=== PATIENT | male | born 1940 | race African-American/Black ===

== ENCOUNTER 2016-04-24 17:01 | Inpatient (IN) | payer MEDICARE ==
[2016-04-24] MEDS ORDERED: IPRATROPIUM/ALBUTEROL 0.5-2.5 MG/3 ML AMPUL NEB ONE ×2 (17:06→17:16)
--- NOTE | 2016-04-24 17:08 | ER Document Report ---
ED Medical Screen (RME) - General Stated Complaint: DIFFICULTY BREATHING Time seen by provider: 17:06 Mode of Arrival: Wheelchair Information source: Patient Notes: 75-year-old male history of COPD in obvious severe respiratory distress with tachypnea, wheezing bilaterally, pulse ox is 87%. He was taken immediately to room 10 and placed on oxygen at 2 Lpm, and DuoNeb started. TRAVEL OUTSIDE OF THE [place] IN LAST 30 DAYS: No - Related Data Allergies/Adverse Reactions: No Known Allergies Allergy (Verified 12/08/15 05:29) Past Medical History Pulmonary Medical History: Reports: Hx Asthma, Hx COPD Past Surgical History: Reports: Hx Orthopedic Surgery - back/rupture disc
[2016-04-24] MEDS ORDERED: ALBUTEROL SULFATE 0.083% NEB 2.5 MG/3 ML AMPUL NEB ONE (17:16)
[2016-04-24] MEDS ORDERED: METHYLPREDNISOLONE INJ 125 MG/2 ML SDV IV ONE (17:16)
[2016-04-24 17:49] LABS: PROTHROMBIN TIME 13.5 SEC (11.4-15.4)
[2016-04-24 17:52] LABS: VENOUS BLOOD BASE EXCESS -2.4 mmol/L; VENOUS BLOOD PCO2 46.9 mmHg (35-63); VENOUS BLOOD PH 7.33 (7.30-7.42)
[2016-04-24 18:03] LABS: ALANINE AMINOTRANSFERASE 30 U/L (21-72); ALBUMIN 4.4 g/dL (3.5-5.0); ALKALINE PHOSPHATASE 104 U/L (38-126); ANION GAP 17 (5-19); ASPARTATE AMINO TRANSFERASE 46 U/L (17-59); BILIRUBIN,TOTAL 1.1 mg/dL (0.2-1.3); BLOOD UREA NITROGEN 17 mg/dL (7-20); CALCIUM 9.9 mg/dL (8.4-10.2); CARBON DIOXIDE 24 mmol/L (22-30); CHLORIDE 100 mmol/L (98-107); CREATINE KINASE 311 U/L (55-170); CREATININE RESULT 0.89 mg/dL (0.52-1.25); GLUCOSE 128 mg/dL (75-110); MAGNESIUM 1.9 mg/dL (1.6-2.3); POTASSIUM 4.3 mmol/L (3.6-5.0); SODIUM 140.9 mmol/L (137-145); TOTAL PROTEIN 8.2 g/dL (6.3-8.2)
[2016-04-24 18:12] LABS: HEMATOCRIT 44.6 % (37.9-51.0); HEMOGLOBIN 14.5 g/dL (13.5-17.0); HGB HCT DIFFERENCE -1.1; MEAN CORPUSCULAR HEMOGLOBIN 30.2 pg (27.0-33.4); MEAN CORPUSCULAR HGB CONC 32.4 g/dL (32.0-36.0); MEAN CORPUSCULAR VOLUME 93 fl (80-97); WHITE BLOOD COUNT 15.3 10^3/uL (4.0-10.5)
[2016-04-24 18:15] LABS: BASOPHILS % (MANUAL) 0 % (0-2); EOSINOPHILS % (MANUAL) 13 % (0-6); LYMPHOCYTES % (MANUAL) 61 % (13-45); TOTAL CELLS COUNTED 100
[2016-04-24 18:16] LABS: RBC MORPHOLOGY COMMENT NORMO-CYTIC/CHROMIC
[2016-04-24 18:27] LABS: CREATINE KINASE MB 2.78 ng/mL (<4.55)
[2016-04-24 18:31] LABS: TROPONIN I < 0.012 ng/mL
[2016-04-24] MEDS ORDERED: NORMAL SALINE 1000 ML 500 ML IV ONE (18:42)
[2016-04-24] MEDS ORDERED: NORMAL SALINE 1000 ML 1,000 ML IV ONE (18:42)
[2016-04-24] MEDS ORDERED: DOXYCYCLINE HYCLATE INJ 100 MG VIAL IV ONE (20:27)
--- NOTE | 2016-04-24 21:02 | ER Document Report ---
ED General - General Chief Complaint: Respiratory Distress Stated Complaint: DIFFICULTY BREATHING Mode of Arrival: Wheelchair TRAVEL OUTSIDE OF THE [place] IN LAST 30 DAYS: No - HPI Patient complains to provider of: respiratory distress difficulty breathing Notes: Patient presents the EMS for respiratory distress difficulty breathing. Upon arrival patient has retractions and accessory muscle use tachypnea tachycardia is able to take his head denying any pain patient has a proximally 2 word dyspnea therefore history of present illness is difficult to obtain this time why can gather patient's short of breath ongoing for last 4-5 days productive cough worse acutely prior to arrival does have history COPD no travel no recent antibiotics no fevers - Related Data Allergies/Adverse Reactions: No Known Allergies Allergy (Verified 04/24/16 17:41) Past Medical History - General Information source: Patient - Social History Smoking Status: Unknown if Ever Smoked Chew tobacco use (# tins/day): No Frequency of alcohol use: None Drug Abuse: None Family History: Reviewed & Not Pertinent Patient has suicidal ideation: No Patient has homicidal ideation: No Pulmonary Medical History: Reports: Hx Asthma, Hx COPD Renal/ Medical History: Denies: Hx Peritoneal Dialysis Past Surgical History: Reports: Hx Orthopedic Surgery - back/rupture disc Review of Systems - Review of Systems -: Yes ROS unobtainable due to patient's medical condition - Patient with respiratory distress Physical Exam - Vital signs Vitals: Pulse Pulse Ox 126 H 92 04/24/16 17:05 04/24/16 17:05 Interpretation: Tachycardic, Tachypneic - General General appearance: Other - Respiratory distress looks uncomfortable In distress: Moderate - HEENT Head: Normocephalic, Atraumatic Eyes: Normal Pupils: PERRL - Respiratory Respiratory status: Respiratory distress - Moderate, Retractions, Tachypnea Chest status: Nontender Breath sounds: Decreased air movement, Wheezing Chest palpation: Normal - Cardiovascular Rhythm: Tachycardia Heart sounds: Normal auscultation Murmur: No - Abdominal Inspection: Normal Distension: No distension Bowel sounds: Normal Tenderness: Nontender Organomegaly: No organomegaly - Back Back: Normal, Nontender - Extremities General upper extremity: Normal inspection, Nontender, Normal color, Normal ROM , Normal temperature General lower extremity: Normal inspection, Nontender, Normal color, Normal ROM , Normal temperature, Normal weight bearing. No: Dalton's sign - Neurological Neuro grossly intact: Yes Cognition: Normal Orientation: AAOx4 [place] Coma Scale Eye Opening: Spontaneous [place] Coma Scale Verbal: Oriented [place] Coma Scale Motor: Obeys Commands [place] Coma Scale Total: 15 Speech: Normal Motor strength normal: LUE, RUE, LLE, RLE Sensory: Normal - Psychological Associated symptoms: Normal affect, Normal mood - Skin Skin Temperature: Warm Skin Moisture: Dry Skin Color: Normal Course - Re-evaluation Re-evalutation: 04/24/16 23:07 Patient is post on BiPAP given nebulizer treatment steroids. Chest x-ray shows has COPD due to the leukocytosis and productive cough will start the patient doxycycline. Patient feeling much better upon reevaluation. No signs of hypercapnia. Patient's case was discussed with covering PCP Dr. Jeffery will admit for further evaluation. - Vital Signs Vital signs: Temp Pulse Resp BP Pulse Ox 98.8 F 118 H 15 130/75 H 100 04/24/16 22:33 04/24/16 17:20 04/24/16 22:33 04/24/16 22:33 04/24/16 22:33 - Laboratory Result Diagrams: 04/24/16 17:10 04/24/16 17:10 Laboratory results interpreted by me: 04/24/16 04/24/16 17:10 17:10 WBC 15.3 H Seg Neuts % (Manual) 22 L Lymphocytes % (Manual) 61 H Eosinophils % (Manual) 13 H Abs Lymphs (Manual) 9.5 H Absolute Eos (Manual) 2.0 H Glucose 128 H Creatine Kinase 311 H Critical Care Note - Critical Care Note Total time excluding time spent on procedures (mins): 40 Comments: Multiple reevaluation patient on BiPAP and respiratory distress Discharge - Discharge Clinical Impression: COPD with acute exacerbation, Respiratory distress, Tachycardia Disposition: ADMITTED INPATIENT Admitting Provider: Lizeth Jeffery Unit Admitted: [facility]
--- NOTE | 2016-04-24 21:48 | EKG REPORT ---
SEVERITY:- ABNORMAL ECG - SINUS TACHYCARDIA PROBABLE LEFT ATRIAL ABNORMALITY LEFT VENTRICULAR HYPERTROPHY ANTERIOR ST ELEVATION, PROBABLY DUE TO LVH : Confirmed by: Krishna Martines MD 24-Apr-2016 21:48:00
[2016-04-24] MEDS ORDERED: BENZONATATE 100 MG CAPSULE PO PRN (22:26)
[2016-04-24] MEDS ORDERED: IPRATROPIUM/ALBUTEROL 120 PUFF/4 GM MDI IH PRN (22:26)
[2016-04-24 22:45] LABS: LIPASE 177.6 U/L (23-300)
[2016-04-24] MEDS ORDERED: BUDESONIDE/FORMOTEROL 160-4.5 MCG 60 PUFF/6 GM MDI IH ONE (23:00)
[2016-04-24] MEDS ORDERED: LEVOFLOXACIN 750 MG/D5W RTU 750 MG/150 ML RTUPB IV ONE (23:00)
[2016-04-24 23:16] LABS: THYROID STIMULATING HORMONE 2.08 uIU/mL (0.47-4.68)
[2016-04-25] MEDS ORDERED: BUDESONIDE/FORMOTEROL 160-4.5 MCG 60 PUFF/6 GM MDI IH ONE ×2 (02:03→17:45)
[2016-04-25] MEDS: METHYLPREDNISOLONE INJ 125 MG/2 ML SDV IV SCH ×3 (02:23→17:16)
[2016-04-25 04:36] LABS: APPEARANCE,URINE CLEAR; BILIRUBIN,URINE NEGATIVE (NEGATIVE); GLUCOSE, URINE NEGATIVE (NEGATIVE); KETONES,URINE 20 mg/dL (NEGATIVE); LEUKOCYTE ESTERASE,URINE NEGATIVE (NEGATIVE); NITRITE,URINE NEGATIVE (NEGATIVE); PROTEIN,URINE NEGATIVE (NEGATIVE); UROBILINOGEN,URINE NEGATIVE mg/dL (<2.0)
[2016-04-25 04:54] LABS: URINE BARBITURATES SCREEN NEGATIVE; URINE METHADONE SCREEN NEGATIVE; URINE PHENCYCLIDINE SCREEN NEGATIVE
[2016-04-25 06:02] LABS: ABSOLUTE LYMPHOCYTES (AUTO) 0.9 10^3/uL (0.5-4.7); ABSOLUTE MONOCYTES (AUTO) 0.1 10^3/uL (0.1-1.4); ABSOLUTE NEUT (AUTO) 4.1 10^3/uL (1.7-8.2); BASOPHILS % (AUTO) 0.4 % (0-2); EOSINOPHILS % (AUTO) 0.1 % (0-6); HEMATOCRIT 38.5 % (37.9-51.0); HGB HCT DIFFERENCE 0.5; LYMPHOCYTES % (AUTO) 16.8 % (13-45); MEAN CORPUSCULAR HGB CONC 33.7 g/dL (32.0-36.0); MEAN CORPUSCULAR VOLUME 92 fl (80-97); MONOCYTES % (AUTO) 1.6 % (3-13); RED CELL DISTRIBUTION WIDTH 13.8 % (11.5-14.0); SEGMENTED NEUTROPHILS % (AUTO) 81.1 % (42-78); WHITE BLOOD COUNT 5.1 10^3/uL (4.0-10.5)
[2016-04-25 06:31] LABS: ALANINE AMINOTRANSFERASE 33 U/L (21-72); ALBUMIN 3.8 g/dL (3.5-5.0); ALKALINE PHOSPHATASE 84 U/L (38-126); ANION GAP 14 (5-19); ASPARTATE AMINO TRANSFERASE 39 U/L (17-59); BILIRUBIN,TOTAL 0.8 mg/dL (0.2-1.3); BLOOD UREA NITROGEN 17 mg/dL (7-20); CALCIUM 9.4 mg/dL (8.4-10.2); CARBON DIOXIDE 22 mmol/L (22-30); CHLORIDE 105 mmol/L (98-107); CREATININE RESULT 0.74 mg/dL (0.52-1.25); Direct HDL 40 mg/dL (>40); GLUCOSE 179 mg/dL (75-110); POTASSIUM 4.6 mmol/L (3.6-5.0); SODIUM 141.1 mmol/L (137-145); TOTAL PROTEIN 6.7 g/dL (6.3-8.2); TRIGLYCERIDES 39 mg/dL (<150)
[2016-04-25 06:43] LABS: DIRECT LDL 115 mg/dL (<100)
[2016-04-25] MEDS: ENOXAPARIN SODIUM INJ 40 MG/0.4 ML DISP.SYRIN SUBCUT SCH (07:56)
[2016-04-25] MEDS: BUDESONIDE/FORMOTEROL 160-4.5 MCG 60 PUFF/6 GM MDI IH SCH ×2 (09:24→22:27)
[2016-04-25] MEDS: DILTIAZEM HCL 180 MG CAPSULE.CR PO SCH (09:24)
[2016-04-25] MEDS: IPRATROPIUM/ALBUTEROL 0.5-2.5 MG/3 ML AMPUL NEB PRN (10:54)
[2016-04-25] MEDS ORDERED: BENZONATATE 100 MG CAPSULE PO PRN (17:02)
[2016-04-25] MEDS ORDERED: (PENDING PHARMACY ID) (Albuterol Sulfate [Proair Respiclick] 2 PUFF) IH PRN (17:02)
[2016-04-25] MEDS ORDERED: (PENDING PHARMACY ID) (Mometasone Furoate [Nasonex] 2 SPRAYS) NS PRN (17:02)
--- NOTE | 2016-04-25 17:29 | PDOC H&P ---
History of Present Illness Admission Date/PCP: 04/24/16 22:29 SOTO LUJAN History of Present Illness: CRISTOBAL BLACK is a 75 year old male, patient of Dr. Lujan, he came to the emergency room because of respiratory distress, shortness of breath, in the emergency room he was evaluated he was found to be using accessory muscles of respiration to breathe. He was treated with noninvasive positive pressure ventilation, BiPAP machine. When I saw patient was a short of breath, CTA chest was done without contrast. This showed a clear left lung. There was mild scarring in the right middle lobe which is much improved from there is minimal patchy nodular area has a persistent infiltrate in the right upper lobe and the right lower lobe Past Medical History Pulmonary Medical History: Reports: Asthma, Chronic Obstructive Pulmonary Disease (COPD) Psychiatric Medical History: Reports: Depression Past Surgical History Past Surgical History: Reports: Orthopedic Surgery - back/rupture disc Social History Information Source: Patient Smoking Status: Former Smoker Last Time Smoked: 04-04-1966 Frequency of Alcohol Use: None Hx Recreational Drug Use: No Hx Prescription Drug Abuse: No - Advance Directive Resuscitation Status: Full Code Family History Family History: Reviewed & Not Pertinent Parental Family History Reviewed: Yes Children Family History Reviewed: Yes Sibling(s) Family History Reviewed.: Yes Medication/Allergy Home Medications: Albuterol Sulfate [Proair Respiclick] 2 puff IH Q4HP PRN 04/25/16 Benzonatate [Tessalon Perles 100 mg Capsule] 100 mg PO Q8HP PRN 04/25/16 Budesonide/Formoterol Fumarate [Symbicort Hfa 160-4.5 Mcg Inhaler 6 gm] 2 puff IH Q12 04/25/16 Megestrol Acetate [Megace] 400 mg PO BID 04/25/16 Mometasone Furoate [Nasonex] 2 sprays NS DAILYP PRN 04/25/16 Allergies/Adverse Reactions: No Known Allergies Allergy (Verified 04/24/16 17:41) Review of Systems Constitutional: PRESENT: chills Eyes: ABSENT: visual disturbances Ears: ABSENT: hearing changes Cardiovascular: ABSENT: chest pain, dyspnea on exertion, edema, orthropnea, palpitations Respiratory: PRESENT: cough Gastrointestinal: ABSENT: abdominal pain, constipation, diarrhea, hematemesis, hematochezia, nausea, vomiting Genitourinary: ABSENT: dysuria, hematuria Musculoskeletal: ABSENT: joint swelling Integumentary: ABSENT: rash, wounds Neurological: ABSENT: abnormal gait, abnormal speech, confusion, dizziness, focal weakness, syncope Psychiatric: ABSENT: anxiety, depression, homidical ideation, suicidal ideation Endocrine: ABSENT: cold intolerance, heat intolerance, menstrual abnormalities, polydipsia, polyuria Hematologic/Lymphatic: ABSENT: easy bleeding, easy bruising, lymphadenopathy Physical Exam Vital Signs: Temp Pulse Resp BP Pulse Ox 98.1 F 102 H 19 112/64 100 04/25/16 15:53 04/25/16 15:53 04/25/16 15:53 04/25/16 15:53 04/25/16 15:53 Intake & Output 04/24/16 04/25/16 04/26/16 06:59 06:59 06:59 Intake Total 300 418 Output Total 375 425 Balance -75 -7 Weight 64.4 kg General appearance: PRESENT: severe distress Head exam: PRESENT: atraumatic, normocephalic Ear exam: PRESENT: normal external ear exam Mouth exam: PRESENT: moist, tongue midline Neck exam: PRESENT: full ROM Respiratory exam: PRESENT: wheezes Cardiovascular exam: PRESENT: RRR, +S1, +S2 Vascular exam: PRESENT: normal capillary refill GI/Abdominal exam: PRESENT: normal bowel sounds, soft Rectal exam: PRESENT: deferred Neurological exam: PRESENT: alert, awake, oriented to person, oriented to place , oriented to time, oriented to situation, CN II-XII grossly intact Psychiatric exam: PRESENT: appropriate affect, normal mood Skin exam: PRESENT: dry, intact, warm Results Laboratory Results: 04/25/16 05:47 04/25/16 05:47 04/24/16 04/25/16 04/25/16 22:32 01:00 05:47 WBC 5.1 RBC 4.20 L Hgb 13.0 L Hct 38.5 MCV 92 MCH 31.0 MCHC 33.7 RDW 13.8 Plt Count 181 Seg Neutrophils % 81.1 H Lymphocytes % 16.8 Monocytes % 1.6 L Eosinophils % 0.1 Basophils % 0.4 Absolute Neutrophils 4.1 Absolute Lymphocytes 0.9 Absolute Monocytes 0.1 Absolute Eosinophils 0.0 Absolute Basophils 0.0 Sodium Potassium Chloride Carbon Dioxide Anion Gap BUN Creatinine Est GFR ( Amer) Est GFR (Non-Af Amer) Glucose Lactic Acid 0.8 Calcium Total Bilirubin AST ALT Alkaline Phosphatase Total Protein Albumin Triglycerides Cholesterol LDL Cholesterol Direct VLDL Cholesterol HDL Cholesterol Urine Color YELLOW Urine Appearance CLEAR Urine pH 5.0 Ur Specific Watkins 1.010 Urine Protein NEGATIVE Urine Glucose (UA) NEGATIVE Urine Ketones 20 H Urine Blood NEGATIVE Urine Nitrite NEGATIVE Ur Leukocyte Esterase NEGATIVE Urine WBC (Auto) 1 04/25/16 05:47 WBC RBC Hgb Hct MCV MCH MCHC RDW Plt Count Seg Neutrophils % Lymphocytes % Monocytes % Eosinophils % Basophils % Absolute Neutrophils Absolute Lymphocytes Absolute Monocytes Absolute Eosinophils Absolute Basophils Sodium 141.1 Potassium 4.6 Chloride 105 Carbon Dioxide 22 Anion Gap 14 BUN 17 Creatinine 0.74 Est GFR ( Amer) > 60 Est GFR (Non-Af Amer) > 60 Glucose 179 H Lactic Acid Calcium 9.4 Total Bilirubin 0.8 AST 39 ALT 33 Alkaline Phosphatase 84 Total Protein 6.7 Albumin 3.8 Triglycerides 39 Cholesterol 166.60 LDL Cholesterol Direct 115 H VLDL Cholesterol 8.0 L HDL Cholesterol 40 Urine Color Urine Appearance Urine pH Ur Specific Watkins Urine Protein Urine Glucose (UA) Urine Ketones Urine Blood Urine Nitrite Ur Leukocyte Esterase Urine WBC (Auto) 04/24/16 22:32 Troponin I 0.175 Impressions: Chest X-Ray 04/24/16 17:16 IMPRESSION: Findings suggestive obstructive airway disease. Chronic mild parenchymal changes noted in both lung bases. No focal opacities. Chest CT 04/25/16 00:00 IMPRESSION: Much improved, as above. Right middle lobe cyst no longer identified. Areas of nodular infiltrate are much improved. Assessment & Plan - Diagnosis (1) Chronic obstructive pulmonary disease with (acute) exacerbation Is this a current diagnosis for this admission?: YesPlan: Patient is admitted for management of acute COPD exacerbation
[2016-04-25] MEDS: MEGESTROL ACETATE SUSP 400 MG/10 ML UDCUP PO SCH (17:41)
[2016-04-25] MEDS ORDERED: FLUTICASONE NASAL SPRAY 50 MCG/SPRY 120 SPRAY/16 GM NASL PRN ×2 (21:56→22:00)
[2016-04-25] MEDS: LEVOFLOXACIN 750 MG/D5W RTU 750 MG/150 ML RTUPB IV SCH (22:27)
[2016-04-26] MEDS: METHYLPREDNISOLONE INJ 125 MG/2 ML SDV IV SCH ×2 (02:54→10:02)
[2016-04-26 05:55] LABS: ABSOLUTE MONOCYTES (AUTO) 0.3 10^3/uL (0.1-1.4); ABSOLUTE NEUT (AUTO) 12.1 10^3/uL (1.7-8.2); BASOPHILS % (AUTO) 0.2 % (0-2); EOSINOPHILS % (AUTO) 0.1 % (0-6); HEMATOCRIT 39.7 % (37.9-51.0); HEMOGLOBIN 12.7 g/dL (13.5-17.0); HGB HCT DIFFERENCE -1.6; LYMPHOCYTES % (AUTO) 7.2 % (13-45); MEAN CORPUSCULAR HEMOGLOBIN 29.8 pg (27.0-33.4); MEAN CORPUSCULAR HGB CONC 31.9 g/dL (32.0-36.0); MEAN CORPUSCULAR VOLUME 94 fl (80-97); MONOCYTES % (AUTO) 2.3 % (3-13); RED BLOOD COUNT 4.24 10^6/uL (4.35-5.55); RED CELL DISTRIBUTION WIDTH 14.1 % (11.5-14.0); SEGMENTED NEUTROPHILS % (AUTO) 90.2 % (42-78)
[2016-04-26 06:13] LABS: WHITE BLOOD COUNT 13.4 10^3/uL (4.0-10.5)
[2016-04-26 07:41] LABS: ALBUMIN 3.3 g/dL (3.5-5.0); ALKALINE PHOSPHATASE 74 U/L (38-126); ANION GAP 9 (5-19); ASPARTATE AMINO TRANSFERASE 45 U/L (17-59); BILIRUBIN,TOTAL 0.6 mg/dL (0.2-1.3); BLOOD UREA NITROGEN 23 mg/dL (7-20); CALCIUM 9.3 mg/dL (8.4-10.2); CARBON DIOXIDE 27 mmol/L (22-30); CHLORIDE 105 mmol/L (98-107); CREATININE RESULT 0.84 mg/dL (0.52-1.25); GLUCOSE 168 mg/dL (75-110); POTASSIUM 4.1 mmol/L (3.6-5.0); SODIUM 140.9 mmol/L (137-145); TOTAL PROTEIN 6.5 g/dL (6.3-8.2)
[2016-04-26 08:27] LABS: ALANINE AMINOTRANSFERASE 30 U/L (21-72)
[2016-04-26] MEDS ORDERED: ALBUTEROL SULFATE HFA (90 MCG/PUFF) 200 PUFF/8.5 GM MDI IH PRN (09:04)
[2016-04-26] MEDS ORDERED: BUDESONIDE/FORMOTEROL 160-4.5 MCG 60 PUFF/6 GM MDI IH SCH (10:00)
[2016-04-26] MEDS: DILTIAZEM HCL 180 MG CAPSULE.CR PO SCH (10:02)
[2016-04-26] MEDS: MEGESTROL ACETATE SUSP 400 MG/10 ML UDCUP PO SCH ×2 (10:03→18:38)
[2016-04-26] MEDS: BUDESONIDE/FORMOTEROL 160-4.5 MCG 60 PUFF/6 GM MDI IH SCH ×2 (10:03→23:11)
[2016-04-26] MEDS: ENOXAPARIN SODIUM INJ 40 MG/0.4 ML DISP.SYRIN SUBCUT SCH (10:11)
[2016-04-26] MEDS: IPRATROPIUM/ALBUTEROL 0.5-2.5 MG/3 ML AMPUL NEB PRN (16:15)
--- NOTE | 2016-04-26 18:05 | PDOC PROGRESS REPORT ---
Subjective Progress Note for:: 04/26/16 Subjective:: Patient reported comparative improvement in his breathing since admission. Denied chest pain. No nausea or vomiting. Tolerating oral feeding. Patient reported poor appetite and po intake prior to admission and inability to procure prescribed megace due to insurance coverage denial. He remain on IV Levofloxacin and Solu Medrol therapy along with bronchodilator therapy. Physical Exam Vital Signs: Temp Pulse Resp BP Pulse Ox 98.6 F 100 18 147/68 H 99 04/26/16 15:53 04/26/16 16:15 04/26/16 16:15 04/26/16 15:53 04/26/16 16:15 Intake & Output 04/25/16 04/26/16 04/27/16 06:59 06:59 06:59 Intake Total 300 1871 480 Output Total 375 1725 650 Balance -75 146 -170 Weight 64.4 kg 64 kg General appearance: PRESENT: no acute distress, cooperative Head exam: PRESENT: atraumatic, normocephalic Eye exam: PRESENT: conjunctiva pink, EOMI, other - right eye corneal opacification. Mouth exam: PRESENT: moist Respiratory exam: PRESENT: crackles - scattered, decreased breath sounds - at lung bases, rhonchi - expiratory phase Cardiovascular exam: PRESENT: RRR. ABSENT: diastolic murmur, rubs, systolic murmur GI/Abdominal exam: PRESENT: normal bowel sounds, soft. ABSENT: distended, guarding, mass, organolmegaly, rebound, tenderness Extremities exam: PRESENT: full ROM Musculoskeletal exam: PRESENT: deformity - due to arthritis changes, full ROM Neurological exam: PRESENT: alert, oriented to person, oriented to place, oriented to time, motor sensory deficit Psychiatric exam: PRESENT: appropriate affect, normal mood. ABSENT: homicidal ideation, suicidal ideation Skin exam: PRESENT: dry, warm. ABSENT: abrasion, cyanosis, erythema, intact, jaundice, mottled, normal color, pallor, petechiae, rash, skin tears, urticaria , vesicles, other Results Laboratory Results: 04/26/16 05:24 04/26/16 06:59 04/26/16 04/26/16 04/26/16 05:24 05:29 06:59 WBC 13.4 H D RBC 4.24 L Hgb 12.7 L Hct 39.7 MCV 94 MCH 29.8 MCHC 31.9 L RDW 14.1 H Plt Count 155 Seg Neutrophils % 90.2 H Lymphocytes % 7.2 L Monocytes % 2.3 L Eosinophils % 0.1 Basophils % 0.2 Absolute Neutrophils 12.1 H Absolute Lymphocytes 1.0 Absolute Monocytes 0.3 Absolute Eosinophils 0.0 Absolute Basophils 0.0 Sodium Cancelled 140.9 Potassium Cancelled 4.1 Chloride Cancelled 105 Carbon Dioxide Cancelled 27 Anion Gap Cancelled 9 BUN Cancelled 23 H Creatinine Cancelled 0.84 Est GFR ( Amer) Cancelled > 60 Est GFR (Non-Af Amer) Cancelled > 60 Glucose Cancelled 168 H Calcium Cancelled 9.3 Total Bilirubin Cancelled 0.6 AST Cancelled 45 ALT Cancelled 30 Alkaline Phosphatase Cancelled 74 Total Protein Cancelled 6.5 Albumin Cancelled 3.3 L 04/25/16 10:10 Sputum Gram Stain - Final 04/25/16 10:10 Sputum Sputum Culture - Final 04/24/16 22:32 Troponin I 0.175 Impressions: Chest X-Ray 04/24/16 17:16 IMPRESSION: Findings suggestive obstructive airway disease. Chronic mild parenchymal changes noted in both lung bases. No focal opacities. Chest CT 04/25/16 00:00 IMPRESSION: Much improved, as above. Right middle lobe cyst no longer identified. Areas of nodular infiltrate are much improved. Assessment & Plan - Diagnosis (1) COPD with acute exacerbation Is this a current diagnosis for this admission?: Yes (2) Generalized osteoarthrosis, involving multiple sites Is this a current diagnosis for this admission?: Yes (3) Protein-calorie malnutrition, mild Is this a current diagnosis for this admission?: YesPlan: I will decrease IV solu medrol due to associated worsening leukocytosis, probably due to steroid usage. Continue on all other current medication management. - Time Time Spent with patient: 25-34 minutes Medications reviewed and adjusted accordingly: Yes Anticipated discharge: Home with Homehealth Within: Other - Inpatient Certification Based on my medical assessment, after consideration of the patient's comorbidities, presenting symptoms, or acuity I expect that the services needed warrant INPATIENT care.: Yes I certify that my determination is in accordance with my understanding of Medicare's requirements for reasonable and necessary INPATIENT services [42 CFR 412.3e].: Yes Medical Necessity: Need For IV Fluids, Need For Continuous Telemetry Monitoring , Need for Nebulizer Therapy and Monitoring of Response, Need for IV Antibiotics , Risk of Complication if Not Cared For in Hospital Post Hospital Care: D/C Knockout Man Documentation - Plan Summary Plan Summary: See attending orders.
[2016-04-26] MEDS ORDERED: METHYLPREDNISOLONE INJ 125 MG/2 ML SDV IV ONE (18:30)
[2016-04-26] MEDS: LEVOFLOXACIN 750 MG/D5W RTU 750 MG/150 ML RTUPB IV SCH (23:10)
[2016-04-27] MEDS: IPRATROPIUM/ALBUTEROL 0.5-2.5 MG/3 ML AMPUL NEB PRN ×2 (00:52→11:15)
[2016-04-27] MEDS: METHYLPREDNISOLONE INJ 125 MG/2 ML SDV IV SCH ×3 (01:19→18:27)
[2016-04-27 06:39] LABS: HEMATOCRIT 38.8 % (37.9-51.0); HGB HCT DIFFERENCE 0.2; MEAN CORPUSCULAR HEMOGLOBIN 30.6 pg (27.0-33.4); MEAN CORPUSCULAR HGB CONC 33.6 g/dL (32.0-36.0); MEAN CORPUSCULAR VOLUME 91 fl (80-97); RED BLOOD COUNT 4.25 10^6/uL (4.35-5.55); RED CELL DISTRIBUTION WIDTH 13.7 % (11.5-14.0); WHITE BLOOD COUNT 12.3 10^3/uL (4.0-10.5)
[2016-04-27 06:43] LABS: ALANINE AMINOTRANSFERASE 42 U/L (21-72); ALBUMIN 3.3 g/dL (3.5-5.0); ALKALINE PHOSPHATASE 81 U/L (38-126); ANION GAP 9 (5-19); ASPARTATE AMINO TRANSFERASE 34 U/L (17-59); BILIRUBIN,TOTAL 0.5 mg/dL (0.2-1.3); BLOOD UREA NITROGEN 20 mg/dL (7-20); CARBON DIOXIDE 31 mmol/L (22-30); CHLORIDE 103 mmol/L (98-107); CREATININE RESULT 0.75 mg/dL (0.52-1.25); GLUCOSE 167 mg/dL (75-110); POTASSIUM 3.7 mmol/L (3.6-5.0); SODIUM 142.5 mmol/L (137-145)
[2016-04-27 07:32] LABS: BASOPHILS % (MANUAL) 0 % (0-2); EOSINOPHILS % (MANUAL) 0 % (0-6); HYPOCHROMASIA SLIGHT; LYMPHOCYTES % (MANUAL) 8 % (13-45); POLYCHROMASIA SLIGHT; TOTAL CELLS COUNTED 100
[2016-04-27] MEDS ORDERED: LEVOFLOXACIN 750 MG TABLET PO SCH (10:00)
--- NOTE | 2016-04-27 12:17 | PDOC PROGRESS REPORT ---
Subjective Progress Note for:: 04/27/16 Subjective:: Patient reported minimal wheezing so far today. Denied chest pain. No nausea or vomiting. Tolerating oral feeding. He remain on IV Levofloxacin, IV Solu Medrol and bronchodilator therapy. Physical Exam Vital Signs: Temp Pulse Resp BP Pulse Ox 98.3 F 110 H 16 135/74 H 95 04/27/16 07:42 04/27/16 11:15 04/27/16 11:15 04/27/16 07:42 04/27/16 11:15 Intake & Output 04/26/16 04/27/16 04/28/16 06:59 06:59 06:59 Intake Total 1871 1972 Output Total 1725 2425 Balance 146 -453 Weight 64 kg 64.2 kg General appearance: PRESENT: no acute distress Head exam: PRESENT: atraumatic, normocephalic Eye exam: PRESENT: conjunctiva pink, EOMI, other - right corneal opacification Mouth exam: PRESENT: moist Respiratory exam: PRESENT: decreased breath sounds - at lung bases, rhonchi - with end expiratory phase bilaterally. ABSENT: accessory muscle use, chest wall tenderness, clear to auscultation silvina, crackles, prolonged expiratory phas , rales, retraction, stridor, symmetrical, tachypnea, unlabored, wheezes, other Cardiovascular exam: PRESENT: tachycardia. ABSENT: bradycardia, clicks, diastolic murmur, gallop, irregular rhythm, RRR, rubs, +S1, +S2, systolic murmur , other GI/Abdominal exam: PRESENT: normal bowel sounds, soft. ABSENT: distended, guarding, mass, organolmegaly, rebound, tenderness Extremities exam: PRESENT: full ROM Musculoskeletal exam: PRESENT: deformity - due to multiple joints involvement with arthritis Neurological exam: PRESENT: alert, awake, oriented to person, oriented to place , oriented to time, oriented to situation, CN II-XII grossly intact. ABSENT: motor sensory deficit Psychiatric exam: PRESENT: appropriate affect, normal mood. ABSENT: homicidal ideation, suicidal ideation Skin exam: PRESENT: dry, warm. ABSENT: abrasion, cyanosis, erythema, intact, jaundice, mottled, normal color, pallor, petechiae, rash, skin tears, urticaria , vesicles, other Results Laboratory Results: 04/27/16 05:30 04/27/16 05:30 04/27/16 04/27/16 05:30 05:30 WBC 12.3 H RBC 4.25 L Hgb 13.0 L Hct 38.8 MCV 91 MCH 30.6 MCHC 33.6 RDW 13.7 Plt Count 156 Seg Neutrophils % Not Reportable Lymphocytes % Not Reportable Monocytes % Not Reportable Eosinophils % Not Reportable Basophils % Not Reportable Absolute Neutrophils Not Reportable Absolute Lymphocytes Not Reportable Absolute Monocytes Not Reportable Absolute Eosinophils Not Reportable Absolute Basophils Not Reportable Sodium 142.5 Potassium 3.7 Chloride 103 Carbon Dioxide 31 H Anion Gap 9 BUN 20 Creatinine 0.75 Est GFR ( Amer) > 60 Est GFR (Non-Af Amer) > 60 Glucose 167 H Calcium 9.0 Total Bilirubin 0.5 AST 34 ALT 42 Alkaline Phosphatase 81 Total Protein 6.0 L Albumin 3.3 L 04/25/16 01:00 Clean Catch Midstream Urine Culture - Final NO GROWTH 2 DAYS 04/25/16 10:10 Sputum Gram Stain - Final 04/25/16 10:10 Sputum Sputum Culture - Final 04/24/16 22:32 Troponin I 0.175 Impressions: Chest X-Ray 04/24/16 17:16 IMPRESSION: Findings suggestive obstructive airway disease. Chronic mild parenchymal changes noted in both lung bases. No focal opacities. Chest CT 04/25/16 00:00 IMPRESSION: Much improved, as above. Right middle lobe cyst no longer identified. Areas of nodular infiltrate are much improved. Assessment & Plan - Diagnosis (1) COPD with acute exacerbation Is this a current diagnosis for this admission?: YesPlan: Decrease IV Solu Medrol to 80 mg [id number]. Maintain on all other current medication management. (2) Generalized osteoarthrosis, involving multiple sites Is this a current diagnosis for this admission?: Yes (3) Protein-calorie malnutrition, mild Is this a current diagnosis for this admission?: YesPlan: Decrease dose to 400 mg p.o daily. (4) Tachycardia Is this a current diagnosis for this admission?: YesPlan: Probably related to patient's hypoxemia but not adequately controlled on current dose of Cardizem. I will increase dosage to 120 mg p.o q12 hours. - Time Time Spent with patient: 25-34 minutes Medications reviewed and adjusted accordingly: Yes Anticipated discharge: SNF - for short term rehabilitation Within: Other - Inpatient Certification Based on my medical assessment, after consideration of the patient's comorbidities, presenting symptoms, or acuity I expect that the services needed warrant INPATIENT care.: Yes I certify that my determination is in accordance with my understanding of Medicare's requirements for reasonable and necessary INPATIENT services [42 CFR 412.3e].: Yes Medical Necessity: Need Close Monitoring Due to Risk of Patient Decompensation, Need For IV Fluids, Need For Continuous Telemetry Monitoring, Need for Nebulizer Therapy and Monitoring of Response, Need for IV Antibiotics, Risk of Complication if Not Cared For in Hospital Post Hospital Care: D/C or Transfer Summary - Plan Summary Plan Summary: see attending physician orders.
[2016-04-27] MEDS: BUDESONIDE/FORMOTEROL 160-4.5 MCG 60 PUFF/6 GM MDI IH SCH ×2 (12:55→22:17)
[2016-04-27] MEDS: ENOXAPARIN SODIUM INJ 40 MG/0.4 ML DISP.SYRIN SUBCUT SCH (13:09)
[2016-04-27] MEDS: DILTIAZEM HCL 120 MG CAP.SR.24H PO SCH (22:17)
[2016-04-27] MEDS: LEVOFLOXACIN 750 MG TABLET PO SCH (22:17)
[2016-04-28] MEDS: METHYLPREDNISOLONE INJ 125 MG/2 ML SDV IV SCH ×3 (01:54→21:32)
[2016-04-28] MEDS: MEGESTROL ACETATE SUSP 400 MG/10 ML UDCUP PO SCH (10:45)
[2016-04-28] MEDS: DILTIAZEM HCL 120 MG CAP.SR.24H PO SCH (10:45)
[2016-04-28] MEDS: ENOXAPARIN SODIUM INJ 40 MG/0.4 ML DISP.SYRIN SUBCUT SCH (10:46)
[2016-04-28] MEDS: BUDESONIDE/FORMOTEROL 160-4.5 MCG 60 PUFF/6 GM MDI IH SCH ×2 (10:46→21:31)
--- NOTE | 2016-04-28 13:39 | PDOC PROGRESS REPORT ---
Subjective Progress Note for:: 04/28/16 Subjective:: No chest pain. Breathing is getting better comparatively. No nausea or vomiting. Patient reported occasional epigastric region discomfort and reflux. Tolerating oral feeding. He remain on Levofloxacin, IV Solu Medrol and bronchodilators therapy. Physical Exam Vital Signs: Temp Pulse Resp BP Pulse Ox 98.4 F 103 H 18 136/75 H 100 04/28/16 08:18 04/28/16 08:18 04/28/16 08:18 04/28/16 08:18 04/28/16 08:18 Intake & Output 04/27/16 04/28/16 04/29/16 06:59 06:59 06:59 Intake Total 1971 2059 Output Total 2424 2024 Balance -453 35 Weight 64.2 kg 63.8 kg General appearance: PRESENT: no acute distress Head exam: PRESENT: atraumatic, normocephalic Eye exam: PRESENT: conjunctiva pink, other - right corneal opacification Mouth exam: PRESENT: moist Respiratory exam: PRESENT: rhonchi - end expiratory phase, wheezes - end expiratory phase Cardiovascular exam: PRESENT: tachycardia. ABSENT: bradycardia, clicks, diastolic murmur, gallop, irregular rhythm, RRR, rubs, +S1, +S2, systolic murmur , other GI/Abdominal exam: PRESENT: normal bowel sounds, soft. ABSENT: distended, guarding, mass, organolmegaly, rebound, tenderness Extremities exam: PRESENT: full ROM Musculoskeletal exam: PRESENT: deformity - due to multiple joints arthritis involvement Neurological exam: PRESENT: alert, awake, oriented to person, oriented to place , oriented to time, oriented to situation, CN II-XII grossly intact. ABSENT: motor sensory deficit Psychiatric exam: PRESENT: appropriate affect, normal mood. ABSENT: homicidal ideation, suicidal ideation Skin exam: PRESENT: dry, intact, warm. ABSENT: cyanosis, rash Results Laboratory Results: 04/27/16 05:30 04/27/16 05:30 04/25/16 01:00 Clean Catch Midstream Urine Culture - Final NO GROWTH 2 DAYS 04/24/16 22:32 Troponin I 0.175 Impressions: Chest X-Ray 04/24/16 17:16 IMPRESSION: Findings suggestive obstructive airway disease. Chronic mild parenchymal changes noted in both lung bases. No focal opacities. Chest CT 04/25/16 00:00 IMPRESSION: Much improved, as above. Right middle lobe cyst no longer identified. Areas of nodular infiltrate are much improved. Assessment & Plan - Diagnosis (1) COPD with acute exacerbation Is this a current diagnosis for this admission?: YesPlan: Decrease IV Solu Medrol to 40 mg [id number]. Maintain on all other current medication management. (2) Generalized osteoarthrosis, involving multiple sites Is this a current diagnosis for this admission?: Yes (3) Protein-calorie malnutrition, mild Is this a current diagnosis for this admission?: Yes (4) Tachycardia Is this a current diagnosis for this admission?: YesPlan: I will increase Cardizem CD dosage to 180 mg p.o q12 hours. - Time Time Spent with patient: 25-34 minutes Medications reviewed and adjusted accordingly: Yes Anticipated discharge: Home with Homehealth - Patient insist on going home to his nephew upon discharge. 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
[2016-04-28] MEDS ORDERED: METHYLPREDNISOLONE INJ 125 MG/2 ML SDV IV ONE (15:00)
[2016-04-28] MEDS: DILTIAZEM HCL 180 MG CAPSULE.CR PO SCH (21:32)
[2016-04-28] MEDS: LEVOFLOXACIN 750 MG TABLET PO SCH (21:32)
[2016-04-29 05:57] LABS: ABSOLUTE LYMPHOCYTES (AUTO) 0.6 10^3/uL (0.5-4.7); ABSOLUTE MONOCYTES (AUTO) 0.2 10^3/uL (0.1-1.4); ABSOLUTE NEUT (AUTO) 8.1 10^3/uL (1.7-8.2); BASOPHILS % (AUTO) 0.1 % (0-2); HEMATOCRIT 42.1 % (37.9-51.0); HEMOGLOBIN 13.9 g/dL (13.5-17.0); HGB HCT DIFFERENCE -0.4; LYMPHOCYTES % (AUTO) 7.1 % (13-45); MEAN CORPUSCULAR HEMOGLOBIN 30.4 pg (27.0-33.4); MEAN CORPUSCULAR VOLUME 92 fl (80-97); MONOCYTES % (AUTO) 2.5 % (3-13); RED BLOOD COUNT 4.58 10^6/uL (4.35-5.55); RED CELL DISTRIBUTION WIDTH 13.7 % (11.5-14.0); SEGMENTED NEUTROPHILS % (AUTO) 90.3 % (42-78)
[2016-04-29] MEDS: METHYLPREDNISOLONE INJ 125 MG/2 ML SDV IV SCH ×3 (06:12→22:59)
[2016-04-29 06:21] LABS: ALANINE AMINOTRANSFERASE 38 U/L (21-72); ALKALINE PHOSPHATASE 74 U/L (38-126); ANION GAP 12 (5-19); ASPARTATE AMINO TRANSFERASE 30 U/L (17-59); BILIRUBIN,TOTAL 0.8 mg/dL (0.2-1.3); BLOOD UREA NITROGEN 31 mg/dL (7-20); CALCIUM 9.1 mg/dL (8.4-10.2); CARBON DIOXIDE 30 mmol/L (22-30); CHLORIDE 97 mmol/L (98-107); CREATININE RESULT 0.87 mg/dL (0.52-1.25); GLUCOSE 178 mg/dL (75-110); POTASSIUM 3.8 mmol/L (3.6-5.0); SODIUM 138.8 mmol/L (137-145)
[2016-04-29] MEDS: ENOXAPARIN SODIUM INJ 40 MG/0.4 ML DISP.SYRIN SUBCUT SCH (07:58)
[2016-04-29] MEDS: MEGESTROL ACETATE SUSP 400 MG/10 ML UDCUP PO SCH (09:45)
[2016-04-29] MEDS: BUDESONIDE/FORMOTEROL 160-4.5 MCG 60 PUFF/6 GM MDI IH SCH ×2 (09:45→22:59)
[2016-04-29] MEDS: DILTIAZEM HCL 180 MG CAPSULE.CR PO SCH ×2 (09:46→22:59)
--- NOTE | 2016-04-29 19:00 | PDOC PROGRESS REPORT ---
Subjective Progress Note for:: 04/29/16 Subjective:: No chest pain. Patient reported improvement in his breathing. No nausea, vomiting, or abdominal pain. Tolerating oral feeding. He remain on oral Levofloxacin, IV Solu Medrol and bronchodilators therapy. Physical Exam Vital Signs: Temp Pulse Resp BP Pulse Ox 98.0 F 92 18 133/76 H 95 04/29/16 15:28 04/29/16 15:28 04/29/16 15:28 04/29/16 15:28 04/29/16 15:28 Intake & Output 04/28/16 04/29/16 04/30/16 06:59 06:59 06:59 Intake Total 2059 176 770 Output Total 2024 2825 575 Balance 35 -1065 195 Weight 63.8 kg 64.7 kg General appearance: PRESENT: no acute distress Head exam: PRESENT: atraumatic, normocephalic Eye exam: PRESENT: conjunctiva pink, EOMI Mouth exam: PRESENT: moist Respiratory exam: ABSENT: accessory muscle use, chest wall tenderness, clear to auscultation silvina, crackles, decreased breath sounds, prolonged expiratory phas, rales, retraction, rhonchi, stridor, symmetrical, tachypnea, unlabored, wheezes , other Cardiovascular exam: PRESENT: RRR. ABSENT: diastolic murmur, rubs, systolic murmur GI/Abdominal exam: PRESENT: normal bowel sounds, soft. ABSENT: distended, guarding, mass, organolmegaly, rebound, tenderness Extremities exam: PRESENT: full ROM Musculoskeletal exam: PRESENT: deformity - related to arthritis joint involvement, full ROM Neurological exam: PRESENT: alert, awake, oriented to person, oriented to place , oriented to time, oriented to situation, CN II-XII grossly intact. ABSENT: motor sensory deficit Psychiatric exam: PRESENT: appropriate affect, normal mood. ABSENT: homicidal ideation, suicidal ideation Skin exam: PRESENT: dry, intact, warm. ABSENT: cyanosis, rash Results Laboratory Results: 04/29/16 04:46 04/29/16 04:46 04/29/16 04/29/16 04:46 04:46 WBC 9.0 RBC 4.58 Hgb 13.9 Hct 42.1 MCV 92 MCH 30.4 MCHC 33.0 RDW 13.7 Plt Count 174 Seg Neutrophils % 90.3 H Lymphocytes % 7.1 L Monocytes % 2.5 L Eosinophils % 0.0 Basophils % 0.1 Absolute Neutrophils 8.1 Absolute Lymphocytes 0.6 Absolute Monocytes 0.2 Absolute Eosinophils 0.0 Absolute Basophils 0.0 Sodium 138.8 Potassium 3.8 Chloride 97 L Carbon Dioxide 30 Anion Gap 12 BUN 31 H Creatinine 0.87 Est GFR ( Amer) > 60 Est GFR (Non-Af Amer) > 60 Glucose 178 H Calcium 9.1 Total Bilirubin 0.8 AST 30 ALT 38 Alkaline Phosphatase 74 Total Protein 6.0 L Albumin 3.0 L 04/24/16 22:32 Troponin I 0.175 Impressions: Chest X-Ray 04/24/16 17:16 IMPRESSION: Findings suggestive obstructive airway disease. Chronic mild parenchymal changes noted in both lung bases. No focal opacities. Chest CT 04/25/16 00:00 IMPRESSION: Much improved, as above. Right middle lobe cyst no longer identified. Areas of nodular infiltrate are much improved. Assessment & Plan - Diagnosis (1) COPD with acute exacerbation Is this a current diagnosis for this admission?: YesPlan: D/C IV Solu Medrol. Start on Prednisone 10mg p.o daily. Maintain on all other current medication management. (2) Generalized osteoarthrosis, involving multiple sites Is this a current diagnosis for this admission?: Yes (3) Protein-calorie malnutrition, mild Is this a current diagnosis for this admission?: Yes (4) Tachycardia Is this a current diagnosis for this admission?: YesPlan: Single episode of non-sustained ventricular tachycardia on diagnostic cardiac sonographer earlier this morning. Maintain on Cardizem CD 180 mg p.o q12 hours. - Time Time Spent with patient: 25-34 minutes Medications reviewed and adjusted accordingly: Yes Anticipated discharge: Home Within: within 24 hours - Inpatient Certification Based on my medical assessment, after consideration of the patient's comorbidities, presenting symptoms, or acuity I expect that the services needed warrant INPATIENT care.: Yes I certify that my determination is in accordance with my understanding of Medicare's requirements for reasonable and necessary INPATIENT services [42 CFR 412.3e].: Yes Medical Necessity: Need Close Monitoring Due to Risk of Patient Decompensation, Need For Continuous Telemetry Monitoring, Need for Nebulizer Therapy and Monitoring of Response 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
[2016-04-29] MEDS: LEVOFLOXACIN 750 MG TABLET PO SCH (23:01)
[2016-04-30] MEDS: METHYLPREDNISOLONE INJ 125 MG/2 ML SDV IV SCH ×2 (06:08→14:45)
[2016-04-30] MEDS: MEGESTROL ACETATE SUSP 400 MG/10 ML UDCUP PO SCH (09:24)
[2016-04-30] MEDS: BUDESONIDE/FORMOTEROL 160-4.5 MCG 60 PUFF/6 GM MDI IH SCH (09:24)
[2016-04-30] MEDS: ENOXAPARIN SODIUM INJ 40 MG/0.4 ML DISP.SYRIN SUBCUT SCH (09:24)
[2016-04-30] MEDS: DILTIAZEM HCL 180 MG CAPSULE.CR PO SCH (09:24)
--- NOTE | 2016-04-30 16:44 | PDOC DISCHARGE SUMMARY ---
General - Admit/Disc Date/PCP Admission Date/Primary Care Provider: 04/24/16 22:29 SOTO LUJAN Discharge Date: 04/30/16 - Discharge Diagnosis (1) COPD with acute exacerbation Is this a current diagnosis for this admission?: Yes (2) Generalized osteoarthrosis, involving multiple sites Is this a current diagnosis for this admission?: Yes (3) Protein-calorie malnutrition, mild Is this a current diagnosis for this admission?: Yes (4) Tachycardia Is this a current diagnosis for this admission?: Yes - Additional Information Resuscitation Status: Full Code Discharge Diet: Regular Discharge Activity: Activity As Tolerated Home Medications: Budesonide/Formoterol Fumarate [Symbicort HFA 160-4.5 mcg Inhaler 6 gm] 2 puff IH Q12 04/25/16 Megestrol Acetate [Megace] 400 mg PO BID 04/25/16 Albuterol Sulfate [Proair Respiclick] 2 puff IH Q4HP PRN #1 aer.pow.[id number] 04/30/16 Benzonatate [Tessalon Perles 100 mg Capsule] 100 mg PO Q8HP PRN #60 capsule Diltiazem HCl [Cardizem Cd 180 mg Capsule] 180 mg PO Q12 #60 capsule.cr Megestrol Acetate [Megace Suzanna 400 mg/10 ml Udcup] 400 mg PO DAILY #0 udc Mometasone Furoate [Nasonex] 2 sprays NS DAILY #1 spray.pump 04/30/16 Prednisone 5 mg PO ASDIR PRN #8 tablet 04/30/16 History of Present Illness History of Present Illness: CRISTOBAL BLACK is a 75 year old male, patient of Dr. Lujan, he came to the emergency room because of respiratory distress, shortness of breath, in the emergency room he was evaluated he was found to be using accessory muscles of respiration to breathe. He was treated with noninvasive positive pressure ventilation, BiPAP machine. When I saw patient was a short of breath, CTA chest was done without contrast. This showed a clear left lung. There was mild scarring in the right middle lobe which is much improved from there is minimal patchy nodular area has a persistent infiltrate in the right upper lobe and the right lower lobe. Hospital Course Hospital Course: Patient's respiratory difficulty did improve with support of BiPAP, IV solu- Medrol and antibiotic coverage. His chest CTA scan was suggestive of possible right upper and lower lobe airspace disease process. His blood culture was no growth x 5 days. Patient remain afebrile. Reported improvement in his breathing. His oral intake did improve. Patient refused recommended short term rehabilitation at SNF or [facility] services. Note was possible bedbug issue during this hospitalization period. He will be discharge home on Levofloxacin 500 mg p.o daily x 7 days. He will follow up in the office as directed upon discharge. Physical Exam Vital Signs: Temp Pulse Resp BP Pulse Ox 98.3 F 102 H 18 128/68 H 95 04/30/16 15:48 04/30/16 15:48 04/30/16 15:48 04/30/16 15:48 04/30/16 15:48 Intake & Output 04/29/16 04/30/16 05/01/16 06:59 06:59 06:59 Intake Total 1760 1314 497 Output Total 2825 1525 200 Balance -1065 -211 297 Weight 64.7 kg 63.7 kg Physical Exam: General appearance: PRESENT: no acute distress Head exam: PRESENT: atraumatic, normocephalic Eye exam: PRESENT: conjunctiva pink, other - right corneal opacification Mouth exam: PRESENT: moist Respiratory exam: PRESENT: rhonchi - end expiratory phase, wheezes - end expiratory phase Cardiovascular exam: PRESENT: tachycardia. ABSENT: bradycardia, clicks, diastolic murmur, gallop, irregular rhythm, RRR, rubs, +S1, +S2, systolic murmur , other GI/Abdominal exam: PRESENT: normal bowel sounds, soft. ABSENT: distended, guarding, mass, organolmegaly, rebound, tenderness Extremities exam: PRESENT: full ROM Musculoskeletal exam: PRESENT: deformity - due to multiple joints arthritis involvement Neurological exam: PRESENT: alert, awake, oriented to person, oriented to place , oriented to time, oriented to situation, CN II-XII grossly intact. ABSENT: motor sensory deficit Psychiatric exam: PRESENT: appropriate affect, normal mood. ABSENT: homicidal ideation, suicidal ideation Skin exam: PRESENT: dry, intact, warm. ABSENT: cyanosis, rash Results Laboratory Results: 04/29/16 04:46 04/29/16 04:46 04/24/16 22:32 Troponin I 0.175 Impressions: Chest X-Ray 04/24/16 17:16 IMPRESSION: Findings suggestive obstructive airway disease. Chronic mild parenchymal changes noted in both lung bases. No focal opacities. Chest CT 04/25/16 00:00 IMPRESSION: Much improved, as above. Right middle lobe cyst no longer identified. Areas of nodular infiltrate are much improved. Qualifiers PATEINT BEING DISCHARGED WITH ANY OF THE FOLLOWING DIAGNOSIS?: No Plan Discharge Plan: D/C home today. Follow up in the office as directed upon discharged. Time Spent: Less than 30 Minutes
[2016-04-30 16:52] VITALS: BP 124/59
== END 2016-04-30 17:50 | disposition home or self-care (01) | DRG 191 ==
LOC: ER 17:01 → EH 21:24 → UNDOADMIN 21:24 → EH 22:29 → 3W 04-25 00:49
PROVIDERS: ADMIT Internal Medicine Geriatric Medicine; ATTEND Internal Medicine Geriatric Medicine
PROC: 5A09457 Assistance with Respiratory Ventilation, 24-96 Consecutive Hours, Continuous Positive Airway Pressure (ICD-10-PCS; principal; 2016-04-24)
DX: J44.1 Chronic obstructive pulmonary disease with (acute) exacerbation (principal); E44.1 Mild protein-calorie malnutrition; M15.9 Polyosteoarthritis, unspecified; R00.0 Tachycardia, unspecified; Z68.22 Body mass index [BMI] 22.0-22.9, adult
CPT/HCPCS: 36415; 71010; 71250; 80048; 80053; 80061; 80076; 80307; 81001; 82550; 82553; 82803; 83036; 83605; 83690; 83735; 84439; 84443; 84484; 85025; 85610; 87040; 87070; 87086; 87205; 93005; 93010; 94640; 94660; 96374; 99291; J1650; J1956; J2930; J3490; J7030; J7620

== ENCOUNTER 2016-05-23 00:07 | Emergency (ER) | payer MEDICARE ==
[2016-05-23] MEDS ORDERED: IPRATROPIUM/ALBUTEROL 0.5-2.5 MG/3 ML AMPUL NEB ONE (00:20)
[2016-05-23] MEDS ORDERED: METHYLPREDNISOLONE INJ 125 MG/2 ML SDV IV ONE (00:20)
[2016-05-23] MEDS ORDERED: ALBUTEROL SULFATE 0.083% NEB 2.5 MG/3 ML AMPUL NEB SCH (00:35)
[2016-05-23] MEDS ORDERED: ALBUTEROL SULFATE 0.083% NEB 2.5 MG/3 ML AMPUL NEB ONE (01:00)
--- NOTE | 2016-05-23 01:04 | ER Document Report ---
ED General - General Chief Complaint: Shortness Of Breath Stated Complaint: DIFFICULTY BREATHING Notes: Patient is a 75-year-old male with a past medical history of COPD without oxygen dependence who presents with 2 days of progressively worsening shortness of breath and cough. States that his been using his albuterol inhaler without any improvement of his symptoms. Exertion worsens his symptoms. He was recently admitted to the hospital for similar presentation but states it does not feel as bad as that time. History is taking is difficult as patient is using only 2-3 words in his sentences before he needs to take a rest to breathe. Denies any fever at home. No chest pain, vomiting or diarrhea. Denies any active tobacco use. TRAVEL OUTSIDE OF THE [place] IN LAST 30 DAYS: No - Related Data Allergies/Adverse Reactions: No Known Allergies Allergy (Verified 04/24/16 17:41) Past Medical History - General Information source: Patient - Social History Smoking Status: Former Smoker Frequency of alcohol use: None Drug Abuse: None Lives with: Spouse/Significant other Family History: Reviewed & Not Pertinent Patient has suicidal ideation: No Patient has homicidal ideation: No Pulmonary Medical History: Reports: Hx Asthma, Hx COPD Renal/ Medical History: Denies: Hx Peritoneal Dialysis Psychiatric Medical History: Reports: Hx Depression Past Surgical History: Reports: Hx Orthopedic Surgery - back/rupture disc Review of Systems - Review of Systems Notes: Constitutional: Negative for fever. HENT: Negative for sore throat. Eyes: Negative for visual changes. Cardiovascular: Negative for chest pain. Respiratory: Positive for shortness of breath. Gastrointestinal: Negative for abdominal pain, vomiting or diarrhea. Genitourinary: Negative for dysuria. Musculoskeletal: Negative for back pain. Skin: Negative for rash. Neurological: Negative for headaches, weakness or numbness. 10 point ROS negative except as marked above and in HPI. Physical Exam - Vital signs Vitals: Pulse Ox 96 05/23/16 01:14 Interpretation: Tachycardic, Tachypneic Notes: PHYSICAL EXAMINATION: GENERAL: Frail, elderly-appearing and in moderate respiratory distress HEAD: Atraumatic, normocephalic. EYES: Pupils equal round and reactive to light, extraocular movements intact, sclera anicteric, conjunctiva are normal. ENT: nares patent, oropharynx clear without exudates. Dry mucous membranes. NECK: Normal range of motion, supple without lymphadenopathy LUNGS: Poor air movement bilaterally. Prominent expiratory wheezing in all lung arcos. Moderate respiratory distress with tachypnea into the upper 20s. HEART: Regular tachycardia without murmurs ABDOMEN: Soft, nontender, normoactive bowel sounds. No guarding, no rebound. No masses appreciated. EXTREMITIES: Normal range of motion, no pitting or edema. No cyanosis. NEUROLOGICAL: No focal neurological deficits. Moves all extremities spontaneously and on command. PSYCH: Normal mood, normal affect. SKIN: Warm, Dry, normal turgor, no rashes or lesions noted. Course - Re-evaluation Re-evalutation: 05/23/16 01:02 Patient presents in respiratory distress, 3 word sentences, obvious discomfort with breathing. Lung exam shows poor movement bilaterally, diffuse expiratory wheezing with prolonged expiratory phase. Immediately upon my assessment of this patient I notified the nurse that this patient was critically ill and does require immediate attention. He will be placed on senior center director, stat portable chest will be obtained. He will be started immediately on continuous nebulizers, IV access will be established and magnesium, Solu-Medrol, and IV fluids will be administered. Given patient's rest or distress and poor air movement, he is at high-risk for decompensation and is currently critically ill. 05/23/16 0200 Patient continues to have mild tachypnea, poor air movement bilaterally although states his breathing feels much improved relative to when he arrived on continuous nebulizers. Will continue to reassess frequently. 0230-patient continues to feel clinical improvement and now has much improved air movement bilaterally. No longer tachypneic. Saturating 96% on a nebulizer using room air 0320-patient has been off nebulizers now for one hour without any ongoing dyspnea. No longer tachypneic or hypoxemic. His laboratories remarkable. He will be sent home at this point on antibiotics, steroids, and recommended for close outpatient follow-up.At this time will discharge with return precautions and follow-up recommendations. Verbal discharge instructions given a the bedside and opportunity for questions given. Medication warnings reviewed. Patient is in agreement with this plan and has verbalized understanding of return precautions and the need for primary care follow-up in the next 24-72 hours. - Vital Signs Vital signs: Temp Pulse Resp BP Pulse Ox 152/81 H 97 05/23/16 02:01 05/23/16 02:43 - Laboratory Result Diagrams: 05/23/16 01:20 05/23/16 01:20 Laboratory results interpreted by me: 05/23/16 05/23/16 05/23/16 01:20 01:20 01:20 RDW 14.3 H Eosinophils % 6.1 H VBG pCO2 33.9 L Glucose 113 H - Diagnostic Test Radiology reviewed: Image reviewed, Reports reviewed Radiology results interpreted by me: 05/23/16 03:21 Chest x-ray: No acute infiltrate - EKG Interpretation by Me Additional EKG results interpreted by me: 05/23/16 03:24 Sinus tachycardia. Rate 104. No ST elevations or depressions. QTC 479. Critical Care Note - Critical Care Note Total time excluding time spent on procedures (mins): 37 Comments: Critical care time spent obtaining history from patient or surrogate, discussions with consultants, development of treatment plan with patient or surrogate, evaluation of patient's response to treatment, examination of patient , ordering and performing treatments and interventions, ordering and review of laboratory studies, re-evaluation of patient's condition, ordering and review of radiographic studies and review of old charts Discharge - Discharge Clinical Impression: Chronic obstructive pulmonary disease with acute exacerbation Condition: Fair Disposition: HOME, SELF-CARE Additional Instructions: You were seen for a COPD exacerbation. Your symptoms improved with treatment here in the emergency department. However, it is very important that you return to the emergency department immediately if you began to have worsening difficulty breathing that does not respond to your normal home nebulizers. You are also being sent home on a five-day course of steroids that you should start taking tomorrow. Please also take the antibiotics as prescribed. Please also follow closely with your primary care physician. You should eturn to emergency department if you develop fever greater than 101, persistent cough, persistent vomiting, pass out, or any other symptoms that are concerning to you. Prescriptions: Doxycycline Hyclate 100 mg PO BID #14 capsule Prednisone [Deltasone 20 mg Tablet] 3 tab PO DAILY 5 Days Referrals: SOTO LUJAN MD [Primary Care Provider] - 05/24/16
[2016-05-23] MEDS: MAGNESIUM SULFATE/D5W 100 ML IV SCH ×2 (01:09→02:04)
[2016-05-23 02:15] LABS: ABSOLUTE BASOPHILS # (AUTO) 0.1 10^3/uL (0.0-0.2); ABSOLUTE EOSINOPHILS # (AUTO) 0.5 10^3/uL (0.0-0.6); ABSOLUTE LYMPHOCYTES (AUTO) 2.7 10^3/uL (0.5-4.7); ABSOLUTE MONOCYTES (AUTO) 0.9 10^3/uL (0.1-1.4); BASOPHILS % (AUTO) 1.5 % (0-2); EOSINOPHILS % (AUTO) 6.1 % (0-6); HEMATOCRIT 41.9 % (37.9-51.0); HEMOGLOBIN 13.8 g/dL (13.5-17.0); HGB HCT DIFFERENCE -0.5; LYMPHOCYTES % (AUTO) 32.9 % (13-45); MEAN CORPUSCULAR HEMOGLOBIN 30.4 pg (27.0-33.4); MEAN CORPUSCULAR HGB CONC 32.9 g/dL (32.0-36.0); MEAN CORPUSCULAR VOLUME 92 fl (80-97); MONOCYTES % (AUTO) 10.8 % (3-13); RED BLOOD COUNT 4.53 10^6/uL (4.35-5.55); RED CELL DISTRIBUTION WIDTH 14.3 % (11.5-14.0); SEGMENTED NEUTROPHILS % (AUTO) 48.7 % (42-78); WHITE BLOOD COUNT 8.3 10^3/uL (4.0-10.5)
[2016-05-23 02:25] LABS: VENOUS BLOOD BASE EXCESS -3.1 mmol/L; VENOUS BLOOD HCO3 20.8 mmol/L (20-32); VENOUS BLOOD PCO2 33.9 mmHg (35-63); VENOUS BLOOD PH 7.41 (7.30-7.42)
[2016-05-23 02:26] LABS: ALANINE AMINOTRANSFERASE 27 U/L (21-72); ALBUMIN 3.9 g/dL (3.5-5.0); ALKALINE PHOSPHATASE 119 U/L (38-126); ANION GAP 10 (5-19); ASPARTATE AMINO TRANSFERASE 51 U/L (17-59); BILIRUBIN,TOTAL 0.9 mg/dL (0.2-1.3); BLOOD UREA NITROGEN 15 mg/dL (7-20); CALCIUM 9.9 mg/dL (8.4-10.2); CARBON DIOXIDE 28 mmol/L (22-30); CHLORIDE 104 mmol/L (98-107); CREATININE RESULT 1.12 mg/dL (0.52-1.25); GLUCOSE 113 mg/dL (75-110); POTASSIUM 4.1 mmol/L (3.6-5.0); SODIUM 141.6 mmol/L (137-145); TOTAL PROTEIN 8.2 g/dL (6.3-8.2)
[2016-05-23] MEDS ORDERED: DOXYCYCLINE HYCLATE 100 MG TABLET PO ONE (03:24)
[2016-05-23 03:54] VITALS: BP 128/72
--- NOTE | 2016-05-23 10:42 | EKG REPORT ---
SEVERITY:- ABNORMAL ECG - SINUS TACHYCARDIA PROBABLE LEFT ATRIAL ABNORMALITY NONSPECIFIC T ABNORMALITIES, DIFFUSE LEADS BORDERLINE PROLONGED QT INTERVAL : Confirmed by: dEith Orourke 23-May-2016 10:41:39
== END 2016-05-23 04:15 | disposition home or self-care (01) ==
LOC: ER 00:07
DX: J44.1 Chronic obstructive pulmonary disease with (acute) exacerbation (principal); R06.02 Shortness of breath; Z87.891 Personal history of nicotine dependence
CPT/HCPCS: 93005; 94640 ×2; 99291; 96374; 36415; 85025; 80053; 82803; 71010; 93010; A9270 ×3; J2930; J3475; J7620

== ENCOUNTER 2016-06-13 22:39 | Inpatient (IN) | payer MEDICARE ==
[2016-06-13] MEDS ORDERED: METHYLPREDNISOLONE INJ 125 MG/2 ML SDV IV ONE (23:01)
[2016-06-13] MEDS ORDERED: IPRATROPIUM/ALBUTEROL 0.5-2.5 MG/3 ML AMPUL NEB ONE (23:01)
[2016-06-13] MEDS: ALBUTEROL SULFATE 0.083% NEB 2.5 MG/3 ML AMPUL NEB SCH (23:17)
[2016-06-13 23:55] LABS: VENOUS BLOOD BASE EXCESS 2.9 mmol/L; VENOUS BLOOD HCO3 27.9 mmol/L (20-32); VENOUS BLOOD PCO2 44.3 mmHg (35-63); VENOUS BLOOD PH 7.42 (7.30-7.42)
[2016-06-14] MEDS: ALBUTEROL SULFATE 0.083% NEB 2.5 MG/3 ML AMPUL NEB SCH (00:26)
[2016-06-14] MEDS ORDERED: IPRATROPIUM/ALBUTEROL 0.5-2.5 MG/3 ML AMPUL NEB ONE (01:30)
--- NOTE | 2016-06-14 01:31 | ER Document Report ---
ED General - General Chief Complaint: Breathing Difficulty Stated Complaint: DIFFICULTY BREATHING Notes: Patient is a 75-year-old male with past medical history of COPD, does not normally require oxygen at home who presents with 2 days of progressively worsening shortness of breath. States after being seen in the emergency department approximately one month ago his symptoms improved after being on steroids and increased dosing of his inhaler. However states over the last 2 days it has gotten progressively worse despite ongoing use of his nebulizers. He has not seen his primary care doctor regarding today's concerns. States any exertion worsens his shortness of breath. Denies any associated chest pain, weakness, vomiting, or fever. States this feels very similar to prior COPD exacerbations that have required admission TRAVEL OUTSIDE OF THE [place] IN LAST 30 DAYS: No - Related Data Allergies/Adverse Reactions: No Known Allergies Allergy (Verified 04/24/16 17:41) Past Medical History - General Information source: Patient - Social History Smoking Status: Former Smoker Chew tobacco use (# tins/day): No Frequency of alcohol use: None Drug Abuse: None Lives with: Spouse/Significant other Family History: Reviewed & Not Pertinent Patient has suicidal ideation: No Patient has homicidal ideation: No Pulmonary Medical History: Reports: Hx Asthma, Hx COPD Renal/ Medical History: Denies: Hx Peritoneal Dialysis Psychiatric Medical History: Reports: Hx Depression Past Surgical History: Reports: Hx Orthopedic Surgery - back/rupture disc Review of Systems - Review of Systems Notes: Constitutional: Negative for fever. HENT: Negative for sore throat. Eyes: Negative for visual changes. Cardiovascular: Negative for chest pain. Respiratory: Positive for shortness of breath. Gastrointestinal: Negative for abdominal pain, vomiting or diarrhea. Genitourinary: Negative for dysuria. Musculoskeletal: Negative for back pain. Skin: Negative for rash. Neurological: Negative for headaches, weakness or numbness. 10 point ROS negative except as marked above and in HPI. Physical Exam - Vital signs Vitals: Temp Pulse Resp BP Pulse Ox 97.6 F 107 H 16 123/84 91 L 06/13/16 22:55 06/13/16 22:55 06/13/16 22:55 06/13/16 22:55 06/13/16 22:55 Interpretation: Tachycardic, Hypoxic Notes: PHYSICAL EXAMINATION: GENERAL: Frail elderly man who appears older than stated age HEAD: Atraumatic, normocephalic. EYES: Pupils equal round and reactive to light, extraocular movements intact, sclera anicteric, conjunctiva are normal. ENT: nares patent, oropharynx clear without exudates. Dry mucous membranes. NECK: Normal range of motion, supple without lymphadenopathy LUNGS: Scattered wheezes in all lung arcos with mildly diminished air movement but no respiratory distress HEART: Regular tachycardia without murmurs ABDOMEN: Soft, nontender, normoactive bowel sounds. No guarding, no rebound. No masses appreciated. EXTREMITIES: Normal range of motion, no pitting or edema. No cyanosis. NEUROLOGICAL: No focal neurological deficits. Moves all extremities spontaneously and on command. PSYCH: Normal mood, normal affect. SKIN: Warm, Dry, normal turgor, no rashes or lesions noted. Course - Re-evaluation Re-evalutation: 06/14/16 01:30 Age and presents with COPD exacerbation, saturating 88% with a good Plath on continuous telemetry despite multiple rounds of nebulizers. He does not normally require oxygen at home and does report worsening dyspnea over the last several days. Chest x-ray is clear without evidence of an acute pneumonia. Venous gas is overall unremarkable without significant CO2 retention. However, given patient's persistent hypoxemia at rest I do not believe he is safe for discharge at this time. He has been given IV Solu-Medrol, ceftriaxone, will be admitted - Vital Signs Vital signs: Temp Pulse Resp BP Pulse Ox 97.5 F 104 H 20 138/72 H 94 06/14/16 01:25 06/14/16 01:25 06/14/16 01:25 06/14/16 01:25 06/14/16 01:25 - Laboratory Result Diagrams: 06/13/16 22:30 Laboratory results interpreted by me: 06/13/16 22:30 RDW 15.0 H Plt Count 109 L Seg Neutrophils % 38.0 L Eosinophils % 15.6 H Absolute Eosinophils 1.4 H - Diagnostic Test Radiology reviewed: Image reviewed, Reports reviewed Radiology results interpreted by me: 06/14/16 03:08 Chest x-ray: No acute infiltrate Discharge - Discharge Clinical Impression: COPD with acute exacerbation Condition: Fair Disposition: ADMITTED OBSERVATION Admitting Provider: [facility] Unit Admitted: Telemetry
[2016-06-14] MEDS ORDERED: CEFTRIAXONE 1 GM/D5W RTU 50 ML IV ONE (02:16)
[2016-06-14] MEDS ORDERED: NORMAL SALINE 1000 ML 1,000 ML IV ONE (02:20)
[2016-06-14 02:32] LABS: ABSOLUTE BASOPHILS # (AUTO) 0.1 10^3/uL (0.0-0.2); ABSOLUTE EOSINOPHILS # (AUTO) 1.4 10^3/uL (0.0-0.6); ABSOLUTE LYMPHOCYTES (AUTO) 3.3 10^3/uL (0.5-4.7); ABSOLUTE MONOCYTES (AUTO) 0.7 10^3/uL (0.1-1.4); ABSOLUTE NEUT (AUTO) 3.4 10^3/uL (1.7-8.2); BASOPHILS % (AUTO) 1.1 % (0-2); EOSINOPHILS % (AUTO) 15.6 % (0-6); HEMATOCRIT 41.7 % (37.9-51.0); HEMOGLOBIN 13.9 g/dL (13.5-17.0); MEAN CORPUSCULAR HEMOGLOBIN 30.7 pg (27.0-33.4); MEAN CORPUSCULAR HGB CONC 33.4 g/dL (32.0-36.0); MEAN CORPUSCULAR VOLUME 92 fl (80-97); MONOCYTES % (AUTO) 8.3 % (3-13); RED BLOOD COUNT 4.54 10^6/uL (4.35-5.55)
[2016-06-14 04:13] LABS: ANION GAP 14 (5-19); BLOOD UREA NITROGEN 10 mg/dL (7-20); CALCIUM 9.5 mg/dL (8.4-10.2); CARBON DIOXIDE 19 mmol/L (22-30); CHLORIDE 108 mmol/L (98-107); CREATININE RESULT 0.82 mg/dL (0.52-1.25); GLUCOSE 220 mg/dL (75-110); SODIUM 141.1 mmol/L (137-145)
[2016-06-14] MEDS ORDERED: ALBUTEROL SULFATE HFA (90 MCG/PUFF) 200 PUFF/8.5 GM MDI IH PRN (08:16)
[2016-06-14] MEDS ORDERED: BENZONATATE 100 MG CAPSULE PO PRN ×2 (08:16→19:03)
[2016-06-14] MEDS ORDERED: NORMAL SALINE 1000 ML 1,000 ML IV PRN (08:21)
[2016-06-14] MEDS: DILTIAZEM HCL 180 MG CAPSULE.CR PO SCH ×2 (08:54→22:02)
[2016-06-14] MEDS: METHYLPREDNISOLONE INJ 125 MG/2 ML SDV IV SCH ×3 (08:56→22:01)
[2016-06-14] MEDS ORDERED: B COMPLEX WITH VITAMIN C PO SCH (10:00)
[2016-06-14] MEDS: LANSOPRAZOLE 30 MG TAB.RAP.DR PO SCH (10:07)
[2016-06-14] MEDS: ENOXAPARIN SODIUM INJ 40 MG/0.4 ML DISP.SYRIN SUBCUT SCH (10:18)
--- NOTE | 2016-06-14 12:48 | Physician Advisory Note ---
Physician Advisor ProgressNote .: [facility] I have reviewed the medical record for this patient. Physician Advisor Statement: Possible documentation opportunities if attending agrees: 1. "Medical Necessity "- may be appropriate to change to Inpt on 06/14 depending on attending impression/documentation today of reasons he is not safe to go home today. See below. 2. "suspect acute bronchitis" - or else what is being tx'd with abx? As always, if concerned about any unstable VS or abnormal labs, please comment on them & note what doing about them, & please document each day the potential clinical problems you are concerned could occur if pt not kept in hospital for tx at this time. Discussion: 75yo male w/ chronic co-morbidities including asthma, COPD (no need for O2 at baseline), depression - presented late 3/12 PM to ED w/worsening SOB x 2 days (ED nurse report states 2wks) despite bronchodilator use, sx worsened by exertion. (+) appearing frail- & older than stated age per ED dr, with dry mucosae, wheezs , diminished air movement but no resp distress. Tachycardic at 100s, tachypneic up to 23, sats as low as 88% on RA "despite multiple rounds of nebs" - "persistent hypoxia at rest". WBC 9.0, plts 109, eosinophils high at 15.6, bicarb 19, VBG without significant CO2 retention. CXR clear. - ED dr gave NS 1L, IV Solumedrol & Rocephin, O2. Attending ordered Solumedrol 125mg q6AM, Rocephin IV, NS at 100, Duonebs & albuterol nebs PRN. Status: Elderly pt with COPD, arrived very late PM, with hypoxemia that continued at times despite multiple nebs. Approriately made Outpt Obs to start. Since coming in, he has persistent tachycardia 110s-120s, recurrent tachypnea to 25, despite ongoing . If attending, on review of him today, finds that continued tx & monitoring in inpatient hospital setting medically is reasonable & necessary to protect pt's health, safety, & medical condition, please document concerns/supporting findings & consider change to Inpt status. Thanks for your help with documentation accuracy/specificity improvement! Xiao Petit MD [facility] Physician Advisor, Fellow of Hospital Medicine
[2016-06-14] MEDS: IPRATROPIUM/ALBUTEROL 0.5-2.5 MG/3 ML AMPUL NEB PRN ×2 (13:19→18:24)
--- NOTE | 2016-06-14 14:41 | PDOC H&P ---
History of Present Illness Admission Date/PCP: 06/14/16 07:55 SOTO LUJAN Patient complains of: Worsening shortness of breath History of Present Illness: CRISTOBAL BLACK is a 75 year old male patient with history of COPD who presented to ED with cc worsening SOB. Patient reported worsening symptoms over last 2 days preceding his presentation. There is minimal relief with several treatment at home with bronchodilator via nebulizer treatment. Patient reported associated productive cough with yellow to brownish sputum production. There is associated intermittent fever and chills. He denied any associated chest pain but "felt as if his heart is going to jump out of his chest". Patient reported compliance with his medications. He admitted to nausea but no vomiting, bowel movement fair with episodes of constipation interspace with diarrhea. His initial evaluation in the ED was significant for for respiratory distress and associated tachycardia and hypoxemia. Despite intervention with bronchodilator therapy there was no significant improvement necessitating advise for admission. Past Medical History Pulmonary Medical History: Reports: Asthma, Chronic Obstructive Pulmonary Disease (COPD) Psychiatric Medical History: Reports: Depression Past Surgical History Past Surgical History: Reports: Orthopedic Surgery - back/rupture disc Social History Lives with: Spouse/Significant other Smoking Status: Former Smoker Frequency of Alcohol Use: None Hx Recreational Drug Use: No Hx Prescription Drug Abuse: No - Advance Directive Resuscitation Status: Full Code Family History Family History: Reviewed & Not Pertinent Parental Family History Reviewed: Yes Children Family History Reviewed: Yes Sibling(s) Family History Reviewed.: Yes Medication/Allergy Home Medications: Acetaminophen [Acetaminophen Extra Strength] 500 mg PO DAILYP PRN 06/14/16 Albuterol Sulfate [Ventolin HFA MDI 18 GM] 2 puff IH Q6HP PRN 06/14/16 Benzonatate [Tessalon Perle 100 mg Capsule] 100 mg PO Q8HP PRN 06/14/16 Diltiazem HCl [Diltiazem 24Hr ER] 180 mg PO Q12 06/14/16 Multivit-Stress Formula/Zinc [Zbec Tablet] 1 tab PO DAILY 06/14/16 Ranitidine HCl [Acid Retail Link Analyst] 150 mg PO DAILYP PRN 06/14/16 Allergies/Adverse Reactions: No Known Allergies Allergy (Verified 04/24/16 17:41) Review of Systems Constitutional: PRESENT: chills, fever(s), weakness. ABSENT: as per HPI, anorexia, fatigue, headache(s), night sweats, weight gain, weight loss, other Eyes: PRESENT: visual disturbances Nose, Mouth, and Throat: ABSENT: as per HPI, headache(s), mouth pain, sore throat, vertigo, other Cardiovascular: PRESENT: dyspnea on exertion, palpitations. ABSENT: as per HPI , chest pain, edema, orthropnea, other Respiratory: PRESENT: cough, dyspnea, sputum. ABSENT: as per HPI, hemoptysis, other Gastrointestinal: PRESENT: constipation, diarrhea, nausea. ABSENT: as per HPI, abdominal pain, bloating, coffee ground emesis, dysphagia, heartburn, hematemesis, hematochezia, melena, vomiting, other Genitourinary: ABSENT: as per HPI, difficulty urinating, dysuria, hematuria, nocturia, other Musculoskeletal: ABSENT: as per HPI, back pain, deformity, joint swelling, muscle weakness, other Integumentary: ABSENT: as per HPI, diaphoresis, erythema, lesions, pruritus, rash, wounds, other Neurological: ABSENT: abnormal gait, abnormal speech, confusion, dizziness, focal weakness, syncope Psychiatric: ABSENT: anxiety, depression, homidical ideation, suicidal ideation Hematologic/Lymphatic: ABSENT: easy bleeding, easy bruising, lymphadenopathy Allergic/Immunologic: ABSENT: as per HPI, seasonal rhinorrhea, other Physical Exam Vital Signs: Temp Pulse Resp BP Pulse Ox 97.8 F 103 H 22 H 142/69 H 96 06/14/16 13:41 06/14/16 13:41 06/14/16 13:41 06/14/16 13:41 06/14/16 13:41 Intake & Output 06/13/16 06/14/16 06/15/16 06:59 06:59 06:59 Weight 63 kg General appearance: PRESENT: disheveled, mild distress - remain on supplemental oxygen via nasal canula at 2L/min Head exam: PRESENT: atraumatic, normocephalic Eye exam: PRESENT: conjunctiva pink, EOMI, PERRLA - mainly left eye, there is right corneal opacification. ABSENT: scleral icterus Ear exam: PRESENT: normal external ear exam Mouth exam: PRESENT: moist, tongue midline Throat exam: ABSENT: post pharyngeal erythema, tonsillar erythema, tonsillar exudate, tonsillogmegaly, other Neck exam: PRESENT: full ROM. ABSENT: carotid bruit, JVD, lymphadenopathy, thyromegaly Respiratory exam: PRESENT: crackles, decreased breath sounds, rhonchi, wheezes. ABSENT: accessory muscle use, chest wall tenderness, clear to auscultation silvina , prolonged expiratory phas, rales, retraction, stridor, symmetrical, tachypnea , unlabored, other Cardiovascular exam: PRESENT: tachycardia. ABSENT: bradycardia, clicks, diastolic murmur, gallop, irregular rhythm, RRR, rubs, +S1, +S2, systolic murmur , other Vascular exam: PRESENT: normal capillary refill GI/Abdominal exam: PRESENT: normal bowel sounds, soft. ABSENT: distended, guarding, mass, organolmegaly, rebound, tenderness Rectal exam: PRESENT: deferred Extremities exam: PRESENT: full ROM, pedal edema - to knee level bilaterally Musculoskeletal exam: PRESENT: deformity - related to arthritis joint involvement Neurological exam: PRESENT: alert, awake, oriented to person, oriented to place , oriented to time, oriented to situation, CN II-XII grossly intact. ABSENT: motor sensory deficit Psychiatric exam: PRESENT: appropriate affect, normal mood. ABSENT: homicidal ideation, suicidal ideation Skin exam: PRESENT: dry, warm Results Laboratory Results: See Conversation Media for details. These were reviewed and form part of my medical decision making. Impressions: Chest X-Ray 06/13/16 23:01 IMPRESSION: No acute radiographic finding in the chest. Assessment & Plan - Diagnosis (1) COPD with acute exacerbation Is this a current diagnosis for this admission?: YesPlan: See admitting physician orders. (2) Bronchitis, acute Qualifiers: Bronchitis organism: unspecified organism Qualified Code(s): J20.9 - Acute bronchitis, unspecified Is this a current diagnosis for this admission?: YesPlan: See admitting physician orders. (3) Protein-calorie malnutrition, mild Is this a current diagnosis for this admission?: YesPlan: See admitting physician orders. (4) Tachycardia Is this a current diagnosis for this admission?: YesPlan: See admitting physician orders. In view of his associated bilateral leg swelling he will need further cardiac evaluation for possible cor pulmonale status. Other consideration for his leg swelling is his malnutrition state. (5) Generalized osteoarthrosis, involving multiple sites Is this a current diagnosis for this admission?: YesPlan: See admitting physician orders. (6) Hyperglycemia Is this a current diagnosis for this admission?: YesPlan: This is new and further monitoring will be done. See admitting physician orders. - Time Time Spent: 50 to 70 Minutes Medications reviewed and adjusted accordingly: Yes Anticipated discharge: Home with Homehealth Within: Other - Inpatient Certification Medical Necessity: Need Close Monitoring Due to Risk of Patient Decompensation, Need For Continuous Telemetry Monitoring, Need for Nebulizer Therapy and Monitoring of Response, Need for IV Antibiotics, Risk of Diagnosis Which Will Require Inpatient Eval/Care/Monitoring Post Hospital Care: D/C Invertebrate Paleontologist Documentation - Plan Summary Plan Summary: See admitting physician orders.
[2016-06-14] MEDS ORDERED: INFLUENZA ADLT QUAD (36MOS+) 2016-17 VAC 0.5 ML SYR IM PRN (15:12)
[2016-06-14] MEDS ORDERED: ALBUTEROL SULFATE HFA (90 MCG/PUFF) 8 GM MDI (1 MDI/ER DISP) IH PRN (19:01)
[2016-06-14] MEDS ORDERED: (PENDING PHARMACY ID) (Diltiazem Hcl [Diltiazem 24hr Er] 180 MG) PO SCH (22:00)
[2016-06-15] MEDS: METHYLPREDNISOLONE INJ 125 MG/2 ML SDV IV SCH ×4 (02:14→20:57)
[2016-06-15 06:33] LABS: ABSOLUTE LYMPHOCYTES (AUTO) 0.7 10^3/uL (0.5-4.7); ABSOLUTE MONOCYTES (AUTO) 0.2 10^3/uL (0.1-1.4); ABSOLUTE NEUT (AUTO) 10.2 10^3/uL (1.7-8.2); BASOPHILS % (AUTO) 0.1 % (0-2); HEMATOCRIT 33.6 % (37.9-51.0); HGB HCT DIFFERENCE 0.6; LYMPHOCYTES % (AUTO) 6.7 % (13-45); MEAN CORPUSCULAR HEMOGLOBIN 30.6 pg (27.0-33.4); MEAN CORPUSCULAR VOLUME 90 fl (80-97); MONOCYTES % (AUTO) 1.5 % (3-13); RED BLOOD COUNT 3.72 10^6/uL (4.35-5.55); RED CELL DISTRIBUTION WIDTH 14.1 % (11.5-14.0); SEGMENTED NEUTROPHILS % (AUTO) 91.7 % (42-78); WHITE BLOOD COUNT 11.1 10^3/uL (4.0-10.5)
[2016-06-15 06:41] LABS: HEMOGLOBIN 11.4 g/dL (13.5-17.0)
[2016-06-15 06:59] LABS: ALANINE AMINOTRANSFERASE 23 U/L (21-72); ALBUMIN 3.2 g/dL (3.5-5.0); ALKALINE PHOSPHATASE 97 U/L (38-126); ANION GAP 7 (5-19); ASPARTATE AMINO TRANSFERASE 24 U/L (17-59); BILIRUBIN,TOTAL 0.6 mg/dL (0.2-1.3); BLOOD UREA NITROGEN 12 mg/dL (7-20); CALCIUM 9.1 mg/dL (8.4-10.2); CARBON DIOXIDE 27 mmol/L (22-30); CHLORIDE 110 mmol/L (98-107); CREATININE RESULT 0.77 mg/dL (0.52-1.25); GLUCOSE 186 mg/dL (75-110); POTASSIUM 3.8 mmol/L (3.6-5.0); SODIUM 144.2 mmol/L (137-145); TOTAL PROTEIN 5.9 g/dL (6.3-8.2)
[2016-06-15] MEDS: IPRATROPIUM/ALBUTEROL 0.5-2.5 MG/3 ML AMPUL NEB PRN ×2 (08:04→20:38)
--- NOTE | 2016-06-15 08:27 | PDOC PROGRESS REPORT ---
Subjective Progress Note for:: 06/15/16 Subjective:: Intermittent coughing with sputum production and wheezing persist. No chest pain. No reported ever or chills. No nausea or vomiting. Tolerating oral feeding. Elevated NT-Pro BNP and HgbA1c level. Physical Exam Vital Signs: Temp Pulse Resp BP Pulse Ox 98.0 F 88 19 129/60 H 100 06/15/16 03:40 06/15/16 07:00 06/15/16 03:40 06/15/16 03:40 06/15/16 05:00 Intake & Output 06/14/16 06/15/16 06/16/16 06:59 06:59 06:59 Intake Total 2130 Output Total 1350 Balance 780 Weight 60.2 kg General appearance: PRESENT: no acute distress Head exam: PRESENT: atraumatic, normocephalic Eye exam: PRESENT: conjunctiva pink, EOMI, PERRLA. ABSENT: scleral icterus Neck exam: PRESENT: full ROM. ABSENT: carotid bruit, JVD, lymphadenopathy, thyromegaly Respiratory exam: PRESENT: crackles - scattered bilaterally, rhonchi - minimal expiratory phase, wheezes Cardiovascular exam: PRESENT: RRR. ABSENT: diastolic murmur, rubs, systolic murmur GI/Abdominal exam: PRESENT: normal bowel sounds, soft. ABSENT: distended, guarding, mass, organolmegaly, rebound, tenderness Extremities exam: PRESENT: pedal edema - comparatively better Musculoskeletal exam: PRESENT: deformity - related to joint involvement with arthritis Neurological exam: PRESENT: altered, oriented to person, oriented to place, oriented to time, CN II-XII grossly intact, motor sensory deficit Psychiatric exam: PRESENT: appropriate affect, normal mood. ABSENT: homicidal ideation, suicidal ideation Skin exam: PRESENT: dry, warm Results Laboratory Results: 06/15/16 05:31 06/15/16 05:31 06/15/16 06/15/16 05:31 05:31 WBC 11.1 H RBC 3.72 L Hgb 11.4 L D Hct 33.6 L MCV 90 MCH 30.6 MCHC 34.0 RDW 14.1 H Plt Count 151 Seg Neutrophils % 91.7 H Lymphocytes % 6.7 L Monocytes % 1.5 L Eosinophils % 0.0 Basophils % 0.1 Absolute Neutrophils 10.2 H Absolute Lymphocytes 0.7 Absolute Monocytes 0.2 Absolute Eosinophils 0.0 Absolute Basophils 0.0 Sodium 144.2 Potassium 3.8 Chloride 110 H Carbon Dioxide 27 Anion Gap 7 BUN 12 Creatinine 0.77 Est GFR ( Amer) > 60 Est GFR (Non-Af Amer) > 60 Glucose 186 H Calcium 9.1 Total Bilirubin 0.6 AST 24 ALT 23 Alkaline Phosphatase 97 Total Protein 5.9 L Albumin 3.2 L 06/14/16 15:57 NT-Pro-B Natriuret Pep 1130 H Impressions: Chest X-Ray 06/13/16 23:01 IMPRESSION: No acute radiographic finding in the chest. Assessment & Plan - Diagnosis (1) COPD with acute exacerbation Is this a current diagnosis for this admission?: YesPlan: See attending physician orders. (2) Bronchitis, acute Qualifiers: Bronchitis organism: unspecified organism Qualified Code(s): J20.9 - Acute bronchitis, unspecified Is this a current diagnosis for this admission?: YesPlan: See attending physician orders. (3) Protein-calorie malnutrition, mild Is this a current diagnosis for this admission?: YesPlan: See attending physician orders. (4) Tachycardia Is this a current diagnosis for this admission?: YesPlan: Improved. See attending physician orders. (5) Generalized osteoarthrosis, involving multiple sites Is this a current diagnosis for this admission?: YesPlan: See attending physician orders. (6) Hyperglycemia Is this a current diagnosis for this admission?: YesPlan: Elevated HgbA1c level. We will start on accucheck monitoring and treatment as per [facility] protocol in view of his ongoing steroid therapy. - Time Time Spent with patient: 25-34 minutes Medications reviewed and adjusted accordingly: Yes Anticipated discharge: SNF - for short term rehabilitation - Inpatient Certification Based on my medical assessment, after consideration of the patient's comorbidities, presenting symptoms, or acuity I expect that the services needed warrant INPATIENT care.: Yes I certify that my determination is in accordance with my understanding of Medicare's requirements for reasonable and necessary INPATIENT services [42 CFR 412.3e].: Yes Medical Necessity: Need Close Monitoring Due to Risk of Patient Decompensation, Need For Continuous Telemetry Monitoring, Need for Nebulizer Therapy and Monitoring of Response, Need for IV Antibiotics, Risk of Complication if Not Cared For in Hospital Post Hospital Care: D/C or Transfer Summary - Plan Summary Plan Summary: D/C IV fluid infusion. Start on Accuchek monitoring ACHS with Humalog insulin sliding scale coverage. Obtain complete echocardiogram evaluation. PT evaluation for ambulatory safety. D/C mechanical planner to evaluate for short term rehabilitation as SNF. Continue all other current medication management.
[2016-06-15] MEDS: MULTIVIT-STRESS FORMULA/ZINC TABLET PO SCH (09:38)
[2016-06-15] MEDS: LANSOPRAZOLE 30 MG TAB.RAP.DR PO SCH (09:38)
[2016-06-15] MEDS: DILTIAZEM HCL 180 MG CAPSULE.CR PO SCH ×2 (09:39→21:15)
[2016-06-15] MEDS: ENOXAPARIN SODIUM INJ 40 MG/0.4 ML DISP.SYRIN SUBCUT SCH (09:42)
[2016-06-15] MEDS: CEFTRIAXONE 1 GM/D5W RTU 1 GM/50 ML RTUPB IV SCH (09:42)
[2016-06-15] MEDS ORDERED: MULTIVIT-STRESS FORMULA/ZINC TABLET PO SCH (10:00)
[2016-06-16] MEDS: METHYLPREDNISOLONE INJ 125 MG/2 ML SDV IV SCH ×4 (03:33→21:58)
[2016-06-16] MEDS: CEFTRIAXONE 1 GM/D5W RTU 1 GM/50 ML RTUPB IV SCH (07:50)
[2016-06-16] MEDS: IPRATROPIUM/ALBUTEROL 0.5-2.5 MG/3 ML AMPUL NEB PRN ×2 (08:27→16:02)
[2016-06-16] MEDS: LANSOPRAZOLE 30 MG TAB.RAP.DR PO SCH (09:07)
[2016-06-16] MEDS: DILTIAZEM HCL 180 MG CAPSULE.CR PO SCH ×2 (09:07→21:58)
[2016-06-16] MEDS: ENOXAPARIN SODIUM INJ 40 MG/0.4 ML DISP.SYRIN SUBCUT SCH (09:08)
[2016-06-16] MEDS: MULTIVIT-STRESS FORMULA/ZINC TABLET PO SCH (09:08)
[2016-06-16] MEDS ORDERED: GLUCAGON,HUMAN RECOMB 1 MG INJ IM PRN (13:06)
[2016-06-16] MEDS ORDERED: DEXTROSE 40% GEL 15 GM TUBE PO PRN ×2 (13:06)
[2016-06-16] MEDS ORDERED: DEXTROSE 50%-WATER 25 GM/50 ML DISP.SYRIN IV PRN ×2 (13:06)
--- NOTE | 2016-06-16 13:10 | PDOC PROGRESS REPORT ---
Subjective Progress Note for:: 06/16/16 Subjective:: Improving breathing effort. Participated in PT session with satisfactory functional level. No chest pain. No reported ever or chills. No nausea or vomiting. Tolerating oral feeding. Physical Exam Vital Signs: Temp Pulse Resp BP Pulse Ox 97.6 F 79 18 140/62 H 98 06/16/16 07:10 06/16/16 08:27 06/16/16 08:27 06/16/16 07:10 06/16/16 08:27 Intake & Output 06/15/16 06/16/16 06/17/16 06:59 06:59 06:59 Intake Total 2130 1750 Output Total 1350 2200 Balance 780 -450 Weight 60.2 kg Physical Exam: General appearance: PRESENT: no acute distress Head exam: PRESENT: atraumatic, normocephalic Eye exam: PRESENT: conjunctiva pink, EOMI, PERRLA. ABSENT: scleral icterus Neck exam: PRESENT: full ROM. ABSENT: carotid bruit, JVD, lymphadenopathy, thyromegaly Respiratory exam: PRESENT: crackles - scattered bilaterally, rhonchi - minimal expiratory phase Cardiovascular exam: PRESENT: RRR. ABSENT: diastolic murmur, rubs, systolic murmur GI/Abdominal exam: PRESENT: normal bowel sounds, soft. ABSENT: distended, guarding, mass, organomegaly, rebound, tenderness Extremities exam: PRESENT: pedal edema - comparatively better Musculoskeletal exam: PRESENT: deformity - related to joint involvement with arthritis Neurological exam: PRESENT: altered, oriented to person, oriented to place, oriented to time, CN II-XII grossly intact, motor sensory deficit Psychiatric exam: PRESENT: appropriate affect, normal mood. ABSENT: homicidal ideation, suicidal ideation Skin exam: PRESENT: dry, warm Results Laboratory Results: 06/15/16 05:31 06/15/16 05:31 06/14/16 15:57 NT-Pro-B Natriuret Pep 1130 H Impressions: Chest X-Ray 06/13/16 23:01 IMPRESSION: No acute radiographic finding in the chest. Assessment & Plan - Diagnosis (1) COPD with acute exacerbation Is this a current diagnosis for this admission?: YesPlan: See attending physician orders. I will decrease IV Solu-Medrol dosage to 80 mg [id number]. (2) Bronchitis, acute Qualifiers: Bronchitis organism: unspecified organism Qualified Code(s): J20.9 - Acute bronchitis, unspecified Is this a current diagnosis for this admission?: YesPlan: See attending physician orders. (3) Protein-calorie malnutrition, mild Is this a current diagnosis for this admission?: YesPlan: See attending physician orders. (4) Tachycardia Is this a current diagnosis for this admission?: YesPlan: Improved. See attending physician orders. Followup on official echocardiogram report. Discussed findings with Dr Van. (5) Generalized osteoarthrosis, involving multiple sites Is this a current diagnosis for this admission?: YesPlan: See attending physician orders. (6) Hyperglycemia Is this a current diagnosis for this admission?: YesPlan: We will start on accucheck monitoring and treatment as per [facility] protocol in view of his ongoing steroid therapy. - Time Time Spent with patient: 25-34 minutes Medications reviewed and adjusted accordingly: Yes Anticipated discharge: Home with Homehealth Within: Other - Inpatient Certification Based on my medical assessment, after consideration of the patient's comorbidities, presenting symptoms, or acuity I expect that the services needed warrant INPATIENT care.: Yes I certify that my determination is in accordance with my understanding of Medicare's requirements for reasonable and necessary INPATIENT services [42 CFR 412.3e].: Yes Medical Necessity: Need Close Monitoring Due to Risk of Patient Decompensation, Need For Continuous Telemetry Monitoring, Need for Nebulizer Therapy and Monitoring of Response, Need for IV Antibiotics, Risk of Complication if Not Cared For in Hospital - Plan Summary Plan Summary: See attending physician orders.
[2016-06-16] MEDS: INSULIN LISPRO 100 UNIT/ML 3 ML VIAL SUBCUT PRN (16:50)
[2016-06-17] MEDS: METHYLPREDNISOLONE INJ 125 MG/2 ML SDV IV SCH (02:37)
[2016-06-17] MEDS: IPRATROPIUM/ALBUTEROL 0.5-2.5 MG/3 ML AMPUL NEB PRN (02:41)
--- NOTE | 2016-06-17 07:51 | PDOC PROGRESS REPORT ---
Subjective Progress Note for:: 06/17/16 Subjective:: No chest pain or difficulty with breathing. No coughing, fever or chills. No nausea or vomiting. Tolerating oral feeding. Patient reported participation in PT session. There is persistence of hyperglycemia. Physical Exam Vital Signs: Temp Pulse Resp BP Pulse Ox 98.0 F 80 20 126/69 H 100 06/17/16 03:00 06/17/16 07:00 06/17/16 03:00 06/17/16 03:00 06/17/16 03:00 Intake & Output 06/16/16 06/17/16 06/18/16 06:59 06:59 06:59 Intake Total 1750 1906 Output Total 2200 2450 Balance -450 -544 Weight 63.7 kg Physical Exam: General appearance: PRESENT: no acute distress Head exam: PRESENT: atraumatic, normocephalic Eye exam: PRESENT: conjunctiva pink, EOMI, PERRLA. ABSENT: scleral icterus Neck exam: PRESENT: full ROM. ABSENT: carotid bruit, JVD, lymphadenopathy, thyromegaly Respiratory exam: PRESENT: crackles - scattered bilaterally, rhonchi - minimal expiratory phase Cardiovascular exam: PRESENT: RRR. ABSENT: diastolic murmur, rubs, systolic murmur GI/Abdominal exam: PRESENT: normal bowel sounds, soft. ABSENT: distended, guarding, mass, organomegaly, rebound, tenderness Extremities exam: PRESENT: pedal edema - comparatively better Musculoskeletal exam: PRESENT: deformity - related to joint involvement with arthritis Neurological exam: PRESENT: altered, oriented to person, oriented to place, oriented to time, CN II-XII grossly intact, motor sensory deficit Psychiatric exam: PRESENT: appropriate affect, normal mood. ABSENT: homicidal ideation, suicidal ideation Skin exam: PRESENT: dry, warm Results Laboratory Results: 06/15/16 05:31 06/15/16 05:31 06/14/16 15:57 NT-Pro-B Natriuret Pep 1130 H Impressions: Chest X-Ray 06/13/16 23:01 IMPRESSION: No acute radiographic finding in the chest. Assessment & Plan - Diagnosis (1) COPD with acute exacerbation Is this a current diagnosis for this admission?: YesPlan: See attending physician orders. I will decrease IV Solu-Medrol dosage to 40 mg [id number]. (2) Bronchitis, acute Qualifiers: Bronchitis organism: unspecified organism Qualified Code(s): J20.9 - Acute bronchitis, unspecified Is this a current diagnosis for this admission?: YesPlan: See attending physician orders. (3) Protein-calorie malnutrition, mild Is this a current diagnosis for this admission?: YesPlan: See attending physician orders. (4) Tachycardia Is this a current diagnosis for this admission?: YesPlan: See attending physician orders. Followup on official echocardiogram report. (5) Generalized osteoarthrosis, involving multiple sites Is this a current diagnosis for this admission?: YesPlan: See attending physician orders. (6) Hyperglycemia Is this a current diagnosis for this admission?: YesPlan: Probable due to steroid usage but underlying impaired glucose metabolism should be considered in view of his slightly elevated HgbA1c level. - Time Time Spent with patient: 25-34 minutes Medications reviewed and adjusted accordingly: Yes Anticipated discharge: Home with Homehealth - Inpatient Certification Based on my medical assessment, after consideration of the patient's comorbidities, presenting symptoms, or acuity I expect that the services needed warrant INPATIENT care.: Yes I certify that my determination is in accordance with my understanding of Medicare's requirements for reasonable and necessary INPATIENT services [42 CFR 412.3e].: Yes Medical Necessity: Need Close Monitoring Due to Risk of Patient Decompensation, Need for Nebulizer Therapy and Monitoring of Response, Need for IV Antibiotics, Risk of Complication if Not Cared For in Hospital - Plan Summary Plan Summary: See attending physician orders.
[2016-06-17] MEDS: CEFTRIAXONE 1 GM/D5W RTU 1 GM/50 ML RTUPB IV SCH (08:05)
[2016-06-17] MEDS: INSULIN LISPRO 100 UNIT/ML 3 ML VIAL SUBCUT PRN ×3 (09:08→17:03)
[2016-06-17] MEDS: ENOXAPARIN SODIUM INJ 40 MG/0.4 ML DISP.SYRIN SUBCUT SCH (10:15)
[2016-06-17] MEDS: DILTIAZEM HCL 180 MG CAPSULE.CR PO SCH ×2 (10:16→21:41)
[2016-06-17] MEDS: MULTIVIT-STRESS FORMULA/ZINC TABLET PO SCH (10:16)
[2016-06-17] MEDS: LANSOPRAZOLE 30 MG TAB.RAP.DR PO SCH (10:16)
[2016-06-17] MEDS: METHYLPREDNISOLONE INJ 40 MG/1 ML SDV IV SCH ×2 (14:21→21:41)
[2016-06-18] MEDS: METHYLPREDNISOLONE INJ 40 MG/1 ML SDV IV SCH ×3 (05:32→21:28)
[2016-06-18] MEDS: INSULIN LISPRO 100 UNIT/ML 3 ML VIAL SUBCUT PRN ×4 (08:11→22:05)
[2016-06-18] MEDS: CEFTRIAXONE 1 GM/D5W RTU 1 GM/50 ML RTUPB IV SCH (08:11)
[2016-06-18] MEDS: LANSOPRAZOLE 30 MG TAB.RAP.DR PO SCH (09:30)
[2016-06-18] MEDS: DILTIAZEM HCL 180 MG CAPSULE.CR PO SCH ×2 (09:30→21:28)
[2016-06-18] MEDS: ENOXAPARIN SODIUM INJ 40 MG/0.4 ML DISP.SYRIN SUBCUT SCH (09:30)
[2016-06-18] MEDS: MULTIVIT-STRESS FORMULA/ZINC TABLET PO SCH (09:30)
--- NOTE | 2016-06-18 15:46 | PDOC PROGRESS REPORT ---
Subjective Progress Note for:: 06/18/16 Subjective:: Patient participating in walking with walker on the floor. There is worsening cough with sputum production. No chest pain or exertional difficulty with breathing. No fever or chills. No nausea or vomiting. Tolerating oral feeding. There is persistence of hyperglycemia. Physical Exam Vital Signs: Temp Pulse Resp BP Pulse Ox 97.4 F 94 18 148/64 H 96 06/18/16 12:36 06/18/16 12:36 06/18/16 12:36 06/18/16 12:36 06/18/16 12:36 Intake & Output 06/17/16 06/18/16 06/19/16 06:59 06:59 06:59 Intake Total 1906 1233 620 Output Total 2450 930 300 Balance -544 303 320 Weight 63.7 kg 64 kg Physical Exam: General appearance: PRESENT: no acute distress Head exam: PRESENT: atraumatic, normocephalic Eye exam: PRESENT: conjunctiva pink, EOMI, PERRLA. ABSENT: scleral icterus Neck exam: PRESENT: full ROM. ABSENT: carotid bruit, JVD, lymphadenopathy, thyromegaly Respiratory exam: PRESENT: crackles - worsening bilateral scattered, rhonchi - minimal expiratory phase Cardiovascular exam: PRESENT: RRR. ABSENT: diastolic murmur, rubs, systolic murmur GI/Abdominal exam: PRESENT: normal bowel sounds, soft. ABSENT: distended, guarding, mass, organomegaly, rebound, tenderness Extremities exam: PRESENT: pedal edema - comparatively better Musculoskeletal exam: PRESENT: deformity - related to joint involvement with arthritis Neurological exam: PRESENT: altered, oriented to person, oriented to place, oriented to time, CN II-XII grossly intact, motor sensory deficit Psychiatric exam: PRESENT: appropriate affect, normal mood. ABSENT: homicidal ideation, suicidal ideation Results Laboratory Results: 06/15/16 05:31 06/15/16 05:31 06/14/16 15:57 NT-Pro-B Natriuret Pep 1130 H Impressions: Chest X-Ray 06/13/16 23:01 IMPRESSION: No acute radiographic finding in the chest. Assessment & Plan - Diagnosis (1) COPD with acute exacerbation Is this a current diagnosis for this admission?: YesPlan: Decrease IV Solu-Medrol to 40 mg q12. Start on Advair 250/50 mcg 1 puff po [id number]. Obtain chest X ray PA and Lateral views for further evaluation of his worsening cough to r/o pneumonia, (2) Bronchitis, acute Qualifiers: Bronchitis organism: unspecified organism Qualified Code(s): J20.9 - Acute bronchitis, unspecified Is this a current diagnosis for this admission?: YesPlan: See attending physician orders. (3) Protein-calorie malnutrition, mild Is this a current diagnosis for this admission?: YesPlan: See attending physician orders. Improving p.o intake and supplementation usage. (4) Tachycardia Is this a current diagnosis for this admission?: YesPlan: See attending physician orders. Followup on official echocardiogram report. (5) Generalized osteoarthrosis, involving multiple sites Is this a current diagnosis for this admission?: YesPlan: See attending physician orders. (6) Hyperglycemia Is this a current diagnosis for this admission?: YesPlan: Probable due to steroid usage I will decrease Solu Medrol uage and taper off over next 72 hours. (7) HTN (hypertension) Qualifiers: Hypertension type: essential hypertension Qualified Code(s): I10 - Essential (primary) hypertension Is this a current diagnosis for this admission?: YesPlan: Add Ramipril 2.5 mg po blood pressure management. Follow up on official echocardiogram report. (8) Acute respiratory failure with hypoxemia Is this a current diagnosis for this admission?: YesPlan: Improved. See attending physician orders. - Time Time Spent with patient: 25-34 minutes Medications reviewed and adjusted accordingly: Yes Anticipated discharge: Home with Homehealth Within: Other - Inpatient Certification Based on my medical assessment, after consideration of the patient's comorbidities, presenting symptoms, or acuity I expect that the services needed warrant INPATIENT care.: Yes I certify that my determination is in accordance with my understanding of Medicare's requirements for reasonable and necessary INPATIENT services [42 CFR 412.3e].: Yes Medical Necessity: Need For IV Fluids, Need For Continuous Telemetry Monitoring , Need for IV Antibiotics, Risk of Complication if Not Cared For in Hospital Post Hospital Care: D/C Instructional Design Technologist Documentation - Plan Summary Plan Summary: See attending physician orders.
[2016-06-18] MEDS: IPRATROPIUM/ALBUTEROL 0.5-2.5 MG/3 ML AMPUL NEB PRN (16:55)
--- NOTE | 2016-06-18 17:34 | XCELERA REPORT ---
[address] [address] Transthoracic Echocardiogram Report Name: CRISTOBAL BLACK Age: 75 yrs Gender: Male : 1940 Patient Status: Inpatient Patient Location: 4S\S\430\S\A Study Date: 06/15/2016 02:09 PM Height: 72 in Weight: 132 lb BSA: 1.8 m2 Procedure: A complete two-dimensional transthoracic echocardiogram was performed (2D, M-mode, spectral and color flow Doppler). The study was technically adequate with some images being suboptimal in quality. Reason For Study: Dyspnea Ordering Physician: SOTO LUJAN Performed By: Dionisio Turner Interpretation Summary The left ventricular ejection fraction is normal. There is borderline concentric left ventricular hypertrophy. Doppler measurements suggest pseudonormalized left ventricular relaxation, which is associated with grade II/IV or mild to moderate diastolic dysfunction The left ventricle is grossly normal size. Wall motion cannot be accurately commented on, but no definite regional wall motion abnormalities noted. The right ventricular systolic function is normal. The right ventricle is borderline dilated. The left atrial size is normal. The right atrium is normal. There is no mitral valve stenosis. There is a trace to mild amount of mitral regurgitation There is no aortic valve stenosis No aortic regurgitation is present. There is a trace to mild amount of tricuspid regurgitation There is mild to moderate pulmonary hypertension by echo Right ventricular systolic pressure is estimated to be elevated at 30- 40mmHg. The aortic root is not well visualized but is probably normal size. The inferior vena cava appeared normal and decreased > 50% with respiration (RAP 5-10 mmHg) There is no pericardial effusion. MMode/2D Measurements \T\ Calculations RVDd: 2.4 cm LVIDd: 4.3 cm FS: 39.1 % Ao root diam: 3.3 cm IVSd: 0.84 cm LVIDs: 2.6 cm EDV(Teich): 81.9 ml LVPWd: 0.84 cm ESV(Teich): 24.7 ml Ao root area: 8.4 cm2 EF(Teich): 69.9 % LA dimension: 2.3 cm Doppler Measurements \T\ Calculations MV E max anand: MV P1/2t max anand: Ao V2 max: LV V1 max P.7 cm/sec 101.7 cm/sec 144.6 cm/sec 3.9 mmHg MV A max anand: MV P1/2t: 58.3 msec Ao max PG: LV V1 max: 118.0 cm/sec 8.4 mmHg 98.7 cm/sec MV E/A: 0.85 MVA(P1/2t): 3.8 cm2 MV dec slope: 510.7 cm/sec2 PA V2 max: TR max anand: RAP systole: 99.3 cm/sec 267.7 cm/sec 10.0 mmHg PA max P.9 mmHgTR max P.4 mmHg RVSP(TR): 39.4 mmHg Left Ventricle The left ventricle is grossly normal size. There is borderline concentric left ventricular hypertrophy. The left ventricular ejection fraction is normal. Doppler measurements suggest pseudonormalized left ventricular relaxation, which is associated with grade II/IV or mild to moderate diastolic dysfunction. Wall motion cannot be accurately commented on, but no definite regional wall motion abnormalities noted. Right Ventricle The right ventricle is borderline dilated. There is normal right ventricular wall thickness. The right ventricular systolic function is normal. Atria The right atrium is normal. The left atrial size is normal. Interarterial septum not well visualized and not well dopplered. Cannot comment on ASD/PFO presence. Mitral Valve The mitral valve leaflets are sclerotic, but show no functional abnormalities. There is no mitral valve stenosis. There is a trace to mild amount of mitral regurgitation. Aortic Valve The aortic valve is grossly normal. There is no aortic valve stenosis. No aortic regurgitation is present. Tricuspid Valve The tricuspid valve is not well visualized, but is grossly normal. There is a trace to mild amount of tricuspid regurgitation. There is mild to moderate pulmonary hypertension by echo. Right ventricular systolic pressure is estimated to be elevated at 30-40mmHg. Pulmonic Valve The pulmonic valve is not well visualized. Great Vessels The aortic root is not well visualized but is probably normal size. The inferior vena cava appeared normal and decreased > 50% with respiration (RAP 5-10 mmHg). Effusions There is no pericardial effusion. : SOTO LUJAN > Edith Orourke
[2016-06-18] MEDS: FLUTICASONE/SALMETEROL DISKUS 250-50 MCG/DOSE IH SCH (21:28)
[2016-06-19] MEDS: CEFTRIAXONE 1 GM/D5W RTU 1 GM/50 ML RTUPB IV SCH (08:08)
[2016-06-19] MEDS: INSULIN LISPRO 100 UNIT/ML 3 ML VIAL SUBCUT PRN ×4 (08:09→21:30)
[2016-06-19] MEDS: LANSOPRAZOLE 30 MG TAB.RAP.DR PO SCH (10:55)
[2016-06-19] MEDS: MULTIVIT-STRESS FORMULA/ZINC TABLET PO SCH (10:55)
[2016-06-19] MEDS: METHYLPREDNISOLONE INJ 40 MG/1 ML SDV IV SCH ×2 (10:56→21:30)
[2016-06-19] MEDS: DILTIAZEM HCL 180 MG CAPSULE.CR PO SCH ×2 (10:56→21:31)
[2016-06-19] MEDS: ENOXAPARIN SODIUM INJ 40 MG/0.4 ML DISP.SYRIN SUBCUT SCH (10:56)
[2016-06-19] MEDS: RAMIPRIL 2.5 MG CAPSULE PO SCH (10:56)
[2016-06-19] MEDS: FLUTICASONE/SALMETEROL DISKUS 250-50 MCG/DOSE IH SCH ×2 (10:57→21:31)
--- NOTE | 2016-06-19 18:20 | PDOC PROGRESS REPORT ---
Subjective Progress Note for:: 06/19/16 Subjective:: He was seen by the bedside, he has COPD and he was admitted for acute exacerbation of COPD Physical Exam Vital Signs: Temp Pulse Resp BP Pulse Ox 97.5 F 89 18 149/70 H 96 06/19/16 15:01 06/19/16 15:45 06/19/16 15:45 06/19/16 15:01 06/19/16 15:45 Intake & Output 06/18/16 06/19/16 06/20/16 06:59 06:59 06:59 Intake Total 1233 2360 Output Total 930 775 Balance 303 1585 Weight 64 kg 64.7 kg General appearance: PRESENT: no acute distress Head exam: PRESENT: atraumatic, normocephalic Eye exam: PRESENT: conjunctiva pink, EOMI, PERRLA. ABSENT: scleral icterus Ear exam: PRESENT: normal external ear exam Mouth exam: PRESENT: moist, tongue midline Neck exam: PRESENT: full ROM Respiratory exam: PRESENT: wheezes Cardiovascular exam: PRESENT: RRR, +S1, +S2 Vascular exam: PRESENT: normal capillary refill GI/Abdominal exam: PRESENT: normal bowel sounds, soft Rectal exam: PRESENT: deferred Neurological exam: PRESENT: alert Psychiatric exam: PRESENT: appropriate affect, normal mood Skin exam: PRESENT: dry, intact, warm Results Laboratory Results: 06/15/16 05:31 06/15/16 05:31 06/14/16 15:57 NT-Pro-B Natriuret Pep 1130 H Impressions: Chest X-Ray 06/18/16 00:00 IMPRESSION: NO SIGNIFICANT RADIOGRAPHIC FINDING IN THE CHEST. Assessment & Plan - Diagnosis (1) Acute respiratory failure with hypoxemia Is this a current diagnosis for this admission?: YesPlan: Continue IV antibiotic (2) COPD with acute exacerbation Is this a current diagnosis for this admission?: Yes (3) Protein-calorie malnutrition, mild Is this a current diagnosis for this admission?: Yes (4) Respiratory distress Is this a current diagnosis for this admission?: Yes
[2016-06-20] MEDS: CEFTRIAXONE 1 GM/D5W RTU 1 GM/50 ML RTUPB IV SCH (07:42)
[2016-06-20] MEDS: INSULIN LISPRO 100 UNIT/ML 3 ML VIAL SUBCUT PRN ×4 (07:43→21:56)
[2016-06-20] MEDS: IPRATROPIUM/ALBUTEROL 0.5-2.5 MG/3 ML AMPUL NEB PRN (09:00)
[2016-06-20] MEDS: ENOXAPARIN SODIUM INJ 40 MG/0.4 ML DISP.SYRIN SUBCUT SCH (09:29)
[2016-06-20] MEDS: METHYLPREDNISOLONE INJ 40 MG/1 ML SDV IV SCH ×2 (09:30→21:56)
[2016-06-20] MEDS: LANSOPRAZOLE 30 MG TAB.RAP.DR PO SCH (09:30)
[2016-06-20] MEDS: MULTIVIT-STRESS FORMULA/ZINC TABLET PO SCH (09:30)
[2016-06-20] MEDS: RAMIPRIL 2.5 MG CAPSULE PO SCH (09:32)
[2016-06-20] MEDS: FLUTICASONE/SALMETEROL DISKUS 250-50 MCG/DOSE IH SCH ×2 (09:32→21:56)
[2016-06-20] MEDS: DILTIAZEM HCL 180 MG CAPSULE.CR PO SCH ×2 (09:32→21:56)
--- NOTE | 2016-06-20 18:05 | PDOC PROGRESS REPORT ---
Subjective Progress Note for:: 06/20/16 Subjective:: He was seen by the bedside, he has COPD and he was admitted for acute exacerbation of COPD Physical Exam Vital Signs: Temp Pulse Resp BP Pulse Ox 97.4 F 89 18 158/68 H 96 06/20/16 15:03 06/20/16 17:35 06/20/16 17:35 06/20/16 15:03 06/20/16 17:35 Intake & Output 06/19/16 06/20/16 06/21/16 06:59 06:59 06:59 Intake Total 2360 2751 1200 Output Total 775 1175 800 Balance 1585 1576 400 Weight 64.7 kg General appearance: PRESENT: no acute distress Eye exam: PRESENT: PERRLA Respiratory exam: PRESENT: clear to auscultation silvina Cardiovascular exam: PRESENT: +S1, +S2 Neurological exam: PRESENT: alert Results Laboratory Results: 06/15/16 05:31 06/15/16 05:31 06/14/16 15:57 NT-Pro-B Natriuret Pep 1130 H Impressions: Chest X-Ray 06/18/16 00:00 IMPRESSION: NO SIGNIFICANT RADIOGRAPHIC FINDING IN THE CHEST. Assessment & Plan - Diagnosis (1) Acute respiratory failure with hypoxemia Is this a current diagnosis for this admission?: Yes (2) COPD with acute exacerbation Is this a current diagnosis for this admission?: Yes (3) Protein-calorie malnutrition, mild Is this a current diagnosis for this admission?: Yes (4) Respiratory distress Is this a current diagnosis for this admission?: Yes
[2016-06-21] MEDS: INSULIN LISPRO 100 UNIT/ML 3 ML VIAL SUBCUT PRN ×2 (08:29→17:02)
[2016-06-21] MEDS: CEFTRIAXONE 1 GM/D5W RTU 1 GM/50 ML RTUPB IV SCH (08:29)
[2016-06-21] MEDS: IPRATROPIUM/ALBUTEROL 0.5-2.5 MG/3 ML AMPUL NEB PRN (08:59)
[2016-06-21] MEDS ORDERED: METFORMIN HCL 500 MG TABLET PO ONE (09:00)
[2016-06-21] MEDS: ENOXAPARIN SODIUM INJ 40 MG/0.4 ML DISP.SYRIN SUBCUT SCH (09:04)
[2016-06-21] MEDS: RAMIPRIL 2.5 MG CAPSULE PO SCH (09:07)
[2016-06-21] MEDS: MULTIVIT-STRESS FORMULA/ZINC TABLET PO SCH (09:08)
[2016-06-21] MEDS: FLUTICASONE/SALMETEROL DISKUS 250-50 MCG/DOSE IH SCH ×2 (09:08→21:28)
[2016-06-21] MEDS: LANSOPRAZOLE 30 MG TAB.RAP.DR PO SCH (09:08)
[2016-06-21] MEDS: DILTIAZEM HCL 180 MG CAPSULE.CR PO SCH ×2 (09:08→21:28)
[2016-06-21] MEDS: METFORMIN HCL 500 MG TABLET PO SCH (17:02)
--- NOTE | 2016-06-21 19:07 | PDOC PROGRESS REPORT ---
Subjective Progress Note for:: 06/21/16 Subjective:: Patient reported some improvement in his breathing so far today except with exertion. No chest pain. No fever or chills. No nausea or vomiting. Tolerating oral feeding. There is persistence of hyperglycemia. Physical Exam Vital Signs: Temp Pulse Resp BP Pulse Ox 97.9 F 87 18 130/70 H 99 06/21/16 16:19 06/21/16 18:14 06/21/16 18:14 06/21/16 16:19 06/21/16 16:19 Intake & Output 06/20/16 06/21/16 06/22/16 06:59 06:59 06:59 Intake Total 2751 2610 1484 Output Total 1175 1800 600 Balance 1576 810 884 Physical Exam: General appearance: PRESENT: no acute distress Head exam: PRESENT: atraumatic, normocephalic Eye exam: PRESENT: conjunctiva pink, EOMI, PERRLA. ABSENT: scleral icterus Neck exam: PRESENT: full ROM. ABSENT: carotid bruit, JVD, lymphadenopathy, thyromegaly Respiratory exam: PRESENT: crackles - worsening bilateral scattered, rhonchi - minimal expiratory phase Cardiovascular exam: PRESENT: RRR. ABSENT: diastolic murmur, rubs, systolic murmur GI/Abdominal exam: PRESENT: normal bowel sounds, soft. ABSENT: distended, guarding, mass, organomegaly, rebound, tenderness Extremities exam: PRESENT: pedal edema - comparatively better Musculoskeletal exam: PRESENT: deformity - related to joint involvement with arthritis Neurological exam: PRESENT: altered, oriented to person, oriented to place, oriented to time, CN II-XII grossly intact, motor sensory deficit Psychiatric exam: PRESENT: appropriate affect, normal mood. ABSENT: homicidal ideation, suicidal ideation Results Laboratory Results: 06/15/16 05:31 06/15/16 05:31 06/14/16 15:57 NT-Pro-B Natriuret Pep 1130 H Impressions: Chest X-Ray 06/18/16 00:00 IMPRESSION: NO SIGNIFICANT RADIOGRAPHIC FINDING IN THE CHEST. Assessment & Plan - Diagnosis (1) COPD with acute exacerbation Is this a current diagnosis for this admission?: YesPlan: D/C IV Solu-Medrol. Maintain on Advair 250/50 mcg 1 puff po [id number]. (2) Bronchitis, acute Qualifiers: Bronchitis organism: unspecified organism Qualified Code(s): J20.9 - Acute bronchitis, unspecified Is this a current diagnosis for this admission?: YesPlan: See attending physician orders. D/C IV Rocephin after today's dose. (3) Protein-calorie malnutrition, mild Is this a current diagnosis for this admission?: YesPlan: See attending physician orders. Improving p.o intake and supplementation usage. (4) Tachycardia Is this a current diagnosis for this admission?: Yes (5) Generalized osteoarthrosis, involving multiple sites Is this a current diagnosis for this admission?: Yes (6) Hyperglycemia Is this a current diagnosis for this admission?: YesPlan: D/C Solu Medrol. Start on Metformin 500 mg p.o bid acbs (7) HTN (hypertension) Qualifiers: Hypertension type: essential hypertension Qualified Code(s): I10 - Essential (primary) hypertension Is this a current diagnosis for this admission?: YesPlan: See attending physician orders. (8) Acute respiratory failure with hypoxemia Is this a current diagnosis for this admission?: YesPlan: Improved. See attending physician orders. - Time Time Spent with patient: 25-34 minutes Medications reviewed and adjusted accordingly: Yes Anticipated discharge: Home with Homehealth Within: within 24 hours - Inpatient Certification Medical Necessity: Significant Comorbidiites Make Outpatient Treatment Too Risky , Need For IV Fluids, Need For Continuous Telemetry Monitoring, Need for Nebulizer Therapy and Monitoring of Response, Need for IV Antibiotics, Risk of Complication if Not Cared For in Hospital Post Hospital Care: D/C Tug Hand Documentation - Plan Summary Plan Summary: See attending physician orders.
[2016-06-22] MEDS: METFORMIN HCL 500 MG TABLET PO SCH (07:54)
[2016-06-22] MEDS: IPRATROPIUM/ALBUTEROL 0.5-2.5 MG/3 ML AMPUL NEB PRN (08:12)
--- NOTE | 2016-06-22 08:17 | PDOC DISCHARGE SUMMARY ---
General - Admit/Disc Date/PCP Admission Date/Primary Care Provider: 06/14/16 07:55 SOTO LE Discharge Date: 06/22/16 - Discharge Diagnosis (1) COPD with acute exacerbation Is this a current diagnosis for this admission?: Yes (2) Bronchitis, acute Is this a current diagnosis for this admission?: Yes (3) Protein-calorie malnutrition, mild Is this a current diagnosis for this admission?: Yes (4) Tachycardia Is this a current diagnosis for this admission?: Yes (5) Generalized osteoarthrosis, involving multiple sites Is this a current diagnosis for this admission?: Yes (6) Hyperglycemia Is this a current diagnosis for this admission?: Yes (7) HTN (hypertension) Is this a current diagnosis for this admission?: Yes (8) Acute respiratory failure with hypoxemia Is this a current diagnosis for this admission?: Yes - Additional Information Resuscitation Status: Full Code Discharge Diet: Diabetic Discharge Activity: Activity As Tolerated, Energy Conservation, Slowly Increase Activity Home Medications: Acetaminophen [Acetaminophen Extra Strength] 500 mg PO DAILYP PRN 06/14/16 Albuterol Sulfate [Ventolin HFA MDI 18 GM] 2 puff IH Q6HP PRN 06/14/16 Benzonatate [Tessalon Perle 100 mg Capsule] 100 mg PO Q8HP PRN 06/14/16 Diltiazem HCl [Diltiazem 24Hr ER] 180 mg PO Q12 06/14/16 Multivit-Stress Formula/Zinc [Zbec Tablet] 1 tab PO DAILY 06/14/16 Ranitidine HCl [Acid Parquet Floor Layer] 150 mg PO DAILYP PRN 06/14/16 Fluticasone/Salmeterol [Advair 250-50 Diskus 14 Dose/Diskus] 1 inh IH Q12 #1 inhaler 06/22/16 Ipratropium/Albuterol Sulfate [Duoneb 3 ml Ampul] 3 ml NEB RTQ4HP PRN #100 vial.neb 06/22/16 Ramipril [Altace 2.5 mg Capsule] 2.5 mg PO DAILY #30 capsule 06/22/16 History of Present Illness History of Present Illness: CRISTOBAL BLACK is a 75 year old male patient with history of COPD who presented to ED with cc worsening SOB. Patient reported worsening symptoms over last 2 days preceding his presentation. There is minimal relief with several treatment at home with bronchodilator via nebulizer treatment. Patient reported associated productive cough with yellow to brownish sputum production. There is associated intermittent fever and chills. He denied any associated chest pain but "felt as if his heart is going to jump out of his chest". Patient reported compliance with his medications. He admitted to nausea but no vomiting, bowel movement fair with episodes of constipation interspace with diarrhea. His initial evaluation in the ED was significant for for respiratory distress and associated tachycardia and hypoxemia. Despite intervention with bronchodilator therapy there was no significant improvement necessitating advise for admission. Hospital Course Hospital Course: Patient was admitted as case of exacerbated COPD with bronchitis. He did respond to bronchodilator therapy. He will be discharged home with nebulizer machine and accessories. His hospitalization was significant for possible steroid induced hyperglycemia. His Hemoglobin A1c was 6.6% with improvement his his accuchek upon taper off IV steroid usage. His blood culture was no growth after 5 days of incubation. Due to his presenting symptoms and associated leg swelling, he had complete TTE performed during this hospitalization without significant findings. He did demonstrate adult failure to thrive with protein calorie malnutrition which could account for his edema and did resolved before discharge home. We will follow up on further evaluation and management on outpatient basis. He will follow up in the office as instructed upon discharge. Physical Exam Vital Signs: Temp Pulse Resp BP Pulse Ox 98.2 F 102 H 22 H 161/76 H 100 06/22/16 04:00 06/22/16 04:00 06/22/16 04:00 06/22/16 04:00 06/22/16 04:00 Intake & Output 06/21/16 06/22/16 06/23/16 06:59 06:59 06:59 Intake Total 2610 2284 Output Total 1800 950 Balance 810 1334 Weight 65.6 kg Physical Exam: General appearance: PRESENT: no acute distress Head exam: PRESENT: atraumatic, normocephalic Eye exam: PRESENT: conjunctiva pink, EOMI, PERRLA. ABSENT: scleral icterus Neck exam: PRESENT: full ROM. ABSENT: carotid bruit, JVD, lymphadenopathy, thyromegaly Respiratory exam: PRESENT: ABSENT: crackles, rhonchi Cardiovascular exam: PRESENT: RRR. ABSENT: diastolic murmur, rubs, systolic murmur GI/Abdominal exam: PRESENT: normal bowel sounds, soft. ABSENT: distended, guarding, mass, organomegaly, rebound, tenderness Extremities exam: PRESENT: pedal edema - comparatively better Musculoskeletal exam: PRESENT: deformity - related to joint involvement with arthritis Neurological exam: PRESENT: altered, oriented to person, oriented to place, oriented to time, CN II-XII grossly intact, motor sensory deficit Psychiatric exam: PRESENT: appropriate affect, normal mood. ABSENT: homicidal ideation, suicidal ideation Results Laboratory Results: 06/15/16 05:31 06/15/16 05:31 06/14/16 15:57 NT-Pro-B Natriuret Pep 1130 H Impressions: Chest X-Ray 06/18/16 00:00 IMPRESSION: NO SIGNIFICANT RADIOGRAPHIC FINDING IN THE CHEST. Qualifiers PATEINT BEING DISCHARGED WITH ANY OF THE FOLLOWING DIAGNOSIS?: No Plan Discharge Plan: D/C home today with follow up as instructed upon discharge. Time Spent: Less than 30 Minutes
[2016-06-22] MEDS: DILTIAZEM HCL 180 MG CAPSULE.CR PO SCH (09:21)
[2016-06-22] MEDS: MULTIVIT-STRESS FORMULA/ZINC TABLET PO SCH (09:22)
[2016-06-22] MEDS: LANSOPRAZOLE 30 MG TAB.RAP.DR PO SCH (09:22)
[2016-06-22] MEDS: FLUTICASONE/SALMETEROL DISKUS 250-50 MCG/DOSE IH SCH (09:22)
[2016-06-22] MEDS: RAMIPRIL 2.5 MG CAPSULE PO SCH (09:22)
[2016-06-22] MEDS: ENOXAPARIN SODIUM INJ 40 MG/0.4 ML DISP.SYRIN SUBCUT SCH (09:23)
[2016-06-22 13:32] VITALS: BP 161/76
== END 2016-06-22 13:30 | disposition home or self-care (01) | DRG 190 ==
LOC: ER 22:39 → EH 06-14 04:29 → OBSVTOIN 06-14 07:55 → 4S 06-14 12:30
PROVIDERS: ADMIT Internal Medicine Geriatric Medicine; ATTEND Internal Medicine Geriatric Medicine
PROC: 3E0F73Z Introduction of Anti-inflammatory into Respiratory Tract, Via Natural or Artificial Opening (ICD-10-PCS; principal; 2016-06-14)
DX: J44.0 Chronic obstructive pulmonary disease with (acute) lower respiratory infection (principal); J96.01 Acute respiratory failure with hypoxia; E44.1 Mild protein-calorie malnutrition; Z68.1 Body mass index [BMI] 19.9 or less, adult; J20.9 Acute bronchitis, unspecified; J44.1 Chronic obstructive pulmonary disease with (acute) exacerbation; M15.3 Secondary multiple arthritis; I10 Essential (primary) hypertension; R73.9 Hyperglycemia, unspecified; T38.0X5A Adverse effect of glucocorticoids and synthetic analogues, initial encounter; F32.9 Major depressive disorder, single episode, unspecified; J45.909 Unspecified asthma, uncomplicated; Z87.891 Personal history of nicotine dependence; Z79.899 Other long term (current) drug therapy
CPT/HCPCS: 36415; 71010; 71020; 80048; 80053; 82803; 82962; 83036; 83880; 85025; 93306; 94640; 96374; 99285; G8978-GP; G8979-GP; J0696; J1650; J1815; J2920; J2930; J3490; J7030; J7620

== ENCOUNTER 2016-07-29 03:01 | Inpatient (IN) | payer MEDICARE ==
[2016-07-29] MEDS ORDERED: IPRATROPIUM/ALBUTEROL 0.5-2.5 MG/3 ML AMPUL NEB ONE ×4 (03:06→03:21)
[2016-07-29] MEDS ORDERED: METHYLPREDNISOLONE INJ 125 MG/2 ML SDV ONE (03:09)
[2016-07-29] MEDS ORDERED: METHYLPREDNISOLONE INJ 125 MG/2 ML SDV IV ONE (03:09)
[2016-07-29] MEDS ORDERED: MAGNESIUM SULFATE/D5W 100 ML IV SCH (03:09)
[2016-07-29] MEDS ORDERED: MAGNESIUM SULFATE/D5W 2 GM/200 ML RTUPB IV ONE (03:09)
[2016-07-29] MEDS ORDERED: ETOMIDATE INJ/PF 20 MG/10 ML SDV IV ONE ×2 (03:22)
[2016-07-29] MEDS ORDERED: MIDAZOLAM 2 MG/2 ML INJ IV ONE ×2 (03:31→03:44)
[2016-07-29] MEDS ORDERED: MIDAZOLAM 2 MG/2 ML INJ ONE (03:33)
--- NOTE | 2016-07-29 03:33 | ER Document Report ---
ED General - General Chief Complaint: Respiratory Distress Stated Complaint: TROUBLE BREATHING Notes: Patient is a 75-year-old male presents with complaints of difficulty breathing. Patient does move give history himself she's working so hard to breathe that he cannot talk. Patient's nephew brought him in. Patient's nephew says that he got home and the patient was working very hard to breathe and therefore he brought him straight to the ER. Is unsure exactly how long he's had the shortness of breath 4. He does have history of COPD and asthma. He does not think patient's recent fevers or infections. He does not think the patient's previously been intubated. He has been admitted in the past for respiratory distress. TRAVEL OUTSIDE OF THE [place] IN LAST 30 DAYS: No - Related Data Allergies/Adverse Reactions: No Known Allergies Allergy (Verified 04/24/16 17:41) Home Medications: Current Home Medications Nateglinide [Nateglinide] 60 mg PO BID 07/29/16 [History] Past Medical History - Social History Smoking Status: Unknown if Ever Smoked Frequency of alcohol use: None Drug Abuse: None Family History: Reviewed & Not Pertinent Patient has suicidal ideation: No Patient has homicidal ideation: No Pulmonary Medical History: Reports: Hx Asthma, Hx COPD Renal/ Medical History: Denies: Hx Peritoneal Dialysis Psychiatric Medical History: Reports: Hx Depression Past Surgical History: Reports: Hx Orthopedic Surgery - back/rupture disc Review of Systems - Review of Systems -: Yes ROS unobtainable due to patient's medical condition - too sick to communicate Physical Exam - Vital signs Vitals: Resp Pulse Ox 23 H 100 07/29/16 03:20 07/29/16 03:20 - Notes Notes: General Appearance: Well nourished, alert, cooperative, severe acute distress, no obvious discomfort. Vitals: reviewed, See vital signs table. Head: no swelling or tenderness to the head Eyes: PERRL, EOMI, Conjuctiva clear Mouth: No decreasd moisture Throat: No tonsillar inflammation, No airway obstruction, No lymphadenopathy Lungs: Diffuse wheezing. Very poor air exchange. Patient has accessory muscle use with tachypnea and severe respiratory distress. Heart: Tachycardic rate, Regular rythm, No murmur, no rub Abdomen: Normal BS, soft, No rigidity, No abdominal tenderness, No guarding, no rebound, no abdominal masses, no organomegaly Extremities: strength 5/5 in all extremities, good pulses in all extremities, no swelling or tenderness in the extremities, 3+ lower extremity bilateral edema. Skin: warm, dry, appropriate color, no rash Neuro: Patient is awake and alert. He is unable to speak because of his severe respiratory distress. Course - Re-evaluation Re-evalutation: 07/29/16 04:17 Chest x-ray showed that the ET tube needs to be advanced proximal vt for some years. I did advance a 3 cm. I will obtain a portable chest x-ray. ET tube was 22 at the lip. I did advance it to 25 the lip. Patient still has good bilateral breath sounds. - Vital Signs Vital signs: Temp Pulse Resp BP Pulse Ox 97.7 F 28 H 85/63 L 97 07/29/16 05:21 07/29/16 05:21 07/29/16 05:20 07/29/16 05:21 - Laboratory Result Diagrams: 07/29/16 04:10 07/29/16 04:10 Laboratory results interpreted by me: 07/29/16 07/29/16 04:10 04:10 WBC 13.8 H RBC 4.31 L Hgb 12.9 L RDW 15.3 H Eosinophils % 10.9 H Absolute Eosinophils 1.5 H Glucose 199 H Calcium 8.3 L Total Protein 6.1 L - EKG Interpretation by Me Additional EKG results interpreted by me: 07/29/16 03:32 EKG is reviewed and interpreted by me. Initial EKG does show slight ST segment elevation leads V3 and V4. This no reciprocal ST segment depression. I suspect that this is a rate related change. Clinically his symptoms very much respiratory driven. We'll repeat the EKG here shortly to see if there is any further changes. 07/29/16 05:08 EKG #2 is reviewed and interpreted by me. EKG shows sinus tachycardia with rate of [address] segment elevation or depression. No ischemic T wave inversions. He was ST segment elevation late for has resolved now that the patient's heart rate is improved. NJ interval, QRS duration, QTC intervals are within normal range. - Transfer of Care Notes: 07/29/16 05:59 Patient was intubated and his breathing is much improved. He is now more relaxed. His heart rate did improve. Once his heart rate improved I repeat his EKG in the slight concave up ST segment elevation that he initially had resolved. His CK-MB is normal. His troponin is in the indeterminate range. I do not think the initial EKG represent an acute DE. Patient's chest x-ray shows no evidence of pneumonia. Patient briefly became hypotensive when propofol was added. Propofol has been turned down and the patient's mean arterial pressure is now 78. I did speak with Dr. Abebe mendez. I did inform him of the initial EKG [facility] I did inform him of the patient's respiratory failure and intubation. He is agreeable to admit the patient to ICU. Dictation of this chart was performed using voice recognition software; therefore, there may be some unintended grammatical errors. Procedures - Intubation Orotracheal Airway evaluation: Normal anatomy Mallampati Classification: Class 1 Medications: Etomidate, Succinylcholine Intubation method: Orotracheal Blade type: Shaq Blade size: 4 Equipment used: Glidescope ETT size: 7.5 ETT secured at: Lips ETT secured at (cm): 23 Breath Sounds after Intubation: Equal End tidal CO2 confirmed: Yes Ventilator settings: SIMV Post Intubation Xray: Yes Intubation Complications: No complications - Additional Procedures EJ line Notes: 07/29/16 04:09 We needed more peripheral access. I placed an 20-gauge IV in the right external jugular vein. Good dark blood nonpulsatile flash. Blood was able to be drawn off of it and it flushed easily. Critical Care Note - Critical Care Note Total time excluding time spent on procedures (mins): 50 Comments: Critical care time not including time spent on procedures is approximately 50 minutes due to frequent evaluations, adjustment of sedation vacations, discussion with family, and management of his acute respiratory failure. Discharge - Discharge Clinical Impression: COPD with acute exacerbation Respiratory failure Qualifiers: Chronicity: acute Respiratory failure complication: hypoxia Qualified Code(s): J96.01 - Acute respiratory failure with hypoxia Condition: Stable Disposition: ADMITTED INPATIENT Admitting Provider: [facility] Unit Admitted: ICU
[2016-07-29] MEDS ORDERED: PROPOFOL INJ 200 MG/20 ML VIAL IV ONE (03:50)
[2016-07-29] MEDS ORDERED: PROPOFOL 100 ML IV PRN (03:50)
[2016-07-29] MEDS ORDERED: PROPOFOL 100 ML IV ONE (03:53)
[2016-07-29 04:28] LABS: VENOUS BLOOD BASE EXCESS -2.1 mmol/L; VENOUS BLOOD HCO3 25.1 mmol/L (20-32); VENOUS BLOOD PCO2 52.7 mmHg (35-63); VENOUS BLOOD PH 7.3 (7.30-7.42)
[2016-07-29 04:29] LABS: ABSOLUTE BASOPHILS # (AUTO) 0.1 10^3/uL (0.0-0.2); ABSOLUTE EOSINOPHILS # (AUTO) 1.5 10^3/uL (0.0-0.6); ABSOLUTE LYMPHOCYTES (AUTO) 3.9 10^3/uL (0.5-4.7); ABSOLUTE MONOCYTES (AUTO) 0.8 10^3/uL (0.1-1.4); ABSOLUTE NEUT (AUTO) 7.5 10^3/uL (1.7-8.2); BASOPHILS % (AUTO) 0.9 % (0-2); EOSINOPHILS % (AUTO) 10.9 % (0-6); HEMATOCRIT 39.2 % (37.9-51.0); HEMOGLOBIN 12.9 g/dL (13.5-17.0); HGB HCT DIFFERENCE -0.5; LYMPHOCYTES % (AUTO) 28.1 % (13-45); MEAN CORPUSCULAR VOLUME 91 fl (80-97); MONOCYTES % (AUTO) 5.6 % (3-13); RED BLOOD COUNT 4.31 10^6/uL (4.35-5.55); RED CELL DISTRIBUTION WIDTH 15.3 % (11.5-14.0); SEGMENTED NEUTROPHILS % (AUTO) 54.5 % (42-78); WHITE BLOOD COUNT 13.8 10^3/uL (4.0-10.5)
[2016-07-29 04:45] LABS: ALANINE AMINOTRANSFERASE 51 U/L (21-72); ALBUMIN 3.6 g/dL (3.5-5.0); ALKALINE PHOSPHATASE 84 U/L (38-126); ANION GAP 14 (5-19); ASPARTATE AMINO TRANSFERASE 59 U/L (17-59); BILIRUBIN,DIRECT 0.4 mg/dL (0.0-0.4); BILIRUBIN,TOTAL 1.1 mg/dL (0.2-1.3); BLOOD UREA NITROGEN 12 mg/dL (7-20); CALCIUM 8.3 mg/dL (8.4-10.2); CARBON DIOXIDE 22 mmol/L (22-30); CHLORIDE 103 mmol/L (98-107); CREATINE KINASE 145 U/L (55-170); CREATININE RESULT 0.74 mg/dL (0.52-1.25); GLUCOSE 199 mg/dL (75-110); POTASSIUM 4.6 mmol/L (3.6-5.0); SODIUM 138.9 mmol/L (137-145); TOTAL PROTEIN 6.1 g/dL (6.3-8.2)
[2016-07-29 04:57] LABS: CREATINE KINASE MB 1.83 ng/mL (<4.55)
[2016-07-29 04:58] LABS: TROPONIN I 0.083 ng/mL
[2016-07-29] MEDS: MIDAZOLAM HCL 100 ML IV PRN ×4 (05:14→22:02)
--- NOTE | 2016-07-29 08:06 | PDOC H&P ---
History of Present Illness Admission Date/PCP: 07/29/16 06:12 SOTO LE Patient complains of: Difficulty with breathing History of Present Illness: CRISTOBAL BLACK is a 75 year old male is known to my practice but noncompliant with follow up care and need for recurrent admission to this hospital in the last couple of months. He was brought to the ED by nephew who found in severe respiratory distress. His initial care in the ED was unsuccessful with BiPAP support and bronchodilator therapy with eventual need for intubation and ventilatory support. Nephewe was unable to give further details of patient presentation circumstance. No reported fever, chills, vomiting, aspiration or recent travel. No reported chest pain. No reported insight into patient's compliance with his medication since discharged from [facility] following his last hospitalization. At the time of my evaluation he remain sedated, intuibated on ventilator support and unable to contribute to his medical history. Past Medical History Pulmonary Medical History: Reports: Asthma, Chronic Obstructive Pulmonary Disease (COPD) Endocrine Medical History: Reports: Diabetes Mellitus Type 2 Musculoskeltal Medical History: Reports: Arthritis Psychiatric Medical History: Reports: Depression Past Surgical History Past Surgical History: Reports: Orthopedic Surgery - back/rupture disc Social History Smoking Status: Unknown if Ever Smoked Frequency of Alcohol Use: None Hx Recreational Drug Use: No Hx Prescription Drug Abuse: No Family History Family History: Reviewed & Not Pertinent Parental Family History Reviewed: Yes Children Family History Reviewed: Yes Sibling(s) Family History Reviewed.: Yes Medication/Allergy Allergies/Adverse Reactions: No Known Allergies Allergy (Verified 04/24/16 17:41) Review of Systems ROS unobtainable: Due to endotracheal tube Physical Exam Vital Signs: Temp Pulse Resp BP Pulse Ox 95.7 F L 23 H 87/64 L 99 07/29/16 07:01 07/29/16 07:01 07/29/16 07:00 07/29/16 07:01 Physical Exam: Sedated. Intubated on ventilator support Head exam: PRESENT: atraumatic, normocephalic Eye exam: PRESENT: other - Right corneal opacification Mouth exam: PRESENT: other - ET NG tubes are in situ Respiratory exam: PRESENT: crackles, decreased breath sounds - at, rhonchi, wheezes Cardiovascular exam: PRESENT: tachycardia. ABSENT: bradycardia, clicks, diastolic murmur, gallop, irregular rhythm, RRR, rubs, +S1, +S2, systolic murmur , other Vascular exam: PRESENT: pallor GI/Abdominal exam: PRESENT: normal bowel sounds, soft. ABSENT: distended, guarding, mass, organolmegaly, rebound, tenderness Rectal exam: PRESENT: deferred Extremities exam: PRESENT: pedal edema - 2+ bilaterally to thigh level Neurological exam: PRESENT: altered - sedated on Diprivan and midazolam drip Skin exam: PRESENT: dry, intact, warm. ABSENT: cyanosis, rash Additional comments: Warming blanket in use Results Laboratory Results: Reviewed on Getui and form significant part of my clinical decision making. Impressions: Chest X-Ray 07/29/16 03:33 IMPRESSION: No acute cardiopulmonary findings. Lines and tubes. Assessment & Plan - Diagnosis (1) Diabetes mellitus type 2 in nonobese Is this a current diagnosis for this admission?: YesPlan: See admitting physician orders. (2) Acute respiratory failure with hypoxemia Is this a current diagnosis for this admission?: YesPlan: See admitting physician orders. He will be admitted to ICU and treated appropriately. I will request consultation of Dr Ray Chowdhury, guest associate, for input in his management. (3) COPD with acute exacerbation Is this a current diagnosis for this admission?: YesPlan: See admitting physician orders. He will be admitted to ICU and treated appropriately. I will request consultation of Dr Ray Chowdhury, guest associate, for input in his management. (4) HTN (hypertension) Qualifiers: Hypertension type: essential hypertension Qualified Code(s): I10 - Essential (primary) hypertension Is this a current diagnosis for this admission?: YesPlan: See admitting physician orders. (5) Hyperglycemia Is this a current diagnosis for this admission?: YesPlan: See admitting physician orders. (6) Elevated troponin I level Is this a current diagnosis for this admission?: YesPlan: This may be related to demand and supply mismatch in view of his acute illness and associated tachycardia. There is downward trend in quantitative measurement and we will continue to monitor and intervene as needed. - Time Time Spent: 50 to 70 Minutes Critical Time spent with patient: 15-24 minutes Medications reviewed and adjusted accordingly: Yes Anticipated discharge: SNF Within: Other - Inpatient Certification Based on my medical assessment, after consideration of the patient's comorbidities, presenting symptoms, or acuity I expect that the services needed warrant INPATIENT care.: Yes I certify that my determination is in accordance with my understanding of Medicare's requirements for reasonable and necessary INPATIENT services [42 CFR 412.3e].: Yes Medical Necessity: Need Close Monitoring Due to Risk of Patient Decompensation, Need For IV Fluids, Need For Continuous Telemetry Monitoring, Need for Nebulizer Therapy and Monitoring of Response, Risk of Complication if Not Cared For in Hospital Post Hospital Care: D/C or Transfer Summary - Plan Summary Plan Summary: see admitting physician orders.
[2016-07-29] MEDS ORDERED: DEXTROSE 40% GEL 15 GM TUBE PO PRN ×2 (08:08)
[2016-07-29] MEDS ORDERED: DEXTROSE 50%-WATER 25 GM/50 ML DISP.SYRIN IV PRN ×2 (08:08)
[2016-07-29] MEDS ORDERED: GLUCAGON,HUMAN RECOMB 1 MG INJ SUBCUT PRN (08:08)
[2016-07-29] MEDS ORDERED: DEXTROSE 5%-NORMAL SALINE 1,000 ML IV PRN (08:09)
[2016-07-29] MEDS ORDERED: ACETAMINOPHEN 325 MG TABLET GT PRN (08:09)
[2016-07-29] MEDS ORDERED: SUCCINYLCHOLINE CHLORIDE INJ 200 MG/10 ML VIAL ONE (09:16)
[2016-07-29 09:49] LABS: PROTHROMBIN TIME 14.6 SEC (11.4-15.4)
[2016-07-29 09:50] LABS: PARTIAL THROMBOPLASTIN TIME 27.7 SEC (23.5-35.8)
[2016-07-29] MEDS ORDERED: ENOXAPARIN SODIUM INJ 40 MG/0.4 ML DISP.SYRIN SUBCUT ONE (10:00)
[2016-07-29 10:12] LABS: CREATINE KINASE MB 3.39 ng/mL (<4.55)
[2016-07-29 10:30] LABS: TROPONIN I 0.386 ng/mL
[2016-07-29] MEDS: PANTOPRAZOLE SODIUM 40 MG VIAL IV SCH ×2 (11:03→22:27)
[2016-07-29] MEDS: CEFEPIME 1 GM/D5W RTU 50 ML IV SCH ×2 (11:05→22:28)
[2016-07-29] MEDS: LEVOFLOXACIN 500 MG/D5W RTU 100 ML IV SCH (11:05)
[2016-07-29] MEDS: IPRATROPIUM/ALBUTEROL 120 PUFF/4 GM MDI IH SCH ×2 (11:07→17:02)
[2016-07-29] MEDS ORDERED: REGADENOSON INJ 0.4 MG/5 ML DISP.SYRIN IV ONE (11:46)
[2016-07-29] MEDS ORDERED: AMINOPHYLLINE INJ/PF 250 MG/10 ML SDV IV ONE (11:46)
--- NOTE | 2016-07-29 11:47 | PDOC CONSULTATION ---
Consultation Consult Date: 07/29/16 Attending physician:: SOTO LUJAN Consult reason:: Acute on chronic respiratory failure History of Present Illness Admission Date/PCP: 07/29/16 06:12 SOTO LUJAN History of Present Illness: All information obtained from chart as patient is currently intubated and sedated no patient family members at bedside. CRISTOBAL BLACK is a 75 year old male is known to Dr. Soto Lujan practice but noncompliant with follow up care and need for recurrent admission to this hospital in the last couple of months. He was brought to the ED by nephew who found in severe respiratory distress. His initial care in the ED was unsuccessful with BiPAP support and bronchodilator therapy with eventual need for intubation and ventilatory support. Nephew was unable to give further details of patient presentation circumstance. No reported fever, chills, vomiting, aspiration or recent travel. No reported chest pain. No reported insight into patient's compliance with his medication since discharged from [facility] following his last hospitalization. At the time of my evaluation he remain sedated, intuibated on ventilator support and unable to contribute to his medical history. Past Medical History Pulmonary Medical History: Reports: Asthma, Chronic Obstructive Pulmonary Disease (COPD) Endocrine Medical History: Reports: Diabetes Mellitus Type 2 Musculoskeltal Medical History: Reports: Arthritis Psychiatric Medical History: Reports: Depression Past Surgical History Past Surgical History: Reports: Orthopedic Surgery - back/rupture disc Social History Information Source: [facility] Records Smoking Status: Smoker,Current Status Unk Frequency of Alcohol Use: None Hx Recreational Drug Use: No Hx Prescription Drug Abuse: No Family History Family History: Reviewed & Not Pertinent Parental Family History Reviewed: No Children Family History Reviewed: No Sibling(s) Family History Reviewed.: No Medication/Allergy Home Medications: Albuterol Sulfate [Ventolin HFA MDI 18 GM] 2 puff IH Q6HP PRN 07/29/16 Diltiazem HCl [Diltiazem ER] 180 mg PO Q12 07/29/16 Fluticasone Propionate [Flonase Nasal [place] 50 Mcg/[place] 16 gm] 2 spray NASL DAILY 07/29/16 Fluticasone/Salmeterol [Advair 250-50 Diskus 28 dose] 1 inh IH Q12 07/29/16 Ipratropium/Albuterol Sulfate [Duoneb 3 ml Ampul] 3 ml NEB RTQ4HP PRN 07/29/16 Nateglinide [Starlix 60 Mg Tablet] 60 mg PO BIDBS 07/29/16 Ramipril [Altace 2.5 mg Capsule] 1 cap PO DAILY 07/29/16 Allergies/Adverse Reactions: No Known Allergies Allergy (Verified 04/24/16 17:41) Review of Systems ROS unobtainable: Due to endotracheal tube Physical Exam Vital Signs: Temp Pulse Resp BP Pulse Ox 95.7 F L 23 H 87/64 L 99 07/29/16 07:01 07/29/16 07:01 07/29/16 07:00 07/29/16 07:01 General appearance: PRESENT: no acute distress, disheveled, thin, well-developed , well-nourished Head exam: PRESENT: atraumatic, normocephalic Eye exam: PRESENT: conjunctiva pale Mouth exam: PRESENT: dry mucosa, neck supple, other - Endotracheal tube in place Teeth exam: PRESENT: poor dentation Neck exam: ABSENT: carotid bruit, JVD, lymphadenopathy, thyromegaly Respiratory exam: PRESENT: decreased breath sounds, prolonged expiratory phas, rhonchi, symmetrical, unlabored, wheezes Cardiovascular exam: PRESENT: RRR, +S1, +S2 Pulses: PRESENT: normal radial pulses GI/Abdominal exam: PRESENT: normal bowel sounds, soft. ABSENT: distended, guarding, mass, organolmegaly, rebound, tenderness Rectal exam: PRESENT: deferred Gentrourinary exam: PRESENT: indwelling catheter Musculoskeletal exam: PRESENT: normal inspection Skin exam: PRESENT: dry, warm Results Impressions: Chest X-Ray 07/29/16 03:33 IMPRESSION: No acute cardiopulmonary findings. Lines and tubes. Assessment & Plan - Diagnosis (1) Acute respiratory failure with hypoxemia Is this a current diagnosis for this admission?: Yes (2) COPD with acute exacerbation Is this a current diagnosis for this admission?: Yes (3) HTN (hypertension) Qualifiers: Hypertension type: essential hypertension Qualified Code(s): I10 - Essential (primary) hypertension Is this a current diagnosis for this admission?: Yes - Time Critical Time spent with patient: 35 or more minutes
[2016-07-29 12:35] LABS: ARTERIAL BLOOD BASE EXCESS -0.8 mmol/L; ARTERIAL BLOOD O2 SATURATION 75.2 % (94-98)
[2016-07-29] MEDS: NORMAL SALINE 1000 ML 1,000 ML IV PRN ×2 (13:14→22:29)
[2016-07-29] MEDS: METHYLPREDNISOLONE INJ 125 MG/2 ML SDV IV SCH ×2 (13:15→22:27)
[2016-07-29] MEDS ORDERED: NORMAL SALINE 250 ML IV ONE (13:15)
--- NOTE | 2016-07-29 14:25 | EKG REPORT ---
SEVERITY:- ABNORMAL ECG - SINUS TACHYCARDIA NONSPECIFIC T ABNORMALITIES, DIFFUSE LEADS : Confirmed by: Edith Orourke 29-Jul-2016 14:24:07
--- NOTE | 2016-07-29 14:25 | EKG REPORT ---
SEVERITY:- ABNORMAL ECG - SINUS TACHYCARDIA PROBABLE LVH WITH SECONDARY REPOL ABNRM CONSIDER ANTEROSEPTAL INFARCT BORDERLINE ST ELEVATION, INFERIOR LEADS PROLONGED QT INTERVAL : Confirmed by: Eidth Orourke 29-Jul-2016 14:24:28
[2016-07-29 21:28] LABS: CREATINE KINASE MB 4.56 ng/mL (<4.55); TROPONIN I 0.392 ng/mL
[2016-07-30] MEDS: IPRATROPIUM/ALBUTEROL 120 PUFF/4 GM MDI IH SCH ×5 (01:18→21:04)
[2016-07-30] MEDS: MIDAZOLAM HCL 100 ML IV PRN ×2 (02:08→05:30)
[2016-07-30 03:42] LABS: ABSOLUTE LYMPHOCYTES (AUTO) 0.8 10^3/uL (0.5-4.7); ABSOLUTE MONOCYTES (AUTO) 0.2 10^3/uL (0.1-1.4); ABSOLUTE NEUT (AUTO) 4.4 10^3/uL (1.7-8.2); BASOPHILS % (AUTO) 0.1 % (0-2); EOSINOPHILS % (AUTO) 0.2 % (0-6); HEMATOCRIT 36.7 % (37.9-51.0); HEMOGLOBIN 12.1 g/dL (13.5-17.0); HGB HCT DIFFERENCE -0.4; MEAN CORPUSCULAR HEMOGLOBIN 29.7 pg (27.0-33.4); MEAN CORPUSCULAR HGB CONC 32.9 g/dL (32.0-36.0); MEAN CORPUSCULAR VOLUME 90 fl (80-97); MONOCYTES % (AUTO) 4.3 % (3-13); RED BLOOD COUNT 4.08 10^6/uL (4.35-5.55); RED CELL DISTRIBUTION WIDTH 14.9 % (11.5-14.0); SEGMENTED NEUTROPHILS % (AUTO) 80.4 % (42-78); WHITE BLOOD COUNT 5.4 10^3/uL (4.0-10.5)
[2016-07-30 03:58] LABS: ALANINE AMINOTRANSFERASE 61 U/L (21-72); ALBUMIN 2.9 g/dL (3.5-5.0); ALKALINE PHOSPHATASE 82 U/L (38-126); ANION GAP 10 (5-19); ASPARTATE AMINO TRANSFERASE 53 U/L (17-59); BILIRUBIN,DIRECT 0.3 mg/dL (0.0-0.4); BILIRUBIN,TOTAL 0.9 mg/dL (0.2-1.3); BLOOD UREA NITROGEN 18 mg/dL (7-20); CALCIUM 8.7 mg/dL (8.4-10.2); CARBON DIOXIDE 23 mmol/L (22-30); CHLORIDE 110 mmol/L (98-107); CREATININE RESULT 0.98 mg/dL (0.52-1.25); GLUCOSE 147 mg/dL (75-110); MAGNESIUM 2.2 mg/dL (1.6-2.3); POTASSIUM 4.5 mmol/L (3.6-5.0); SODIUM 142.5 mmol/L (137-145); TOTAL PROTEIN 5.7 g/dL (6.3-8.2)
[2016-07-30 05:15] LABS: ARTERIAL BLOOD BASE EXCESS -1.8 mmol/L; ARTERIAL BLOOD O2 SATURATION 95.7 % (94-98)
[2016-07-30] MEDS: METHYLPREDNISOLONE INJ 125 MG/2 ML SDV IV SCH ×3 (05:29→21:58)
--- NOTE | 2016-07-30 07:56 | PDOC PROGRESS REPORT ---
Subjective Progress Note for:: 07/30/16 Subjective:: Remain sedated and vent supported on Versed. There is persistent of elevated Troponin I to diagnostic level and T wave inversion suggestive of NSTEMI this morning. Tachycardia and blood pressure remain satisfactory. No reported fever. Remain on IV Levofloxacin and Cefepime coverage. Medical Billing And Coding Instructor input appreciated. Physical Exam Vital Signs: Temp Pulse Resp BP Pulse Ox 98.2 F 100 18 117/74 100 07/30/16 05:02 07/30/16 02:20 07/30/16 06:46 07/30/16 06:46 07/30/16 06:46 Intake & Output 07/29/16 07/30/16 07/31/16 06:59 06:59 06:59 Intake Total 2431 Output Total 1725 Balance 706 Weight 62.5 kg Physical Exam: ET and NG tubes in situ. Head exam: PRESENT: atraumatic, normocephalic Mouth exam: PRESENT: moist Respiratory exam: PRESENT: clear to auscultation silvina, decreased breath sounds - at lung bases Cardiovascular exam: PRESENT: RRR. ABSENT: diastolic murmur, rubs, systolic murmur GI/Abdominal exam: PRESENT: normal bowel sounds, soft. ABSENT: distended, guarding, mass, organolmegaly, rebound, tenderness Extremities exam: PRESENT: pedal edema - comparatively better with JOAQUIN hose in use Neurological exam: PRESENT: altered - sedated with Midazolam infusion Skin exam: PRESENT: dry, intact, warm. ABSENT: cyanosis, rash Results Laboratory Results: 07/30/16 03:31 07/30/16 03:31 07/29/16 07/30/16 07/30/16 12:00 03:31 03:31 WBC 5.4 RBC 4.08 L Hgb 12.1 L Hct 36.7 L MCV 90 MCH 29.7 MCHC 32.9 RDW 14.9 H Plt Count 143 L Seg Neutrophils % 80.4 H Lymphocytes % 15.0 Monocytes % 4.3 Eosinophils % 0.2 Basophils % 0.1 Absolute Neutrophils 4.4 Absolute Lymphocytes 0.8 Absolute Monocytes 0.2 Absolute Eosinophils 0.0 Absolute Basophils 0.0 Carbonic Acid 1.41 H HCO3/H2CO3 Ratio 17:1 ABG pH 7.35 ABG pCO2 46.7 H ABG pO2 42.3 L ABG HCO3 25.1 ABG O2 Saturation 75.2 L ABG Base Excess -0.8 FiO2 35% Sodium 142.5 Potassium 4.5 Chloride 110 H Carbon Dioxide 23 Anion Gap 10 BUN 18 Creatinine 0.98 Est GFR ( Amer) > 60 Est GFR (Non-Af Amer) > 60 Glucose 147 H Calcium 8.7 Magnesium 2.2 Total Bilirubin 0.9 AST 53 ALT 61 Alkaline Phosphatase 82 Total Protein 5.7 L Albumin 2.9 L 07/30/16 04:54 WBC RBC Hgb Hct MCV MCH MCHC RDW Plt Count Seg Neutrophils % Lymphocytes % Monocytes % Eosinophils % Basophils % Absolute Neutrophils Absolute Lymphocytes Absolute Monocytes Absolute Eosinophils Absolute Basophils Carbonic Acid 1.16 HCO3/H2CO3 Ratio 19:1 ABG pH 7.39 ABG pCO2 38.4 ABG pO2 79.5 L ABG HCO3 22.8 ABG O2 Saturation 95.7 ABG Base Excess -1.8 FiO2 35% Sodium Potassium Chloride Carbon Dioxide Anion Gap BUN Creatinine Est GFR ( Amer) Est GFR (Non-Af Amer) Glucose Calcium Magnesium Total Bilirubin AST ALT Alkaline Phosphatase Total Protein Albumin 07/29/16 07/29/16 07/29/16 09:29 09:29 20:10 Creatine Kinase 180 H 186 H CK-MB (CK-2) 3.39 Troponin I 0.386 NT-Pro-B Natriuret Pep 07/29/16 07/30/16 20:10 03:31 Creatine Kinase CK-MB (CK-2) 4.56 H Troponin I 0.392 NT-Pro-B Natriuret Pep 6580 H Assessment & Plan - Diagnosis (1) Diabetes mellitus type 2 in nonobese Is this a current diagnosis for this admission?: YesPlan: See attending physician orders. Start on enteral tube feeding as per furniture decals inspector recommendation. Continue accucheck as per order with humulog insulin sliding scale coverage. (2) Acute respiratory failure with hypoxemia Is this a current diagnosis for this admission?: YesPlan: See attending physician orders. Ventilator management as per Dr Ray Chowdhury, hand bindery assembly worker, management input. (3) COPD with acute exacerbation Is this a current diagnosis for this admission?: YesPlan: See attending physician orders. Increase Combivent Respimat to 2 puffs via ET tube q6 hours for bronchodilatory management. (4) HTN (hypertension) Qualifiers: Hypertension type: essential hypertension Qualified Code(s): I10 - Essential (primary) hypertension Is this a current diagnosis for this admission?: YesPlan: See attending physician orders. There is improvement in his vitals and we will change sedation management to Propofol and discontinue Midazolam usage. (5) Hyperglycemia Is this a current diagnosis for this admission?: YesPlan: See attending physician orders. (6) Elevated troponin I level Is this a current diagnosis for this admission?: YesPlan: I will request for cardiology evaluation with regard to elevated Troponin I and EKG changes for further management of possible NSTEMI. - Time Time Spent with patient: 35 or more minutes Critical Time spent with patient: Less than 15 minutes Medications reviewed and adjusted accordingly: Yes Anticipated discharge: SNF Within: Other - Inpatient Certification Based on my medical assessment, after consideration of the patient's comorbidities, presenting symptoms, or acuity I expect that the services needed warrant INPATIENT care.: Yes I certify that my determination is in accordance with my understanding of Medicare's requirements for reasonable and necessary INPATIENT services [42 CFR 412.3e].: Yes Medical Necessity: Need Close Monitoring Due to Risk of Patient Decompensation, Need For IV Fluids, Need For Continuous Telemetry Monitoring, Need for Nebulizer Therapy and Monitoring of Response, Need for IV Antibiotics, Risk of Complication if Not Cared For in Hospital Post Hospital Care: D/C or Transfer Summary - Plan Summary Plan Summary: See attending physician orders.
[2016-07-30] MEDS ORDERED: PROPOFOL 100 ML IV ONE (08:15)
[2016-07-30] MEDS: ENOXAPARIN SODIUM INJ 40 MG/0.4 ML DISP.SYRIN SUBCUT SCH (08:17)
[2016-07-30] MEDS: NORMAL SALINE 1000 ML 1,000 ML IV PRN ×3 (09:13→21:59)
[2016-07-30] MEDS: CEFEPIME 1 GM/D5W RTU 50 ML IV SCH ×2 (09:31→21:57)
[2016-07-30] MEDS: LEVOFLOXACIN 500 MG/D5W RTU 100 ML IV SCH (09:31)
[2016-07-30] MEDS: PANTOPRAZOLE SODIUM 40 MG VIAL IV SCH ×2 (09:32→21:57)
--- NOTE | 2016-07-30 09:40 | EKG REPORT ---
SEVERITY:- ABNORMAL ECG - SINUS RHYTHM FIRST DEGREE AV BLOCK TAMMY, CONSIDER BIATRIAL ABNORMALITIES BORDERLINE R WAVE PROGRESSION, ANTERIOR LEADS ABNORMAL T, CONSIDER ISCHEMIA, DIFFUSE LEADS PROLONGED QT INTERVAL : Confirmed by: Edith Orourke 30-Jul-2016 09:39:48
[2016-07-30] MEDS ORDERED: DILTIAZEM HCL/D5W 125 MG/125 ML RTUINJ IV ONE (12:30)
[2016-07-30] MEDS: DILTIAZEM HCL/D5W 125 ML IV PRN (13:36)
--- NOTE | 2016-07-30 14:02 | PDOC PROGRESS REPORT ---
Subjective Progress Note for:: 07/30/16 Subjective:: Intubated and sedated Physical Exam Vital Signs: Temp Pulse Resp BP Pulse Ox 98.2 F 100 18 117/74 100 07/30/16 05:02 07/30/16 02:20 07/30/16 06:46 07/30/16 06:46 07/30/16 06:46 Intake & Output 07/29/16 07/30/16 07/31/16 06:59 06:59 06:59 Intake Total 2431 Output Total 1725 Balance 706 Weight 62.5 kg General appearance: PRESENT: no acute distress, disheveled, thin, well-developed Head exam: PRESENT: atraumatic, normocephalic Eye exam: PRESENT: conjunctiva pale Mouth exam: PRESENT: dry mucosa, neck supple, other - ET tube in place Teeth exam: PRESENT: edentulous Neck exam: ABSENT: carotid bruit, JVD, lymphadenopathy, thyromegaly Respiratory exam: PRESENT: decreased breath sounds, prolonged expiratory phas, rhonchi, symmetrical, unlabored, wheezes Cardiovascular exam: PRESENT: RRR, +S1, +S2 Pulses: PRESENT: normal radial pulses GI/Abdominal exam: PRESENT: normal bowel sounds, soft. ABSENT: distended, guarding, mass, organolmegaly, rebound, tenderness Rectal exam: PRESENT: deferred Gentrourinary exam: PRESENT: indwelling catheter Musculoskeletal exam: PRESENT: tenderness Skin exam: PRESENT: dry, warm Results Laboratory Results: 07/30/16 03:31 07/30/16 03:31 07/29/16 07/30/16 07/30/16 12:00 03:31 03:31 WBC 5.4 RBC 4.08 L Hgb 12.1 L Hct 36.7 L MCV 90 MCH 29.7 MCHC 32.9 RDW 14.9 H Plt Count 143 L Seg Neutrophils % 80.4 H Lymphocytes % 15.0 Monocytes % 4.3 Eosinophils % 0.2 Basophils % 0.1 Absolute Neutrophils 4.4 Absolute Lymphocytes 0.8 Absolute Monocytes 0.2 Absolute Eosinophils 0.0 Absolute Basophils 0.0 Carbonic Acid 1.41 H HCO3/H2CO3 Ratio 17:1 ABG pH 7.35 ABG pCO2 46.7 H ABG pO2 42.3 L ABG HCO3 25.1 ABG O2 Saturation 75.2 L ABG Base Excess -0.8 FiO2 35% Sodium 142.5 Potassium 4.5 Chloride 110 H Carbon Dioxide 23 Anion Gap 10 BUN 18 Creatinine 0.98 Est GFR ( Amer) > 60 Est GFR (Non-Af Amer) > 60 Glucose 147 H Calcium 8.7 Magnesium 2.2 Total Bilirubin 0.9 AST 53 ALT 61 Alkaline Phosphatase 82 Total Protein 5.7 L Albumin 2.9 L 07/30/16 04:54 WBC RBC Hgb Hct MCV MCH MCHC RDW Plt Count Seg Neutrophils % Lymphocytes % Monocytes % Eosinophils % Basophils % Absolute Neutrophils Absolute Lymphocytes Absolute Monocytes Absolute Eosinophils Absolute Basophils Carbonic Acid 1.16 HCO3/H2CO3 Ratio 19:1 ABG pH 7.39 ABG pCO2 38.4 ABG pO2 79.5 L ABG HCO3 22.8 ABG O2 Saturation 95.7 ABG Base Excess -1.8 FiO2 35% Sodium Potassium Chloride Carbon Dioxide Anion Gap BUN Creatinine Est GFR ( Amer) Est GFR (Non-Af Amer) Glucose Calcium Magnesium Total Bilirubin AST ALT Alkaline Phosphatase Total Protein Albumin 07/29/16 07/29/16 07/29/16 09:29 09:29 20:10 Creatine Kinase 180 H 186 H CK-MB (CK-2) 3.39 Troponin I 0.386 NT-Pro-B Natriuret Pep 07/29/16 07/30/16 20:10 03:31 Creatine Kinase CK-MB (CK-2) 4.56 H Troponin I 0.392 NT-Pro-B Natriuret Pep 6580 H Assessment & Plan - Diagnosis (1) Acute respiratory failure with hypoxemia Is this a current diagnosis for this admission?: YesPlan: WBCs decreased patient stable at this time (2) COPD with acute exacerbation Is this a current diagnosis for this admission?: YesPlan: Oxygenating and ventilating well low FiO2 requirement (3) HTN (hypertension) Qualifiers: Hypertension type: essential hypertension Qualified Code(s): I10 - Essential (primary) hypertension Is this a current diagnosis for this admission?: Yes - Time Critical Time spent with patient: 25-34 minutes
[2016-07-30] MEDS: PROPOFOL 100 ML IV PRN (17:15)
[2016-07-31] MEDS: IPRATROPIUM/ALBUTEROL 120 PUFF/4 GM MDI IH SCH ×4 (01:07→19:24)
[2016-07-31 04:09] LABS: HEMATOCRIT 39.7 % (37.9-51.0); HEMOGLOBIN 13.2 g/dL (13.5-17.0); HGB HCT DIFFERENCE -0.1; MEAN CORPUSCULAR HEMOGLOBIN 29.9 pg (27.0-33.4); MEAN CORPUSCULAR HGB CONC 33.3 g/dL (32.0-36.0); MEAN CORPUSCULAR VOLUME 90 fl (80-97); RED BLOOD COUNT 4.42 10^6/uL (4.35-5.55); RED CELL DISTRIBUTION WIDTH 15.5 % (11.5-14.0); WHITE BLOOD COUNT 7.6 10^3/uL (4.0-10.5)
[2016-07-31 04:20] LABS: ALANINE AMINOTRANSFERASE 51 U/L (21-72); ALBUMIN 3.1 g/dL (3.5-5.0); ALKALINE PHOSPHATASE 89 U/L (38-126); ANION GAP 11 (5-19); ASPARTATE AMINO TRANSFERASE 36 U/L (17-59); BILIRUBIN,DIRECT 0.3 mg/dL (0.0-0.4); BILIRUBIN,TOTAL 0.6 mg/dL (0.2-1.3); BLOOD UREA NITROGEN 25 mg/dL (7-20); CALCIUM 8.8 mg/dL (8.4-10.2); CARBON DIOXIDE 22 mmol/L (22-30); CHLORIDE 111 mmol/L (98-107); CREATININE RESULT 0.92 mg/dL (0.52-1.25); GLUCOSE 174 mg/dL (75-110); SODIUM 144.4 mmol/L (137-145); TRIGLYCERIDES 129 mg/dL (<150)
[2016-07-31 04:21] LABS: POTASSIUM 4.2 mmol/L (3.6-5.0)
[2016-07-31 04:53] LABS: BAND NEUTROPHILS % (MANUAL) 1 % (3-5); BASOPHILS % (MANUAL) 0 % (0-2); EOSINOPHILS % (MANUAL) 0 % (0-6); LYMPHOCYTES % (MANUAL) 4 % (13-45); TOTAL CELLS COUNTED 100
[2016-07-31 04:55] LABS: BURR CELLS 2+; OVALOCYTES SLIGHT; POIKILOCYTOSIS SLIGHT; SCHISTOCYTES SLIGHT; TOXIC GRANULATION SLIGHT
[2016-07-31] MEDS: METHYLPREDNISOLONE INJ 125 MG/2 ML SDV IV SCH ×3 (05:56→22:03)
[2016-07-31 06:18] LABS: ARTERIAL BLOOD BASE EXCESS 1.2 mmol/L; ARTERIAL BLOOD O2 SATURATION 96.6 % (94-98)
[2016-07-31] MEDS: NORMAL SALINE 1000 ML 1,000 ML IV PRN ×2 (08:58→18:53)
[2016-07-31] MEDS: ENOXAPARIN SODIUM INJ 40 MG/0.4 ML DISP.SYRIN SUBCUT SCH (09:24)
--- NOTE | 2016-07-31 09:52 | EKG REPORT ---
SEVERITY:- BORDERLINE ECG - SINUS TACHYCARDIA PROBABLE LEFT ATRIAL ABNORMALITY BORDERLINE R WAVE PROGRESSION, ANTERIOR LEADS CONSIDER OLD ANTERIOR WA NONSPECIFIC ST-T CHANGES- INFERIOR LEADS CONSIDER ISCHEMIA : Confirmed by: Edith Orourke 31-Jul-2016 09:51:50
[2016-07-31] MEDS ORDERED: ASPIRIN 325 MG TABLET GT SCH (10:00)
[2016-07-31] MEDS: PROPOFOL 100 ML IV PRN ×3 (10:06→18:45)
--- NOTE | 2016-07-31 10:42 | PDOC PROGRESS REPORT ---
Subjective Progress Note for:: 07/31/16 Subjective:: Intubated and sedated Physical Exam Vital Signs: Temp Pulse Resp BP Pulse Ox 98.2 F 109 H 17 138/82 H 100 07/31/16 07:23 07/31/16 08:31 07/31/16 08:31 07/31/16 06:33 07/31/16 08:31 Intake & Output 07/30/16 07/31/16 08/01/16 06:59 06:59 06:59 Intake Total 2431 2840 Output Total 1725 2190 900 Balance 706 650 -900 Weight 62.5 kg 63.4 kg General appearance: PRESENT: no acute distress, disheveled, thin, well-developed Head exam: PRESENT: atraumatic, normocephalic Eye exam: PRESENT: conjunctiva pale Mouth exam: PRESENT: dry mucosa, neck supple, other - ET tube Neck exam: PRESENT: carotid bruit Respiratory exam: PRESENT: decreased breath sounds, prolonged expiratory phas, rhonchi, symmetrical, unlabored Cardiovascular exam: PRESENT: RRR, +S1, +S2, other - abn T waves see cardiology note Pulses: PRESENT: normal radial pulses Rectal exam: PRESENT: deferred Gentrourinary exam: PRESENT: indwelling catheter Musculoskeletal exam: PRESENT: normal inspection Skin exam: PRESENT: warm Results Laboratory Results: 07/31/16 03:44 07/31/16 03:44 07/31/16 07/31/16 07/31/16 03:44 03:44 06:00 WBC 7.6 RBC 4.42 Hgb 13.2 L Hct 39.7 MCV 90 MCH 29.9 MCHC 33.3 RDW 15.5 H Plt Count 143 L Seg Neutrophils % Not Reportable Lymphocytes % Not Reportable Monocytes % Not Reportable Eosinophils % Not Reportable Basophils % Not Reportable Absolute Neutrophils Not Reportable Absolute Lymphocytes Not Reportable Absolute Monocytes Not Reportable Absolute Eosinophils Not Reportable Absolute Basophils Not Reportable Carbonic Acid 1.15 HCO3/H2CO3 Ratio 22:1 ABG pH 7.44 ABG pCO2 38.3 ABG pO2 83.7 ABG HCO3 25.3 ABG O2 Saturation 96.6 ABG Base Excess 1.2 FiO2 35% Sodium 144.4 Potassium 4.2 Chloride 111 H Carbon Dioxide 22 Anion Gap 11 BUN 25 H Creatinine 0.92 Est GFR ( Amer) > 60 Est GFR (Non-Af Amer) > 60 Glucose 174 H Calcium 8.8 Total Bilirubin 0.6 AST 36 ALT 51 Alkaline Phosphatase 89 Total Protein 6.0 L Albumin 3.1 L Triglycerides 129 07/29/16 07/29/16 07/29/16 09:29 09:29 20:10 Creatine Kinase 180 H 186 H CK-MB (CK-2) 3.39 Troponin I 0.386 NT-Pro-B Natriuret Pep 07/29/16 07/30/16 07/31/16 20:10 03:31 03:44 Creatine Kinase CK-MB (CK-2) 4.56 H Troponin I 0.392 0.112 NT-Pro-B Natriuret Pep 6580 H Impressions: Chest X-Ray 07/31/16 06:00 IMPRESSION: STABLE APPEARANCE OF THE CHEST. Assessment & Plan - Diagnosis (1) Acute respiratory failure with hypoxemia Is this a current diagnosis for this admission?: YesPlan: improved (2) COPD with acute exacerbation Is this a current diagnosis for this admission?: YesPlan: stable (3) HTN (hypertension) Qualifiers: Hypertension type: essential hypertension Qualified Code(s): I10 - Essential (primary) hypertension Is this a current diagnosis for this admission?: Yes - Time Critical Time spent with patient: 25-34 minutes
--- NOTE | 2016-07-31 11:08 | OPERATIVE REPORT E ---
Operative Report NAME: CRISTOBAL BLACK : 1940 AGE: 75Y DATE OF SURGERY: 07/31/2016 ROOM: 601 PREOPERATIVE DIAGNOSES: 1. Respiratory failure. 2. Poor peripheral veins for IV access. POSTOPERATIVE DIAGNOSES: 1. Respiratory failure. 2. Poor peripheral veins for IV access. PROCEDURE: Placement of triple lumen catheter via the left internal jugular vein with ultrasound guidance. SURGEON: JAVIER WIGGINS M.D. ANESTHESIA: Local. INDICATION: This is a 75-year-old male who was admitted in respiratory distress and needed to be intubated. He needed IV access since he only had one external jugular vein access at this time. DESCRIPTION OF PROCEDURE: Patient is placed in the supine position, slightly Trendelenburg, and the left neck exposed. The left neck was subsequently prepped and draped in the usual sterile fashion. With the use of ultrasound, the left internal jugular vein was then identified. Local anesthesia was infiltrated on the path of the internal jugular vein. Puncture was made into the internal jugular vein and blood easily aspirated. Guidewire was then inserted through the needle that was a superior vena cava. Needle was removed and the guidewire left in place. The puncture site was enlarged with an 11-blade. Dilator placed over the guidewire and dilator placed towards the area of the superior vena cava. The dilator removed and a triple lumen catheter inserted through the guidewire into the superior vena cava. About 17 cm of the catheter was placed through. Next, the catheter was then anchored to the skin with 3-0 Silk. A Biopatch was then placed at the entry site. A sterile dressing was placed over the catheter. The 3 ports aspirated blood easily and irrigated with saline easily. Patient tolerated the procedure well. Chest x-ray will be obtained for placement. DICTATING PHYSICIAN: JAVIER WIGGINS M.D. [id number] PHY#: [id number] ID: [id number] JOB#: [id number] ACCT: [id number] cc:JAVIER WIGGINS M.D. >
[2016-07-31] MEDS: CEFEPIME 1 GM/D5W RTU 50 ML IV SCH ×2 (11:09→22:02)
[2016-07-31] MEDS: LEVOFLOXACIN 500 MG/D5W RTU 100 ML IV SCH (11:15)
[2016-07-31] MEDS: PANTOPRAZOLE SODIUM 40 MG VIAL IV SCH ×2 (11:22→22:03)
[2016-07-31] MEDS: NITROGLYCERIN 2% OINTMENT 1 GM PACKET TP SCH ×2 (11:39→17:05)
[2016-07-31] MEDS ORDERED: ASPIRIN 300 MG SUPP, RECTAL PR ONE (12:00)
--- NOTE | 2016-07-31 15:03 | OPERATIVE REPORT E ---
Operative Report NAME: CRISTOBAL BLACK : 1940 AGE: 75Y DATE OF SURGERY: 07/31/2016 ROOM: 601 PREOPERATIVE DIAGNOSIS: Bleeding around the triple lumen catheter site. POSTOPERATIVE DIAGNOSIS: Bleeding around the triple lumen catheter site, with likely coagulopathy due to Lovenox and rectal aspirin. PROCEDURE DONE: Sutured ligature around the triple lumen catheter insertion site. SURGEON: JAVIER WIGGINS M.D. ANESTHESIA: Propofol sedation. INDICATION: The patient had a triple lumen catheter inserted this morning because of poor vein access. Catheter was inserted and chest x-ray showed it in good position. However, the nurse has just called me several hours later that the patient has continued to leak around the insertion of the catheter site. DESCRIPTION OF PROCEDURE: The dressing was removed and there is some oozing noted around the catheter insertion site on the neck. Two [id number] sutures using 3-0 Silk was used to control the bleeding. It almost completely stopped the oozing. There was just some minimal amount noted after placement of the two [id number] sutures. A sterile pressure dressing was then applied. The patient tolerated the procedure well. DICTATING PHYSICIAN: JAVIER WIGGINS M.D. [id number] PHY#: [id number] ID: [id number] JOB#: [id number] ACCT: [id number] cc:JAVIER WIGGINS M.D. >
--- NOTE | 2016-07-31 17:45 | PDOC PROGRESS REPORT ---
Subjective Progress Note for:: 07/31/16 Subjective:: Patient is intubated and sedated Physical Exam Vital Signs: Temp Pulse Resp BP Pulse Ox 98.8 F 100 12 141/81 H 100 07/31/16 16:00 07/31/16 16:00 07/31/16 16:00 07/31/16 16:00 07/31/16 16:00 Intake & Output 07/30/16 07/31/16 08/01/16 06:59 06:59 06:59 Intake Total 2431 2840 1580 Output Total 1725 2190 1800 Balance 706 650 -220 Weight 62.5 kg 63.4 kg Eye exam: PRESENT: PERRLA Respiratory exam: PRESENT: other - Auscultation, equal air entry on both lung arcos Cardiovascular exam: PRESENT: +S1, +S2 Neurological exam: PRESENT: other - Sedated Results Laboratory Results: 07/31/16 03:44 07/31/16 03:44 07/31/16 07/31/16 07/31/16 03:44 03:44 06:00 WBC 7.6 RBC 4.42 Hgb 13.2 L Hct 39.7 MCV 90 MCH 29.9 MCHC 33.3 RDW 15.5 H Plt Count 143 L Seg Neutrophils % Not Reportable Lymphocytes % Not Reportable Monocytes % Not Reportable Eosinophils % Not Reportable Basophils % Not Reportable Absolute Neutrophils Not Reportable Absolute Lymphocytes Not Reportable Absolute Monocytes Not Reportable Absolute Eosinophils Not Reportable Absolute Basophils Not Reportable Carbonic Acid 1.15 HCO3/H2CO3 Ratio 22:1 ABG pH 7.44 ABG pCO2 38.3 ABG pO2 83.7 ABG HCO3 25.3 ABG O2 Saturation 96.6 ABG Base Excess 1.2 FiO2 35% Sodium 144.4 Potassium 4.2 Chloride 111 H Carbon Dioxide 22 Anion Gap 11 BUN 25 H Creatinine 0.92 Est GFR ( Amer) > 60 Est GFR (Non-Af Amer) > 60 Glucose 174 H Calcium 8.8 Total Bilirubin 0.6 AST 36 ALT 51 Alkaline Phosphatase 89 Total Protein 6.0 L Albumin 3.1 L Triglycerides 129 07/29/16 07/29/16 07/29/16 09:29 09:29 20:10 Creatine Kinase 180 H 186 H CK-MB (CK-2) 3.39 Troponin I 0.386 NT-Pro-B Natriuret Pep 07/29/16 07/30/16 07/31/16 20:10 03:31 03:44 Creatine Kinase CK-MB (CK-2) 4.56 H Troponin I 0.392 0.112 NT-Pro-B Natriuret Pep 6580 H Impressions: Chest X-Ray 07/31/16 06:00 IMPRESSION: STABLE APPEARANCE OF THE CHEST. Assessment & Plan - Diagnosis (1) Acute respiratory failure with hypoxemia Is this a current diagnosis for this admission?: YesPlan: Continue mechanical ventilation (2) COPD with acute exacerbation Is this a current diagnosis for this admission?: YesPlan: Continue present treatment (3) Diabetes mellitus type 2 in nonobese Is this a current diagnosis for this admission?: Yes (4) Elevated troponin I level Is this a current diagnosis for this admission?: Yes (5) HTN (hypertension) Qualifiers: Hypertension type: essential hypertension Qualified Code(s): I10 - Essential (primary) hypertension Is this a current diagnosis for this admission?: Yes (6) Hyperglycemia Is this a current diagnosis for this admission?: Yes (7) Respiratory failure Qualifiers: Chronicity: acute Respiratory failure complication: hypoxia Qualified Code(s): J96.01 - Acute respiratory failure with hypoxia (8) Bilateral pneumonia Qualifiers: Pneumonia type: due to other aerobic Gram-negative bacteria Lung location: lower lobe of lung Qualified Code(s): J15.6 - Pneumonia due to other aerobic Gram-negative bacteria
[2016-07-31] MEDS ORDERED: NORMAL SALINE 250 ML IV ONE (18:00)
--- NOTE | 2016-07-31 21:23 | CONSULTATION REPORT E ---
Consultation Report NAME: CRISTOBAL BLACK : 1940 AGE: 75Y DATE: 07/30/2016 601 A TO: PRIYANK DRUMMOND M.D. FROM: SOTO LUJAN M.D. Requesting Physician NOTE: I was with the patient from 0755 hours to 0835 hours. A total of 40 minutes was spent on this patient. REASON FOR CONSULTATION: Abnormal ischemic EKG changes in a patient who is intubated and with elevated troponin-I. Note, the niece was here. She does not know much history and the patient intubated and hence the history obtained from the chart. HISTORY OF PRESENT ILLNESS: The patient is a 75-year-old male who was admitted on 07/29/2016 with difficulty breathing. The patient was found by his nephew to be in severe respiratory distress. Initial care in the emergency room was unsuccessful with the BiPAP and oxygen and bronchodilator therapy and hence the patient was intubated and sedated. The initial EKG suggests that the patient had junctional tachycardia with ectopic atrial tachycardia. Subsequently, the EKG changed with diffuse T wave inversions suggestive of ischemia with sinus tachycardia and subsequently, sinus rhythm. These EKGs are new. The initial troponin-I which was indeterminate at 0.083 and then subsequently beverley up to 0.386 and subsequently went up to 0.392. As per the chart, there is no history of chest pain. No fever, chills, vomiting, aspiration. PAST MEDICAL HISTORY: 1. Positive for asthma. 2. COPD. 3. History of diabetes mellitus type 2. 4. History of arthritis. 5. History of depression. PAST SURGICAL HISTORY: Orthopedic surgery for back ruptured disk. SOCIAL HISTORY: It is not known whether the patient has smoked or not. FAMILY HISTORY: Not available sponge, since the patient is intubated and sedated. ALLERGIES: The patient has no known allergies. REVIEW OF SYMPTOMS: Unobtainable due to the patient being intubated and sedated and the niece is not very helpful in the history. MEDICATIONS: 1. Acetaminophen 650 mg via G-tube every 4 hours p.r.n. 2. Hypoglycemic precautions 40% glucose gel 15 g and 13 g p.r.n. p.o. hypoglycemia. 3. Dextrose 50%, 12.5 g IV and 25 g IV p.r.n. hypoglycemia. 4. Lovenox 40 mg subcutaneously every morning. 5. Glucagon 1 mg subcutaneously p.r.n. hypoglycemia. 6. Cefepime 1 g IV every 12 hours. 7. Levaquin 500 mg IV piggyback daily. 8. Propofol IV continuous for sedation. 9. Ipratropium albuterol sulfate 2 puffs inhalation via the respiratory rate team every 6 hours. 10. Methylprednisolone 125 mcg IV every 8 hours. 11. Normal saline IV continuous at 100 mL/h. 12. Protonix 40 mg IV every 12 hours. PHYSICAL EXAMINATION: GENERAL: At present, the patient is intubated and sedated. VITAL SIGNS: He is afebrile with temp of 97.7 degrees Fahrenheit, pulse 98 beats per minute, blood pressure 143/91, respirations 26 on the ventilator per minute, he is on mechanical ventilator. His O2 saturation 100% on FIO2 of 35%. HEENT: Head is atraumatic and normocephalic. Eyes; pupils are equal, round, regular, reactive to light and round. Ears; tympanic membranes are negative. There are no lesions of the pinnae. Nose, throat, mouth not examined. SKIN: There is no skin rash, no petechia or ecchymosis. NECK: Supple. There is no JVD. Carotids are equal. There is no bruit. Trachea is central. LUNGS: Diminished air entry, prolonged expiration and diffuse wheezing. There are no rales of CHF. HEART: S1 and S2 are heard. There is no S3 gallop. There is no S4 gallop. There is a systolic murmur at the left sternal border at the apex. There is no rub. ABDOMEN: Soft, nontender. There is no hepatosplenomegaly. EXTREMITIES: Femorals are diminished. There are no femoral bruits. Leg pulses are diminished. There is no pedal edema. There is no DVT or cellulitis. CENTRAL NERVOUS SYSTEM: Not examined. PSYCHIATRIC: Not examined. IMAGING: Initial chest x-ray on 07/29/2016 showed moderate diffuse prominence of the slightly worsened. Heart normal in size. No evidence of congestive heart failure. Subsequent showed lungs and pleura are clear. There is no pneumothorax. There is no evidence of heart failure. ELECTROCARDIOGRAM: The patient's initial EKG on 07/29/2016 showed junctional versus ectopic tachycardia at a rate of 144, probable LVH with repolarization abnormality, poor R wave progression leads V1 to V4 anteroseptal NM. There is baseline artifact. Subsequent EKG on 07/29/2016 showed again junctional versus ectopic tachycardia. Nonspecific T wave abnormalities diffuse leads. His EKG done on 07/30/2016 in the morning shows sinus rhythm, first-degree AV block, left atrial abnormality, biatrial abnormalities, borderline R wave progression V1 to V3 and probably lead placement. There are diffuse T wave inversions which are deep consistent with ischemia post-tachycardia T wave inversion. LABORATORY DATA: Sodium 142.5, potassium 4.5, chloride 110, CO2 of 23, BUN 18, creatinine 0.98, GFR greater than 60, glucose 147, calcium 8.7, magnesium 2.2. Liver function tests are normal. As mentioned earlier, his troponin-I last night was 0.392. His NT-proBNP was 6580. The patient's total protein is 5.7, albumin 2.9. Blood gas yesterday showed pH 7.35, SpO2 low at 46.7, pO2 low at 42.3 and then his O2 sats were on 35%. Today on the ventilator, pH of 7.39, pCO2 of 38.4, pO2 of 79.5, O2 saturation 95% on FIO2 of 35% on the ventilator. White count 5400, hemoglobin 12.1, hematocrit 36.7, platelet count 143,000. His gastric occult blood is positive. IMPRESSION: 1. Diffuse ischemia in the EKG with abnormal troponin-I ? secondary to non-ST segment elevation myocardial infarction versus post-tachycardia T wave inversion with troponin-I being elevated due to the tachycardia. 2. Junctional versus ectopic atrial tachycardia which has resolved. 3. Elevated troponin-I as mentioned earlier, non-ST elevation NM versus secondary to post-tachycardia elevation of troponin-I. 4. Acute respiratory failure with hypoxemia and hypercapnia. 5. Acute exacerbation of COPD. 6. Hypertension. 7. Diabetes mellitus type 2 without any complications, but cannot be sure. 8. Possible bronchitis. RECOMMENDATIONS: 1. We will see how the patient fairs in the next hour and maybe we will start the patient in IV Cardizem to see if a slowing of the rate can be done. In view of the stool being positive, we will not at present use aspirin or full anticoagulation. 2. We will recheck the patient's troponin-I and EKG in the morning. 3. Note, 40 minutes spent on this patient with more than 50% of the time spent on direct patient care and discussions with nurses since I could not get a history and a discussion with the niece which was not helpful and discussion with the attending of patient and review of the patient's records. The patient appears to be a FULL CODE and as per records his nephew is his surrogate healthcare decision maker. Will follow with you. Note, medications were reviewed. We will see how the patient fairs before starting him on IV Cardizem drip. Later, will start the patient on nitroglycerin. DICTATING PHYSICIAN: PRIYANK DRUMMOND M.D. [id number] PHY#: [id number] ID: [id number] JOB#: [id number] ACCT: [id number] cc:PRIYANK DRUMMOND M.D. >
[2016-07-31] MEDS: DILTIAZEM HCL/D5W 125 ML IV PRN (22:54)
[2016-08-01] MEDS: IPRATROPIUM/ALBUTEROL 120 PUFF/4 GM MDI IH SCH ×3 (01:49→14:32)
[2016-08-01] MEDS: NITROGLYCERIN 2% OINTMENT 1 GM PACKET TP SCH ×3 (02:54→17:13)
--- NOTE | 2016-08-01 03:44 | PROGRESS NOTE E ---
Progress Note NAME: CRISTOBAL BLACK : 1940 AGE: 75Y DATE: 07/31/2016 ROOM: 601 SUBJECTIVE: Note that the patient was seen from 11:15 a.m. to 11:50 a.m. *------*. Note that the patient was intubated and sedated. The patient does have sinus tachycardia. There is recurrence of SVT (junctional versus ectopic atrial tachycardia). There is no ventricular arrhythmia seen. The patient however seems to be in sinus tachycardia now. There is still monitor on the EKG T-wave inversion in inferior leads. The T-wave inversion anterior leads is much improved. Last night, the patient was on 10 mg per hour of Cardizem intravenously as an infusion, but the nurse since the blood pressure was 90, stopped the Cardizem drip without letting me know. At present, subsequently his blood pressure did come up. OBJECTIVE: GENERAL: On examination, the patient appears to be ill-nourished and enough frail-built. VITAL SIGNS: His temperature is 99 degrees Fahrenheit. Pulse is 102 beats per minute. Blood pressure is 145/85. Respirations are 13 per minute on the ventilator with O2 saturation of 100% on FiO2 of 35%. HEENT: Head is atraumatic, normocephalic. EYES: Pupils are equal, round, regular, and reactive to light. EARS: Tympanic membranes are intact. External auditory canals are clear. NOSE: Not examined. MOUTH: Not examined. THROAT: Not examined. NECK: Supple. There is no JVD. Carotids are equal. There is no bruit. There is no lymphadenopathy. There is no goiter. Trachea is central. LUNGS: Show diminished air entry, prolonged expiration, but are clear to auscultation and percussion. There is hyperresonance on percussion. HEART: S1 and S2 are heard. There is no S3 gallop. There is no S4 gallop. There is systolic murmur on the left sternal border and the apex. There is no rub. ABDOMEN: Soft without hepatosplenomegaly. Bowel sounds are well heard. EXTREMITIES: Femorals are diminished. There are no femoral bruits. Leg pulses are diminished. There is no DVT or cellulitis. CENTRAL NERVOUS SYSTEM: Not examined. PSYCHIATRIC: Not examined. 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 There are T-wave inversions in the inferior leads consistent with ischemia; that is my interpretation. The patient's chest x-ray is negative for any acute process, except it showed COPD, which is my interpretation. Also, note that the patient is getting a central line by the surgical associates. No rib fractures. The patient's intake is 2840 mL. Output is 2190 mL. LABORATORY DATA: White count is 7600; hemoglobin is 13.2; hematocrit is 39.7; and platelet count is 143,000. The patient's sodium is 144.4, potassium is 4.2, chloride is 111, and CO2 is 22. The patient's BUN is 25, creatinine is 0.92, and GFR is greater than 60. Glucose is 174. Liver function tests are normal. The troponin I has trended down to 0.112. The patient's total protein is 6, albumin is 3.1, and triglycerides are 129. The ABGs show a pH of 7.44, pCO2 is 38.3, pO2 is 83.7, O2 sats are 96.6% with an FiO2 of 35% on the ventilator. ASSESSMENT: 1. TROPONIN I ELEVATION WITH DIFFUSE T-WAVE INVERSIONS ON THE EKG. Initially thought to be secondary to the differential diagnosis being non-ST elevation myocardial infarction secondary to post-tachycardia syndrome due to supraventricular tachycardia, causing also a troponin leak, but now EKG still shows inferior wall T-wave inversions, even when the patient's heart rate is like 102. Hence, we need to assume that this is a non-ST elevation myocardial infarction. 2. MENTIONED EARLIER, NON-ST ELEVATION MYOCARDIAL INFARCTION, MOST LIKELY. 3. SUPRAVENTRICULAR TACHYCARDIA JUNCTIONAL VERSUS ECTOPIC TACHYCARDIA, RESOLVED, AT PRESENT SINUS TACHYCARDIA. 4. ACUTE RESPIRATORY FAILURE WITH HYPOXEMIA AND HYPERCAPNIA, NOW ON THE VENTILATOR, DOING MUCH BETTER. 5. ACUTE EXACERBATION OF CHRONIC OBSTRUCTIVE PULMONARY DISEASE. 6. HYPERTENSION. 7. DIABETES MELLITUS TYPE 2 WITHOUT COMPLICATIONS. 8. POSSIBLE BRONCHITIS. Note review of symptoms, I later met the patient's nephew, who states that the patient has not smoked since he was born, so he stopped smoking a long time ago. He has no history of coronary artery disease or AK. No history of congestive heart failure. No history of fever or chills. There is no history of TIA or CVA. There is no history of chronic kidney disease. There are no recurrent UTIs as per the nephew. RECOMMENDATION: We will restart the patient on IV Cardizem and ask the nurse to let me know if the patient's blood pressure drops. We will see if the patient's heart rate gets down to see whether there will be improvement in the T-wave changes. Continue antibiotics. Continue ventilator support. Continue anti-COPD medications. We will repeat an EKG in the a.m. We will later see if we can increase the patient's Cardizem drip from 2.5 mg per hour to 5 mg per hour or even higher if needed. Also, we will see if the patient's chest x-ray is clear, so he can tolerate *------*. We will have the nurse give me a call later. TIME SPENT: Note, 35 minutes spent on this patient with more than 50% of time spent in direct patient care and also review of the patient's medications, adjusting the patient's medications and also discussions with the patient's nephew and also discussions with other caregiving providers in this case, the attending physician covering, Dr. Stanley. We will follow with you. Thanking you. DICTATING PHYSICIAN: PRIYANK DRUMMOND M.D. [id number] KYLE#: [id number] ID: [id number] JOB#: [id number] ACCT: [id number] cc: >
[2016-08-01] MEDS: PROPOFOL 100 ML IV PRN ×2 (04:24→09:59)
[2016-08-01 06:27] LABS: ARTERIAL BLOOD BASE EXCESS 2.7 mmol/L; ARTERIAL BLOOD O2 SATURATION 96.3 % (94-98)
[2016-08-01 06:29] LABS: ABSOLUTE LYMPHOCYTES (AUTO) 0.5 10^3/uL (0.5-4.7); ABSOLUTE MONOCYTES (AUTO) 0.3 10^3/uL (0.1-1.4); ABSOLUTE NEUT (AUTO) 7.5 10^3/uL (1.7-8.2); BASOPHILS % (AUTO) 0.2 % (0-2); HEMATOCRIT 33.3 % (37.9-51.0); LYMPHOCYTES % (AUTO) 6.3 % (13-45); MEAN CORPUSCULAR HEMOGLOBIN 29.9 pg (27.0-33.4); MEAN CORPUSCULAR HGB CONC 33.4 g/dL (32.0-36.0); MEAN CORPUSCULAR VOLUME 90 fl (80-97); MONOCYTES % (AUTO) 3.7 % (3-13); RED BLOOD COUNT 3.72 10^6/uL (4.35-5.55); RED CELL DISTRIBUTION WIDTH 15.2 % (11.5-14.0); SEGMENTED NEUTROPHILS % (AUTO) 89.8 % (42-78); WHITE BLOOD COUNT 8.3 10^3/uL (4.0-10.5)
[2016-08-01] MEDS: NORMAL SALINE 1000 ML 1,000 ML IV PRN ×2 (06:33→17:46)
[2016-08-01] MEDS: METHYLPREDNISOLONE INJ 125 MG/2 ML SDV IV SCH ×3 (06:33→21:01)
[2016-08-01 06:54] LABS: HEMOGLOBIN 11.1 g/dL (13.5-17.0)
[2016-08-01 06:56] LABS: ALANINE AMINOTRANSFERASE 38 U/L (21-72); ALBUMIN 2.4 g/dL (3.5-5.0); ALKALINE PHOSPHATASE 70 U/L (38-126); ANION GAP 7 (5-19); ASPARTATE AMINO TRANSFERASE 21 U/L (17-59); BILIRUBIN,TOTAL 0.3 mg/dL (0.2-1.3); BLOOD UREA NITROGEN 22 mg/dL (7-20); CALCIUM 8.1 mg/dL (8.4-10.2); CARBON DIOXIDE 29 mmol/L (22-30); CHLORIDE 112 mmol/L (98-107); CREATININE RESULT 0.95 mg/dL (0.52-1.25); GLUCOSE 196 mg/dL (75-110); POTASSIUM 3.7 mmol/L (3.6-5.0); SODIUM 148.2 mmol/L (137-145); TOTAL PROTEIN 4.6 g/dL (6.3-8.2)
[2016-08-01] MEDS: ASPIRIN 300 MG SUPP, RECTAL PR SCH (09:51)
[2016-08-01] MEDS: CEFEPIME 1 GM/D5W RTU 50 ML IV SCH ×2 (09:52→21:01)
[2016-08-01] MEDS: LEVOFLOXACIN 500 MG/D5W RTU 100 ML IV SCH (09:57)
--- NOTE | 2016-08-01 10:19 | EKG REPORT ---
SEVERITY:- ABNORMAL ECG - SINUS RHYTHM ABNORMAL T, CONSIDER ISCHEMIA, DIFFUSE LEADS PROLONGED QT INTERVAL : Confirmed by: Edith Orourke 01-Aug-2016 10:17:54
[2016-08-01] MEDS: ENOXAPARIN SODIUM INJ 40 MG/0.4 ML DISP.SYRIN SUBCUT SCH (10:32)
--- NOTE | 2016-08-01 11:57 | PDOC PROGRESS REPORT ---
Subjective Progress Note for:: 08/01/16 Subjective:: Intubated but responsive Physical Exam Vital Signs: Temp Pulse Resp BP Pulse Ox 100.0 F 81 14 142/77 H 100 08/01/16 01:39 08/01/16 02:00 08/01/16 06:45 08/01/16 06:33 08/01/16 06:45 Intake & Output 07/31/16 08/01/16 08/02/16 06:59 06:59 06:59 Intake Total 2840 3141 Output Total 2190 3205 Balance 650 -64 Weight 63.4 kg 63 kg General appearance: PRESENT: no acute distress, disheveled, thin, well-developed Head exam: PRESENT: atraumatic, normocephalic Eye exam: PRESENT: conjunctiva pale, EOMI Mouth exam: PRESENT: dry mucosa, neck supple, other - ET tube in place Neck exam: ABSENT: carotid bruit, JVD, lymphadenopathy, thyromegaly Respiratory exam: PRESENT: decreased breath sounds, prolonged expiratory phas, rhonchi, symmetrical, unlabored Cardiovascular exam: PRESENT: irregular rhythm Pulses: PRESENT: normal radial pulses GI/Abdominal exam: PRESENT: normal bowel sounds, soft. ABSENT: distended, guarding, mass, organolmegaly, rebound, tenderness Rectal exam: PRESENT: deferred Gentrourinary exam: PRESENT: indwelling catheter Musculoskeletal exam: PRESENT: normal inspection Neurological exam: PRESENT: awake Skin exam: PRESENT: dry, warm Results Laboratory Results: 08/01/16 06:10 08/01/16 06:10 08/01/16 08/01/16 08/01/16 06:10 06:10 06:10 WBC 8.3 RBC 3.72 L Hgb 11.1 L D Hct 33.3 L MCV 90 MCH 29.9 MCHC 33.4 RDW 15.2 H Plt Count 145 L Seg Neutrophils % 89.8 H Lymphocytes % 6.3 L Monocytes % 3.7 Eosinophils % 0.0 Basophils % 0.2 Absolute Neutrophils 7.5 Absolute Lymphocytes 0.5 Absolute Monocytes 0.3 Absolute Eosinophils 0.0 Absolute Basophils 0.0 Carbonic Acid 1.21 HCO3/H2CO3 Ratio 22:1 ABG pH 7.45 ABG pCO2 40.1 ABG pO2 80.6 ABG HCO3 26.9 H ABG O2 Saturation 96.3 ABG Base Excess 2.7 FiO2 35% Sodium 148.2 H Potassium 3.7 Chloride 112 H Carbon Dioxide 29 Anion Gap 7 BUN 22 H Creatinine 0.95 Est GFR ( Amer) > 60 Est GFR (Non-Af Amer) > 60 Glucose 196 H Calcium 8.1 L Total Bilirubin 0.3 AST 21 ALT 38 Alkaline Phosphatase 70 Total Protein 4.6 L Albumin 2.4 L 07/29/16 07/29/16 07/29/16 09:29 09:29 20:10 Creatine Kinase 180 H 186 H CK-MB (CK-2) 3.39 Troponin I 0.386 NT-Pro-B Natriuret Pep 07/29/16 07/30/16 07/31/16 20:10 03:31 03:44 Creatine Kinase CK-MB (CK-2) 4.56 H Troponin I 0.392 0.112 NT-Pro-B Natriuret Pep 6580 H Impressions: Chest X-Ray 08/01/16 06:00 IMPRESSION: STABLE APPEARANCE OF THE CHEST. SUPPORT DEVICES UNCHANGED. Assessment & Plan - Diagnosis (1) Acute respiratory failure with hypoxemia Is this a current diagnosis for this admission?: YesPlan: min vol;rr;FIO2,aairway pressures suggest sucessful extubation extubate (2) COPD with acute exacerbation Is this a current diagnosis for this admission?: YesPlan: stable gnr in sputum neb tobramycin (3) HTN (hypertension) Qualifiers: Hypertension type: essential hypertension Qualified Code(s): I10 - Essential (primary) hypertension Is this a current diagnosis for this admission?: Yes - Time Critical Time spent with patient: 35 or more minutes - 60 min extubate
[2016-08-01] MEDS ORDERED: TOBRAMYCIN SULFATE INJ 80 MG/2 ML VIAL NEB SCH (12:00)
[2016-08-01] MEDS ORDERED: DEXAMETHASONE SOD PHOSPHATE INJ 4 MG/1 ML VIAL IV ONE (12:15)
[2016-08-01] MEDS ORDERED: TOBRAMYCIN SULFATE NEB 40 MG/ML 30 ML NEB ONE (13:00)
[2016-08-01] MEDS: DILTIAZEM HCL/D5W 125 ML IV PRN (15:21)
--- NOTE | 2016-08-01 18:29 | PDOC PROGRESS REPORT ---
Subjective Progress Note for:: 08/01/16 Subjective:: Patient seen by the bedside he was extubated today Physical Exam Vital Signs: Temp Pulse Resp BP Pulse Ox 99.6 F 108 H 21 H 141/92 H 97 08/01/16 08:00 08/01/16 12:26 08/01/16 14:25 08/01/16 14:19 08/01/16 14:25 Intake & Output 07/31/16 08/01/16 08/02/16 06:59 06:59 06:59 Intake Total 2840 3141 2465 Output Total 2190 3205 1600 Balance 650 -64 865 Weight 63.4 kg 63 kg Head exam: PRESENT: atraumatic, normocephalic Eye exam: PRESENT: PERRLA Mouth exam: PRESENT: moist, tongue midline Neck exam: PRESENT: full ROM Respiratory exam: PRESENT: clear to auscultation silvina Cardiovascular exam: PRESENT: RRR, +S1, +S2 Vascular exam: PRESENT: normal capillary refill GI/Abdominal exam: PRESENT: normal bowel sounds, soft Rectal exam: PRESENT: deferred Neurological exam: PRESENT: alert. ABSENT: motor sensory deficit Skin exam: PRESENT: dry, intact, warm Results Laboratory Results: 08/01/16 06:10 08/01/16 06:10 08/01/16 08/01/16 08/01/16 06:10 06:10 06:10 WBC 8.3 RBC 3.72 L Hgb 11.1 L D Hct 33.3 L MCV 90 MCH 29.9 MCHC 33.4 RDW 15.2 H Plt Count 145 L Seg Neutrophils % 89.8 H Lymphocytes % 6.3 L Monocytes % 3.7 Eosinophils % 0.0 Basophils % 0.2 Absolute Neutrophils 7.5 Absolute Lymphocytes 0.5 Absolute Monocytes 0.3 Absolute Eosinophils 0.0 Absolute Basophils 0.0 Carbonic Acid 1.21 HCO3/H2CO3 Ratio 22:1 ABG pH 7.45 ABG pCO2 40.1 ABG pO2 80.6 ABG HCO3 26.9 H ABG O2 Saturation 96.3 ABG Base Excess 2.7 FiO2 35% Sodium 148.2 H Potassium 3.7 Chloride 112 H Carbon Dioxide 29 Anion Gap 7 BUN 22 H Creatinine 0.95 Est GFR ( Amer) > 60 Est GFR (Non-Af Amer) > 60 Glucose 196 H Calcium 8.1 L Total Bilirubin 0.3 AST 21 ALT 38 Alkaline Phosphatase 70 Total Protein 4.6 L Albumin 2.4 L 07/29/16 07/29/16 07/29/16 09:29 09:29 20:10 Creatine Kinase 180 H 186 H CK-MB (CK-2) 3.39 Troponin I 0.386 NT-Pro-B Natriuret Pep 07/29/16 07/30/16 07/31/16 20:10 03:31 03:44 Creatine Kinase CK-MB (CK-2) 4.56 H Troponin I 0.392 0.112 NT-Pro-B Natriuret Pep 6580 H 08/01/16 07:30 Creatine Kinase CK-MB (CK-2) Troponin I 0.052 NT-Pro-B Natriuret Pep Impressions: Chest X-Ray 08/01/16 06:00 IMPRESSION: STABLE APPEARANCE OF THE CHEST. SUPPORT DEVICES UNCHANGED. Assessment & Plan - Diagnosis (1) Acute respiratory failure with hypoxemia Is this a current diagnosis for this admission?: Yes (2) COPD with acute exacerbation Is this a current diagnosis for this admission?: Yes (3) Diabetes mellitus type 2 in nonobese Is this a current diagnosis for this admission?: Yes (4) Elevated troponin I level Is this a current diagnosis for this admission?: Yes (5) HTN (hypertension) Qualifiers: Hypertension type: essential hypertension Qualified Code(s): I10 - Essential (primary) hypertension Is this a current diagnosis for this admission?: Yes (6) Hyperglycemia Is this a current diagnosis for this admission?: Yes (7) Respiratory failure Qualifiers: Chronicity: acute Respiratory failure complication: hypoxia Qualified Code(s): J96.01 - Acute respiratory failure with hypoxia (8) Bilateral pneumonia Qualifiers: Pneumonia type: due to other aerobic Gram-negative bacteria Lung location: lower lobe of lung Qualified Code(s): J15.6 - Pneumonia due to other aerobic Gram-negative bacteria Plan: Continue treatment
[2016-08-01] MEDS: IPRATROPIUM/ALBUTEROL 0.5-2.5 MG/3 ML AMPUL NEB SCH (19:38)
[2016-08-01] MEDS: TOBRAMYCIN SULFATE NEB 40 MG/ML 30 ML NEB SCH (19:39)
[2016-08-01] MEDS ORDERED: DIGOXIN INJ 0.5 MG/2 ML AMPULE IV ONE (20:15)
[2016-08-01] MEDS: NORMAL SALINE 250 ML IV PRN ×2 (20:46→22:10)
[2016-08-01] MEDS: PANTOPRAZOLE SODIUM 40 MG VIAL IV SCH (21:13)
[2016-08-02] MEDS: NORMAL SALINE 1000 ML 1,000 ML IV PRN ×2 (01:28→21:22)
[2016-08-02] MEDS: NITROGLYCERIN 2% OINTMENT 1 GM PACKET TP SCH ×3 (01:32→17:46)
[2016-08-02] MEDS: IPRATROPIUM/ALBUTEROL 0.5-2.5 MG/3 ML AMPUL NEB SCH ×4 (01:44→20:55)
[2016-08-02] MEDS: METHYLPREDNISOLONE INJ 125 MG/2 ML SDV IV SCH ×3 (05:00→21:22)
[2016-08-02 06:11] LABS: ABSOLUTE LYMPHOCYTES (AUTO) 0.5 10^3/uL (0.5-4.7); ABSOLUTE MONOCYTES (AUTO) 0.4 10^3/uL (0.1-1.4); ABSOLUTE NEUT (AUTO) 8.4 10^3/uL (1.7-8.2); BASOPHILS % (AUTO) 0.1 % (0-2); HEMATOCRIT 36.2 % (37.9-51.0); HGB HCT DIFFERENCE -0.2; LYMPHOCYTES % (AUTO) 5.5 % (13-45); MEAN CORPUSCULAR HEMOGLOBIN 29.5 pg (27.0-33.4); MEAN CORPUSCULAR HGB CONC 33.1 g/dL (32.0-36.0); MEAN CORPUSCULAR VOLUME 89 fl (80-97); MONOCYTES % (AUTO) 4.2 % (3-13); RED BLOOD COUNT 4.06 10^6/uL (4.35-5.55); RED CELL DISTRIBUTION WIDTH 15.1 % (11.5-14.0); SEGMENTED NEUTROPHILS % (AUTO) 90.2 % (42-78); WHITE BLOOD COUNT 9.3 10^3/uL (4.0-10.5)
[2016-08-02 06:13] LABS: ARTERIAL BLOOD BASE EXCESS 6.2 mmol/L; ARTERIAL BLOOD O2 SATURATION 89.8 % (94-98)
[2016-08-02 06:37] LABS: ALANINE AMINOTRANSFERASE 38 U/L (21-72); ALBUMIN 2.7 g/dL (3.5-5.0); ALKALINE PHOSPHATASE 83 U/L (38-126); ANION GAP 11 (5-19); ASPARTATE AMINO TRANSFERASE 22 U/L (17-59); BILIRUBIN,DIRECT 0.2 mg/dL (0.0-0.4); BILIRUBIN,TOTAL 0.6 mg/dL (0.2-1.3); BLOOD UREA NITROGEN 24 mg/dL (7-20); CALCIUM 8.5 mg/dL (8.4-10.2); CARBON DIOXIDE 32 mmol/L (22-30); CHLORIDE 106 mmol/L (98-107); CREATININE RESULT 0.81 mg/dL (0.52-1.25); GLUCOSE 223 mg/dL (75-110); SODIUM 148.5 mmol/L (137-145); TOTAL PROTEIN 5.2 g/dL (6.3-8.2)
[2016-08-02] MEDS: TOBRAMYCIN SULFATE NEB 40 MG/ML 30 ML NEB SCH ×2 (08:25→20:55)
--- NOTE | 2016-08-02 08:28 | PDOC PROGRESS REPORT ---
Subjective Progress Note for:: 08/02/16 Subjective:: Patiemnt is extubated since my last clinical evaluation. NG tube with enteral tube feeding on going. Remain on IV Levofloxacin and Cefepime coverage. Remain on IV Solu Medrol therapy. There is persistent Tachycardia and elevated blood pressure. Currently off IV Diltiazem. No reported fever or chills. Tolerating enteral tube feeding. No nausea or vomiting. Physical Exam Vital Signs: Temp Pulse Resp BP Pulse Ox 99.5 F 105 H 19 148/75 H 97 08/02/16 05:55 08/02/16 05:55 08/02/16 06:00 08/02/16 05:55 08/02/16 06:00 Intake & Output 08/01/16 08/02/16 08/03/16 06:59 06:59 06:59 Intake Total 3141 4383 Output Total 3205 3850 Balance -64 533 Weight 63 kg 64.5 kg Physical Exam: NG tube in situ. General appearance: PRESENT: no acute distress, cooperative Head exam: PRESENT: atraumatic, normocephalic Eye exam: PRESENT: conjunctiva pink, EOMI, PERRLA. ABSENT: scleral icterus Ear exam: PRESENT: normal external ear exam Mouth exam: PRESENT: moist, tongue midline Neck exam: PRESENT: full ROM. ABSENT: carotid bruit, JVD, lymphadenopathy, thyromegaly Respiratory exam: PRESENT: clear to auscultation silvina, decreased breath sounds Cardiovascular exam: PRESENT: RRR, tachycardia GI/Abdominal exam: PRESENT: normal bowel sounds, soft. ABSENT: distended, guarding, mass, organolmegaly, rebound, tenderness Extremities exam: PRESENT: full ROM Musculoskeletal exam: PRESENT: deformity Neurological exam: PRESENT: alert, awake, oriented to person, oriented to situation - agreeeable to considering SNF placement Psychiatric exam: PRESENT: appropriate affect, normal mood. ABSENT: homicidal ideation, suicidal ideation Skin exam: PRESENT: dry, intact, warm. ABSENT: cyanosis, rash Results Laboratory Results: 08/02/16 06:00 08/02/16 06:00 08/02/16 08/02/16 08/02/16 06:00 06:00 06:00 WBC 9.3 RBC 4.06 L Hgb 12.0 L Hct 36.2 L MCV 89 MCH 29.5 MCHC 33.1 RDW 15.1 H Plt Count 130 L Seg Neutrophils % 90.2 H Lymphocytes % 5.5 L Monocytes % 4.2 Eosinophils % 0.0 Basophils % 0.1 Absolute Neutrophils 8.4 H Absolute Lymphocytes 0.5 Absolute Monocytes 0.4 Absolute Eosinophils 0.0 Absolute Basophils 0.0 Carbonic Acid 1.09 HCO3/H2CO3 Ratio 26:1 ABG pH 7.52 H ABG pCO2 36.2 ABG pO2 50.9 L ABG HCO3 29.1 H ABG O2 Saturation 89.8 L ABG Base Excess 6.2 FiO2 ROOM AIR Sodium 148.5 H Potassium 3.0 L* Chloride 106 Carbon Dioxide 32 H Anion Gap 11 BUN 24 H Creatinine 0.81 Est GFR ( Amer) > 60 Est GFR (Non-Af Amer) > 60 Glucose 223 H Calcium 8.5 Magnesium 2.0 Total Bilirubin 0.6 AST 22 ALT 38 Alkaline Phosphatase 83 Total Protein 5.2 L Albumin 2.7 L 07/29/16 07/29/16 07/29/16 09:29 09:29 20:10 Creatine Kinase 180 H 186 H CK-MB (CK-2) 3.39 Troponin I 0.386 NT-Pro-B Natriuret Pep 07/29/16 07/30/16 07/31/16 20:10 03:31 03:44 Creatine Kinase CK-MB (CK-2) 4.56 H Troponin I 0.392 0.112 NT-Pro-B Natriuret Pep 6580 H 08/01/16 07:30 Creatine Kinase CK-MB (CK-2) Troponin I 0.052 NT-Pro-B Natriuret Pep Impressions: Chest X-Ray 08/01/16 06:00 IMPRESSION: STABLE APPEARANCE OF THE CHEST. SUPPORT DEVICES UNCHANGED. Assessment & Plan - Diagnosis (1) Diabetes mellitus type 2 in nonobese Is this a current diagnosis for this admission?: YesPlan: See attending physician orders. Continue accucheck as per order with humulog insulin sliding scale coverage. (2) Acute respiratory failure with hypoxemia Is this a current diagnosis for this admission?: YesPlan: See attending physician orders. s/p extubation. (3) COPD with acute exacerbation Is this a current diagnosis for this admission?: YesPlan: eSee attending physician orders. I will decrease IV Solu Medrol to 80 mg IV q8hrs. Continue DuoNeb therapy. (4) HTN (hypertension) Qualifiers: Hypertension type: essential hypertension Qualified Code(s): I10 - Essential (primary) hypertension Is this a current diagnosis for this admission?: YesPlan: See attending physician orders. Restart on Ramipril 5mg po daily. (5) Hyperglycemia Is this a current diagnosis for this admission?: YesPlan: See attending physician orders. (6) Elevated troponin I level Is this a current diagnosis for this admission?: YesPlan: Cardiology input appreciated. I will give Digoxin 0.25 mg IV x 1 dose for rate control. (7) NSTEMI (non-ST elevated myocardial infarction) Is this a current diagnosis for this admission?: YesPlan: I will attempt rate control and blood pressure improvement today. Obtain complete echopcardiogram. Maintain on all other current management as per chief knowledge officer input. - Time Time Spent with patient: 25-34 minutes Medications reviewed and adjusted accordingly: Yes Anticipated discharge: SNF Within: Other - Inpatient Certification Medical Necessity: Need Close Monitoring Due to Risk of Patient Decompensation, Need For IV Fluids, Need For Continuous Telemetry Monitoring, Need for Nebulizer Therapy and Monitoring of Response, Need for IV Antibiotics, Risk of Complication if Not Cared For in Hospital Post Hospital Care: D/C or Transfer Summary - Plan Summary Plan Summary: See attending physician orders.
[2016-08-02] MEDS: ENOXAPARIN SODIUM INJ 40 MG/0.4 ML DISP.SYRIN SUBCUT SCH (08:52)
[2016-08-02] MEDS: POTASSIUM CHLORIDE 20 MEQ/15 ML UDCUP NG SCH ×2 (08:53→13:25)
[2016-08-02] MEDS ORDERED: DIGOXIN INJ 0.5 MG/2 ML AMPULE IV ONE (09:00)
[2016-08-02] MEDS ORDERED: RAMIPRIL 5 MG CAPSULE PO SCH (10:00)
[2016-08-02] MEDS: LEVOFLOXACIN 500 MG/D5W RTU 100 ML IV SCH (10:27)
[2016-08-02] MEDS: CEFEPIME 1 GM/D5W RTU 50 ML IV SCH ×2 (10:28→21:21)
[2016-08-02] MEDS: PANTOPRAZOLE SODIUM 40 MG VIAL IV SCH ×2 (10:28→21:20)
[2016-08-02] MEDS: ASPIRIN 300 MG SUPP, RECTAL PR SCH (10:28)
--- NOTE | 2016-08-02 13:29 | PROGRESS NOTE E ---
Progress Note NAME: CRISTOBAL BLACK : 1940 AGE: 75Y DATE: 08/01/2016 ROOM: 601 SUBJECTIVE: The patient was seen between 9:30 a.m. and 10:00 a.m. The patient seems to be doing much better. The patient is on a weaning trial. His Diprivan is being reduced as the patient is more awake and states he has no chest pain or discomfort or shortness of breath. He appears to be of frail build and appears to be malnourished. OBJECTIVE: VITAL SIGNS: His temperature is 99.5 degrees Fahrenheit. His pulse is 97 beats per minute. Blood pressure 141/75. Respirations are 13 per minute, and his O2 saturations are 100% on the face tent. HEAD: Atraumatic/normocephalic. EYES: Pupils are equal, round, regular, reactive to light and accommodation. Extraocular movements are normal. There is no conjunctival pallor. There is no scleral icterus. EARS: The tympanic membranes are intact. External auditory canals are clear. NOSE: There is no deviated nasal septum. There is no inflammation of the nasal mucous membranes. MOUTH: Mucous membranes of the mouth are moist. Tongue is moist. There are no ulcers. There is no bleeding from the gums. THROAT: Not examined since the patient still has an ET tube and an NG tube. NECK: Supple. There is no JVD. Carotids are equal. There is no bruit. There is no lymphadenopathy. There is no goiter. Trachea is central. LUNGS: Show diminished air entry and prolonged expiration but are clear to auscultation and percussion without any rhonchi, rales, or wheezing. There is hyperresonance on percussion. HEART: S1, S2 is heard. There is no S3 gallop. There is no S4 gallop. There is a systolic murmur, left sternal border and apex. There is no rub. ABDOMEN: Soft, nontender. There is no hepatosplenomegaly. Bowel sounds are well heard. EXTREMITIES: Femorals are diminished. There is no femoral bruit. Leg pulses are diminished. There is no DVT or cellulitis. There is no cyanosis or clubbing. CENTRAL NERVOUS SYSTEM: The patient is more alert now and seems to be able to move all 4 extremities. PSYCHIATRIC: Still on sedation and ventilator, therefore psychiatric exam not done. FLUID BALANCE: The patient's 24-hour intake is 3141 mL, output is 3205 mL. DIAGNOSTIC DATA: The patient's white count is 8,300, hemoglobin is 11.1, hematocrit is 33.3, and the platelet count is 145,000. The patient's sodium is 148.2, potassium is 3.7, chloride is 112, and the patient's CO2 is 29. The patient's BUN is 22, creatinine is 0.95, GFR is greater than 60. The patient's glucose is 196. His calcium is 8.1. The liver function tests are negative. His troponin-I which is now trending down and hence is at 0.052. His total protein is 4.6, albumin is 2.4. His ABG this morning shows a pH of 7.45, pO2 of 80.6, pCO2 is 40.1, O2 saturation is 96.3% on 35% FIO2. The patient's EKG now again shows diffuse T-inversions throughout except in V1 through V2 diagnostic of ischemia. There is prolonged QT interval. The patient's chest x-ray is consistent with COPD without any heart failure or pneumonia or infiltrates. The presence of troponin-I elevation with subsequent persistent T-wave inversion has to be a diagnosis of [id number] AK. IMPRESSION: 1. [id number] AK, ? EXTENT OF CORONARY ARTERY DISEASE. 2. SUPRAVENTRICULAR TACHYCARDIA, JUNCTIONAL VERSUS ECTOPIC TACHYCARDIA, RESOLVED, AT PRESENT IN SINUS RHYTHM. THE SVT HAS RESOLVED. 3. ABNORMAL EKG, ESPECIALLY WITH T-WAVE INVERSION DIFFUSELY EXCEPT IN V1 AND V2. HENCE, DEFINITELY NEEDS FURTHER ASSESSMENT FOR CORONARY ARTERY DISEASE ONCE THE PATIENT IS EXTUBATED. 4. ACUTE RESPIRATORY FAILURE WITH HYPOXEMIA AND HYPERCAPNIA ON ADMISSION, NOW ON THE VENTILATOR AND DOING MUCH BETTER AND IS DOING WELL ON HIS WEANING TRIAL AND MOST LIKELY WILL BE EXTUBATED TODAY. 5. ACUTE EXACERBATION OF COPD. 6. HYPERTENSION, BLOOD PRESSURE STABLE. 7. DIABETES MELLITUS TYPE 2 WITHOUT COMPLICATION. 8. POSSIBLE BRONCHITIS. THE PATIENT IS ON ANTIBIOTICS TO COVER. RECOMMENDATIONS: If the patient remains stable at the point of being extubated, would convert the rectal aspirin to 81 mg enteric-coated chewable aspirin daily. We will change the patient's to Imdur 30 mg p.o. daily. At present, the patient has a Cardizem drip, would recommend changing that to Cardizem q.6 h. while on NG tube and increase as tolerated. Continue anti-COPD medications. Continue antibiotics. My recommendation would be, in view of the patient's elevated troponin-I and the patient's diffuse EKG changes, once stable from a respiratory point of view, would recommend transfer to a tertiary care center for cardiac catheterization. I have discussed this with the patient's nephew, but I am not sure how much he understood. I will talk to Dr. Stanley who is back on tomorrow about this, and he can approach it with the family. My final recommendation would be plan for cardiac catheterization rather than subjecting him to a stress test especially since he has COPD and his liver functions are normal. Discussed with the patient's nephew and the patient, who appears very happy that it appears that he is breathing on his own on the weaning parameter. Dr. Orourke will follow on consultation from tomorrow. I will call Dr. Stanley in the morning and discuss with him. Note 30 minutes spent on this patient with more than 50% of the time spent in direct patient care and also reviewing the patient's medications and adjusting the patient's medications. As mentioned earlier, the patient is a FULL CODE, and his nephew is his surrogate healthcare decision maker. Discussed the patient the plan of care and also with the workday director who is also assisting in the care of the patient. DICTATING PHYSICIAN: PRIYANK DRUMMOND M.D. [id number] Elvia#: [id number] ID: [id number] JOB#: [id number] ACCT: [id number] cc:PRIYANK DRUMMOND M.D. >
[2016-08-02] MEDS ORDERED: ACETAMINOPHEN 325 MG TABLET NG PRN (14:03)
--- NOTE | 2016-08-02 14:11 | PDOC PROGRESS REPORT ---
Subjective Progress Note for:: 08/02/16 Subjective:: 24 hrs s/p extubation stable Physical Exam Vital Signs: Temp Pulse Resp BP Pulse Ox 99.5 F 105 H 19 148/75 H 97 08/02/16 05:55 08/02/16 05:55 08/02/16 06:00 08/02/16 05:55 08/02/16 06:00 Intake & Output 08/01/16 08/02/16 08/03/16 06:59 06:59 06:59 Intake Total 3141 4383 Output Total 3205 3850 Balance -64 533 Weight 63 kg 64.5 kg General appearance: PRESENT: no acute distress, disheveled, thin Head exam: PRESENT: atraumatic, normocephalic Eye exam: PRESENT: conjunctiva pale, EOMI Mouth exam: PRESENT: moist, neck supple Neck exam: PRESENT: carotid bruit Respiratory exam: PRESENT: decreased breath sounds, prolonged expiratory phas, rhonchi, symmetrical, unlabored Cardiovascular exam: PRESENT: RRR, +S1, +S2 Pulses: PRESENT: normal radial pulses GI/Abdominal exam: PRESENT: normal bowel sounds, soft. ABSENT: distended, guarding, mass, organolmegaly, rebound, tenderness Rectal exam: PRESENT: deferred Gentrourinary exam: PRESENT: indwelling catheter Musculoskeletal exam: PRESENT: normal inspection Neurological exam: PRESENT: alert, awake Skin exam: PRESENT: dry, warm Results Laboratory Results: 08/02/16 06:00 08/02/16 06:00 08/02/16 08/02/16 08/02/16 06:00 06:00 06:00 WBC 9.3 RBC 4.06 L Hgb 12.0 L Hct 36.2 L MCV 89 MCH 29.5 MCHC 33.1 RDW 15.1 H Plt Count 130 L Seg Neutrophils % 90.2 H Lymphocytes % 5.5 L Monocytes % 4.2 Eosinophils % 0.0 Basophils % 0.1 Absolute Neutrophils 8.4 H Absolute Lymphocytes 0.5 Absolute Monocytes 0.4 Absolute Eosinophils 0.0 Absolute Basophils 0.0 Carbonic Acid 1.09 HCO3/H2CO3 Ratio 26:1 ABG pH 7.52 H ABG pCO2 36.2 ABG pO2 50.9 L ABG HCO3 29.1 H ABG O2 Saturation 89.8 L ABG Base Excess 6.2 FiO2 ROOM AIR Sodium 148.5 H Potassium 3.0 L* Chloride 106 Carbon Dioxide 32 H Anion Gap 11 BUN 24 H Creatinine 0.81 Est GFR ( Amer) > 60 Est GFR (Non-Af Amer) > 60 Glucose 223 H Calcium 8.5 Magnesium 2.0 Total Bilirubin 0.6 AST 22 ALT 38 Alkaline Phosphatase 83 Total Protein 5.2 L Albumin 2.7 L 07/29/16 07/29/16 07/29/16 09:29 09:29 20:10 Creatine Kinase 180 H 186 H CK-MB (CK-2) 3.39 Troponin I 0.386 NT-Pro-B Natriuret Pep 07/29/16 07/30/16 07/31/16 20:10 03:31 03:44 Creatine Kinase CK-MB (CK-2) 4.56 H Troponin I 0.392 0.112 NT-Pro-B Natriuret Pep 6580 H 08/01/16 07:30 Creatine Kinase CK-MB (CK-2) Troponin I 0.052 NT-Pro-B Natriuret Pep Impressions: Chest X-Ray 08/01/16 06:00 IMPRESSION: STABLE APPEARANCE OF THE CHEST. SUPPORT DEVICES UNCHANGED. Assessment & Plan - Diagnosis (1) Acute respiratory failure with hypoxemia Is this a current diagnosis for this admission?: YesPlan: s/p exubation doing well (2) COPD with acute exacerbation Is this a current diagnosis for this admission?: YesPlan: stable gnr in sputum neb tobramycin (3) HTN (hypertension) Qualifiers: Hypertension type: essential hypertension Qualified Code(s): I10 - Essential (primary) hypertension Is this a current diagnosis for this admission?: Yes - Time Critical Time spent with patient: 25-34 minutes
[2016-08-02] MEDS: INSULIN LISPRO 100 UNIT/ML 3 ML VIAL SUBCUT PRN ×2 (17:45→23:48)
[2016-08-02] MEDS: DILTIAZEM HCL 30 MG TABLET NG SCH (20:21)
[2016-08-02] MEDS: DILTIAZEM HCL/D5W 125 ML IV PRN (21:18)
--- NOTE | 2016-08-02 22:57 | PDOC PROGRESS REPORT ---
Subjective Progress Note for:: 08/02/16 Subjective:: Patient seems to be doing better with gradual improvement. Pt is denying any chest arm or neck discomfort. Patient denying any PND, orthopnea. Patient denied any sustained palpitations, dizziness, syncope, near syncope. Patient denying any fever chills. Patient denying any other significant discomfort. Patient noted to have slightly slurred speech. Patient is maintaining sinus rhythm. Patient noted to have sinus tachycardia. Blood pressure is stable. Review of systems: Rest review of systems negative. Medications: Medications have been reviewed. Physical Exam Vital Signs: Temp Pulse Resp BP Pulse Ox 99.2 F 109 H 20 151/78 H 96 08/02/16 18:00 08/02/16 19:55 08/02/16 19:00 08/02/16 18:19 08/02/16 19:00 Intake & Output 08/01/16 08/02/16 08/03/16 06:59 06:59 06:59 Intake Total 3141 4383 1538 Output Total 3205 3850 3280 Balance -64 533 -1742 Weight 63 kg 64.5 kg General appearance: PRESENT: no acute distress, well-developed, well-nourished Head exam: PRESENT: atraumatic, normocephalic Eye exam: PRESENT: conjunctiva pink, EOMI, PERRLA, other - Patient has right corneal opacity causing significant loss of vision right eye.. Overall vision was not checked.. ABSENT: periorbital swelling, scleral icterus Ear exam: PRESENT: normal external ear exam Mouth exam: PRESENT: moist, tongue midline Neck exam: ABSENT: carotid bruit, JVD, lymphadenopathy, thyromegaly Respiratory exam: PRESENT: crackles, rales - Bibasilar rales and wheezing noted. Also bilateral mild crackles noted, wheezes. ABSENT: rhonchi Cardiovascular exam: PRESENT: RRR, systolic murmur. ABSENT: diastolic murmur, rubs Vascular exam: PRESENT: normal capillary refill GI/Abdominal exam: PRESENT: normal bowel sounds, soft. ABSENT: distended, guarding, mass, organolmegaly, rebound, tenderness Rectal exam: PRESENT: deferred Extremities exam: PRESENT: +1 edema. ABSENT: calf tenderness, clubbing, pedal edema Musculoskeletal exam: PRESENT: deformity, normal inspection. ABSENT: ambulatory , dislocation, full ROM, tenderness, other Neurological exam: PRESENT: alert, awake, oriented to person, oriented to place , oriented to time, CN II-XII grossly intact - Speech is noted to be somewhat low volume and slow., other - Gait not checked. ABSENT: motor sensory deficit Psychiatric exam: PRESENT: appropriate affect, normal mood. ABSENT: homicidal ideation, suicidal ideation Skin exam: PRESENT: dry, intact, warm. ABSENT: cyanosis, rash Results Laboratory Results: 08/02/16 06:00 08/02/16 06:00 08/02/16 08/02/16 08/02/16 06:00 06:00 06:00 WBC 9.3 RBC 4.06 L Hgb 12.0 L Hct 36.2 L MCV 89 MCH 29.5 MCHC 33.1 RDW 15.1 H Plt Count 130 L Seg Neutrophils % 90.2 H Lymphocytes % 5.5 L Monocytes % 4.2 Eosinophils % 0.0 Basophils % 0.1 Absolute Neutrophils 8.4 H Absolute Lymphocytes 0.5 Absolute Monocytes 0.4 Absolute Eosinophils 0.0 Absolute Basophils 0.0 Carbonic Acid 1.09 HCO3/H2CO3 Ratio 26:1 ABG pH 7.52 H ABG pCO2 36.2 ABG pO2 50.9 L ABG HCO3 29.1 H ABG O2 Saturation 89.8 L ABG Base Excess 6.2 FiO2 ROOM AIR Sodium 148.5 H Potassium 3.0 L* Chloride 106 Carbon Dioxide 32 H Anion Gap 11 BUN 24 H Creatinine 0.81 Est GFR ( Amer) > 60 Est GFR (Non-Af Amer) > 60 Glucose 223 H Calcium 8.5 Magnesium 2.0 Total Bilirubin 0.6 AST 22 ALT 38 Alkaline Phosphatase 83 Total Protein 5.2 L Albumin 2.7 L 07/30/16 04:54 Tracheal Aspirate Gram Stain - Final 07/29/16 07/29/16 07/29/16 09:29 09:29 20:10 Creatine Kinase 180 H 186 H CK-MB (CK-2) 3.39 Troponin I 0.386 NT-Pro-B Natriuret Pep 07/29/16 07/30/16 07/31/16 20:10 03:31 03:44 Creatine Kinase CK-MB (CK-2) 4.56 H Troponin I 0.392 0.112 NT-Pro-B Natriuret Pep 6580 H 08/01/16 07:30 Creatine Kinase CK-MB (CK-2) Troponin I 0.052 NT-Pro-B Natriuret Pep Impressions: Chest X-Ray 08/01/16 06:00 IMPRESSION: STABLE APPEARANCE OF THE CHEST. SUPPORT DEVICES UNCHANGED. Assessment & Plan - Diagnosis (1) Elevated troponin I level Is this a current diagnosis for this admission?: Yes (2) NSTEMI (non-ST elevated myocardial infarction) Is this a current diagnosis for this admission?: Yes (3) Acute respiratory failure with hypoxemia Is this a current diagnosis for this admission?: Yes (4) COPD with acute exacerbation Is this a current diagnosis for this admission?: Yes (5) Diabetes mellitus type 2 in nonobese Is this a current diagnosis for this admission?: Yes (6) HTN (hypertension) Qualifiers: Hypertension type: essential hypertension Qualified Code(s): I10 - Essential (primary) hypertension Is this a current diagnosis for this admission?: Yes (7) Tachycardia Is this a current diagnosis for this admission?: Yes - Notes Notes: Elevated troponin I is felt to be most likely related to metabolic reason such as respiratory failure, tachycardia. Patient has severe COPD therefore felt to be not an optimal candidate for any ischemia workup. Non-STEMI: Patient is likely to have underlying CAD. Will try to optimize therapy for it. Acute respiratory failure: Patient is status post extubation. He is getting bronchodilator therapy and other therapy. 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 COPD exacerbation: This is gradually improving. Continue with current therapeutic plans. Diabetes: Recommend good control of blood sugar. However should avoid any hypoglycemia. Patient being expertly managed by primary care Johnathan Hypertension: Some high readings were noted.. Blood pressure goal in this patient is 135/85 or less. This was discussed with the patient. Currently blood pressure under reasonable control. Better medication for this patient are BRENDA inhibitor/ARB/beta khushbu etc. discussed side effects of uncontrolled hypertension and also severe hypotension. Tachycardia: Will recommend selective beta blockers or calcium channel blockers for rate control. Currently stable and improving. - Time Time with patient: Greater than 35 minutes - CODE STATUS was discussed, patient remains full code. Surrogate decision-maker unchanged. Multiple medical problems were addressed.More than 50% of the time spent coordinating care, discussing management plans with involved caregivers. Management plans discussed with involved personnels. Medical decision making was of moderate to high complexity, patient's has multiple severe comorbidities. Medications reviewed and adjusted accordingly: Yes - Start cardiazem drip and po cardiazem
[2016-08-03] MEDS: NITROGLYCERIN 2% OINTMENT 1 GM PACKET TP SCH ×3 (02:38→17:17)
[2016-08-03] MEDS: DILTIAZEM HCL 30 MG TABLET NG SCH (02:38)
[2016-08-03] MEDS: IPRATROPIUM/ALBUTEROL 0.5-2.5 MG/3 ML AMPUL NEB SCH ×4 (02:40→20:57)
[2016-08-03] MEDS: METHYLPREDNISOLONE INJ 125 MG/2 ML SDV IV SCH ×3 (05:12→21:47)
[2016-08-03 05:26] LABS: HEMOGLOBIN 12.3 g/dL (13.5-17.0); HGB HCT DIFFERENCE -0.1; MEAN CORPUSCULAR HEMOGLOBIN 29.5 pg (27.0-33.4); MEAN CORPUSCULAR HGB CONC 33.3 g/dL (32.0-36.0); MEAN CORPUSCULAR VOLUME 89 fl (80-97); RED BLOOD COUNT 4.18 10^6/uL (4.35-5.55); RED CELL DISTRIBUTION WIDTH 14.8 % (11.5-14.0); WHITE BLOOD COUNT 12.9 10^3/uL (4.0-10.5)
[2016-08-03 05:41] LABS: BASOPHILS % (MANUAL) 0 % (0-2); EOSINOPHILS % (MANUAL) 0 % (0-6); LYMPHOCYTES % (MANUAL) 7 % (13-45); TOTAL CELLS COUNTED 100
[2016-08-03 05:45] LABS: ANISOCYTOSIS SLIGHT; POIKILOCYTOSIS SLIGHT; POLYCHROMASIA SLIGHT; TARGET CELLS SLIGHT
[2016-08-03 05:47] LABS: ALANINE AMINOTRANSFERASE 33 U/L (21-72); ALBUMIN 2.8 g/dL (3.5-5.0); ALKALINE PHOSPHATASE 72 U/L (38-126); ANION GAP 9 (5-19); ASPARTATE AMINO TRANSFERASE 21 U/L (17-59); BILIRUBIN,TOTAL 0.6 mg/dL (0.2-1.3); BLOOD UREA NITROGEN 29 mg/dL (7-20); CALCIUM 8.3 mg/dL (8.4-10.2); CARBON DIOXIDE 35 mmol/L (22-30); CHLORIDE 100 mmol/L (98-107); GLUCOSE 188 mg/dL (75-110); POTASSIUM 3.4 mmol/L (3.6-5.0); SODIUM 144.3 mmol/L (137-145); TRIGLYCERIDES 100 mg/dL (<150)
--- NOTE | 2016-08-03 07:59 | PDOC PROGRESS REPORT ---
Subjective Progress Note for:: 08/03/16 Subjective:: Patient self removed NGT since last clinical evaluation. No chest pain or difficulty with breathing. No reported fever or chills. Patient passed swallowing evaluation. No nausea or vomiting. No abdominal pain. 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 Patient did express wish for his sister Fe Kelley to act as his POA on record. Physical Exam Vital Signs: Temp Pulse Resp BP Pulse Ox 99.2 F 102 H 14 127/70 H 97 08/02/16 18:00 08/03/16 02:40 08/03/16 06:00 08/03/16 05:16 08/03/16 06:00 Intake & Output 08/02/16 08/03/16 08/04/16 06:59 06:59 06:59 Intake Total 4383 2974 Output Total 3850 4735 Balance 533 -1761 Weight 64.5 kg 59.4 kg Physical Exam: General appearance: PRESENT: no acute distress, cooperative Head exam: PRESENT: atraumatic, normocephalic Eye exam: PRESENT: conjunctiva pink, EOMI, PERRLA. ABSENT: scleral icterus Ear exam: PRESENT: normal external ear exam Mouth exam: PRESENT: moist, tongue midline Neck exam: PRESENT: full ROM. ABSENT: carotid bruit, JVD, lymphadenopathy, thyromegaly Respiratory exam: PRESENT: clear to auscultation silvina, decreased breath sounds Cardiovascular exam: PRESENT: RRR, tachycardia GI/Abdominal exam: PRESENT: normal bowel sounds, soft. ABSENT: distended, guarding, mass, organolmegaly, rebound, tenderness Extremities exam: PRESENT: full ROM Musculoskeletal exam: PRESENT: deformity Neurological exam: PRESENT: alert, awake, oriented to person, oriented to situation - agreeeable to considering SNF placement Psychiatric exam: PRESENT: appropriate affect, normal mood. ABSENT: homicidal ideation, suicidal ideation Skin exam: PRESENT: dry, intact, warm. ABSENT: cyanosis, rash Results Laboratory Results: 08/03/16 05:17 08/03/16 05:17 08/03/16 08/03/16 05:17 05:17 WBC 12.9 H RBC 4.18 L Hgb 12.3 L Hct 37.0 L MCV 89 MCH 29.5 MCHC 33.3 RDW 14.8 H Plt Count 128 L Seg Neutrophils % Not Reportable Lymphocytes % Not Reportable Monocytes % Not Reportable Eosinophils % Not Reportable Basophils % Not Reportable Absolute Neutrophils Not Reportable Absolute Lymphocytes Not Reportable Absolute Monocytes Not Reportable Absolute Eosinophils Not Reportable Absolute Basophils Not Reportable Sodium 144.3 Potassium 3.4 L Chloride 100 Carbon Dioxide 35 H Anion Gap 9 BUN 29 H Creatinine 0.70 Est GFR ( Amer) > 60 Est GFR (Non-Af Amer) > 60 Glucose 188 H Calcium 8.3 L Total Bilirubin 0.6 AST 21 ALT 33 Alkaline Phosphatase 72 Total Protein 5.0 L Albumin 2.8 L Triglycerides 100 07/30/16 04:54 Tracheal Aspirate Gram Stain - Final 07/29/16 07/29/16 07/29/16 09:29 09:29 20:10 Creatine Kinase 180 H 186 H CK-MB (CK-2) 3.39 Troponin I 0.386 NT-Pro-B Natriuret Pep 07/29/16 07/30/16 07/31/16 20:10 03:31 03:44 Creatine Kinase CK-MB (CK-2) 4.56 H Troponin I 0.392 0.112 NT-Pro-B Natriuret Pep 6580 H 08/01/16 07:30 Creatine Kinase CK-MB (CK-2) Troponin I 0.052 NT-Pro-B Natriuret Pep Impressions: Chest X-Ray 08/01/16 06:00 IMPRESSION: STABLE APPEARANCE OF THE CHEST. SUPPORT DEVICES UNCHANGED. Assessment & Plan - Diagnosis (1) Diabetes mellitus type 2 in nonobese Is this a current diagnosis for this admission?: Yes (2) Acute respiratory failure with hypoxemia Is this a current diagnosis for this admission?: Yes (3) COPD with acute exacerbation Is this a current diagnosis for this admission?: Yes (4) HTN (hypertension) Qualifiers: Hypertension type: essential hypertension Qualified Code(s): I10 - Essential (primary) hypertension Is this a current diagnosis for this admission?: Yes (5) Hyperglycemia Is this a current diagnosis for this admission?: Yes (6) Elevated troponin I level Is this a current diagnosis for this admission?: Yes (7) NSTEMI (non-ST elevated myocardial infarction) Is this a current diagnosis for this admission?: Yes - Time Time Spent with patient: 25-34 minutes Medications reviewed and adjusted accordingly: Yes Anticipated discharge: SNF Within: Other - Inpatient Certification Medical Necessity: Need Close Monitoring Due to Risk of Patient Decompensation, Need For IV Fluids, Need For Continuous Telemetry Monitoring, Need for IV Antibiotics, Risk of Complication if Not Cared For in Hospital Post Hospital Care: D/C or Transfer Summary - Plan Summary Plan Summary: See attending physician orders. I will down grade him to IMCU status. He will start on clear liquid diet and advance as tolerated with cardiac diabetic restrictions. D/C principal planner will start looking into possible SNF placement for rehabilitation and possible [facility] stay in view of his worsening representation and admission too the hospital in the last couple of months. Patient is no longer able to care for self or with meaningful support in the community.
[2016-08-03] MEDS ORDERED: ACETAMINOPHEN 325 MG TABLET PO PRN (08:06)
[2016-08-03] MEDS: DILTIAZEM HCL 30 MG TABLET PO SCH ×3 (08:30→21:45)
[2016-08-03] MEDS: POTASSI CL 20 MEQ/50 ML RIDER 20 MEQ/50 ML RTUPB IV SCH ×3 (08:30→15:09)
[2016-08-03] MEDS: ENOXAPARIN SODIUM INJ 40 MG/0.4 ML DISP.SYRIN SUBCUT SCH (08:30)
[2016-08-03] MEDS: TOBRAMYCIN SULFATE NEB 40 MG/ML 30 ML NEB SCH ×2 (08:36→20:56)
--- NOTE | 2016-08-03 09:11 | PDOC PROGRESS REPORT ---
Subjective Progress Note for:: 08/03/16 Subjective:: Patient doing somewhat better. He denied any chest arm or neck discomfort. Patient is short of breath. He is currently getting bronchodilator therapy. Telemetry strips reviewed showed sinus tachycardia. Physical Exam Vital Signs: Temp Pulse Resp BP Pulse Ox 99.2 F 94 17 127/70 H 100 08/02/16 18:00 08/03/16 08:33 08/03/16 08:33 08/03/16 05:16 08/03/16 08:33 Intake & Output 08/02/16 08/03/16 08/04/16 06:59 06:59 06:59 Intake Total 4383 2974 Output Total 3850 1225 Balance 533 -1761 Weight 64.5 kg 59.4 kg General appearance: PRESENT: mild distress - Mild respiratory distress noted Exam: GENERAL: well-nourished and in no acute distress. Alert and oriented x3 HEAD: Atraumatic, normocephalic. EYES: Pupils equal round and reactive to light, extraocular movements intact, sclera anicteric, conjunctiva are normal. Corneal opacity noted on the right side. ENT: TMs normal, nares patent, oropharynx clear without exudates. Moist mucous membranes. No oral ulcerations or bleeding gums noted NECK: supple without lymphadenopathy. Trachea is central. No cervical or axillary lymphadenopathy noted. Carotids are 2+, JVD WNL LUNGS: Respiration seems nonlabored, no significant accessory muscle action noted. Bilateral coarse crackles at bases, bilateral wheezing noted. No dullness noted. CHEST: Palpation of the chest wall shows no significant chest wall tenderness. No other significant abnormalities noted. 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 ABDOMEN: Soft, no significant tenderness appreciated, normoactive bowel sounds. No guarding, no rebound. No rigidity noted . No masses appreciated. EXTREMITIES: Pedal pulses are 1-2+, no calf tenderness noted. No clubbing or cyanosis.trace to 1+ pedal edema noted NEUROLOGICAL: Focused neurological exam showed no significant neurologic deficit. Normal speech, no focal weakness appreciated. PSYCH: Normal mood, normal affect. Judgment and insight within normal limits. SKIN: No significant ecchymosis, rash, ulcerations or signs of pruritus noted. MUSCULOSKELETAL EXAM: No significant joint swelling noted. Results Laboratory Results: 08/03/16 05:17 08/03/16 05:17 08/03/16 08/03/16 05: 05:17 WBC 12.9 H RBC 4.18 L Hgb 12.3 L Hct 37.0 L MCV 89 MCH 29.5 MCHC 33.3 RDW 14.8 H Plt Count 128 L Seg Neutrophils % Not Reportable Lymphocytes % Not Reportable Monocytes % Not Reportable Eosinophils % Not Reportable Basophils % Not Reportable Absolute Neutrophils Not Reportable Absolute Lymphocytes Not Reportable Absolute Monocytes Not Reportable Absolute Eosinophils Not Reportable Absolute Basophils Not Reportable Sodium 144.3 Potassium 3.4 L Chloride 100 Carbon Dioxide 35 H Anion Gap 9 BUN 29 H Creatinine 0.70 Est GFR ( Amer) > 60 Est GFR (Non-Af Amer) > 60 Glucose 188 H Calcium 8.3 L Total Bilirubin 0.6 AST 21 ALT 33 Alkaline Phosphatase 72 Total Protein 5.0 L Albumin 2.8 L Triglycerides 100 07/30/16 04:54 Tracheal Aspirate Gram Stain - Final 07/29/16 07/29/16 07/29/16 09:29 09:29 20:10 Creatine Kinase 180 H 186 H CK-MB (CK-2) 3.39 Troponin I 0.386 NT-Pro-B Natriuret Pep 07/29/16 07/30/16 07/31/16 20:10 03:31 03:44 Creatine Kinase CK-MB (CK-2) 4.56 H Troponin I 0.392 0.112 NT-Pro-B Natriuret Pep 6580 H 08/01/16 07:30 Creatine Kinase CK-MB (CK-2) Troponin I 0.052 NT-Pro-B Natriuret Pep Impressions: Chest X-Ray 08/01/16 06:00 IMPRESSION: STABLE APPEARANCE OF THE CHEST. SUPPORT DEVICES UNCHANGED. Assessment & Plan - Diagnosis (1) Elevated troponin I level Is this a current diagnosis for this admission?: Yes (2) NSTEMI (non-ST elevated myocardial infarction) Is this a current diagnosis for this admission?: Yes (3) Acute respiratory failure with hypoxemia Is this a current diagnosis for this admission?: Yes (4) COPD with acute exacerbation Is this a current diagnosis for this admission?: Yes (5) Diabetes mellitus type 2 in nonobese Is this a current diagnosis for this admission?: Yes (6) HTN (hypertension) Qualifiers: Hypertension type: essential hypertension Qualified Code(s): I10 - Essential (primary) hypertension Is this a current diagnosis for this admission?: Yes (7) Tachycardia Is this a current diagnosis for this admission?: Yes - Notes Notes: Patient is showing slow improvement. Blood pressure is better controlled. Tachycardia is somewhat improved. Patient still needing supplemental oxygen and aggressive bronchodilator therapy. As regards elevated troponin I, non-STEMI, I feel patient will benefit from a nuclear stress test but right now he has severe COPD therefore will consider nuclear stress test as an outpatient or just prior to discharge once his pulmonary status improves. In the meantime will try to optimize medical therapy for underlying presumed CAD. Since patient had a new non-STEMI, have ordered a 2-D echo. 2-D echo also needed to assess significant respiratory distress patient is in. Will also go ahead and check a BNP level. - Time Time with patient: 15-25 minutes - CODE STATUS was discussed, patient remains full code. Surrogate decision-maker unchanged. Multiple medical problems were addressed.More than 50% of the time spent coordinating care, discussing management plans with involved caregivers. Management plans discussed with involved personnels. Medical decision making was of moderate to high complexity , patient's has multiple severe comorbidities. Medications reviewed and adjusted accordingly: Yes
[2016-08-03] MEDS ORDERED: RAMIPRIL 5 MG CAPSULE NG SCH (10:00)
[2016-08-03] MEDS: CEFEPIME 1 GM/D5W RTU 50 ML IV SCH ×2 (10:52→21:48)
[2016-08-03] MEDS: RAMIPRIL 5 MG CAPSULE PO SCH (10:53)
[2016-08-03] MEDS: LEVOFLOXACIN 500 MG/D5W RTU 100 ML IV SCH (10:53)
[2016-08-03] MEDS: ASPIRIN 81 MG TABLET, ENT COATED PO SCH (10:54)
[2016-08-03] MEDS: INSULIN LISPRO 100 UNIT/ML 3 ML VIAL SUBCUT PRN (18:13)
--- NOTE | 2016-08-03 19:13 | XCELERA REPORT ---
[address] [address] Transthoracic Echocardiogram Report Name: CRISTOBAL BLACK Age: 75 yrs Gender: Male : 1940 Patient Status: Inpatient Patient Location: ICU\S\601\S\[id number] Study Date: 08/03/2016 09:08 AM Height: 69 in Weight: 142 lb BSA: 1.8 m2 Procedure: A complete two-dimensional transthoracic echocardiogram was performed (2D, M-mode, spectral and color flow Doppler). The study was technically difficult with many images being suboptimal in quality. Reason For Study: NSTEMI Ordering Physician: EDITH FRIEND Performed By: Emelyn Preston Interpretation Summary The left ventricular ejection fraction is normal. Doppler measurements suggest pseudonormalized left ventricular relaxation, which is associated with grade II/IV or mild to moderate diastolic dysfunction There is borderline concentric left ventricular hypertrophy. The left ventricle is grossly normal size. Wall motion cannot be accurately commented on, but no definite regional wall motion abnormalities noted. The right ventricular systolic function is normal. The right atrium is normal in size The left atrial size is normal. There is a trace amount of mitral regurgitation There is no mitral valve stenosis. There is a trace amount of aortic regurgitation There is no aortic valve stenosis There is a trace to mild amount of tricuspid regurgitation There is mild pulmonary hypertension by echo Right ventricular systolic pressure is estimated to be elevated at 30- 40mmHg. There is no pericardial effusion. MMode/2D Measurements \T\ Calculations RVDd: 2.4 cm LVIDd: 4.2 cm FS: 39.9 % Ao root diam: 3.2 cm IVSd: 0.97 cm LVIDs: 2.5 cm EDV(Teich): 77.4 ml LVPWd: 0.86 cm ESV(Teich): 22.5 ml Ao root area: 7.9 cm2 EF(Teich): 71.0 % LA dimension: 1.7 cm Doppler Measurements \T\ Calculations MV E max anand: MV P1/2t max anand: Ao V2 max: LV V1 max P.1 cm/sec 72.6 cm/sec 137.8 cm/sec 6.0 mmHg MV A max anand: MV P1/2t: 70.6 msec Ao max PG: LV V1 max: 94.3 cm/sec 7.6 mmHg 122.4 cm/sec MV E/A: 0.76 MVA(P1/2t): 3.1 cm2 MV dec slope: 301.0 cm/sec2 PA V2 max: TR max anand: 112.5 cm/sec 306.8 cm/sec PA max PG: TR max P.6 mmHg 5.1 mmHg Left Ventricle The left ventricle is grossly normal size. There is borderline concentric left ventricular hypertrophy. The left ventricular ejection fraction is normal. Doppler measurements suggest pseudonormalized left ventricular relaxation, which is associated with grade II/IV or mild to moderate diastolic dysfunction. Wall motion cannot be accurately commented on, but no definite regional wall motion abnormalities noted. Right Ventricle The right ventricle is grossly normal size. There is normal right ventricular wall thickness. The right ventricular systolic function is normal. Atria The right atrium is normal in size. The left atrial size is normal. Interarterial septum not well visualized and not well dopplered. Cannot comment on ASD/PFO presence. Mitral Valve The mitral valve leaflets are sclerotic, but show no functional abnormalities. There is no mitral valve stenosis. There is a trace amount of mitral regurgitation. Aortic Valve The aortic valve is grossly normal. There is no aortic valve stenosis. There is a trace amount of aortic regurgitation. Tricuspid Valve The tricuspid valve is not well visualized, but is grossly normal. There is no tricuspid stenosis. There is a trace to mild amount of tricuspid regurgitation. There is mild pulmonary hypertension by echo. Right ventricular systolic pressure is estimated to be elevated at 30-40mmHg. Pulmonic Valve The pulmonic valve is not well visualized. Great Vessels The aortic root is not well visualized. The inferior vena cava appeared normal and decreased > 50% with respiration (RAP 5-10 mmHg). Effusions There is no pericardial effusion. : EDITH FRIEND > Edith Friend
--- NOTE | 2016-08-03 20:36 | PDOC PROGRESS REPORT ---
Subjective Progress Note for:: 08/03/16 Subjective:: 24 hrs s/p extubation stable Physical Exam Vital Signs: Temp Pulse Resp BP Pulse Ox 99.2 F 102 H 14 127/70 H 97 08/02/16 18:00 08/03/16 02:40 08/03/16 06:00 08/03/16 05:16 08/03/16 06:00 Intake & Output 08/02/16 08/03/16 08/04/16 06:59 06:59 06:59 Intake Total 4383 8924 Output Total 3856 5205 Balance 533 -1761 Weight 64.5 kg 59.4 kg General appearance: PRESENT: no acute distress, disheveled, thin Head exam: PRESENT: atraumatic, normocephalic Eye exam: PRESENT: conjunctiva pale, EOMI Mouth exam: PRESENT: moist Teeth exam: PRESENT: poor dentation Neck exam: ABSENT: carotid bruit, JVD, lymphadenopathy, thyromegaly Respiratory exam: PRESENT: decreased breath sounds, prolonged expiratory phas, rhonchi, symmetrical, unlabored Cardiovascular exam: PRESENT: irregular rhythm Pulses: PRESENT: normal radial pulses GI/Abdominal exam: PRESENT: normal bowel sounds, soft. ABSENT: distended, guarding, mass, organolmegaly, rebound, tenderness Rectal exam: PRESENT: deferred Gentrourinary exam: PRESENT: indwelling catheter Musculoskeletal exam: PRESENT: normal inspection Neurological exam: PRESENT: awake Skin exam: PRESENT: dry, warm Results Laboratory Results: 08/03/16 05:17 08/03/16 05:17 08/03/16 08/03/16 05:17 05:17 WBC 12.9 H RBC 4.18 L Hgb 12.3 L Hct 37.0 L MCV 89 MCH 29.5 MCHC 33.3 RDW 14.8 H Plt Count 128 L Seg Neutrophils % Not Reportable Lymphocytes % Not Reportable Monocytes % Not Reportable Eosinophils % Not Reportable Basophils % Not Reportable Absolute Neutrophils Not Reportable Absolute Lymphocytes Not Reportable Absolute Monocytes Not Reportable Absolute Eosinophils Not Reportable Absolute Basophils Not Reportable Sodium 144.3 Potassium 3.4 L Chloride 100 Carbon Dioxide 35 H Anion Gap 9 BUN 29 H Creatinine 0.70 Est GFR ( Amer) > 60 Est GFR (Non-Af Amer) > 60 Glucose 188 H Calcium 8.3 L Total Bilirubin 0.6 AST 21 ALT 33 Alkaline Phosphatase 72 Total Protein 5.0 L Albumin 2.8 L Triglycerides 100 07/30/16 04:54 Tracheal Aspirate Gram Stain - Final 07/29/16 07/29/16 07/29/16 09:29 09:29 20:10 Creatine Kinase 180 H 186 H CK-MB (CK-2) 3.39 Troponin I 0.386 NT-Pro-B Natriuret Pep 07/29/16 07/30/16 07/31/16 20:10 03:31 03:44 Creatine Kinase CK-MB (CK-2) 4.56 H Troponin I 0.392 0.112 NT-Pro-B Natriuret Pep 6580 H 08/01/16 07:30 Creatine Kinase CK-MB (CK-2) Troponin I 0.052 NT-Pro-B Natriuret Pep Impressions: Chest X-Ray 08/01/16 06:00 IMPRESSION: STABLE APPEARANCE OF THE CHEST. SUPPORT DEVICES UNCHANGED. Assessment & Plan - Diagnosis (1) Acute respiratory failure with hypoxemia Is this a current diagnosis for this admission?: No (2) COPD with acute exacerbation Is this a current diagnosis for this admission?: YesPlan: stable (3) HTN (hypertension) Qualifiers: Hypertension type: essential hypertension Qualified Code(s): I10 - Essential (primary) hypertension Is this a current diagnosis for this admission?: Yes - Time Critical Time spent with patient: 25-34 minutes
[2016-08-03] MEDS: ATORVASTATIN CALCIUM 40 MG TABLET PO SCH (21:48)
[2016-08-04] MEDS: NITROGLYCERIN 2% OINTMENT 1 GM PACKET TP SCH ×3 (02:31→17:54)
[2016-08-04] MEDS: DILTIAZEM HCL 30 MG TABLET PO SCH ×2 (02:32→08:20)
[2016-08-04] MEDS: IPRATROPIUM/ALBUTEROL 0.5-2.5 MG/3 ML AMPUL NEB SCH ×4 (02:42→20:10)
[2016-08-04] MEDS: METHYLPREDNISOLONE INJ 125 MG/2 ML SDV IV SCH (05:41)
[2016-08-04] MEDS: LANSOPRAZOLE 30 MG TAB.RAP.DR PO SCH (05:41)
[2016-08-04] MEDS: NORMAL SALINE 1000 ML 1,000 ML IV PRN (05:42)
[2016-08-04] MEDS: INSULIN LISPRO 100 UNIT/ML 3 ML VIAL SUBCUT PRN ×3 (08:20→17:50)
[2016-08-04] MEDS: ENOXAPARIN SODIUM INJ 40 MG/0.4 ML DISP.SYRIN SUBCUT SCH (08:21)
[2016-08-04] MEDS ORDERED: METHYLPREDNISOLONE INJ 125 MG/2 ML SDV IV SCH (08:27)
--- NOTE | 2016-08-04 08:44 | PDOC PROGRESS REPORT ---
Subjective Progress Note for:: 08/04/16 Subjective:: Patient is currently on IMCU floor. Denied any chest pain. Breathing is fair with occasional shortness of breathe that may be related to non usage of supplemental oxygen. Tolerating full liquid diet without any reported aspiration issue. No reported nausea, vomiting or abdominal pain. There is generalized weakness.. Physical Exam Vital Signs: Temp Pulse Resp BP Pulse Ox 98.0 F 98 20 134/64 H 97 08/04/16 07:33 08/04/16 07:33 08/04/16 07:33 08/04/16 07:33 08/04/16 07:33 Intake & Output 08/03/16 08/04/16 08/05/16 06:59 06:59 06:59 Intake Total 2974 2612 Output Total 4735 1550 Balance -1761 1062 Weight 59.4 kg 62.4 kg Physical Exam: General appearance: PRESENT: no acute distress, cooperative Head exam: PRESENT: atraumatic, normocephalic Eye exam: PRESENT: conjunctiva pink, EOMI, PERRLA. ABSENT: scleral icterus Ear exam: PRESENT: normal external ear exam Mouth exam: PRESENT: moist, tongue midline Neck exam: PRESENT: full ROM. ABSENT: carotid bruit, JVD, lymphadenopathy, thyromegaly Respiratory exam: PRESENT: clear to auscultation silvina, decreased breath sounds Cardiovascular exam: PRESENT: RRR, tachycardia GI/Abdominal exam: PRESENT: normal bowel sounds, soft. ABSENT: distended, guarding, mass, organolmegaly, rebound, tenderness Extremities exam: PRESENT: full ROM Musculoskeletal exam: PRESENT: deformity Neurological exam: PRESENT: alert, awake, oriented to person, oriented to situation Psychiatric exam: PRESENT: appropriate affect, normal mood. ABSENT: homicidal ideation, suicidal ideation Skin exam: PRESENT: dry, intact, warm. ABSENT: cyanosis, rash Results Laboratory Results: 08/03/16 05:17 08/03/16 05:08/03/16 05: Magnesium 1.9 07/30/16 04:54 Tracheal Aspirate Gram Stain - Final 07/30/16 04:54 Tracheal Aspirate Sputum Culture - Final Alcaligenes Species Reduced Normal Frieda Sensitivity report revealed Levofloxacin (S), Cefepime (I) Tobramycin (R) 07/29/16 07/29/16 07/29/16 09:29 09:29 20:10 Creatine Kinase 180 H 186 H CK-MB (CK-2) 3.39 Troponin I 0.386 NT-Pro-B Natriuret Pep 07/29/16 07/30/16 07/31/16 20:10 03:31 03:44 Creatine Kinase CK-MB (CK-2) 4.56 H Troponin I 0.392 0.112 NT-Pro-B Natriuret Pep 6580 H 08/01/16 07:30 Creatine Kinase CK-MB (CK-2) Troponin I 0.052 NT-Pro-B Natriuret Pep Impressions: Chest X-Ray 08/01/16 06:00 IMPRESSION: STABLE APPEARANCE OF THE CHEST. SUPPORT DEVICES UNCHANGED. Assessment & Plan - Diagnosis (1) Diabetes mellitus type 2 in nonobese Is this a current diagnosis for this admission?: Yes (2) Acute respiratory failure with hypoxemia Is this a current diagnosis for this admission?: No (3) COPD with acute exacerbation Is this a current diagnosis for this admission?: Yes (4) HTN (hypertension) Qualifiers: Hypertension type: essential hypertension Qualified Code(s): I10 - Essential (primary) hypertension Is this a current diagnosis for this admission?: Yes (5) Hyperglycemia Is this a current diagnosis for this admission?: Yes (6) Elevated troponin I level Is this a current diagnosis for this admission?: Yes (7) NSTEMI (non-ST elevated myocardial infarction) Is this a current diagnosis for this admission?: Yes (8) Bronchitis, acute Qualifiers: Bronchitis organism: unspecified organism Qualified Code(s): J20.9 - Acute bronchitis, unspecified Is this a current diagnosis for this admission?: YesPlan: Discontinue IV Cefepime and Tobramycin neb therapy. Maintain on IV Levofloxacin therapy. - Time Time Spent with patient: 25-34 minutes Medications reviewed and adjusted accordingly: Yes Anticipated discharge: SNF Within: Other - Inpatient Certification Based on my medical assessment, after consideration of the patient's comorbidities, presenting symptoms, or acuity I expect that the services needed warrant INPATIENT care.: Yes I certify that my determination is in accordance with my understanding of Medicare's requirements for reasonable and necessary INPATIENT services [42 CFR 412.3e].: Yes Medical Necessity: Need Close Monitoring Due to Risk of Patient Decompensation, Need For IV Fluids, Need For Continuous Telemetry Monitoring, Need for IV Antibiotics, Risk of Complication if Not Cared For in Hospital 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 Maintain on IV Levofloxacin therapy. Advance diet to mechanical soft with cut meat. Physical therapy evaluation and institute necessary treatment. Encourage usage of low flow supplemental oxygen. I had further discussion with patient regarding SNF placement ad he is agreeable to this plan upon discharge.
[2016-08-04] MEDS: RAMIPRIL 5 MG CAPSULE PO SCH (11:09)
[2016-08-04] MEDS: LEVOFLOXACIN 500 MG/D5W RTU 100 ML IV SCH (11:10)
[2016-08-04] MEDS: ASPIRIN 81 MG TABLET, ENT COATED PO SCH (11:10)
--- NOTE | 2016-08-04 13:02 | PDOC PROGRESS REPORT ---
Subjective Progress Note for:: 08/04/16 Subjective:: Patient doing much better better. He denied any chest arm or neck discomfort. Patient is short of breath. He is currently stable from respiratory status. Cardec status also seems stable. Telemetry strips reviewed showed sinus rhythm with intermittent tachycardia. Physical Exam Vital Signs: Temp Pulse Resp BP Pulse Ox 98.0 F 85 18 134/64 H 96 08/04/16 07:33 08/04/16 08:39 08/04/16 08:39 08/04/16 07:33 08/04/16 08:39 Intake & Output 08/03/16 08/04/16 08/05/16 06:59 06:59 06:59 Intake Total 2974 2612 Output Total 4735 1550 Balance -1761 1062 Weight 59.4 kg 62.4 kg Exam: GENERAL: well-nourished and in no acute distress. Alert and oriented x3 HEAD: Atraumatic, normocephalic. EYES: Pupils equal round and reactive to light, extraocular movements intact, sclera anicteric, conjunctiva are normal. Right corneal opacity noted which is significant. ENT: TMs normal, nares patent, oropharynx clear without exudates. Moist mucous membranes. No oral ulcerations or bleeding gums noted NECK: supple without lymphadenopathy. Trachea is central. No cervical or axillary lymphadenopathy noted. Carotids are 2+, JVD WNL LUNGS: Respiration seems nonlabored, few bibasilar wheezes rales or rhonchi noted. No significant dullness noted on percussion. CHEST: Palpation of the chest wall shows no significant chest wall tenderness. No other significant abnormalities noted. HEART: [employer], No PSH, 1/6 DAVINA aortic area, 1/6 hough systolic murmur mitral area, no rubs, no gallops. ABDOMEN: Soft, no significant tenderness appreciated, normoactive bowel sounds. No guarding, no rebound. No rigidity noted . No masses appreciated. EXTREMITIES: Pedal pulses are 1-2+, no calf tenderness noted. No clubbing or cyanosis.trace to 1+ pedal edema noted NEUROLOGICAL: Focused neurological exam showed no significant neurologic deficit. Normal speech, no focal weakness appreciated. PSYCH: Normal mood, normal affect. Judgment and insight within normal limits. SKIN: No significant ecchymosis, rash, ulcerations or signs of pruritus noted. MUSCULOSKELETAL EXAM: No significant joint swelling noted. Results Laboratory Results: 08/03/16 05:17 08/03/16 05:17 07/30/16 04:54 Tracheal Aspirate Gram Stain - Final 07/30/16 04:54 Tracheal Aspirate Sputum Culture - Final Alcaligenes Species Reduced Normal Frieda 07/29/16 07/29/16 07/29/16 09:29 09:29 20:10 Creatine Kinase 180 H 186 H CK-MB (CK-2) 3.39 Troponin I 0.386 NT-Pro-B Natriuret Pep 07/29/16 07/30/16 07/31/16 20:10 03:31 03:44 Creatine Kinase CK-MB (CK-2) 4.56 H Troponin I 0.392 0.112 NT-Pro-B Natriuret Pep 6580 H 08/01/16 07:30 Creatine Kinase CK-MB (CK-2) Troponin I 0.052 NT-Pro-B Natriuret Pep Impressions: Chest X-Ray 08/01/16 06:00 IMPRESSION: STABLE APPEARANCE OF THE CHEST. SUPPORT DEVICES UNCHANGED. Assessment & Plan - Diagnosis (1) Elevated troponin I level Is this a current diagnosis for this admission?: Yes (2) NSTEMI (non-ST elevated myocardial infarction) Is this a current diagnosis for this admission?: Yes (3) Acute respiratory failure with hypoxemia Is this a current diagnosis for this admission?: No (4) COPD with acute exacerbation Is this a current diagnosis for this admission?: Yes (5) Diabetes mellitus type 2 in nonobese Is this a current diagnosis for this admission?: Yes (6) HTN (hypertension) Qualifiers: Hypertension type: essential hypertension Qualified Code(s): I10 - Essential (primary) hypertension Is this a current diagnosis for this admission?: Yes (7) Tachycardia Is this a current diagnosis for this admission?: Yes - Notes Notes: Elevated Troponin I: To be evaluated further with a nuclear stress test. Most likely was related to metabolic issues but patient likely to have underlying CAD. Non-STEMI: To be evaluated further with a nuclear stress test. Patient seems now stable to pursue this. This was discussed. Acute respiratory failure with hypoxemia: Improved. COPD with exacerbation: Stable continue current therapy. Diabetes: Blood sugar under reasonable control. Hypertension: Blood pressure is stable. Tachycardia: Currently improved. Continue Cardizem therapy. Have increased Cardizem to 60 mg by mouth every 6. Could be switched to longer acting agent at a later date. - Time Time with patient: 15-25 minutes - CODE STATUS was discussed, patient remains full code. Surrogate decision-maker unchanged. Multiple medical problems were addressed.More than 50% of the time spent coordinating care, discussing management plans with involved caregivers. Management plans discussed with involved personnels. Medical decision making was of moderate to high complexity , patient's has multiple severe comorbidities.
[2016-08-04] MEDS: METHYLPREDNISOLONE INJ 40 MG/1 ML SDV IV SCH ×2 (13:21→21:24)
[2016-08-04] MEDS: DILTIAZEM HCL 60 MG TABLET PO SCH ×2 (14:31→21:24)
--- NOTE | 2016-08-04 15:06 | PDOC PROGRESS REPORT ---
Subjective Progress Note for:: 08/04/16 Subjective:: Patient without complaints stable Physical Exam Vital Signs: Temp Pulse Resp BP Pulse Ox 98.5 F 106 H 18 113/67 96 08/04/16 03:34 08/04/16 03:34 08/04/16 03:34 08/04/16 03:34 08/04/16 03:34 Intake & Output 08/03/16 08/04/16 08/05/16 06:59 06:59 06:59 Intake Total 2974 2612 Output Total 4735 1550 Balance -1761 1062 Weight 59.4 kg 62.4 kg General appearance: PRESENT: no acute distress, cooperative, disheveled Head exam: PRESENT: atraumatic, normocephalic Eye exam: PRESENT: conjunctiva pale, EOMI Neck exam: ABSENT: carotid bruit, JVD, lymphadenopathy, thyromegaly Respiratory exam: PRESENT: decreased breath sounds, prolonged expiratory phas, rhonchi, symmetrical, unlabored Cardiovascular exam: PRESENT: RRR, +S1, +S2 Pulses: PRESENT: normal radial pulses GI/Abdominal exam: PRESENT: normal bowel sounds, soft. ABSENT: distended, guarding, mass, organolmegaly, rebound, tenderness Rectal exam: PRESENT: deferred Musculoskeletal exam: PRESENT: normal inspection Neurological exam: PRESENT: alert, awake Psychiatric exam: PRESENT: normal mood Skin exam: PRESENT: dry Results Laboratory Results: 08/03/16 05:17 08/03/16 05:17 08/03/16 05:17 Magnesium 1.9 07/30/16 04:54 Tracheal Aspirate Gram Stain - Final 07/30/16 04:54 Tracheal Aspirate Sputum Culture - Final Alcaligenes Species Reduced Normal Frieda 07/29/16 07/29/16 07/29/16 09:29 09:29 20:10 Creatine Kinase 180 H 186 H CK-MB (CK-2) 3.39 Troponin I 0.386 NT-Pro-B Natriuret Pep 07/29/16 07/30/16 07/31/16 20:10 03:31 03:44 Creatine Kinase CK-MB (CK-2) 4.56 H Troponin I 0.392 0.112 NT-Pro-B Natriuret Pep 6580 H 08/01/16 07:30 Creatine Kinase CK-MB (CK-2) Troponin I 0.052 NT-Pro-B Natriuret Pep Impressions: Chest X-Ray 08/01/16 06:00 IMPRESSION: STABLE APPEARANCE OF THE CHEST. SUPPORT DEVICES UNCHANGED. Assessment & Plan - Diagnosis (1) Acute respiratory failure with hypoxemia Is this a current diagnosis for this admission?: No (2) COPD with acute exacerbation Is this a current diagnosis for this admission?: YesPlan: Improving (3) HTN (hypertension) Qualifiers: Hypertension type: essential hypertension Qualified Code(s): I10 - Essential (primary) hypertension Is this a current diagnosis for this admission?: Yes
[2016-08-04] MEDS: ATORVASTATIN CALCIUM 40 MG TABLET PO SCH (21:24)
[2016-08-05] MEDS: NITROGLYCERIN 2% OINTMENT 1 GM PACKET TP SCH ×3 (02:34→17:44)
[2016-08-05] MEDS: DILTIAZEM HCL 60 MG TABLET PO SCH ×4 (02:34→21:25)
[2016-08-05] MEDS: NORMAL SALINE 1000 ML 1,000 ML IV PRN (02:39)
[2016-08-05] MEDS: IPRATROPIUM/ALBUTEROL 0.5-2.5 MG/3 ML AMPUL NEB SCH ×4 (02:39→20:21)
[2016-08-05] MEDS: METHYLPREDNISOLONE INJ 40 MG/1 ML SDV IV SCH ×3 (05:59→21:26)
[2016-08-05] MEDS: LANSOPRAZOLE 30 MG TAB.RAP.DR PO SCH (06:01)
[2016-08-05] MEDS: INSULIN LISPRO 100 UNIT/ML 3 ML VIAL SUBCUT PRN ×3 (07:56→17:45)
[2016-08-05] MEDS: ENOXAPARIN SODIUM INJ 40 MG/0.4 ML DISP.SYRIN SUBCUT SCH (07:57)
[2016-08-05] MEDS: ASPIRIN 81 MG TABLET, ENT COATED PO SCH (10:10)
[2016-08-05] MEDS: RAMIPRIL 5 MG CAPSULE PO SCH (10:11)
--- NOTE | 2016-08-05 13:43 | DRAGON STRESS TEST REPORT ---
INTRAVENOUS LEXISCAN CARDIOLITE STRESS TEST USING SINGLE PHOTON EMMISION COMPUTERIZED TOMOGRAPHIC. DATE OF PROCEDURE: August 05, 2016 INDICATION : Dyspnea, positive troponin I CARDIAC RISK FACTORS: Diabetes RESTING EKG: Mild sinus tachycardia, LVH with secondary ST-T wave changes. STRESS EKG: No significant changes noted with LexiScan bolus REASON FOR TERMINATION: Protocol. PROCEDURE REPORT: Baseline heart rate 105 beats per minute with blood pressure of 148/56. Patient had no significant complaints. Heart rate at 2 minutes post bolus 116 with a blood pressure of 127/48. 3 minutes post bolus heart rate 111 with blood pressure of 132/49. No significant EKG changes were noted. Patient had no significant complaints during the procedure or postprocedure. Patient injected with Aminophyllin 75 mg at 3 minutes or later after Lexiscan bolus. CONCLUSIONS: Normal EKG and hemodynamic response to IV LexiScan. NUCLEAR DATA: At rest the patient was given 10.94 millicuries of technetium 99 sestamibi injected intravenously. As per protocol rest gated SPECT images were obtained. Subsequently the patient was given intravenous LexiScan at a dose of 0.4 mg in 5 mL intravenously, followed by flush with normal saline. Subsequently the stress dose of 32.3 millicuries of technetium 99 sestamibi was injected intravenously. As per protocol stress gated images were obtained. NUCLEAR INTERPRETATION: Both raw and processed data were used for interpretation. Visual, qualitative, computer-generated quantitative data was used. There was good myocardial uptake of technetium compound. Motion artifact and soft tissue attenuations were noted. Increased visceral uptake was noted. No definitive areas of transient perfusion defect noted. No definitive areas of fixed perfusion defect or scars noted. Mild decreased uptake was noted in the distal inferior wall but is felt to be related to interference from visceral uptake and diaphragmatic attenuation. EKG gated imaging showed LV EF at 60 %, rest and stress gated EF similar visually. T. I D. ratio was 1.21. Lung heart ratio noted to be within normal limits 0.35. No significant extracardiac and abnormal radiotracer activities were noted. RV free wall uptake was noted to be borderline increased. IMPRESSION: Also refer to comments under nuclear interpretation. Also test results needs to be interpreted in the context of pretest probability. 1. There is no definitive scintigraphic evidence of LexiScan induced myocardial ischemia. 2. There is no definitive scintigraphic evidence of myocardial infarction/scar. 3. EKG gated imaging shows left ejection fraction of approximately at 60 %. 4. Clinical correlation requested as occasionally single vessel disease or balanced ischemia could be missed. In approximately 10% of the cases Lexiscan may not cause adequate vasodilatory stress. RECOMMENDATIONS: Aggressive risk factor modification, medical therapy. Clinical correlation with echocardiogram derived ejection fraction. Inability to exercise by itself can lead to increased cardiovascular event risks. Edith Orourke M.D., [facility] Technical Associate blocker automatic, Board certified in cardiovascular diseases, Nuclear cardiology, Echocardiography Cardiac CT and cardiac MRI Ph. [phone] [facility]
[2016-08-05] MEDS: NATEGLINIDE 60 MG TABLET PO SCH (16:15)
--- NOTE | 2016-08-05 18:14 | PDOC PROGRESS REPORT ---
Subjective Progress Note for:: 08/05/16 Subjective:: Patient denied any chest pain. There is some improvement with breathing. Tolerating oral feeding. No reported nausea, vomiting or abdominal pain. There is generalized weakness. No fever or chills. He is schedule for pharmacologic stress test evaluation today. Physical Exam Vital Signs: Temp Pulse Resp BP Pulse Ox 97.8 F 110 H 20 152/72 H 94 08/05/16 11:13 08/05/16 14:14 08/05/16 14:14 08/05/16 11:13 08/05/16 14:14 Intake & Output 08/04/16 08/05/16 08/06/16 06:59 06:59 06:59 Intake Total 2612 2409 586 Output Total 1550 1950 1500 Balance 1062 459 -914 Weight 62.4 kg 65 kg Physical Exam: General appearance: PRESENT: no acute distress, cooperative Head exam: PRESENT: atraumatic, normocephalic Eye exam: PRESENT: conjunctiva pink, EOMI, PERRLA. ABSENT: scleral icterus Ear exam: PRESENT: normal external ear exam Mouth exam: PRESENT: moist, tongue midline Neck exam: PRESENT: full ROM. ABSENT: carotid bruit, JVD, lymphadenopathy, thyromegaly Respiratory exam: PRESENT: clear to auscultation silvina, decreased breath sounds Cardiovascular exam: PRESENT: RRR, tachycardia GI/Abdominal exam: PRESENT: normal bowel sounds, soft. ABSENT: distended, guarding, mass, organomegaly, rebound, tenderness Extremities exam: PRESENT: full ROM Musculoskeletal exam: PRESENT: deformity Neurological exam: PRESENT: alert, awake, oriented to person, oriented to situation Psychiatric exam: PRESENT: appropriate affect, normal mood. ABSENT: homicidal ideation, suicidal ideation Skin exam: PRESENT: dry, intact, warm. ABSENT: cyanosis, rash Results Laboratory Results: 08/03/16 05:17 08/03/16 05:17 07/29/16 07/29/16 07/29/16 09:29 09:29 20:10 Creatine Kinase 180 H 186 H CK-MB (CK-2) 3.39 Troponin I 0.386 NT-Pro-B Natriuret Pep 07/29/16 07/30/16 07/31/16 20:10 03:31 03:44 Creatine Kinase CK-MB (CK-2) 4.56 H Troponin I 0.392 0.112 NT-Pro-B Natriuret Pep 6580 H 08/01/16 07:30 Creatine Kinase CK-MB (CK-2) Troponin I 0.052 NT-Pro-B Natriuret Pep Impressions: Chest X-Ray 08/01/16 06:00 IMPRESSION: STABLE APPEARANCE OF THE CHEST. SUPPORT DEVICES UNCHANGED. Assessment & Plan - Diagnosis (1) Diabetes mellitus type 2 in nonobese Is this a current diagnosis for this admission?: Yes (2) Acute respiratory failure with hypoxemia Is this a current diagnosis for this admission?: No (3) COPD with acute exacerbation Is this a current diagnosis for this admission?: Yes (4) HTN (hypertension) Qualifiers: Hypertension type: essential hypertension Qualified Code(s): I10 - Essential (primary) hypertension Is this a current diagnosis for this admission?: Yes (5) Hyperglycemia Is this a current diagnosis for this admission?: Yes (6) Elevated troponin I level Is this a current diagnosis for this admission?: Yes (7) NSTEMI (non-ST elevated myocardial infarction) Is this a current diagnosis for this admission?: Yes (8) Bronchitis, acute Qualifiers: Bronchitis organism: unspecified organism Qualified Code(s): J20.9 - Acute bronchitis, unspecified Is this a current diagnosis for this admission?: Yes - Time Time Spent with patient: 25-34 minutes Medications reviewed and adjusted accordingly: Yes Anticipated discharge: SNF Within: Other - Inpatient Certification Medical Necessity: Need Close Monitoring Due to Risk of Patient Decompensation, Need For Continuous Telemetry Monitoring, Risk of Complication if Not Cared For in Hospital Post Hospital Care: D/C or Transfer Summary - Plan Summary Plan Summary: Follow up on stress test findings. Advance dietary consistency as tolerated. Maintain on all current medication management.
--- NOTE | 2016-08-05 20:53 | PDOC PROGRESS REPORT ---
Subjective Progress Note for:: 08/05/16 Subjective:: Patient doing much better better. He denied any chest arm or neck discomfort. Patient is short of breath. He is currently stable from respiratory status. Cardec status also seems stable. Nuclear stress test procedure was explained to the patient in detail. Risks benefits were discussed and informed consent was obtained. Alternatives were discussed. Patient informed that based on risk factors, physical exam, lab data findings and symptoms there is at least intermediate probability of underlying CAD. Nuclear stress test procedure was therefore scheduled.. Physical Exam Vital Signs: Temp Pulse Resp BP Pulse Ox 97.8 F 110 H 20 152/72 H 94 08/05/16 11:13 08/05/16 14:14 08/05/16 14:14 08/05/16 11:13 08/05/16 14:14 Intake & Output 08/04/16 08/05/16 08/06/16 06:59 06:59 06:59 Intake Total 2612 2409 1586 Output Total 1550 1950 1500 Balance 1062 459 86 Weight 62.4 kg 65 kg Exam: GENERAL: well-nourished and in no acute distress. Alert and oriented x3 HEAD: Atraumatic, normocephalic. EYES: Pupils equal round and reactive to light, extraocular movements intact, sclera anicteric, conjunctiva are normal. Significant right corneal opacity noted. ENT: TMs normal, nares patent, oropharynx clear without exudates. Moist mucous membranes. No oral ulcerations or bleeding gums noted NECK: supple without lymphadenopathy. Trachea is central. No cervical or axillary lymphadenopathy noted. Carotids are 2+, JVD WNL LUNGS: Respiration seems nonlabored, no significant accessory muscle action noted. Bibasilar fine crackles noted no dullness noted. CHEST: Palpation of the chest wall shows no significant chest wall tenderness. No other significant abnormalities noted. 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 ABDOMEN: Soft, no significant tenderness appreciated, normoactive bowel sounds. No guarding, no rebound. No rigidity noted . No masses appreciated. EXTREMITIES: Pedal pulses are 1-2+, no calf tenderness noted. No clubbing or cyanosis.trace pedal edema noted NEUROLOGICAL: Focused neurological exam showed no significant neurologic deficit. Normal speech, no focal weakness appreciated. PSYCH: Normal mood, normal affect. Judgment and insight within normal limits. SKIN: No significant ecchymosis, rash, ulcerations or signs of pruritus noted. MUSCULOSKELETAL EXAM: No significant joint swelling noted. Results Laboratory Results: 08/03/16 05:17 08/03/16 05:17 07/29/16 07/29/16 07/29/16 09:29 09:29 20:10 Creatine Kinase 180 H 186 H CK-MB (CK-2) 3.39 Troponin I 0.386 NT-Pro-B Natriuret Pep 07/29/16 07/30/16 07/31/16 20:10 03:31 03:44 Creatine Kinase CK-MB (CK-2) 4.56 H Troponin I 0.392 0.112 NT-Pro-B Natriuret Pep 6580 H 08/01/16 07:30 Creatine Kinase CK-MB (CK-2) Troponin I 0.052 NT-Pro-B Natriuret Pep Impressions: Chest X-Ray 08/01/16 06:00 IMPRESSION: STABLE APPEARANCE OF THE CHEST. SUPPORT DEVICES UNCHANGED. Assessment & Plan - Diagnosis (1) Elevated troponin I level Is this a current diagnosis for this admission?: Yes (2) NSTEMI (non-ST elevated myocardial infarction) Is this a current diagnosis for this admission?: Yes (3) Acute respiratory failure with hypoxemia Is this a current diagnosis for this admission?: No (4) COPD with acute exacerbation Is this a current diagnosis for this admission?: Yes (5) Diabetes mellitus type 2 in nonobese Is this a current diagnosis for this admission?: Yes (6) HTN (hypertension) Qualifiers: Hypertension type: essential hypertension Qualified Code(s): I10 - Essential (primary) hypertension Is this a current diagnosis for this admission?: Yes (7) Tachycardia Is this a current diagnosis for this admission?: Yes - Notes Notes: Elevated Troponin I: Was evaluated by nuclear stress test today. No significant areas of ischemia noted. Troponin I elevation probably related to metabolic reasons.. Non-STEMI: Again evaluated by nuclear stress test. No significant ischemia or other high risk features noted. Recommend risk factor modification and medical therapy. Acute respiratory failure with hypoxemia: Improved. COPD with exacerbation: Stable continue current therapy. Diabetes: Blood sugar under reasonable control. Hypertension: Blood pressure is stable. Tachycardia: Currently improved. Continue Cardizem therapy. Have increased Cardizem to 60 mg by mouth every 6. Could be switched to longer acting agent at a later date. Patient cardiac regimen reviewed. He seems to be on a good regimen. - Time Time with patient: Greater than 35 minutes - Patient was seen multiple times. Total time exceeds 40 minutes. In the morning nuclear stress test procedure, risks benefits, alternatives were discussed. Patient seen during the stress test. Patient also seen after stress test when results were discussed with the patient in detail. Patient's questions were answered. Nuclear stress test results were discussed with the patient. Patient was informed that no definitive evidence of pharmacologic stress-induced ischemia noted. No definite fixed defects were noted. Patient informed that occasionally significant single vessel disease or balanced ischemia could be missed. However based on the current study results, would recommend aggressive risk factor modification and medical therapy. It may also be worthwhile to consider evaluation or empiric management of other causes of chest pain. Should no other cause be found and if persistent in having chest pain, then cardiac catheterization should be considered. Right now, recommendations are for aggressive risk factor modification and medical management.CODE STATUS was discussed, patient remains full code. Surrogate decision-maker unchanged. Multiple medical problems were addressed.More than 50% of the time spent coordinating care, discussing management plans with involved caregivers. Management plans discussed with involved personnels. Medical decision making was of moderate to high complexity, patient's has multiple severe comorbidities.
[2016-08-05] MEDS: ATORVASTATIN CALCIUM 40 MG TABLET PO SCH (21:25)
[2016-08-06] MEDS: NITROGLYCERIN 2% OINTMENT 1 GM PACKET TP SCH ×3 (01:40→17:32)
[2016-08-06] MEDS: INSULIN LISPRO 100 UNIT/ML 3 ML VIAL SUBCUT PRN ×5 (01:40→23:38)
[2016-08-06] MEDS: IPRATROPIUM/ALBUTEROL 0.5-2.5 MG/3 ML AMPUL NEB SCH ×4 (02:09→20:47)
[2016-08-06] MEDS: DILTIAZEM HCL 60 MG TABLET PO SCH ×4 (03:34→21:28)
[2016-08-06] MEDS: NORMAL SALINE 1000 ML 1,000 ML IV PRN (04:45)
[2016-08-06] MEDS: LANSOPRAZOLE 30 MG TAB.RAP.DR PO SCH (07:03)
[2016-08-06] MEDS: METHYLPREDNISOLONE INJ 40 MG/1 ML SDV IV SCH ×3 (07:04→21:31)
[2016-08-06] MEDS: RAMIPRIL 5 MG CAPSULE PO SCH (09:32)
[2016-08-06] MEDS: NATEGLINIDE 60 MG TABLET PO SCH ×2 (09:32→18:00)
[2016-08-06] MEDS: ASPIRIN 81 MG TABLET, ENT COATED PO SCH (09:32)
[2016-08-06] MEDS: ENOXAPARIN SODIUM INJ 40 MG/0.4 ML DISP.SYRIN SUBCUT SCH (09:33)
--- NOTE | 2016-08-06 15:06 | PDOC PROGRESS REPORT ---
Subjective Progress Note for:: 08/06/16 Subjective:: Patient without complaints sitting on the side of the bed comfortable Physical Exam Vital Signs: Temp Pulse Resp BP Pulse Ox 98.0 F 100 18 131/69 H 96 08/06/16 11:20 08/06/16 14:00 08/06/16 14:00 08/06/16 11:20 08/06/16 14:00 Intake & Output 08/05/16 08/06/16 08/07/16 06:59 06:59 06:59 Intake Total 2403 3226 237 Output Total 6731 3400 1100 Balance 048 -962 -494 Weight 65 kg 66.8 kg General appearance: PRESENT: no acute distress, cooperative, disheveled, thin, well-developed Head exam: PRESENT: atraumatic, normocephalic Eye exam: PRESENT: conjunctiva pale, EOMI Mouth exam: PRESENT: dry mucosa, neck supple Teeth exam: PRESENT: poor dentation Neck exam: ABSENT: carotid bruit, JVD, lymphadenopathy, thyromegaly Respiratory exam: PRESENT: decreased breath sounds, prolonged expiratory phas, rhonchi, symmetrical, unlabored Cardiovascular exam: PRESENT: RRR, +S1, +S2 Pulses: PRESENT: normal radial pulses GI/Abdominal exam: PRESENT: normal bowel sounds, soft. ABSENT: distended, guarding, mass, organolmegaly, rebound, tenderness Rectal exam: PRESENT: deferred Gentrourinary exam: PRESENT: indwelling catheter Musculoskeletal exam: PRESENT: normal inspection Neurological exam: PRESENT: alert, awake Psychiatric exam: PRESENT: flat affect Skin exam: PRESENT: dry Results Laboratory Results: 08/03/16 05:17 08/03/16 05:17 07/29/16 07/29/16 07/29/16 09:29 09:29 20:10 Creatine Kinase 180 H 186 H CK-MB (CK-2) 3.39 Troponin I 0.386 NT-Pro-B Natriuret Pep 07/29/16 07/30/16 07/31/16 20:10 03:31 03:44 Creatine Kinase CK-MB (CK-2) 4.56 H Troponin I 0.392 0.112 NT-Pro-B Natriuret Pep 6580 H 08/01/16 07:30 Creatine Kinase CK-MB (CK-2) Troponin I 0.052 NT-Pro-B Natriuret Pep Impressions: Chest X-Ray 08/01/16 06:00 IMPRESSION: STABLE APPEARANCE OF THE CHEST. SUPPORT DEVICES UNCHANGED. Assessment & Plan - Diagnosis (1) Acute respiratory failure with hypoxemia Is this a current diagnosis for this admission?: No (2) COPD with acute exacerbation Is this a current diagnosis for this admission?: YesPlan: Continues to improve suspect he is at or near his baseline (3) HTN (hypertension) Qualifiers: Hypertension type: essential hypertension Qualified Code(s): I10 - Essential (primary) hypertension Is this a current diagnosis for this admission?: Yes
--- NOTE | 2016-08-06 17:05 | PDOC PROGRESS REPORT ---
Subjective Progress Note for:: 08/06/16 Subjective:: Patient denied any chest pain. His stress test was unrevealing of any acute pathology. Patient's breathing continue to improve. Remain on IV Solu Medrol with gradual tapering of his dosage. Tolerating advancement in of his diet. No reported nausea, vomiting or abdominal pain. There is generalized weakness did not participate in PT session so far today. No fever or chills. Physical Exam Vital Signs: Temp Pulse Resp BP Pulse Ox 98.2 F 96 16 129/54 H 97 08/06/16 15:09 08/06/16 15:09 08/06/16 15:09 08/06/16 15:09 08/06/16 15:09 Intake & Output 08/05/16 08/06/16 08/07/16 06:59 06:59 06:59 Intake Total 2409 3226 237 Output Total 1950 3400 1100 Balance 540 -611 -552 Weight 65 kg 66.8 kg Physical Exam: General appearance: PRESENT: no acute distress, cooperative Head exam: PRESENT: atraumatic, normocephalic Eye exam: PRESENT: conjunctiva pink, EOMI, PERRLA. ABSENT: scleral icterus Ear exam: PRESENT: normal external ear exam Mouth exam: PRESENT: moist, tongue midline Neck exam: PRESENT: full ROM. ABSENT: carotid bruit, JVD, lymphadenopathy, thyromegaly Respiratory exam: PRESENT: clear to auscultation silvina, decreased breath sounds Cardiovascular exam: PRESENT: RRR, tachycardia GI/Abdominal exam: PRESENT: normal bowel sounds, soft. ABSENT: distended, guarding, mass, organomegaly, rebound, tenderness Extremities exam: PRESENT: full ROM Musculoskeletal exam: PRESENT: deformity Neurological exam: PRESENT: alert, awake, oriented to person, oriented to situation Psychiatric exam: PRESENT: appropriate affect, normal mood. ABSENT: homicidal ideation, suicidal ideation Skin exam: PRESENT: dry, intact, warm. ABSENT: cyanosis, rash Results Laboratory Results: 08/03/16 05:08/03/16 05:07/29/16 07/29/16 07/29/16 09:29 09:29 20:10 Creatine Kinase 180 H 186 H CK-MB (CK-2) 3.39 Troponin I 0.386 NT-Pro-B Natriuret Pep 07/29/16 07/30/16 07/31/16 20:10 03:31 03:44 Creatine Kinase CK-MB (CK-2) 4.56 H Troponin I 0.392 0.112 NT-Pro-B Natriuret Pep 6580 H 08/01/16 07:30 Creatine Kinase CK-MB (CK-2) Troponin I 0.052 NT-Pro-B Natriuret Pep Impressions: Chest X-Ray 08/01/16 06:00 IMPRESSION: STABLE APPEARANCE OF THE CHEST. SUPPORT DEVICES UNCHANGED. Assessment & Plan - Diagnosis (1) Diabetes mellitus type 2 in nonobese Is this a current diagnosis for this admission?: Yes (2) Acute respiratory failure with hypoxemia Is this a current diagnosis for this admission?: No (3) COPD with acute exacerbation Is this a current diagnosis for this admission?: Yes (4) HTN (hypertension) Qualifiers: Hypertension type: essential hypertension Qualified Code(s): I10 - Essential (primary) hypertension Is this a current diagnosis for this admission?: Yes (5) Hyperglycemia Is this a current diagnosis for this admission?: Yes (6) Elevated troponin I level Is this a current diagnosis for this admission?: Yes (7) NSTEMI (non-ST elevated myocardial infarction) Is this a current diagnosis for this admission?: Yes (8) Bronchitis, acute Qualifiers: Bronchitis organism: unspecified organism Qualified Code(s): J20.9 - Acute bronchitis, unspecified Is this a current diagnosis for this admission?: Yes - Time Time Spent with patient: 25-34 minutes Medications reviewed and adjusted accordingly: Yes Anticipated discharge: SNF Within: within 72 hours - Inpatient Certification Medical Necessity: Need Close Monitoring Due to Risk of Patient Decompensation, Need For IV Fluids, Need For Continuous Telemetry Monitoring, Need for Nebulizer Therapy and Monitoring of Response, Risk of Complication if Not Cared For in Hospital Post Hospital Care: D/C or Transfer Summary - Plan Summary Plan Summary: Decrease IV Solu Medrol to 40 mg q12 hours. D/C IV fluid and encourage adequate oral intake. Increase Starlix to 120 mg po tis ac. Restart on Advair 250/50 mcg 1 puff po bid. Maintain on all other current medication management.
--- NOTE | 2016-08-06 20:02 | PDOC PROGRESS REPORT ---
Subjective Progress Note for:: 08/06/16 Subjective:: Patient doing much better better. He denied any chest arm or neck discomfort. Shortness of breath has improved.. He is currently stable from respiratory status. Cardec status also seems stable. Nuclear stress test results were again reviewed with the patient. His questions were answered. Patient's nephew in the room, patient's condition discussed with him. Physical Exam Vital Signs: Temp Pulse Resp BP Pulse Ox 98.2 F 96 16 129/54 H 97 08/06/16 15:09 08/06/16 15:09 08/06/16 15:09 08/06/16 15:09 08/06/16 15:09 Intake & Output 08/05/16 08/06/16 08/07/16 06:59 06:59 06:59 Intake Total 2409 3226 1577 Output Total 1950 3400 1500 Balance 459 -174 77 Weight 65 kg 66.8 kg Exam: GENERAL: well-nourished and in no acute distress. Alert and oriented x3 HEAD: Atraumatic, normocephalic. EYES: Pupils equal round and reactive to light, extraocular movements intact, sclera anicteric, conjunctiva are normal. Dense right corneal opacity noted. ENT: TMs normal, nares patent, oropharynx clear without exudates. Moist mucous membranes. No oral ulcerations or bleeding gums noted NECK: supple without lymphadenopathy. Trachea is central. No cervical or axillary lymphadenopathy noted. Carotids are 2+, JVD WNL LUNGS: Respiration seems nonlabored, no significant accessory muscle action noted. Bibasal a fine crackles and mild wheezing noted. CHEST: Palpation of the chest wall shows no significant chest wall tenderness. No other significant abnormalities noted. 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 ABDOMEN: Soft, no significant tenderness appreciated, normoactive bowel sounds. No guarding, no rebound. No rigidity noted . No masses appreciated. EXTREMITIES: Pedal pulses are 1-2+, no calf tenderness noted. No clubbing or cyanosis.trace to 1+ pedal edema noted NEUROLOGICAL: Focused neurological exam showed no significant neurologic deficit. Normal speech, no focal weakness appreciated. PSYCH: Normal mood, normal affect. Judgment and insight within normal limits. SKIN: No significant ecchymosis, rash, ulcerations or signs of pruritus noted. MUSCULOSKELETAL EXAM: No significant joint swelling noted. Results Laboratory Results: 08/03/16 05:17 08/03/16 05:17 07/29/16 07/29/16 07/29/16 09:29 09:29 20:10 Creatine Kinase 180 H 186 H CK-MB (CK-2) 3.39 Troponin I 0.386 NT-Pro-B Natriuret Pep 07/29/16 07/30/16 07/31/16 20:10 03:31 03:44 Creatine Kinase CK-MB (CK-2) 4.56 H Troponin I 0.392 0.112 NT-Pro-B Natriuret Pep 6580 H 08/01/16 07:30 Creatine Kinase CK-MB (CK-2) Troponin I 0.052 NT-Pro-B Natriuret Pep Impressions: Chest X-Ray 08/01/16 06:00 IMPRESSION: STABLE APPEARANCE OF THE CHEST. SUPPORT DEVICES UNCHANGED. Assessment & Plan - Diagnosis (1) Elevated troponin I level Is this a current diagnosis for this admission?: Yes (2) NSTEMI (non-ST elevated myocardial infarction) Is this a current diagnosis for this admission?: Yes (3) Acute respiratory failure with hypoxemia Is this a current diagnosis for this admission?: No (4) COPD with acute exacerbation Is this a current diagnosis for this admission?: Yes (5) Diabetes mellitus type 2 in nonobese Is this a current diagnosis for this admission?: Yes (6) HTN (hypertension) Qualifiers: Hypertension type: essential hypertension Qualified Code(s): I10 - Essential (primary) hypertension Is this a current diagnosis for this admission?: Yes (7) Tachycardia Is this a current diagnosis for this admission?: Yes - Notes Notes: Elevated Troponin I: Nuclear stress test did not show any significant ischemia. Troponin I elevation probably related to metabolic reasons.. Non-STEMI: Related to metabolic reasons. Recommend risk factor modification and medical therapy. Acute respiratory failure with hypoxemia: Significantly Improved. COPD with exacerbation: Stable continue current therapy. Diabetes: Blood sugar under reasonable control. Hypertension: Blood pressure is stable. Tachycardia: Currently improved. Continue Cardizem therapy. Patient cardiac regimen reviewed. He seems to be on a good regimen. Will sign off. Please reconsult if needed. - Time Time with patient: 15-25 minutes
[2016-08-06] MEDS: ATORVASTATIN CALCIUM 40 MG TABLET PO SCH (21:28)
[2016-08-06] MEDS: FLUTICASONE/SALMETEROL DISKUS 250-50 MCG/DOSE IH SCH (21:38)
[2016-08-07] MEDS: IPRATROPIUM/ALBUTEROL 0.5-2.5 MG/3 ML AMPUL NEB SCH ×4 (02:33→20:11)
[2016-08-07] MEDS: DILTIAZEM HCL 60 MG TABLET PO SCH ×4 (02:43→22:27)
[2016-08-07] MEDS: INSULIN LISPRO 100 UNIT/ML 3 ML VIAL SUBCUT PRN ×3 (06:57→22:27)
[2016-08-07] MEDS: LANSOPRAZOLE 30 MG TAB.RAP.DR PO SCH (06:57)
[2016-08-07] MEDS: METHYLPREDNISOLONE INJ 40 MG/1 ML SDV IV SCH ×2 (09:08→22:27)
[2016-08-07] MEDS: NATEGLINIDE 60 MG TABLET PO SCH ×3 (09:08→16:38)
[2016-08-07] MEDS: ASPIRIN 81 MG TABLET, ENT COATED PO SCH (09:08)
[2016-08-07] MEDS: ENOXAPARIN SODIUM INJ 40 MG/0.4 ML DISP.SYRIN SUBCUT SCH (09:10)
[2016-08-07] MEDS: RAMIPRIL 5 MG CAPSULE PO SCH (09:11)
[2016-08-07] MEDS: FLUTICASONE/SALMETEROL DISKUS 250-50 MCG/DOSE IH SCH ×2 (09:11→22:27)
--- NOTE | 2016-08-07 14:50 | PDOC PROGRESS REPORT ---
Subjective Progress Note for:: 08/07/16 Subjective:: No chest pain. Breathing is improving. No reported nausea, vomiting or abdominal pain. No fever or chills. Physical Exam Vital Signs: Temp Pulse Resp BP Pulse Ox 98.6 F 94 16 119/49 L 97 08/07/16 11:13 08/07/16 14:07 08/07/16 14:07 08/07/16 11:13 08/07/16 11:13 Intake & Output 08/06/16 08/07/16 08/08/16 06:59 06:59 06:59 Intake Total 3226 1652 Output Total 3400 3500 Balance -174 -1848 Weight 66.8 kg 66 kg Physical Exam: General appearance: PRESENT: no acute distress, cooperative Head exam: PRESENT: atraumatic, normocephalic Eye exam: PRESENT: conjunctiva pink, EOMI, PERRLA. ABSENT: scleral icterus Ear exam: PRESENT: normal external ear exam Mouth exam: PRESENT: moist, tongue midline Neck exam: PRESENT: full ROM. ABSENT: carotid bruit, JVD, lymphadenopathy, thyromegaly Respiratory exam: PRESENT: clear to auscultation silvina, decreased breath sounds Cardiovascular exam: PRESENT: RRR, tachycardia GI/Abdominal exam: PRESENT: normal bowel sounds, soft. ABSENT: distended, guarding, mass, organomegaly, rebound, tenderness Extremities exam: PRESENT: full ROM Musculoskeletal exam: PRESENT: deformity Neurological exam: PRESENT: alert, awake, oriented to person, oriented to situation Psychiatric exam: PRESENT: appropriate affect, normal mood. ABSENT: homicidal ideation, suicidal ideation Skin exam: PRESENT: dry, intact, warm. ABSENT: cyanosis, rash Results Laboratory Results: 08/03/16 05:17 08/03/16 05:17 07/29/16 07/29/16 07/29/16 09:29 09:29 20:10 Creatine Kinase 180 H 186 H CK-MB (CK-2) 3.39 Troponin I 0.386 NT-Pro-B Natriuret Pep 07/29/16 07/30/16 07/31/16 20:10 03:31 03:44 Creatine Kinase CK-MB (CK-2) 4.56 H Troponin I 0.392 0.112 NT-Pro-B Natriuret Pep 6580 H 08/01/16 07:30 Creatine Kinase CK-MB (CK-2) Troponin I 0.052 NT-Pro-B Natriuret Pep Impressions: Chest X-Ray 08/01/16 06:00 IMPRESSION: STABLE APPEARANCE OF THE CHEST. SUPPORT DEVICES UNCHANGED. Assessment & Plan - Diagnosis (1) Diabetes mellitus type 2 in nonobese Is this a current diagnosis for this admission?: Yes (2) Acute respiratory failure with hypoxemia Is this a current diagnosis for this admission?: No (3) COPD with acute exacerbation Is this a current diagnosis for this admission?: Yes (4) HTN (hypertension) Qualifiers: Hypertension type: essential hypertension Qualified Code(s): I10 - Essential (primary) hypertension Is this a current diagnosis for this admission?: Yes (5) Hyperglycemia Is this a current diagnosis for this admission?: Yes (6) Elevated troponin I level Is this a current diagnosis for this admission?: Yes (7) NSTEMI (non-ST elevated myocardial infarction) Is this a current diagnosis for this admission?: Yes (8) Bronchitis, acute Qualifiers: Bronchitis organism: unspecified organism Qualified Code(s): J20.9 - Acute bronchitis, unspecified Is this a current diagnosis for this admission?: Yes - Time Time Spent with patient: 25-34 minutes Medications reviewed and adjusted accordingly: Yes Anticipated discharge: SNF Within: Other - Inpatient Certification Medical Necessity: Need Close Monitoring Due to Risk of Patient Decompensation, Need For Continuous Telemetry Monitoring, Risk of Complication if Not Cared For in Hospital Post Hospital Care: D/C or Transfer Summary - Plan Summary Plan Summary: Continue current medication management. Follow up on possible transfer to SNF.
[2016-08-07] MEDS: NORMAL SALINE INJ/PF 0.9% 10 ML SDV IV PRN (16:40)
[2016-08-07] MEDS: ATORVASTATIN CALCIUM 40 MG TABLET PO SCH (22:27)
[2016-08-08] MEDS: IPRATROPIUM/ALBUTEROL 0.5-2.5 MG/3 ML AMPUL NEB SCH ×4 (02:50→20:30)
[2016-08-08] MEDS: DILTIAZEM HCL 60 MG TABLET PO SCH ×4 (03:52→21:59)
[2016-08-08] MEDS: LANSOPRAZOLE 30 MG TAB.RAP.DR PO SCH (06:45)
[2016-08-08] MEDS: METHYLPREDNISOLONE INJ 40 MG/1 ML SDV IV SCH ×2 (09:35→17:39)
[2016-08-08] MEDS: FLUTICASONE/SALMETEROL DISKUS 250-50 MCG/DOSE IH SCH ×2 (09:35→22:01)
[2016-08-08] MEDS: NATEGLINIDE 60 MG TABLET PO SCH ×3 (09:35→17:38)
[2016-08-08] MEDS: ASPIRIN 81 MG TABLET, ENT COATED PO SCH (09:35)
[2016-08-08] MEDS: RAMIPRIL 5 MG CAPSULE PO SCH (09:36)
[2016-08-08] MEDS: ENOXAPARIN SODIUM INJ 40 MG/0.4 ML DISP.SYRIN SUBCUT SCH (09:37)
[2016-08-08] MEDS: INSULIN LISPRO 100 UNIT/ML 3 ML VIAL SUBCUT PRN ×3 (12:30→22:00)
--- NOTE | 2016-08-08 14:40 | PDOC PROGRESS REPORT ---
Subjective Progress Note for:: 08/08/16 Subjective:: No chest pain. Breathing is improving. No reported nausea, vomiting or abdominal pain. No fever or chills. Physical Exam Vital Signs: Temp Pulse Resp BP Pulse Ox 98.4 F 112 H 16 137/67 H 96 08/08/16 12:10 08/08/16 12:10 08/08/16 12:10 08/08/16 12:10 08/08/16 12:10 Intake & Output 08/07/16 08/08/16 08/09/16 06:59 06:59 06:59 Intake Total 1652 1261 Output Total 3500 4100 Balance -7831 -5234 Weight 66 kg 63.5 kg Physical Exam: General appearance: PRESENT: no acute distress, cooperative Head exam: PRESENT: atraumatic, normocephalic Eye exam: PRESENT: conjunctiva pink, EOMI, PERRLA. ABSENT: scleral icterus Respiratory exam: PRESENT: clear to auscultation silvina, decreased breath sounds - reduced at lung bases bilaterally Cardiovascular exam: PRESENT: RRR. ABSENT: diastolic murmur, rubs, systolic murmur GI/Abdominal exam: PRESENT: normal bowel sounds, soft. ABSENT: distended, guarding, mass, organomegaly, rebound, tenderness Extremities exam: ABSENT: pedal edema Neurological exam: PRESENT: alert, awake, oriented to situation, other - legally blind. ABSENT: CN II-XII grossly intact, motor sensory deficit Psychiatric exam: PRESENT: appropriate affect, normal mood. ABSENT: homicidal ideation, suicidal ideation Skin exam: PRESENT: dry, intact, warm. ABSENT: cyanosis, rash Results Laboratory Results: 08/03/16 05:17 08/03/16 05:17 07/29/16 07/29/16 07/29/16 09:29 09:29 20:10 Creatine Kinase 180 H 186 H CK-MB (CK-2) 3.39 Troponin I 0.386 NT-Pro-B Natriuret Pep 07/29/16 07/30/16 07/31/16 20:10 03:31 03:44 Creatine Kinase CK-MB (CK-2) 4.56 H Troponin I 0.392 0.112 NT-Pro-B Natriuret Pep 6580 H 08/01/16 07:30 Creatine Kinase CK-MB (CK-2) Troponin I 0.052 NT-Pro-B Natriuret Pep Impressions: Chest X-Ray 08/01/16 06:00 IMPRESSION: STABLE APPEARANCE OF THE CHEST. SUPPORT DEVICES UNCHANGED. Assessment & Plan - Diagnosis (1) Diabetes mellitus type 2 in nonobese Is this a current diagnosis for this admission?: Yes (2) Acute respiratory failure with hypoxemia Is this a current diagnosis for this admission?: No (3) COPD with acute exacerbation Is this a current diagnosis for this admission?: Yes (4) HTN (hypertension) Qualifiers: Hypertension type: essential hypertension Qualified Code(s): I10 - Essential (primary) hypertension Is this a current diagnosis for this admission?: Yes (5) Hyperglycemia Is this a current diagnosis for this admission?: Yes (6) Elevated troponin I level Is this a current diagnosis for this admission?: Yes (7) NSTEMI (non-ST elevated myocardial infarction) Is this a current diagnosis for this admission?: Yes (8) Bronchitis, acute Qualifiers: Bronchitis organism: unspecified organism Qualified Code(s): J20.9 - Acute bronchitis, unspecified Is this a current diagnosis for this admission?: Yes - Time Time Spent with patient: 25-34 minutes Smoking Cessation Education: 3 to 10 minutes Medications reviewed and adjusted accordingly: Yes Anticipated discharge: SNF Within: Other - Inpatient Certification Medical Necessity: Need For IV Fluids, Need For Continuous Telemetry Monitoring , Need for IV Antibiotics, Risk of Complication if Not Cared For in Hospital - See covering atending physician orders. Post Hospital Care: D/C or Transfer Summary
[2016-08-08] MEDS: NORMAL SALINE INJ/PF 0.9% 10 ML SDV IV PRN (17:39)
[2016-08-08] MEDS: ATORVASTATIN CALCIUM 40 MG TABLET PO SCH (22:00)
[2016-08-09] MEDS: IPRATROPIUM/ALBUTEROL 0.5-2.5 MG/3 ML AMPUL NEB SCH ×3 (01:56→13:37)
[2016-08-09] MEDS: DILTIAZEM HCL 60 MG TABLET PO SCH ×2 (03:59→08:17)
[2016-08-09] MEDS: METHYLPREDNISOLONE INJ 40 MG/1 ML SDV IV SCH (06:15)
[2016-08-09] MEDS: LANSOPRAZOLE 30 MG TAB.RAP.DR PO SCH (06:15)
[2016-08-09] MEDS: NATEGLINIDE 60 MG TABLET PO SCH ×2 (08:17→12:09)
[2016-08-09] MEDS: INSULIN LISPRO 100 UNIT/ML 3 ML VIAL SUBCUT PRN ×2 (08:17→12:08)
[2016-08-09] MEDS: ASPIRIN 81 MG TABLET, ENT COATED PO SCH (09:45)
[2016-08-09] MEDS: FLUTICASONE/SALMETEROL DISKUS 250-50 MCG/DOSE IH SCH (09:45)
[2016-08-09] MEDS: RAMIPRIL 5 MG CAPSULE PO SCH (09:45)
[2016-08-09 10:19] LABS: HEMATOCRIT 33.7 % (37.9-51.0); HEMOGLOBIN 11.3 g/dL (13.5-17.0); HGB HCT DIFFERENCE 0.2; MEAN CORPUSCULAR HEMOGLOBIN 29.8 pg (27.0-33.4); MEAN CORPUSCULAR HGB CONC 33.4 g/dL (32.0-36.0); MEAN CORPUSCULAR VOLUME 89 fl (80-97); RED BLOOD COUNT 3.78 10^6/uL (4.35-5.55); RED CELL DISTRIBUTION WIDTH 15.1 % (11.5-14.0); WHITE BLOOD COUNT 16.7 10^3/uL (4.0-10.5)
[2016-08-09 10:38] LABS: BASOPHILS % (MANUAL) 0 % (0-2); EOSINOPHILS % (MANUAL) 0 % (0-6); LYMPHOCYTES % (MANUAL) 1 % (13-45); TOTAL CELLS COUNTED 100
[2016-08-09 10:39] LABS: ANISOCYTOSIS SLIGHT
[2016-08-09 10:41] LABS: OVALOCYTES SLIGHT; POIKILOCYTOSIS 1+; POLYCHROMASIA SLIGHT; TARGET CELLS SLIGHT
--- NOTE | 2016-08-09 11:50 | PDOC TRANSFER SUMMARY ---
General - Admit/Disc Date/PCP Admission Date/Primary Care Provider: 07/29/16 08:06 SOTO LE Discharge Date: 08/09/16 - Discharge Diagnosis (1) Diabetes mellitus type 2 in nonobese Is this a current diagnosis for this admission?: Yes (2) Acute respiratory failure with hypoxemia Is this a current diagnosis for this admission?: No (3) COPD with acute exacerbation Is this a current diagnosis for this admission?: YesSummary: His elevated leukocytosis is due to demargination from steroid usage. I D/C IV Solu Medrol and start him on Prednisone taper dose over next 5 days. I will recommend repeat CBC in 1-2 weeks. (4) HTN (hypertension) Is this a current diagnosis for this admission?: Yes (5) Hyperglycemia Is this a current diagnosis for this admission?: Yes (6) Elevated troponin I level Is this a current diagnosis for this admission?: Yes (7) NSTEMI (non-ST elevated myocardial infarction) Is this a current diagnosis for this admission?: YesSummary: Less likely a true diagnosis in view of negative cardiac workup. The elevated Troponin I is most likely due to metabolic causes and mismatch of demand and supply. (8) Bronchitis, acute Is this a current diagnosis for this admission?: Yes (9) Senile debility Is this a current diagnosis for this admission?: YesSummary: Patient will be discharged to SNF for short term rehabilitation and possible [employer]ERSON services upon discharge for SNF if necessary. - Additional Information Resuscitation Status: Full Code Discharge Diet: Cardiac, Diabetic Discharge Activity: Activity As Tolerated, Slowly Increase Activity, Supervised Activity Home Medications: Albuterol Sulfate [Ventolin HFA MDI 18 GM] 2 puff IH Q6HP PRN #0 hfa.aer.ad 11/18 Aspirin [Ecotrin 81 mg EC Tablet] 81 mg PO DAILY #30 tabec 08/09/16 Atorvastatin Calcium [Lipitor 40 mg Tablet] 40 mg PO QHS #30 tablet 08/09/16 Diltiazem HCl [Diltiazem 24Hr ER] 180 mg PO Q12 #60 capsule.er 08/09/16 Fluticasone Propionate [Flonase Nasal Patterson 50 Mcg/Patterson 16 gm] 2 spray NASL DAILY #1 spray.pump 08/09/16 Fluticasone/Salmeterol [Advair 250-50 Diskus 28 dose] 1 inh IH Q12 #1 inhaler Ipratropium/Albuterol Sulfate [Duoneb 3 ml Ampul] 3 ml NEB RTQ4HP PRN #120 vial.neb 08/09/16 Nateglinide [Starlix 60 mg Tablet] 120 mg PO AC #90 tablet 08/09/16 Prednisone [Deltasone 5 mg Tablet] 5 mg PO DAILY #5 tablet 08/09/16 Ramipril [Altace 5 mg Capsule] 5 mg PO DAILY #30 capsule 08/09/16 History of Present Illness Admission Date/PCP: 07/29/16 08:06 SOTO OSUNKOYA Physical Exam Vital Signs: Temp Pulse Resp BP Pulse Ox 97.8 F 100 16 139/58 H 95 08/09/16 07:19 08/09/16 08:12 08/09/16 08:12 08/09/16 07:19 08/09/16 08:12 Intake & Output 08/08/16 08/09/16 08/10/16 06:59 06:59 06:59 Intake Total 1261 1341 Output Total 4100 2500 Balance -2839 -1159 Weight 63.5 kg 61.8 kg General appearance: PRESENT: no acute distress, cooperative Exam: General appearance: PRESENT: no acute distress, cooperative Head exam: PRESENT: atraumatic, normocephalic Eye exam: PRESENT: conjunctiva pink, EOMI, PERRLA. ABSENT: scleral icterus Respiratory exam: PRESENT: clear to auscultation silvina, decreased breath sounds - reduced at lung bases bilaterally Cardiovascular exam: PRESENT: RRR. ABSENT: diastolic murmur, rubs, systolic murmur GI/Abdominal exam: PRESENT: normal bowel sounds, soft. ABSENT: distended, guarding, mass, organomegaly, rebound, tenderness Extremities exam: ABSENT: pedal edema Neurological exam: PRESENT: alert, awake, oriented to situation, other - legally blind. ABSENT: CN II-XII grossly intact, motor sensory deficit Psychiatric exam: PRESENT: appropriate affect, normal mood. ABSENT: homicidal ideation, suicidal ideation Skin exam: PRESENT: dry, intact, warm. ABSENT: cyanosis, rash Results Laboratory Results: 08/09/16 09:40 08/03/16 05:08/09/16 09:40 WBC 16.7 H RBC 3.78 L Hgb 11.3 L Hct 33.7 L MCV 89 MCH 29.8 MCHC 33.4 RDW 15.1 H Plt Count 165 Seg Neutrophils % Not Reportable Lymphocytes % Not Reportable Monocytes % Not Reportable Eosinophils % Not Reportable Basophils % Not Reportable Absolute Neutrophils Not Reportable Absolute Lymphocytes Not Reportable Absolute Monocytes Not Reportable Absolute Eosinophils Not Reportable Absolute Basophils Not Reportable 07/29/16 07/29/16 07/29/16 09:29 09:29 20:10 Creatine Kinase 180 H 186 H CK-MB (CK-2) 3.39 Troponin I 0.386 NT-Pro-B Natriuret Pep 07/29/16 07/30/16 07/31/16 20:10 03:31 03:44 Creatine Kinase CK-MB (CK-2) 4.56 H Troponin I 0.392 0.112 NT-Pro-B Natriuret Pep 6580 H 08/01/16 07:30 Creatine Kinase CK-MB (CK-2) Troponin I 0.052 NT-Pro-B Natriuret Pep Impressions: Chest X-Ray 08/01/16 06:00 IMPRESSION: STABLE APPEARANCE OF THE CHEST. SUPPORT DEVICES UNCHANGED. Transfer Plan - Disposition Transfer Plan: Transfer to [facility] for short term rehabilitation - Time Spent with Patient Time spent with patient: Greater than 30 Minutes Qualifiers PATEINT BEING DISCHARGED WITH ANY OF THE FOLLOWING DIAGNOSIS?: No Plan Discharge Plan: Transfer to [facility] for short term rehabilitation. Time Spent: Greater than 30 Minutes
[2016-08-09] MEDS: ENOXAPARIN SODIUM INJ 40 MG/0.4 ML DISP.SYRIN SUBCUT SCH (12:10)
[2016-08-09 12:49] VITALS: BP 126/41
--- NOTE | 2016-08-09 14:21 | PDOC PROGRESS REPORT ---
Subjective Progress Note for:: 08/09/16 Subjective:: no cough,no dyspnea they do not let me move around too much as they say I am weak Physical Exam Vital Signs: Temp Pulse Resp BP Pulse Ox 97.5 F 96 14 126/41 H 96 08/09/16 11:19 08/09/16 13:37 08/09/16 13:37 08/09/16 11:19 08/09/16 13:37 Intake & Output 08/08/16 08/09/16 08/10/16 06:59 06:59 06:59 Intake Total 1261 1341 240 Output Total 4100 2500 900 Balance -2839 -1159 -660 Weight 63.5 kg 61.8 kg General appearance: PRESENT: no acute distress, cooperative, disheveled, thin, well-developed, well-nourished Head exam: PRESENT: atraumatic, normocephalic Eye exam: PRESENT: conjunctiva pale, EOMI Mouth exam: PRESENT: dry mucosa, neck supple Teeth exam: PRESENT: poor dentation Neck exam: ABSENT: carotid bruit, JVD, lymphadenopathy, thyromegaly Respiratory exam: PRESENT: decreased breath sounds, prolonged expiratory phas, rhonchi, symmetrical, unlabored Cardiovascular exam: PRESENT: RRR, +S1, +S2 Pulses: PRESENT: normal radial pulses GI/Abdominal exam: PRESENT: normal bowel sounds, soft. ABSENT: distended, guarding, mass, organolmegaly, rebound, tenderness Rectal exam: PRESENT: deferred Musculoskeletal exam: PRESENT: normal inspection Neurological exam: PRESENT: alert, awake Skin exam: PRESENT: dry, warm Results Laboratory Results: 08/09/16 09:40 08/03/16 05:17 08/09/16 09:40 WBC 16.7 H RBC 3.78 L Hgb 11.3 L Hct 33.7 L MCV 89 MCH 29.8 MCHC 33.4 RDW 15.1 H Plt Count 165 Seg Neutrophils % Not Reportable Lymphocytes % Not Reportable Monocytes % Not Reportable Eosinophils % Not Reportable Basophils % Not Reportable Absolute Neutrophils Not Reportable Absolute Lymphocytes Not Reportable Absolute Monocytes Not Reportable Absolute Eosinophils Not Reportable Absolute Basophils Not Reportable 07/29/16 07/29/16 07/29/16 09:29 09:29 20:10 Creatine Kinase 180 H 186 H CK-MB (CK-2) 3.39 Troponin I 0.386 NT-Pro-B Natriuret Pep 07/29/16 07/30/16 07/31/16 20:10 03:31 03:44 Creatine Kinase CK-MB (CK-2) 4.56 H Troponin I 0.392 0.112 NT-Pro-B Natriuret Pep 6580 H 08/01/16 07:30 Creatine Kinase CK-MB (CK-2) Troponin I 0.052 NT-Pro-B Natriuret Pep Impressions: Chest X-Ray 08/01/16 06:00 IMPRESSION: STABLE APPEARANCE OF THE CHEST. SUPPORT DEVICES UNCHANGED. Assessment & Plan - Diagnosis (1) Acute respiratory failure with hypoxemia Is this a current diagnosis for this admission?: No (2) COPD with acute exacerbation Is this a current diagnosis for this admission?: YesPlan: Patient still remains stable we will sign off now we can be of further assistance please do not hesitate to call (3) HTN (hypertension) Qualifiers: Hypertension type: essential hypertension Qualified Code(s): I10 - Essential (primary) hypertension Is this a current diagnosis for this admission?: Yes
[2016-08-09] MEDS ORDERED: DILTIAZEM HCL 120 MG CAP.SR.24H PO SCH (22:00)
[2016-08-10] MEDS ORDERED: PREDNISONE 5 MG TABLET PO SCH (10:00)
== END 2016-08-09 16:48 | DRG 982 ==
LOC: ER 03:01 → UNDOADMIN 06:12 → EH 06:12 → ICU 10:15 → 3S 08-03 23:21
PROVIDERS: ADMIT Internal Medicine Geriatric Medicine; ATTEND Internal Medicine Geriatric Medicine
PROC: 5A1945Z Respiratory Ventilation, 24-96 Consecutive Hours (ICD-10-PCS; 2016-07-29)
PROC: 0BH17EZ Insertion of Endotracheal Airway into Trachea, Via Natural or Artificial Opening (ICD-10-PCS; 2016-07-29)
PROC: 0W360ZZ Control Bleeding in Neck, Open Approach (ICD-10-PCS; principal; 2016-07-31)
PROC: 02HV33Z Insertion of Infusion Device into Superior Vena Cava, Percutaneous Approach (ICD-10-PCS; 2016-07-31)
PROC: B548ZZA Ultrasonography of Superior Vena Cava, Guidance (ICD-10-PCS; 2016-07-31)
DX: J96.01 Acute respiratory failure with hypoxia (principal); T82.838A Hemorrhage due to vascular prosthetic devices, implants and grafts, initial encounter; J44.1 Chronic obstructive pulmonary disease with (acute) exacerbation; J44.0 Chronic obstructive pulmonary disease with (acute) lower respiratory infection; J96.02 Acute respiratory failure with hypercapnia; J20.9 Acute bronchitis, unspecified; E11.65 Type 2 diabetes mellitus with hyperglycemia; I10 Essential (primary) hypertension; R54 Age-related physical debility; M19.90 Unspecified osteoarthritis, unspecified site; F32.9 Major depressive disorder, single episode, unspecified; Z79.01 Long term (current) use of anticoagulants; Z79.82 Long term (current) use of aspirin; Z79.84 Long term (current) use of oral hypoglycemic drugs; Z79.899 Other long term (current) drug therapy
CPT/HCPCS: 36415; 51702; 71010; 78452; 80053; 82271; 82550; 82553; 82803; 82962; 83036; 83735; 83880; 84478; 84484; 85025; 85610; 85730; 87040; 87070; 87077; 87186; 87205; 93005; 93010; 93017; 93306; 94002; 94003; 94640; 94660; 94799; 96374; 99291; A9500; G8978-GP; G8979-GP; J0280; J0330; J0692; J1100; J1160; J1642; J1650; J1815; J1956; J2250; J2704; J2785; J2920; J2930; J3480; J3490; J7030; J7050; J7620; J7685; Q9969; S0164

== ENCOUNTER 2017-06-06 18:38 | Emergency (ER) | payer MEDICARE ==
[2017-06-06] MEDS ORDERED: ONDANSETRON HCL INJ/PF 4 MG/2 ML SDV IV ONE (20:01)
--- NOTE | 2017-06-06 20:05 | ER Document Report ---
ED GI/ - General Chief Complaint: Abdominal Pain Stated Complaint: ABDOMINAL PAIN Time Seen by Provider: 06/06/17 19:50 Mode of Arrival: Ambulatory Information source: Patient TRAVEL OUTSIDE OF THE [place] IN LAST 30 DAYS: No - HPI Patient complains to provider of: Abdominal pain Notes: 06/06/17 20:02 The patient is here with complaints of left upper abdominal pain as well as epigastric pain. He states his pain is been present intermittently for months. He tells me that he was diagnosed with an ulcer for which he takes omeprazole for. States that tonight his pain got somewhat worse and he was concerned because he has not been eating as much and felt somewhat generally weak. States he has nausea, but denies any vomiting or diarrhea. He denies any black or tarry stools. No obvious blood in his stools. He denies any pain currently. States that earlier he was having the pain in the epigastric/left upper abdomen/left lower rib area. He denies any injury. He denies any cough. He denies any fever. He denies any shortness of breath. He denies any leg swelling or pain. He denies any rashes. His biggest complaint is that he has had a decreased appetite and nausea and has intermittent upper abdominal pain. Nothing makes the pain better or worse. - Related Data Allergies/Adverse Reactions: No Known Allergies Allergy (Verified 06/06/17 18:41) Past Medical History - Social History Smoking Status: Never Smoker Frequency of alcohol use: None Drug Abuse: None Family History: Reviewed & Not Pertinent Patient has suicidal ideation: No Patient has homicidal ideation: No Pulmonary Medical History: Reports: Hx Asthma, Hx COPD Endocrine Medical History: Reports: Hx Diabetes Mellitus Type 2 Renal/ Medical History: Denies: Hx Peritoneal Dialysis Musculoskeltal Medical History: Reports Hx Arthritis Psychiatric Medical History: Reports: Hx Depression Past Surgical History: Reports: Hx Orthopedic Surgery - back/rupture disc Review of Systems - Review of Systems -: Yes All other systems reviewed and negative Physical Exam - Vital signs Vitals: Temp Pulse Resp BP Pulse Ox 98.5 F 88 16 147/72 H 98 06/06/17 18:45 06/06/17 18:45 06/06/17 18:45 06/06/17 18:45 06/06/17 18:45 - Notes Notes: GENERAL: alert, cooperative, nontoxic, no distress. HEAD: normocephalic, atraumatic EYES: conjunctiva pink without discharge, no external redness or swelling. EARS: no external swelling, no external redness NOSE: atraumatic, no external swelling MOUTH/THROAT: mucous membranes moist and pink, posterior pharynx without erythema, swelling, exudate. No trismus or drooling. NECK: soft, supple, full range of motion, no meningismus. CHEST: no distress, lungs equal throughout. Few scattered fine crackles throughout. No wheezing, no rhonchi. CARDIAC: regular rate and rhythm, no murmur, normal capillary refill, normal pulses. No peripheral edema noted. ABDOMEN: Soft, nontender. No rebound tenderness, guarding. No mass. No pulsatile mass. BACK: full range of motion, no CVA tenderness. EXTREMITIES: full range of motion of all extremities. No redness, no swelling. NEURO: alert and oriented x 3, no focal deficits, full range of motion of all extremities. PYSCH: appropriate mood, affect. Patient is cooperative. SKIN: pink, warm, dry, no rash. Course - Re-evaluation Re-evalutation: 06/07/17 02:22 The patient is nontoxic appearing with stable vitals. The patient is here with complaints of left upper abdominal pain and lower rib pain. Pain has been intermittent for quite some time. He denies any pain currently. No fevers. His biggest complaint is has had decreased appetite. Patient tells me that he has an ulcer and is currently taking omeprazole for that. On exam the patient has no significant findings with no significant abdominal tenderness on exam. EKG is normal. This is changed from prior EKG which was noted to have flipped T waves in the inferior lateral leads. Patient has a negative chest x-ray. He has 2 normal troponins. Remainder of his labs are unremarkable. Patient will be discharged home with Pepcid. He is instructed to follow-up with his primary care doctor at the next available appointment for recheck. Follow-up sooner for worsening symptoms, high fever, persistent vomiting, chest pain, difficulty breathing, or for any further concerns. Patient has a heart score of 3. Low Score (0-3 points) Risk of MACE of 0.9-1.7%. Symptoms are very inconsistent with ACS, his main complaint is abdominal pain with decreased appetite. 06/07/17 02:25 The patient's emergency department workup and current diagnosis were explained to the patient and or family. Follow-up instructions were provided. Medications if prescribed were discussed. Instructions for when to return to the emergency department including specific worrisome symptoms were discussed with the patient and/or family. - Vital Signs Vital signs: Temp Pulse Resp BP Pulse Ox 98.5 F 88 16 147/72 H 98 06/06/17 18:45 06/06/17 18:45 06/06/17 18:45 06/06/17 18:45 06/06/17 18:45 - Laboratory Result Diagrams: 06/06/17 20:49 06/06/17 21:50 Laboratory results interpreted by me: 06/06/17 20:49 RDW 14.8 H Seg Neutrophils % 33.6 L Lymphocytes % 54.7 H - Diagnostic Test Radiology reviewed: Image reviewed, Reports reviewed - No acute abnormality of the chest. - EKG Interpretation by Me EKG shows normal: Sinus rhythm, [place], Intervals, QRS Complexes, ST-T Waves Rate: Normal When compared to previous EKG there are: Changes noted - Previous EKG shows inferior lateral T-wave inversions. Today's EKG shows normal T waves through all leads. Discharge - Discharge Clinical Impression: Decreased appetite Abdominal pain Qualifiers: Abdominal location: left upper quadrant Qualified Code(s): R10.12 - Left upper quadrant pain Condition: Stable Disposition: HOME, SELF-CARE Instructions: Abdominal Pain ([facility]) Additional Instructions: Take medications as prescribed. Follow-up with your doctor at the next available appointment. Follow-up sooner for increasing pain, high fever, persistent vomiting, chest pain, shortness of breath, or for any further concerns. Your blood pressure was elevated during today's visit. Have this rechecked with your doctor. Prescriptions: Famotidine [Pepcid 20 mg Tablet] 20 mg PO BID #30 tablet Referrals: SOTO LUJAN MD [Primary Care Provider] - Follow up as needed
--- NOTE | 2017-06-06 20:30 | RADIOLOGY REPORT (SQ) ---
EXAM DESCRIPTION: CHEST PA/LAT COMPLETED DATE/TIME: 06/06/2017 8:19 pm REASON FOR STUDY: PAIN COMPARISON: 06/18/2016 EXAM PARAMETERS: NUMBER OF VIEWS: two views TECHNIQUE: Digital Frontal and Lateral radiographic views of the chest acquired. RADIATION DOSE: NA LIMITATIONS: none FINDINGS: LUNGS AND PLEURA: The lungs are hyperexpanded PE there are no masses or infiltrates. Is n o pleural effusion. MEDIASTINUM AND HILAR STRUCTURES: No masses or contour abnormalities. HEART AND VASCULAR STRUCTURES: Heart normal size. No evidence for failure. BONES: No acute findings. HARDWARE: None in the chest. OTHER: No other significant finding. IMPRESSION: Lung changes no acute cardiopulmonary disease. TECHNICAL DOCUMENTATION: JOB ID: [id number] [employer]- All Rights Reserved Reading location - IP/workstation name: [email or web address]
[2017-06-06 20:31] LABS: APPEARANCE,URINE CLEAR; BILIRUBIN,URINE NEGATIVE (NEGATIVE); COLOR,URINE STRAW; GLUCOSE, URINE NEGATIVE (NEGATIVE); KETONES,URINE NEGATIVE (NEGATIVE); LEUKOCYTE ESTERASE,URINE NEGATIVE (NEGATIVE); NITRITE,URINE NEGATIVE (NEGATIVE); PROTEIN,URINE NEGATIVE (NEGATIVE); URINE SPECIFIC GRAVITY 1.004; UROBILINOGEN,URINE NEGATIVE mg/dL (<2.0)
[2017-06-06 20:58] LABS: ABSOLUTE BASOPHILS # (AUTO) 0.1 10^3/uL (0.0-0.2); ABSOLUTE EOSINOPHILS # (AUTO) 0.1 10^3/uL (0.0-0.6); ABSOLUTE LYMPHOCYTES (AUTO) 3.9 10^3/uL (0.5-4.7); ABSOLUTE MONOCYTES (AUTO) 0.7 10^3/uL (0.1-1.4); ABSOLUTE NEUT (AUTO) 2.4 10^3/uL (1.7-8.2); BASOPHILS % (AUTO) 0.7 % (0-2); EOSINOPHILS % (AUTO) 1.8 % (0-6); HEMATOCRIT 43.5 % (37.9-51.0); HEMOGLOBIN 14.3 g/dL (13.5-17.0); LYMPHOCYTES % (AUTO) 54.7 % (13-45); MEAN CORPUSCULAR HEMOGLOBIN 29.4 pg (27.0-33.4); MEAN CORPUSCULAR HGB CONC 32.8 g/dL (32.0-36.0); MEAN CORPUSCULAR VOLUME 90 fl (80-97); MONOCYTES % (AUTO) 9.2 % (3-13); PLATELET COUNT 193 10^3/uL (150-450); RED BLOOD COUNT 4.85 10^6/uL (4.35-5.55); RED CELL DISTRIBUTION WIDTH 14.8 % (11.5-14.0); SEGMENTED NEUTROPHILS % (AUTO) 33.6 % (42-78); TOTAL CELLS COUNTED % (AUTO) 100 %; WHITE BLOOD COUNT 7.1 10^3/uL (4.0-10.5)
[2017-06-06 22:14] LABS: ALANINE AMINOTRANSFERASE 47 U/L (21-72); ALBUMIN 4.1 g/dL (3.5-5.0); ALKALINE PHOSPHATASE 95 U/L (38-126); ANION GAP 9 (5-19); ASPARTATE AMINO TRANSFERASE 33 U/L (17-59); BILIRUBIN,DIRECT 0.1 mg/dL (0.0-0.4); BILIRUBIN,TOTAL 0.8 mg/dL (0.2-1.3); BLOOD UREA NITROGEN 13 mg/dL (7-20); CALCIUM 9.8 mg/dL (8.4-10.2); CARBON DIOXIDE 29 mmol/L (22-30); CHLORIDE 102 mmol/L (98-107); GLUCOSE 85 mg/dL (75-110); LIPASE 170.8 U/L (23-300); POTASSIUM 4.4 mmol/L (3.6-5.0); SODIUM 139.8 mmol/L (137-145); TOTAL PROTEIN 6.7 g/dL (6.3-8.2)
[2017-06-06 22:28] LABS: NT PRO BNP 47 pg/mL (5-900)
[2017-06-06 22:35] LABS: TROPONIN I < 0.012 ng/mL
[2017-06-07 03:19] VITALS: BP 126/80
--- NOTE | 2017-06-07 09:15 | EKG REPORT ---
SEVERITY:- ABNORMAL ECG - SINUS RHYTHM CONSIDER LEFT VENTRICULAR HYPERTROPHY : Confirmed by: Edith Orourke 07-Jun-2017 09:14:07
== END 2017-06-07 03:18 | disposition home or self-care (01) ==
LOC: ER 18:38
DX: R10.12 Left upper quadrant pain (principal); F50.89 Other specified eating disorder; R10.13 Epigastric pain; R07.81 Pleurodynia; E11.9 Type 2 diabetes mellitus without complications; J44.9 Chronic obstructive pulmonary disease, unspecified
CPT/HCPCS: 93005; 99284; 96374; 36415; 83690; 85025; 80053; 81001; 84484; 83880; 71046; 93010; J2405

== ENCOUNTER 2017-08-26 20:55 | Emergency (ER) | payer MEDICARE ==
[2017-08-26] MEDS ORDERED: ACETAMINOPHEN 325 MG TABLET PO ONE (23:29)
[2017-08-26] MEDS ORDERED: IBUPROFEN 600 MG TABLET PO ONE (23:29)
[2017-08-26] MEDS ORDERED: LIDOCAINE 5% (700 MG) TRANSDERMAL ADH..PATCH TP ONE (23:30)
--- NOTE | 2017-08-26 23:31 | ER Document Report ---
ED General - General Chief Complaint: Flank Pain Stated Complaint: side pain Time Seen by Provider: 08/26/17 22:31 Notes: Patient is a 76-year-old male who presents with left lower rib pain for the past 3-4 days. The patient is a very poor historian and changes the reason that he came to the emergency department on several occasions per nursing notes versus what he is telling me. Although initially apparently complained of leg pain to me he denies this states instead that he is more concerned about left lower rib pain. He states that it is a stabbing, aching pain worsened by movement, breathing and coughing. He notes that the pain started about 3 days ago and has been progressively worsening since that time. He denies a history of similar symptoms in the past. Nothing improves the pain. He has not seen his primary care doctor regarding today's concerns. He does note an associated cough but no sputum production. No fever or constitutional symptoms. He denies any history of pulmonary embolus or DVT. TRAVEL OUTSIDE OF THE [place] IN LAST 30 DAYS: No - Related Data Allergies/Adverse Reactions: No Known Allergies Allergy (Verified 08/26/17 22:22) Past Medical History - General Information source: Patient - Social History Smoking Status: Former Smoker Frequency of alcohol use: None Drug Abuse: None Lives with: Family Family History: Reviewed & Not Pertinent Patient has suicidal ideation: No Patient has homicidal ideation: No Pulmonary Medical History: Reports: Hx Asthma, Hx COPD Endocrine Medical History: Reports: Hx Diabetes Mellitus Type 2 Renal/ Medical History: Denies: Hx Peritoneal Dialysis Musculoskeltal Medical History: Reports Hx Arthritis Psychiatric Medical History: Reports: Hx Depression Past Surgical History: Reports: Hx Orthopedic Surgery - back/rupture disc Review of Systems - Review of Systems Notes: Constitutional: Negative for fever. HENT: Negative for sore throat. Eyes: Negative for visual changes. Cardiovascular: Negative for chest pain. Respiratory: Negative for shortness of breath. Positive for coughing Gastrointestinal: Negative for abdominal pain, vomiting or diarrhea. Genitourinary: Negative for dysuria. Musculoskeletal: Positive for left lower rib pain Skin: Negative for rash. Neurological: Negative for headaches, weakness or numbness. 10 point ROS negative except as marked above and in HPI. Physical Exam - Vital signs Vitals: Temp Pulse Resp BP Pulse Ox 98.3 F 91 18 122/79 97 08/26/17 21:31 08/26/17 21:31 08/26/17 21:31 08/26/17 21:31 08/26/17 21:31 Interpretation: Normal Notes: PHYSICAL EXAMINATION: GENERAL: Well-appearing, well-nourished and in no acute distress. HEAD: Atraumatic, normocephalic. EYES: Pupils equal round and reactive to light, extraocular movements intact, sclera anicteric, conjunctiva are normal. ENT: nares patent, oropharynx clear without exudates. Moist mucous membranes. NECK: Normal range of motion, supple without lymphadenopathy LUNGS: Breath sounds clear to auscultation bilaterally and equal. No wheezes rales or rhonchi. HEART: Regular rate and rhythm without murmurs Chest wall: Pain on palpation of the left lower 3 ribs ABDOMEN: Soft, nontender, normoactive bowel sounds. No guarding, no rebound. No masses appreciated. EXTREMITIES: Normal range of motion, no pitting or edema. No cyanosis. NEUROLOGICAL: No focal neurological deficits. Moves all extremities spontaneously and on command. PSYCH: Normal mood, normal affect. SKIN: Warm, Dry, normal turgor, no rashes or lesions noted. Course - Re-evaluation Re-evalutation: 08/26/17 23:30 Patient presents initially complaining of left leg pain but now denies this complaint to me stating that is not why he is here. His main concern is that he has been having left lower rib pain for the past 3 days. He denies any additional complaints at the time of my assessment. He has reproduction of pain on palpation of the left lower 3 ribs spaces as well as the costophrenic angle. He denies any pleuritic pain or history of DVT or pulmonary embolus. His vitals are unremarkable at time of presentation without tachypnea, hypoxia or tachycardia. He has no risk factors for a pulmonary embolus and he clinically does not present in a manner that is of high risk for this diagnosis. Will therefore not pursue this diagnosis further at this time point. Alternative considerations would include a pyelonephritis although again this is unlikely given the absence of any risk factors for urinary tract infections versus likely costochondritis. Will obtain chest x-ray, labs and apply a Lidoderm patch to the area for pain control. 08/27/17 02:15 Chest x-ray shows a left lingular pneumonia. The patient is otherwise very well in appearance, vitals within normal limits, no indication for hospitalization in this context. Will provide levofloxacin for the next 4 days and the first dose is been given here in the emergency department. At this time will discharge with return precautions and follow-up recommendations. Verbal discharge instructions given a the bedside and opportunity for questions given. Medication warnings reviewed. Patient is in agreement with this plan and has verbalized understanding of return precautions and the need for primary care follow-up in the next 24-72 hours. - Vital Signs Vital signs: Temp Pulse Resp BP Pulse Ox 98.3 F 91 18 122/79 97 08/26/17 21:31 08/26/17 21:31 08/26/17 21:31 08/26/17 21:31 08/26/17 21:31 - Laboratory Result Diagrams: 08/27/17 00:54 08/27/17 00:54 Laboratory results interpreted by me: 08/27/17 08/27/17 08/27/17 00:54 00:54 01:17 RBC 4.30 L Hgb 12.9 L RDW 14.2 H Glucose 123 H Urine Ketones TRACE H Urine Ascorbic Acid 20 H - Diagnostic Test Radiology reviewed: Image reviewed, Reports reviewed Radiology results interpreted by me: 08/27/17 02:15 Chest x-ray: No acute rib fractures or pneumothoraces. Left lingular pneumonia. Discharge - Discharge Clinical Impression: Rib pain on left side, Lingular pneumonia Condition: Good Disposition: HOME, SELF-CARE Additional Instructions: You have been diagnosed with a pneumonia. It is very important that you take all of your antibiotics until they are gone even if you are feeling better. Please return to the emergency department immediately if you began having worsening shortness of breath, become confused, have worsening pain, pass out, have persistent vomiting that prevents you from being able to drink fluids for more than 12 hours, or have any other symptoms that are worrisome to you. Please follow-up with your primary care doctor in the next 1-2 days. Prescriptions: Levofloxacin [Levaquin 750 mg Tablet] 750 mg PO DAILY #4 tablet Referrals: SOTO LUJAN MD [Primary Care Provider] - Follow up in 3-5 days
[2017-08-27 01:03] LABS: ABSOLUTE LYMPHOCYTES (AUTO) 1.8 10^3/uL (0.5-4.7); ABSOLUTE MONOCYTES (AUTO) 0.9 10^3/uL (0.1-1.4); ABSOLUTE NEUT (AUTO) 7.4 10^3/uL (1.7-8.2); BASOPHILS % (AUTO) 0.4 % (0-2); EOSINOPHILS % (AUTO) 0.3 % (0-6); HEMATOCRIT 38.9 % (37.9-51.0); HEMOGLOBIN 12.9 g/dL (13.5-17.0); LYMPHOCYTES % (AUTO) 17.6 % (13-45); MEAN CORPUSCULAR HGB CONC 33.2 g/dL (32.0-36.0); MEAN CORPUSCULAR VOLUME 91 fl (80-97); MONOCYTES % (AUTO) 8.9 % (3-13); PLATELET COUNT 177 10^3/uL (150-450); RED CELL DISTRIBUTION WIDTH 14.2 % (11.5-14.0); SEGMENTED NEUTROPHILS % (AUTO) 72.8 % (42-78); TOTAL CELLS COUNTED % (AUTO) 100 %; WHITE BLOOD COUNT 10.2 10^3/uL (4.0-10.5)
[2017-08-27 01:18] LABS: ANION GAP 10 (5-19); BLOOD UREA NITROGEN 20 mg/dL (7-20); CALCIUM 9.1 mg/dL (8.4-10.2); CARBON DIOXIDE 27 mmol/L (22-30); CHLORIDE 104 mmol/L (98-107); GLUCOSE 123 mg/dL (75-110); POTASSIUM 4.5 mmol/L (3.6-5.0); SODIUM 140.6 mmol/L (137-145)
[2017-08-27 01:30] LABS: APPEARANCE,URINE CLEAR; BILIRUBIN,URINE NEGATIVE (NEGATIVE); COLOR,URINE YELLOW; GLUCOSE, URINE NEGATIVE (NEGATIVE); KETONES,URINE TRACE mg/dL (NEGATIVE); LEUKOCYTE ESTERASE,URINE NEGATIVE (NEGATIVE); NITRITE,URINE NEGATIVE (NEGATIVE); PROTEIN,URINE NEGATIVE (NEGATIVE); URINE SPECIFIC GRAVITY 1.014; UROBILINOGEN,URINE NEGATIVE mg/dL (<2.0)
--- NOTE | 2017-08-27 02:04 | RADIOLOGY REPORT (SQ) ---
EXAM DESCRIPTION: Chest two views CLINICAL HISTORY: 76 years Male, left lower rib pain COMPARISON: 3.5.18 NUMBER OF VIEWS/TECHNIQUE: 2, PA and Lateral LIMITATIONS: None. FINDINGS: Increased lung volume. Small patchy opacity of the left midlung field. Small chronic blunting-effusion of the right costophrenic angle. Normal cardiac silhouette. Intact bony thorax. IMPRESSION: Small lingular pneumonia. Recommend CR/CT surveillance including at 7-12 weeks following initiation of clinically warranted therapy.
[2017-08-27 03:41] VITALS: BP 130/71
== END 2017-08-27 03:47 | disposition home or self-care (01) ==
LOC: ER 20:55
DX: J18.9 Pneumonia, unspecified organism (principal); E11.9 Type 2 diabetes mellitus without complications; R07.81 Pleurodynia; J44.9 Chronic obstructive pulmonary disease, unspecified
CPT/HCPCS: 99284; 36415; 85025; 80048; 81001; 84484; 71046; A9270 ×2

== ENCOUNTER 2018-01-08 17:43 | Emergency (ER) | payer MEDICARE ==
--- NOTE | 2018-01-08 19:01 | ER Document Report ---
ED Medical Screen (RME) - General Chief Complaint: Abdominal Pain Stated Complaint: STOMACH/BACK PAIN Time Seen by Provider: 01/08/18 18:48 Mode of Arrival: Ambulatory Information source: [facility], [facility] Records Notes: 77-year-old pleasant male presents with complaint of left upper quadrant abdominal pain and right-sided low back pain. As had this pain intermittently for many years but reports a worsening of pain recently. Patient lives with his nephew who he states is never around. He admits to not having food at times because he has no way of getting to the grocery store. Patient admits to associated nausea but denies vomiting. I have greeted and performed a rapid initial assessment of this patient. A comprehensive ED assessment and evaluation of the patient, analysis of test results and completion of medical decision making process we will be contacted by additional ED providers. PHYSICAL EXAMINATION: Vital signs reviewed GENERAL: Thin, frail, no acute distress LUNGS: No respiratory distress NEUROLOGICAL: Normal speech, normal gait. PSYCH: Normal mood, normal affect. SKIN: Warm, Dry, normal turgor, no rashes or lesions noted. TRAVEL OUTSIDE OF THE [place] IN LAST 30 DAYS: No - HPI Onset: Other Quality of pain: Burning Associated Symptoms: Abdominal pain, Nausea Exacerbated by: Movement Relieved by: Denies Similar symptoms previously: Yes Recently seen / treated by doctor: No - Related Data Smoking: Non-smoker Frequency of alcohol use: None Drug Abuse: None Allergies/Adverse Reactions: No Known Allergies Allergy (Verified 08/26/17 22:22) Past Medical History - Social History Frequency of alcohol use: None Drug Abuse: None Pulmonary Medical History: Reports: Hx Asthma, Hx COPD Endocrine Medical History: Reports: Hx Diabetes Mellitus Type 2 Renal/ Medical History: Denies: Hx Peritoneal Dialysis Musculoskeltal Medical History: Reports Hx Arthritis Psychiatric Medical History: Reports: Hx Depression Past Surgical History: Reports: Hx Orthopedic Surgery - back/rupture disc Physical Exam - Vital signs Vitals: Temp Pulse BP Pulse Ox 98.8 F 99 148/76 H 96 01/08/18 17:58 01/08/18 17:58 01/08/18 17:58 01/08/18 17:58 Course - Vital Signs Vital signs: Temp Pulse Resp BP Pulse Ox 98.8 F 99 148/76 H 96 01/08/18 17:58 01/08/18 17:58 01/08/18 17:58 01/08/18 17:58 Doctor's Discharge - Discharge Referrals: SOTO LUJAN MD [Primary Care Provider] - Follow up as needed
[2018-01-08] MEDS ORDERED: ONDANSETRON HCL INJ/PF 4 MG/2 ML SDV IV ONE (19:02)
[2018-01-08] MEDS ORDERED: MORPHINE SULFATE 10 MG/ML INJ IV ONE (19:02)
--- NOTE | 2018-01-08 19:38 | RADIOLOGY REPORT (SQ) ---
EXAM DESCRIPTION: L SPINE WHOLE COMPLETED DATE/TIME: 01/08/2018 7:21 pm REASON FOR STUDY: r low back pain COMPARISON: None. NUMBER OF VIEWS: Five views including obliques. TECHNIQUE: AP, lateral, oblique, and sacral radiographic images acquired of the lumbar spine. LIMITATIONS: None. FINDINGS: MINERALIZATION: Normal. SEGMENTATION: Normal. No transitional anatomy. ALIGNMENT: Normal. VERTEBRAE: Maintained height. No fracture or worrisome bone lesion. DISCS: High-grade disc space loss of height at T12-L1, L1-2, L3-4, and L4-5. POSTERIOR ELEMENTS: Diffuse lumbar facet arthropathy HARDWARE: None in the spine. PARASPINAL SOFT TISSUES: Normal. PELVIS: Not in the field of view. Bilateral SI joint sclerosis OTHER: No other significant finding. IMPRESSION: No acute fracture or malalignment. Diffuse degenerative changes as above TECHNICAL DOCUMENTATION: JOB ID: [id number] [employer]- All Rights Reserved Reading location - IP/workstation name: [email or web address]
[2018-01-08 20:05] LABS: APPEARANCE,URINE CLEAR; BILIRUBIN,URINE NEGATIVE (NEGATIVE); COLOR,URINE YELLOW; GLUCOSE, URINE NEGATIVE (NEGATIVE); KETONES,URINE NEGATIVE (NEGATIVE); LEUKOCYTE ESTERASE,URINE NEGATIVE (NEGATIVE); NITRITE,URINE NEGATIVE (NEGATIVE); PROTEIN,URINE NEGATIVE (NEGATIVE); URINE SPECIFIC GRAVITY 1.009; UROBILINOGEN,URINE NEGATIVE mg/dL (<2.0)
[2018-01-08 20:07] LABS: ABSOLUTE BASOPHILS # (AUTO) 0.1 10^3/uL (0.0-0.2); ABSOLUTE EOSINOPHILS # (AUTO) 0.2 10^3/uL (0.0-0.6); ABSOLUTE MONOCYTES (AUTO) 0.5 10^3/uL (0.1-1.4); EOSINOPHILS % (AUTO) 3.5 % (0-6); HEMATOCRIT 46.6 % (37.9-51.0); HEMOGLOBIN 15.8 g/dL (13.5-17.0); LYMPHOCYTES % (AUTO) 52.7 % (13-45); MEAN CORPUSCULAR HEMOGLOBIN 31.1 pg (27.0-33.4); MEAN CORPUSCULAR HGB CONC 33.8 g/dL (32.0-36.0); MEAN CORPUSCULAR VOLUME 92 fl (80-97); MONOCYTES % (AUTO) 8.5 % (3-13); PLATELET COUNT 203 10^3/uL (150-450); RED BLOOD COUNT 5.06 10^6/uL (4.35-5.55); RED CELL DISTRIBUTION WIDTH 14.3 % (11.5-14.0); SEGMENTED NEUTROPHILS % (AUTO) 34.3 % (42-78); TOTAL CELLS COUNTED % (AUTO) 100 %; WHITE BLOOD COUNT 5.7 10^3/uL (4.0-10.5)
--- NOTE | 2018-01-08 20:09 | ER Document Report ---
ED General - General Chief Complaint: Abdominal Pain Stated Complaint: STOMACH/BACK PAIN Time Seen by Provider: 01/08/18 18:48 Mode of Arrival: Ambulatory Information source: Patient Notes: 77-year old male presents emergency department complaints of left upper and lower quadrant abdominal pain and left-sided lower back pain. Patient states that he has a history of chronic left-sided back pain. He has had surgery previously. He states that this is not new. He states that the pain is intermittent but it has been worsening over the last couple of years. Patient describes the left upper quadrant and left lower quadrant pain as a sharp sensation. He denies any radiation of the pain. He denies any alleviating or exacerbating factors. He is having some associated nausea but denies any vomiting, diarrhea, constipation, dysuria, hematuria. Patient also denies any chest pain or shortness of breath. TRAVEL OUTSIDE OF THE [place] IN LAST 30 DAYS: No - HPI Onset: Other - intermittently over years Onset/Duration: Gradual Quality of pain: Sharp Severity: Moderate Associated symptoms: Nausea Exacerbated by: Denies Relieved by: Denies Similar symptoms previously: Yes Recently seen / treated by doctor: No - Related Data Allergies/Adverse Reactions: No Known Allergies Allergy (Verified 08/26/17 22:22) Past Medical History - General Information source: Patient, [facility] Records - Social History Smoking Status: Former Smoker Frequency of alcohol use: None Drug Abuse: None Family History: Reviewed & Not Pertinent Patient has suicidal ideation: No Patient has homicidal ideation: No Pulmonary Medical History: Reports: Hx Asthma, Hx COPD Endocrine Medical History: Reports: Hx Diabetes Mellitus Type 2 Renal/ Medical History: Denies: Hx Peritoneal Dialysis Musculoskeletal Medical History: Reports Hx Arthritis Psychiatric Medical History: Reports: Hx Depression Past Surgical History: Reports: Hx Orthopedic Surgery - back/rupture disc Review of Systems - Review of Systems Constitutional: No symptoms reported EENT: No symptoms reported Cardiovascular: No symptoms reported Respiratory: No symptoms reported Gastrointestinal: Abdominal pain, Nausea Genitourinary: No symptoms reported Musculoskeletal: Back pain Skin: No symptoms reported Neurological/Psychological: No symptoms reported -: Yes All other systems reviewed and negative Physical Exam - Vital signs Vitals: Temp Pulse BP Pulse Ox 98.8 F 99 148/76 H 96 01/08/18 17:58 01/08/18 17:58 01/08/18 17:58 01/08/18 17:58 - Notes Notes: PHYSICAL EXAMINATION: GENERAL: Frail and cachetic apearing HEAD: Atraumatic, normocephalic. EYES: Left Pupil equal round and reactive to light, extraocular movements intact , sclera anicteric, conjunctiva are normal. ENT: Nares patent, oropharynx clear without exudates. Moist mucous membranes. NECK: Normal range of motion, supple without lymphadenopathy LUNGS: Breath sounds clear to auscultation bilaterally and equal. No wheezes rales or rhonchi. HEART: Regular rate and rhythm without murmurs ABDOMEN: Soft, Tenderness to palpation in the LUQ and LLQ. No guarding, no rebound. No masses appreciated. Musculoskeletal: Normal range of motion, no pitting or edema. No cyanosis. NEUROLOGICAL: Cranial nerves grossly intact. Normal speech, normal gait. Normal sensory, motor exams PSYCH: Normal mood, normal affect. SKIN: Warm, Dry, normal turgor, no rashes or lesions noted. Course - Re-evaluation Re-evalutation: 01/08/18 20:09 No reproducible tenderness to palpation of the lumbar spine or paraspinal muscles. 01/08/18 22:42 I re-evaluated the patient. He says his abdominal pain and nausea have resolved. He finished his oral contrast. Waiting until 12:[address] abd/pel can be done. 01/08/18 22:45 01/09/18 00:26 Labs and imaging obtained. No acute process identified. Patient continues to be asymptomatic. I will discharge him home. Patient instructed to take his medications as directed, to follow up with PCP this week, and to return for worsening symptoms. - Vital Signs Vital signs: Temp Pulse Resp BP Pulse Ox 98.8 F 99 148/76 H 96 01/08/18 17:58 01/08/18 17:58 01/08/18 17:58 01/08/18 17:58 - Laboratory Result Diagrams: 01/08/18 19:44 01/08/18 19:44 Laboratory results interpreted by me: 01/08/18 01/08/18 19:44 19:44 RDW 14.3 H Seg Neutrophils % 34.3 L Lymphocytes % 52.7 H Carbon Dioxide 31 H Calcium 10.3 H Total Bilirubin 1.5 H Total Protein 8.5 H Discharge - Discharge Clinical Impression: Abdominal pain Qualifiers: Abdominal location: left upper quadrant Qualified Code(s): R10.12 - Left upper quadrant pain Condition: Good Disposition: HOME, SELF-CARE Instructions: Abdominal Pain ([facility]) Referrals: SOTO LUJAN MD [Primary Care Provider] - Follow up as needed
[2018-01-08 20:18] LABS: ALANINE AMINOTRANSFERASE 35 U/L (21-72); ALBUMIN 4.7 g/dL (3.5-5.0); ALKALINE PHOSPHATASE 107 U/L (38-126); ANION GAP 10 (5-19); ASPARTATE AMINO TRANSFERASE 36 U/L (17-59); BILIRUBIN,DIRECT 0.4 mg/dL (0.0-0.4); BILIRUBIN,TOTAL 1.5 mg/dL (0.2-1.3); BLOOD UREA NITROGEN 11 mg/dL (7-20); CALCIUM 10.3 mg/dL (8.4-10.2); CARBON DIOXIDE 31 mmol/L (22-30); CHLORIDE 102 mmol/L (98-107); GLUCOSE 105 mg/dL (75-110); POTASSIUM 4.7 mmol/L (3.6-5.0); SODIUM 143.1 mmol/L (137-145); TOTAL PROTEIN 8.5 g/dL (6.3-8.2)
--- NOTE | 2018-01-09 00:21 | RADIOLOGY REPORT (SQ) ---
EXAM DESCRIPTION: CT ABDOMEN PELVIS WITH IV CONTRAST COMPLETED DATE/TME: 01/08/2018 00:00 CLINICAL HISTORY: Diffuse abdominal pain COMPARISON: None Available. TECHNIQUE: CT of the abdomen and pelvis performed following IV administration of 56 mL of Omnipaque 350. DLP: 472.03 mGycm FINDINGS: Lung Bases: Scarring in the right lung base. Bones: Degenerative change of the spine, sacroiliac joints, and hips.. Abdomen: Liver: The liver has normal size and density. No intrahepatic mass or biliary dilatation. Gallbladder: No calcified gallstones. Spleen, Pancreas, and Adrenal Glands: The spleen, pancreas, and adrenal glands are unremarkable. Kidneys: The kidneys have normal size and contour without evidence of solid mass or hydronephrosis. Vasculature: Aortoiliac atherosclerosis. IVC is unremarkable. The portal vein is patent. The proximal visceral and renal arteries are patent. Stomach: The stomach and duodenum have normal course. Other: No free intraperitoneal air. No free fluid or lymphadenopathy. Pelvis: Bladder: Urinary bladder is unremarkable. Bowel: No dilated loops of large or small bowel. Appendix: Normal appendix. Pelvis: Enlarged prostate. IMPRESSION: 1. No acute inflammatory or obstructive process identified. 2. Enlarged prostate. This exam was performed according to our departmental dose-optimization program, which includes automated exposure control, adjustment of the mA and/or kV according to patient size and/or use of iterative reconstruction technique.
[2018-01-09 01:17] VITALS: BP 124/59
== END 2018-01-09 01:17 | disposition home or self-care (01) ==
LOC: ER 17:43
DX: R10.12 Left upper quadrant pain (principal); R10.32 Left lower quadrant pain; J44.9 Chronic obstructive pulmonary disease, unspecified; E11.9 Type 2 diabetes mellitus without complications
CPT/HCPCS: 99284; 96374; 96375; 36415; 83690; 85025; 80053; 81001; 72110; 74177; J2270; J2405

== ENCOUNTER 2018-08-23 10:53 | Emergency (ER) | payer MEDICARE ==
--- NOTE | 2018-08-23 11:51 | ER Document Report ---
ED Medical Screen (RME) - General Chief Complaint: Abdominal Pain Stated Complaint: EAR PAIN/ABDOMINAL PAIN Time Seen by Provider: 08/23/18 11:44 Primary Care Provider: SOTO LUJAN MD [Primary Care Provider] - Follow up as needed Mode of Arrival: Ambulatory Information source: Patient TRAVEL OUTSIDE OF THE [place] IN LAST 30 DAYS: No - HPI Patient complains to provider of: EAR PAIN, ABDO PAIN Notes: 08/23/18 11:50 Patient here with complaints of left ear pain as well as some intermittent abdominal pain for the last years. No severe abdominal pain now. Exam No distress, nontoxic-appearing. Cerumen impaction noted within the left ear canal. No external redness or swelling. No focal abdominal tenderness on limited triage abdominal exam. Plan Patient will require ear irrigation to remove his cerumen impaction. Due to his age and complaints of intermittent abdominal pain I have ordered screening labs at this time. He has no focal tenderness, therefore no imaging has been ordered until lab work will be done. An initial examination was made on the patient as part of the triage process, and it was determined a more comprehensive evaluation was necessary. Initial labs were ordered and patient was transferred to another provider in the ED who assumed care and finished evaluation and plan. - Related Data Allergies/Adverse Reactions: No Known Allergies Allergy (Verified 08/23/18 10:55) Past Medical History - Past Medical History Cardiac Medical History: Reports: Hx Hypercholesterolemia, Hx Hypertension Pulmonary Medical History: Reports: Hx Asthma, Hx COPD Endocrine Medical History: Reports: Hx Diabetes Mellitus Type 2 Renal/ Medical History: Denies: Hx Peritoneal Dialysis Musculoskeltal Medical History: Reports Hx Arthritis Psychiatric Medical History: Reports: Hx Depression Past Surgical History: Reports: Hx Orthopedic Surgery - back/rupture disc Physical Exam - Vital signs Vitals: Temp Pulse Resp BP Pulse Ox 98.2 F 99 16 145/84 H 100 08/23/18 10:57 08/23/18 10:57 08/23/18 10:57 08/23/18 10:57 08/23/18 10:57 Course - Vital Signs Vital signs: Temp Pulse Resp BP Pulse Ox 98.2 F 99 16 145/84 H 100 08/23/18 10:57 08/23/18 10:57 08/23/18 10:57 08/23/18 10:57 08/23/18 10:57 Doctor's Discharge - Discharge Referrals: SOTO LUJAN MD [Primary Care Provider] - Follow up as needed
[2018-08-23 12:26] LABS: ABSOLUTE EOSINOPHILS # (AUTO) 0.1 10^3/uL (0.0-0.6); ABSOLUTE LYMPHOCYTES (AUTO) 2.6 10^3/uL (0.5-4.7); ABSOLUTE MONOCYTES (AUTO) 0.4 10^3/uL (0.1-1.4); ABSOLUTE NEUT (AUTO) 2.9 10^3/uL (1.7-8.2); BASOPHILS % (AUTO) 0.8 % (0-2); EOSINOPHILS % (AUTO) 1.1 % (0-6); HEMATOCRIT 48.3 % (37.9-51.0); HEMOGLOBIN 15.9 g/dL (13.5-17.0); LYMPHOCYTES % (AUTO) 42.9 % (13-45); MEAN CORPUSCULAR HEMOGLOBIN 30.3 pg (27.0-33.4); MEAN CORPUSCULAR HGB CONC 32.9 g/dL (32.0-36.0); MEAN CORPUSCULAR VOLUME 92 fl (80-97); MONOCYTES % (AUTO) 7.2 % (3-13); PLATELET COUNT 191 10^3/uL (150-450); RED BLOOD COUNT 5.24 10^6/uL (4.35-5.55); RED CELL DISTRIBUTION WIDTH 13.8 % (11.5-14.0); TOTAL CELLS COUNTED % (AUTO) 100 %
[2018-08-23 12:52] LABS: ALANINE AMINOTRANSFERASE 32 U/L (21-72); ALBUMIN 4.5 g/dL (3.5-5.0); ALKALINE PHOSPHATASE 122 U/L (38-126); ANION GAP 15 (5-19); ASPARTATE AMINO TRANSFERASE 41 U/L (17-59); BILIRUBIN,DIRECT 0.2 mg/dL (0.0-0.4); BILIRUBIN,TOTAL 1.4 mg/dL (0.2-1.3); BLOOD UREA NITROGEN 15 mg/dL (7-20); CARBON DIOXIDE 28 mmol/L (22-30); CHLORIDE 101 mmol/L (98-107); GLUCOSE 98 mg/dL (75-110); LIPASE 140.8 U/L (23-300); POTASSIUM 4.3 mmol/L (3.6-5.0); SODIUM 143.6 mmol/L (137-145); TOTAL PROTEIN 8.3 g/dL (6.3-8.2)
[2018-08-23 13:02] LABS: APPEARANCE,URINE CLEAR; BILIRUBIN,URINE NEGATIVE (NEGATIVE); COLOR,URINE LIGHT YELLOW; GLUCOSE, URINE NEGATIVE (NEGATIVE)
[2018-08-23 13:03] LABS: ADD MANUAL MICROSCOPIC YES; KETONES,URINE 100 mg/dL (NEGATIVE); LEUKOCYTE ESTERASE,URINE NEGATIVE (NEGATIVE); NITRITE,URINE NEGATIVE (NEGATIVE); PROTEIN,URINE NEGATIVE (NEGATIVE); URINE SPECIFIC GRAVITY 1.013; UROBILINOGEN,URINE NEGATIVE mg/dL (<2.0)
[2018-08-23] MEDS ORDERED: MAG HYDROX/AL HYDROX/SIMETH SUSP 30 ML UDCUP PO ONE (14:38)
--- NOTE | 2018-08-23 15:52 | ER Document Report ---
ED General - General Chief Complaint: Abdominal Pain Stated Complaint: EAR PAIN/ABDOMINAL PAIN Time Seen by Provider: 08/23/18 11:44 Primary Care Provider: SOTO LUJAN MD [Primary Care Provider] - Follow up as needed Mode of Arrival: Ambulatory Information source: Patient, Relative Notes: Patient is a 77-year-old male comes emergency room with a primary complaint of left ear pain. He states that he is been having problems with it on and off since the 1960s and started really hurting a couple days ago. He has a history of cerumen impactions in the past. States when the ear starts hurting it causes him to get dizzy. Notices that it increases in pain and discomfort after he takes a shower he gets it wet. He also had a minor complaint of abdominal dis comfort states he has a history of ulcers and has been put on famotidine but he says it stopped working for him. He sees Dr. Bearden and has not seen him in for 5 months. He denies any chest pain or shortness of breath. Denies any dysuria. Slight amount of constipation occasionally. States when he eats he does feel better but if he does not eat on a regular basis he gets a burning sensation in his abdomen. TRAVEL OUTSIDE OF THE [place] IN LAST 30 DAYS: No - HPI Onset: Last week Onset/Duration: Gradual Quality of pain: Achy, Throbbing Severity: Moderate Pain Level: 3 Associated symptoms: Earache Exacerbated by: Denies Relieved by: Denies Similar symptoms previously: Yes Recently seen / treated by doctor: No - Related Data Allergies/Adverse Reactions: No Known Allergies Allergy (Verified 08/23/18 10:55) Past Medical History - General Information source: Patient - Social History Smoking Status: Former Smoker Cigarette use (# per day): No Chew tobacco use (# tins/day): No Smoking Education Provided: No Frequency of alcohol use: Rare Drug Abuse: None Family History: Reviewed & Not Pertinent Patient has suicidal ideation: No Patient has homicidal ideation: No - Past Medical History Cardiac Medical History: Reports: Hx Hypercholesterolemia, Hx Hypertension Pulmonary Medical History: Reports: Hx Asthma, Hx COPD Endocrine Medical History: Reports: Hx Diabetes Mellitus Type 2 Renal/ Medical History: Denies: Hx Peritoneal Dialysis Musculoskeletal Medical History: Reports Hx Arthritis Psychiatric Medical History: Reports: Hx Depression Past Surgical History: Reports: Hx Orthopedic Surgery - back/rupture disc Review of Systems - Review of Systems Constitutional: No symptoms reported EENT: Ear pain Cardiovascular: No symptoms reported Respiratory: No symptoms reported Gastrointestinal: See HPI Genitourinary: No symptoms reported Male Genitourinary: No symptoms reported Musculoskeletal: No symptoms reported Skin: No symptoms reported Hematologic/Lymphatic: No symptoms reported Neurological/Psychological: No symptoms reported -: Yes All other systems reviewed and negative Physical Exam - Vital signs Vitals: Temp Pulse Resp BP Pulse Ox 98.2 F 99 16 145/84 H 100 08/23/18 10:57 08/23/18 10:57 08/23/18 10:57 08/23/18 10:57 08/23/18 10:57 Interpretation: Hypertensive - Notes Notes: PHYSICAL EXAMINATION: GENERAL: Well-appearing, well-nourished and in no acute distress. HEAD: Atraumatic, normocephalic. 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 Left eye is reactive. ENT: Examination head and upper airway showed nasal mucosa to be mildly erythematous and edematous with no rhinorrhea noted. Bilateral nasal congestion is also noted. Left external canal is totally occluded with cerumen there is no space around the cerumen so therefore feels an impaction is most probable. The right ear is clean TM is normal in appearance external canal is nonerythematous no abnormalities found. NECK: Normal range of motion, supple without lymphadenopathy LUNGS: Breath sounds clear to auscultation bilaterally and equal. No wheezes rales or rhonchi. HEART: Regular rate and rhythm without murmurs ABDOMEN: Examination patient's abdomen shows him to be slightly distended bowel sounds are present all 4 quads. He is slightly tympanitic across the upper gabriel ds in a supine position. He has no pain or discomfort that is point specific with the exception of midepigastric area he does have some moderate discomfort with palpation. Musculoskeletal: Normal range of motion, no pitting or edema. No cyanosis. NEUROLOGICAL: Normal speech, normal gait. Normal sensory, motor exams PSYCH: Normal mood, normal affect. SKIN: Warm, Dry, normal turgor, no rashes or lesions noted. Course - Re-evaluation Re-evalutation: 08/23/18 15:55 Patient on examination today had no complaints of abdominal pain his primary complaint in triage was that he has a history of on and off again of abdominal d iscomfort. His labs are normal he is eating and drinking okay. He does describe symptoms of a peptic ulcer type presentation. He has never had an upper endoscopy done he has had a recent colonoscopy done. He is on the famotidine but states is not working. We will stop the that medication and will place him on a PPI. We will also put him on some Carafate before meals and at bedtime. He is been instructed to follow-up with his primary care provider sometime within the next week. Procedure note. Patient was laid on his right side with left ear up. I have applied approximately 1 mL of peroxide and waited about 40 minutes. Went back into use warm water with an 18-gauge Cathlon and 20-mils syringe and was able to flush out a large amount of hard impacted cerumen. After temps of about 8-10 flushes of the largest chunk came out approximately 1-1/2 cm wide across all the way around. Reinspection of the external canal the left side showed complete clearing of all the cerumen TM was normal in appearance with no bulging or fluid levels noted. There was no perforation of the TM and no bloody discharge noted after removal of the cerumen. - Vital Signs Vital signs: Temp Pulse Resp BP Pulse Ox 98.2 F 99 16 145/84 H 100 08/23/18 10:57 08/23/18 10:57 08/23/18 10:57 08/23/18 10:57 08/23/18 10:57 - Laboratory Result Diagrams: 08/23/18 12:04 08/23/18 12:04 Laboratory results interpreted by me: 08/23/18 08/23/18 12:00 12:04 Total Bilirubin 1.4 H Total Protein 8.3 H Urine Ketones 100 H Discharge - Discharge Clinical Impression: Impacted cerumen of left ear, Peptic ulcer Disposition: HOME, SELF-CARE Instructions: Prilosec (Acid Pump Inhibitor) ([facility]), Ulcer ([facility]), Cerumen Impaction ([facility]) Additional Instructions: Home and you can continue your famotidine for your stomach but we are adding on an additional couple medications. The big white pill you will take 30 minutes before each meal and the purple pill you will take every morning and then eat 30 minutes after taking it. Want to follow-up with your primary care provider sometime within the next week or so. Should you have any increasing pain or discomfort in the abdomen and need to see someone sooner return to ER for recheck. Prescriptions: Omeprazole/Sodium Bicarbonate [Omeprazole-Bicarb 40-1,100 Cap] 1 each PO DAILY #30 capsule Sucralfate [Carafate 1 gm Tablet] 1 gm PO ACHS #120 tablet Referrals: SOTO LUJAN MD [Primary Care Provider] - Follow up as needed
[2018-08-23 16:11] VITALS: BP 109/38
== END 2018-08-23 16:11 | disposition home or self-care (01) ==
LOC: ER 10:53
DX: H61.22 Impacted cerumen, left ear (principal); K27.9 Peptic ulcer, site unspecified, unspecified as acute or chronic, without hemorrhage or perforation; R10.9 Unspecified abdominal pain; H92.02 Otalgia, left ear; R42 Dizziness and giddiness; Z87.891 Personal history of nicotine dependence; I10 Essential (primary) hypertension; J44.9 Chronic obstructive pulmonary disease, unspecified; E11.9 Type 2 diabetes mellitus without complications
CPT/HCPCS: 36415; 80053; 81001; 83690; 85025; 99284

== ENCOUNTER 2018-09-17 07:25 | Emergency (ER) | payer MEDICARE ==
--- NOTE | 2018-09-17 08:10 | ER Document Report ---
ED General - General Chief Complaint: Medical Complaint Stated Complaint: HAND PAIN Time Seen by Provider: 09/17/18 08:09 Primary Care Provider: TREVA DUARTE MD [NO LOCAL MD] - Follow up in 1 week (for GI follow up) AAKASH FERNÁNDEZ MD [[employer]OR] - Follow up in 1 week (For Urology follow up ) SOTO LUJAN MD [Primary Care Provider] - Follow up in 3-5 days TRAVEL OUTSIDE OF THE [place] IN LAST 30 DAYS: No - HPI Notes: 77-year-old male to the emergency department with complaints of bilateral hand pain in his thumbs and index fingers for several years as well as upper abdominal pain for several years and urinary frequency for 1 year. States that he came into the emergency department today because his urinary frequency and abdominal pain have been aggravated since last night. He has been told in the past that he might have an ulcer in his stomach and is taking omeprazole and Carafate but he has never seen a GI specialist for an endoscope. He denies christian sea, vomiting. He states that when his abdominal pain gets worse he has poor appetite and will avoid eating. States that then he becomes hungry and his stomach feels worse from eating. Denies any hematemesis, coffee ground emesis, fevers, chills. States that his hands will be stiff in the morning and he has never had them x-rayed. He has not had a recent injury or recent swelling. He has not had any redness, or skin changes. In regards to his urinary frequency, today he states that he has not seen a urologist for this. His primary care put him on a antibiotic but that did not improve his symptoms states that he will get up and urinate nearly every 15 minutes and after he urinates he feels like he is incompletely voided. Occasionally he has some difficulty and hesitancy with his stream. Denies any blood in his urine, painful urination. - Related Data Allergies/Adverse Reactions: No Known Allergies Allergy (Verified 09/17/18 07:27) Past Medical History - Social History Smoking Status: Former Smoker Frequency of alcohol use: None Drug Abuse: None Lives with: Family Family History: Reviewed & Not Pertinent Patient has suicidal ideation: No Patient has homicidal ideation: No - Past Medical History Cardiac Medical History: Reports: Hx Hypercholesterolemia, Hx Hypertension Pulmonary Medical History: Reports: Hx Asthma, Hx COPD Endocrine Medical History: Reports: Hx Diabetes Mellitus Type 2 Renal/ Medical History: Reports: Other - Prostate enlargement, urinary frequency. Denies: Hx Peritoneal Dialysis GI Medical History: Reports: Other - Reports history of ulcer but has never had a endoscope. Denies: Hx Endoscopy Musculoskeletal Medical History: Reports Hx Arthritis Skin Medical History: Reports None Psychiatric Medical History: Reports: Hx Depression Past Surgical History: Reports: Hx Orthopedic Surgery - back/rupture disc Review of Systems - Review of Systems Constitutional: denies: Chills, Diaphoresis, Fever EENT: No symptoms reported Cardiovascular: denies: Chest pain, Dizziness, Lightheaded Respiratory: denies: Cough, Short of breath Gastrointestinal: Abdominal pain. denies: Diarrhea, Nausea, Vomiting Genitourinary: Frequency, Urgency. denies: Burning, Dysuria, Flank pain, Hematuria, Incontinence, Pain Musculoskeletal: Muscle pain - And pain at the thumbs and first index fingers Skin: No symptoms reported Neurological/Psychological: No symptoms reported -: Yes All other systems reviewed and negative Physical Exam - Vital signs Vitals: Temp Pulse Resp BP Pulse Ox 98 F 84 16 129/69 H 96 09/17/18 07:32 09/17/18 07:32 09/17/18 07:32 09/17/18 07:32 09/17/18 07:32 Interpretation: Normal - General General appearance: Appears well In distress: None - HEENT Head: Normocephalic, Atraumatic Eyes: Normal Extraocular movements intact: Yes - Respiratory Respiratory status: No respiratory distress Chest status: Nontender Breath sounds: Normal Chest palpation: Normal - Cardiovascular Rhythm: Regular Heart sounds: Normal auscultation Murmur: No - Abdominal Inspection: Normal Distension: No distension Bowel sounds: Normal Tenderness: Nontender. No: McBurney's point, Smith's sign, Guarding, Rebound, Other Organomegaly: No organomegaly - Back Back: Normal - Extremities General upper extremity: Normal inspection, Nontender, Normal color, Normal ROM, Normal temperature General lower extremity: Normal inspection, Nontender, Normal color, Normal ROM, Normal temperature, Normal weight bearing. No: Dalton's sign Hand: Other - Bilateral hands with arthritic changes. No erythema, edema, skin changes, evidence of superimposed infection, patient has no snuffbox tenderness bilaterally. He has 5 out of 5 strength in bilateral handgrip. He has full range of motions in all fingers against resistance with 5 out of 5 strength in flexion and extension - Neurological Neuro grossly intact: Yes Cognition: Normal Orientation: AAOx4 [place] Coma Scale Eye Opening: Spontaneous Ambika Coma Scale Verbal: Oriented [place] Coma Scale Motor: Obeys Commands Ambika Coma Scale Total: 15 Speech: Normal - Psychological Associated symptoms: Normal affect, Normal mood - Skin Skin Temperature: Warm Skin Moisture: Dry Skin Color: Normal Course - Vital Signs Vital signs: Temp Pulse Resp BP Pulse Ox 98 F 78 16 119/67 99 09/17/18 07:32 09/17/18 11:12 09/17/18 11:12 09/17/18 11:12 09/17/18 11:12 - Laboratory Result Diagrams: 09/17/18 09:16 09/17/18 09:16 Laboratory results interpreted by me: 09/17/18 09/17/18 09/17/18 08:11 09:16 09:16 Seg Neutrophils % 34.7 L Lymphocytes % 53.7 H Absolute Neutrophils 1.6 L Carbon Dioxide 31 H Urine Ketones TRACE H Urine Ascorbic Acid 20 H - Diagnostic Test Radiology reviewed: Image reviewed, Reports reviewed - Transfer of Care Notes: 09/17/18 Impression: Chronic abd pain, urinary frequency, bilateral hand arthritis. Patient with reassuring labs. He has a nontender abdomen and feels better after GI cocktail. Do not think he needs emergent imaging today, but will send for GI and Urology followup. Urged to return if worse. patient agrees with the plan. Discussed patient with Dr. Maria and he agrees with the plan. Discharge - Discharge Clinical Impression: Chronic abdominal pain, Urinary frequency, Hand arthritis Condition: Good Disposition: HOME, SELF-CARE Instructions: Abdominal Pain ([facility]) Additional Instructions: FOLLOW UP WITH UROLOGY FOR YOUR URINARY SYMPTOMS AND WITH GI SPECIALIST FOR YOUR ABDOMINAL PAIN. CONTINUE YOUR MEDICINES PRESCRIBED FOR HOME. FOLLOW UP WITH PRIMARY CARE THIS WEEK. Referrals: SOTO LUJAN MD [Primary Care Provider] - Follow up in 3-5 days AAKASH FERNÁNDEZ MD [[employer]OR] - Follow up in 1 week (For Urology follow up ) TREVA DUARTE MD [[facility] MD] - Follow up in 1 week (for GI follow up)
[2018-09-17 08:29] LABS: APPEARANCE,URINE CLEAR; BILIRUBIN,URINE NEGATIVE (NEGATIVE); COLOR,URINE YELLOW; GLUCOSE, URINE NEGATIVE (NEGATIVE); KETONES,URINE TRACE mg/dL (NEGATIVE); LEUKOCYTE ESTERASE,URINE NEGATIVE (NEGATIVE); NITRITE,URINE NEGATIVE (NEGATIVE); PROTEIN,URINE NEGATIVE (NEGATIVE); URINE SPECIFIC GRAVITY 1.009; UROBILINOGEN,URINE NEGATIVE mg/dL (<2.0)
[2018-09-17 09:43] LABS: ABSOLUTE EOSINOPHILS # (AUTO) 0.1 10^3/uL (0.0-0.6); ABSOLUTE LYMPHOCYTES (AUTO) 2.5 10^3/uL (0.5-4.7); ABSOLUTE MONOCYTES (AUTO) 0.4 10^3/uL (0.1-1.4); ABSOLUTE NEUT (AUTO) 1.6 10^3/uL (1.7-8.2); BASOPHILS % (AUTO) 0.9 % (0-2); EOSINOPHILS % (AUTO) 2.8 % (0-6); HEMATOCRIT 44.3 % (37.9-51.0); HEMOGLOBIN 14.8 g/dL (13.5-17.0); LYMPHOCYTES % (AUTO) 53.7 % (13-45); MEAN CORPUSCULAR HEMOGLOBIN 30.4 pg (27.0-33.4); MEAN CORPUSCULAR HGB CONC 33.3 g/dL (32.0-36.0); MEAN CORPUSCULAR VOLUME 91 fl (80-97); MONOCYTES % (AUTO) 7.9 % (3-13); PLATELET COUNT 160 10^3/uL (150-450); RED BLOOD COUNT 4.85 10^6/uL (4.35-5.55); RED CELL DISTRIBUTION WIDTH 13.8 % (11.5-14.0); SEGMENTED NEUTROPHILS % (AUTO) 34.7 % (42-78); TOTAL CELLS COUNTED % (AUTO) 100 %; WHITE BLOOD COUNT 4.7 10^3/uL (4.0-10.5)
--- NOTE | 2018-09-17 09:53 | RADIOLOGY REPORT (SQ) ---
EXAM DESCRIPTION: HAND BILATERAL 2 VIEWS COMPLETED DATE/TIME: 09/17/2018 9:10 am REASON FOR STUDY: hand pain pain in the thumb and index finger bilaterally COMPARISON: None. EXAM PARAMETERS: NUMBER OF VIEWS: Two-views. TECHNIQUE: AP and lateral radiographic images acquired of the right and left hand. LIMITATIONS: None. FINDINGS: MINERALIZATION: Osteopenic BONES: No acute fracture or dislocation. No worrisome bone lesions. JOINTS: There is mild bilateral age-appropriate osteoarthritis at the 1st carpometacarpal joints, wit h joint space narrowing and mild bony spurring. SOFT TISSUES: No soft tissue swelling. No foreign body. OTHER: No other significant finding. IMPRESSION: Bilateral mild osteoarthritis at the first carpometacarpal joint bilaterally TECHNICAL DOCUMENTATION: JOB ID: [id number] [employer]- All Rights Reserved Reading location - IP/workstation name: [email or web address]
[2018-09-17 10:01] LABS: ALANINE AMINOTRANSFERASE 31 U/L (21-72); ALBUMIN 4.2 g/dL (3.5-5.0); ALKALINE PHOSPHATASE 97 U/L (38-126); ANION GAP 7 (5-19); ASPARTATE AMINO TRANSFERASE 34 U/L (17-59); BILIRUBIN,DIRECT 0.1 mg/dL (0.0-0.4); BLOOD UREA NITROGEN 10 mg/dL (7-20); CARBON DIOXIDE 31 mmol/L (22-30); CHLORIDE 103 mmol/L (98-107); GLUCOSE 98 mg/dL (75-110); LIPASE 189.3 U/L (23-300); POTASSIUM 4.8 mmol/L (3.6-5.0); SODIUM 140.6 mmol/L (137-145); TOTAL PROTEIN 7.4 g/dL (6.3-8.2)
[2018-09-17] MEDS ORDERED: MAG HYDROX/AL HYDROX/SIMETH SUSP 30 ML UDCUP PO ONE (10:29)
[2018-09-17] MEDS ORDERED: METOCLOPRAMIDE HCL ORAL SOLN 10 MG/10 ML UDCUP PO ONE (10:29)
[2018-09-17] MEDS ORDERED: LIDOCAINE 2% VISCOUS SOLN 20 ML UDCUP PO ONE (10:29)
[2018-09-17 11:12] VITALS: BP 119/67
== END 2018-09-17 11:12 | disposition home or self-care (01) ==
LOC: ER 07:25
DX: M19.042 Primary osteoarthritis, left hand (principal); M19.041 Primary osteoarthritis, right hand; R35.0 Frequency of micturition; R10.9 Unspecified abdominal pain; Z87.891 Personal history of nicotine dependence; E78.00 Pure hypercholesterolemia, unspecified; I10 Essential (primary) hypertension; J44.9 Chronic obstructive pulmonary disease, unspecified; E11.9 Type 2 diabetes mellitus without complications; M19.90 Unspecified osteoarthritis, unspecified site; F32.9 Major depressive disorder, single episode, unspecified
CPT/HCPCS: 99283; 36415; 87086; 83690; 85025; 80053; 81001; 73120; J3490; A9270

== ENCOUNTER 2018-10-03 15:34 | Emergency (ER) | payer MEDICARE ==
--- NOTE | 2018-10-03 17:44 | RADIOLOGY REPORT (SQ) ---
EXAM DESCRIPTION: CHEST SINGLE VIEW COMPLETED DATE/TIME: 10/03/2018 5:25 pm REASON FOR STUDY: difficulty breathing COMPARISON: None. EXAM PARAMETERS: NUMBER OF VIEWS: One view. TECHNIQUE: Single frontal radiographic view of the chest acquired. RADIATION DOSE: NA LIMITATIONS: None. FINDINGS: LUNGS AND PLEURA: No acute opacities, masses or pneumothorax. No pleural effusion. MEDIASTINUM AND HILAR STRUCTURES: Stable. HEART AND VASCULAR STRUCTURES: Stable. BONES: No acute findings. HARDWARE: None in the chest. OTHER: No other significant finding. IMPRESSION: NO ACUTE RADIOGRAPHIC FINDING IN THE CHEST. TECHNICAL DOCUMENTATION: JOB ID: [id number] [place]-72 2010 [employer]- All Rights Reserved Reading location - IP/workstation name: [email or web address]
--- NOTE | 2018-10-03 17:54 | ER Document Report ---
ED Medical Screen (RME) - General Chief Complaint: Difficulty Swallowing Stated Complaint: DIFFICULTY SWALLOWING Time Seen by Provider: 10/03/18 17:40 Primary Care Provider: SOTO LUJAN MD [Primary Care Provider] - Follow up as needed Mode of Arrival: Ambulatory Information source: Patient TRAVEL OUTSIDE OF THE [place] IN LAST 30 DAYS: No - HPI Notes: 10/03/18 17:49 77-year-old male presents to ED with the complaints of weakness, "weak stomach" and trouble swallowing for the last year however states this is become progre ssively worse over the last couple of days, cannot give specifically what has become worse. States he has been falling more but cannot give exact dates. Denies new medications foods or travel. Patient's primary care provider is Dr. Soto Lujan. Denies fevers, chills, chest pain,palpitations, shortness of breath, dyspnea, nausea, vomiting, diarrhea, abdominal pain, hematuria,blurred vision, double vision, loss of vision, speech changes, LH, dizziness, syncope, headaches, wheezing, ST, URI, neck pain, weakness, bowel or bladder dysfunction, saddle anesthesia, numbness or tingling in bilateral upper or lower extremities equally, muscle paralysis, weakness in bilateral upper or lower extremities equally or rash. ROS: Other than noted above, the 12 point review of systems was reviewed with the patient and were negative, all pertinent findings are included in the HPI. PHYSICAL EXAMINATION: Vital signs reviewed. GENERAL: Well-appearing, well-nourished and in no acute distress. speaking clearly HEAD: Atraumatic, normocephalic. EYES: Pupils equal round extraocular movements intact, conjunctiva are normal. ENT: Nares patent. uvula midline. pharynx without erythema or induration. airway patent NECK: Normal range of motion CV: Heart regular rate and rhythm LUNGS: No respiratory distress Musculoskeletal: Normal range of motion NEUROLOGICAL: Normal speech PSYCH: Normal mood, normal affect. MDM: Patient seen and examined for rapid initial assessment. Vital signs reviewed. A comprehensive ED assessment and evaluation of the patient, analysis of test results and completion of the medical decision making process will be conducted by additional ED providers. *Note is created using voice recognition software and may contain spelling, syntax or grammatical errors. 10/03/18 17:53 - Related Data Allergies/Adverse Reactions: No Known Allergies Allergy (Verified 09/17/18 07:27) Past Medical History - Social History Frequency of alcohol use: None Drug Abuse: None - Past Medical History Cardiac Medical History: Reports: Hx Hypercholesterolemia, Hx Hypertension Pulmonary Medical History: Reports: Hx Asthma, Hx COPD Endocrine Medical History: Reports: Hx Diabetes Mellitus Type 2 Renal/ Medical History: Denies: Hx Peritoneal Dialysis GI Medical History: Denies: Hx Endoscopy Musculoskeltal Medical History: Reports Hx Arthritis Psychiatric Medical History: Reports: Hx Depression Past Surgical History: Reports: Hx Orthopedic Surgery - back/rupture disc Physical Exam - Vital signs Vitals: Temp Pulse Resp BP Pulse Ox 98.7 F 89 16 137/77 H 98 10/03/18 15:48 10/03/18 15:48 10/03/18 15:48 10/03/18 15:48 10/03/18 15:48 Course - Vital Signs Vital signs: Temp Pulse Resp BP Pulse Ox 98.7 F 89 16 137/77 H 98 10/03/18 15:48 10/03/18 15:48 10/03/18 15:48 10/03/18 15:48 10/03/18 15:48 Doctor's Discharge - Discharge Referrals: SOTO LUJAN MD [Primary Care Provider] - Follow up as needed
[2018-10-03 18:45] LABS: ABSOLUTE BASOPHILS # (AUTO) 0.1 10^3/uL (0.0-0.2); ABSOLUTE EOSINOPHILS # (AUTO) 0.1 10^3/uL (0.0-0.6); ABSOLUTE LYMPHOCYTES (AUTO) 2.6 10^3/uL (0.5-4.7); ABSOLUTE MONOCYTES (AUTO) 0.5 10^3/uL (0.1-1.4); ABSOLUTE NEUT (AUTO) 2.4 10^3/uL (1.7-8.2); BASOPHILS % (AUTO) 1.1 % (0-2); HEMOGLOBIN 14.6 g/dL (13.5-17.0); LYMPHOCYTES % (AUTO) 46.4 % (13-45); MEAN CORPUSCULAR HEMOGLOBIN 30.2 pg (27.0-33.4); MEAN CORPUSCULAR HGB CONC 33.1 g/dL (32.0-36.0); MEAN CORPUSCULAR VOLUME 91 fl (80-97); MONOCYTES % (AUTO) 8.9 % (3-13); PLATELET COUNT 196 10^3/uL (150-450); RED BLOOD COUNT 4.82 10^6/uL (4.35-5.55); RED CELL DISTRIBUTION WIDTH 13.9 % (11.5-14.0); SEGMENTED NEUTROPHILS % (AUTO) 41.6 % (42-78); TOTAL CELLS COUNTED % (AUTO) 100 %; WHITE BLOOD COUNT 5.7 10^3/uL (4.0-10.5)
[2018-10-03 18:51] LABS: APPEARANCE,URINE CLEAR; BILIRUBIN,URINE NEGATIVE (NEGATIVE); COLOR,URINE YELLOW; GLUCOSE, URINE NEGATIVE (NEGATIVE); KETONES,URINE NEGATIVE (NEGATIVE); LEUKOCYTE ESTERASE,URINE NEGATIVE (NEGATIVE); NITRITE,URINE NEGATIVE (NEGATIVE); PROTEIN,URINE NEGATIVE (NEGATIVE); URINE SPECIFIC GRAVITY 1.006; UROBILINOGEN,URINE NEGATIVE mg/dL (<2.0)
[2018-10-03 19:04] LABS: ALANINE AMINOTRANSFERASE 27 U/L (21-72); ALBUMIN 4.4 g/dL (3.5-5.0); ALKALINE PHOSPHATASE 105 U/L (38-126); ANION GAP 11 (5-19); ASPARTATE AMINO TRANSFERASE 34 U/L (17-59); BILIRUBIN,DIRECT 0.2 mg/dL (0.0-0.4); BILIRUBIN,TOTAL 0.9 mg/dL (0.2-1.3); BLOOD UREA NITROGEN 11 mg/dL (7-20); CALCIUM 9.8 mg/dL (8.4-10.2); CARBON DIOXIDE 30 mmol/L (22-30); CHLORIDE 101 mmol/L (98-107); CREATINE KINASE 168 U/L (55-170); GLUCOSE 97 mg/dL (75-110); POTASSIUM 4.4 mmol/L (3.6-5.0); SODIUM 141.8 mmol/L (137-145); TOTAL PROTEIN 7.7 g/dL (6.3-8.2)
[2018-10-03 19:31] LABS: CREATINE KINASE MB 1.11 ng/mL (<4.55)
[2018-10-03 19:32] LABS: TROPONIN I < 0.012 ng/mL
--- NOTE | 2018-10-03 21:25 | ER Document Report ---
ED General - General Chief Complaint: Difficulty Swallowing Stated Complaint: DIFFICULTY SWALLOWING Time Seen by Provider: 10/03/18 17:40 Primary Care Provider: SOTO LUJAN MD [Primary Care Provider] - Follow up as needed Mode of Arrival: Ambulatory Cannot obtain history due to: Other - Very poor historian Notes: 77-year-old male presents to ED with the complaints of weakness, "weak stomach" and trouble swallowing for the last year however states this is become progressively worse over the last couple of days, cannot give specifically what has become worse. States he has been falling more but cannot give exact dates. Denies new medications foods or travel. Patient's primary care provider is Dr. Soto Lujan. States that sometimes it feels like it is hard for him to walk because he just feels so generally weak but denies focal weakness, numbne ss, syncope or chest pain. Nothing is new or different today that prompted a visit to the ER. TRAVEL OUTSIDE OF THE [place] IN LAST 30 DAYS: No - Related Data Allergies/Adverse Reactions: No Known Allergies Allergy (Verified 09/17/18 07:27) Past Medical History - General Information source: Patient - Social History Smoking Status: Former Smoker Frequency of alcohol use: None Drug Abuse: None Lives with: Alone Family History: Reviewed & Not Pertinent Patient has suicidal ideation: No Patient has homicidal ideation: No - Past Medical History Cardiac Medical History: Reports: Hx Hypercholesterolemia, Hx Hypertension Pulmonary Medical History: Reports: Hx Asthma, Hx COPD Endocrine Medical History: Reports: Hx Diabetes Mellitus Type 2 Renal/ Medical History: Denies: Hx Peritoneal Dialysis GI Medical History: Denies: Hx Endoscopy Musculoskeletal Medical History: Reports Hx Arthritis Psychiatric Medical History: Reports: Hx Depression Past Surgical History: Reports: Hx Orthopedic Surgery - back/rupture disc Review of Systems - Review of Systems Notes: Constitutional: Negative for fever. Positive fatigue, global weakness HENT: Negative for sore throat. Eyes: Negative for visual changes. Cardiovascular: Negative for chest pain. Respiratory: Negative for shortness of breath. Gastrointestinal: Negative for abdominal pain, vomiting or diarrhea. Genitourinary: Negative for dysuria. Musculoskeletal: Negative for back pain. Skin: Negative for rash. Neurological: Negative for headaches, weakness or numbness. 10 point ROS negative except as marked above and in HPI. Physical Exam - Vital signs Vitals: Temp Pulse Resp BP Pulse Ox 98.7 F 89 16 137/77 H 98 10/03/18 15:48 10/03/18 15:48 10/03/18 15:48 10/03/18 15:48 10/03/18 15:48 Interpretation: Normal Notes: PHYSICAL EXAMINATION: GENERAL: Somewhat cachectic, no acute distress HEAD: Atraumatic, normocephalic. EYES: Pupils equal round and reactive to light, extraocular movements intact, sclera anicteric, conjunctiva are normal. ENT: nares patent, oropharynx clear without exudates. Moist mucous membranes. NECK: Normal range of motion, supple without lymphadenopathy LUNGS: Breath sounds clear to auscultation bilaterally and equal. No wheezes rales or rhonchi. HEART: Regular rate and rhythm without murmurs ABDOMEN: Soft, nontender, normoactive bowel sounds. No guarding, no rebound. No masses appreciated. EXTREMITIES: Normal range of motion, no pitting or edema. No cyanosis. NEUROLOGICAL: Face symmetric. Tongue protrudes midline. Extraocular motions intact. Pupils are 2 mm and equally reactive. Normal speech, normal gait. 5 out of 5 strength in both the distal and proximal upper and lower extremities bilaterally. Sensation is grossly intact throughout. Finger to nose testing normal. Pronator drift normal. PSYCH: Normal mood, normal affect. SKIN: Warm, Dry, normal turgor, no rashes or lesions noted. Course - Re-evaluation Re-evalutation: 10/03/18 21:25 Patient presents with multiple vague complaints that did not appear to be concerning for any acute life-threatening pathology. Vitals are within normal limits at triage and at time of discharge. Physical examination is unremarkable. Patient has tolerated oral intake without difficulty. Patient was not noted to be in distress at any point during their ER visit. At this time, based on the reassuring evaluation, I do not suspect an acute NV, pulmonary embolus, aortic dissection, acute intra-abdominal pathology, stroke, or sepsis.Will discharge with return precautions and follow-up recommendations. Verbal discharge instructions given a the bedside and opportunity for questions given. Medication warnings reviewed. Patient is in agreement with this plan and has verbalized understanding of return precautions and the need for primary care follow-up in the next 24-72 hours. - Vital Signs Vital signs: Temp Pulse Resp BP Pulse Ox 98.5 F 78 18 137/71 H 98 07/02/19 19:07 10/03/18 19:07 10/03/18 19:41 10/03/18 19:07 10/03/18 19:41 - Laboratory Result Diagrams: 10/03/18 18:18 10/03/18 18:18 Laboratory results interpreted by me: 10/03/18 18:18 Seg Neutrophils % 41.6 L Lymphocytes % 46.4 H - Diagnostic Test Radiology reviewed: Image reviewed, Reports reviewed Radiology results interpreted by me: 10/03/18 21:25 Chest x-ray: No acute infiltrate or pneumothorax - EKG Interpretation by Me Additional EKG results interpreted by me: 10/03/18 21:25 Sinus rhythm, rate 62, no ST elevations or depressions. LVH. QTc 439. Unchanged from previous EKG. Discharge - Discharge Clinical Impression: Generalized weakness Malnutrition Qualifiers: Malnutrition type: protein-calorie malnutrition Protein-calorie malnutrition severity: moderate Qualified Code(s): E44.0 - Moderate protein-calorie malnutrition Condition: Stable Disposition: HOME, SELF-CARE Additional Instructions: Please follow-up with Dr. Lujan at your earliest ability and consider physical therapy referral. He also need to increase the amount of nutrition you are taking in as you are somewhat malnourished. Please return to the emergency room immediately if you experience any concerning symptoms including high fevers, severe headache, chest pain, difficulty breathing, abdominal pain, slurred speech, numbness or weakness in your arms or legs, or any other symptom that concerns you. Referrals: SOTO LUJAN MD [Primary Care Provider] - Follow up in 3-5 days
[2018-10-03 21:28] VITALS: BP 141/91
--- NOTE | 2018-10-04 00:17 | EKG REPORT ---
SEVERITY:- ABNORMAL ECG - SINUS RHYTHM LEFT VENTRICULAR HYPERTROPHY : Confirmed by: Edith Orourke 04-Oct-2018 00:17:07
== END 2018-10-03 21:31 | disposition home or self-care (01) ==
LOC: ER 15:34
DX: E44.0 Moderate protein-calorie malnutrition (principal); R53.1 Weakness; R53.83 Other fatigue; R13.10 Dysphagia, unspecified; I10 Essential (primary) hypertension; J44.9 Chronic obstructive pulmonary disease, unspecified; E11.9 Type 2 diabetes mellitus without complications; Z91.81 History of falling; Z87.891 Personal history of nicotine dependence
CPT/HCPCS: 36415; 71045; 80053; 81001; 82550; 82553; 82962; 84484; 85025; 93005; 93010; 99284

== ENCOUNTER 2018-10-12 16:25 | Emergency (ER) | payer MEDICARE ==
[2018-10-12] MEDS ORDERED: ASPIRIN 81 MG TABLET, CHEWABLE PO ONE (17:19)
[2018-10-12 17:38] LABS: ABSOLUTE BASOPHILS # (AUTO) 0.1 10^3/uL (0.0-0.2); ABSOLUTE EOSINOPHILS # (AUTO) 0.2 10^3/uL (0.0-0.6); ABSOLUTE LYMPHOCYTES (AUTO) 2.9 10^3/uL (0.5-4.7); ABSOLUTE MONOCYTES (AUTO) 0.5 10^3/uL (0.1-1.4); ABSOLUTE NEUT (AUTO) 1.4 10^3/uL (1.7-8.2); EOSINOPHILS % (AUTO) 4.5 % (0-6); HEMATOCRIT 42.5 % (37.9-51.0); LYMPHOCYTES % (AUTO) 57.5 % (13-45); MEAN CORPUSCULAR HEMOGLOBIN 30.2 pg (27.0-33.4); MEAN CORPUSCULAR HGB CONC 32.9 g/dL (32.0-36.0); MEAN CORPUSCULAR VOLUME 92 fl (80-97); MONOCYTES % (AUTO) 9.2 % (3-13); PLATELET COUNT 196 10^3/uL (150-450); RED BLOOD COUNT 4.64 10^6/uL (4.35-5.55); SEGMENTED NEUTROPHILS % (AUTO) 27.8 % (42-78); TOTAL CELLS COUNTED % (AUTO) 100 %; WHITE BLOOD COUNT 5.1 10^3/uL (4.0-10.5)
--- NOTE | 2018-10-12 17:54 | RADIOLOGY REPORT (SQ) ---
EXAM DESCRIPTION: CHEST 2 VIEWS COMPLETED DATE/TIME: 10/12/2018 5:43 pm REASON FOR STUDY: Heart palpitations COMPARISON: 10/03/2018 TECHNIQUE: Frontal and lateral radiographic views of the chest acquired. NUMBER OF VIEWS: Two view. LIMITATIONS: None. FINDINGS: LUNGS AND PLEURA: No pneumothorax. Similar interstitial changes -emphysema. No consolida tion or pleural effusion. MEDIASTINUM AND HILAR STRUCTURES: Stable. HEART AND VASCULAR STRUCTURES: Stable. BONES: No acute findings. HARDWARE: None in the chest. OTHER: No other significant finding. IMPRESSION: NO ACUTE FINDINGS. TECHNICAL DOCUMENTATION: JOB ID: [id number] [place]-72 2010 [employer]- All Rights Reserved Reading location - IP/workstation name: [email or web address]
[2018-10-12 17:58] LABS: INTERNATIONAL RATION (INR) 1.01; PROTHROMBIN TIME 13.3 SEC (11.4-15.4)
[2018-10-12 17:59] LABS: PARTIAL THROMBOPLASTIN TIME 28.1 SEC (23.5-35.8)
[2018-10-12 18:07] LABS: ALANINE AMINOTRANSFERASE 27 U/L (21-72); ALKALINE PHOSPHATASE 90 U/L (38-126); ANION GAP 8 (5-19); ASPARTATE AMINO TRANSFERASE 31 U/L (17-59); BILIRUBIN,DIRECT 0.1 mg/dL (0.0-0.4); BILIRUBIN,TOTAL 0.8 mg/dL (0.2-1.3); BLOOD UREA NITROGEN 12 mg/dL (7-20); CALCIUM 9.4 mg/dL (8.4-10.2); CARBON DIOXIDE 32 mmol/L (22-30); CHLORIDE 101 mmol/L (98-107); CREATINE KINASE 138 U/L (55-170); GLUCOSE 108 mg/dL (75-110); POTASSIUM 4.8 mmol/L (3.6-5.0); SODIUM 140.6 mmol/L (137-145); TOTAL PROTEIN 7.1 g/dL (6.3-8.2)
--- NOTE | 2018-10-12 18:15 | RADIOLOGY REPORT (SQ) ---
EXAM DESCRIPTION: CT HEAD WITHOUT COMPLETED DATE/TIME: 10/12/2018 5:59 pm REASON FOR STUDY: Numbness to head and face better now COMPARISON: None. TECHNIQUE: Axial images acquired through the brain without intravenous contrast. Images reviewed wit h bone, brain and subdural windows. Images stored on PACS. All CT scanners at this facility use dose modulation, iterative reconstruction, and/or weight based d osing when appropriate to reduce radiation dose to as low as reasonably achievable (ALARA). [facility]: Dose Right [facility]: CareDose [facility]: Dose Right [facility]: Teradose 4D [facility]: [employer] RADIATION DOSE: CT Rad equipment meets quality standard of care and radiation dose reduction techniq ues were employed. CTDIvol: 48.7 mGy. DLP: 1004 mGy-cm.. LIMITATIONS: None. FINDINGS: VENTRICLES: Normal size and contour. CEREBRUM: No masses. No hemorrhage. No midline shift. Age appropriate white matter. No evidence for a cute infarction. CEREBELLUM: No masses. No hemorrhage. No alteration of density. No evidence for acute infarction. EXTRA-AXIAL SPACES: No fluid collections. ORBITS AND GLOBE: Old appearing surgical -traumatic changes in the right globe. CALVARIUM: No fracture. PARANASAL SINUSES: Right sphenoid sinus fluid level. Left maxillary and ethmoid sinus opacification- mucosal thickening. SOFT TISSUES: No mass or hematoma. OTHER: No other significant finding. IMPRESSION: NO ACUTE INTRACRANIAL FINDINGS.Right sphenoid sinus fluid level. Left maxillary and eth moid sinus opacification-mucosal thickening.Old appearing surgical -traumatic changes in the right gl obe. EVIDENCE OF ACUTE STROKE: NO. TECHNICAL DOCUMENTATION: JOB ID: [id number] [place]-72 Quality ID # [id number]: Final reports with documentation of one or more dose reduction techniques (e.g., Au tomated exposure control, adjustment of the mA and/or kV according to patient size, use of iterative reconstruction technique) 2010 [employer]- All Rights Reserved Reading location - IP/workstation name: [email or web address]
[2018-10-12 18:20] LABS: TROPONIN I < 0.012 ng/mL
[2018-10-12 19:22] LABS: APPEARANCE,URINE CLEAR; BILIRUBIN,URINE NEGATIVE (NEGATIVE); COLOR,URINE STRAW; GLUCOSE, URINE NEGATIVE (NEGATIVE); KETONES,URINE NEGATIVE (NEGATIVE); LEUKOCYTE ESTERASE,URINE NEGATIVE (NEGATIVE); NITRITE,URINE NEGATIVE (NEGATIVE); PROTEIN,URINE NEGATIVE (NEGATIVE); URINE SPECIFIC GRAVITY 1.008; UROBILINOGEN,URINE NEGATIVE mg/dL (<2.0)
--- NOTE | 2018-10-12 20:06 | EKG REPORT ---
SEVERITY:- ABNORMAL ECG - SINUS RHYTHM LEFT VENTRICULAR HYPERTROPHY BORDERLINE ST ELEVATION, ANTEROLATERAL LEADS : Confirmed by: Judy Loya MD 12-Oct-2018 20:05:04
--- NOTE | 2018-10-12 20:22 | ER Document Report ---
ED Neuro Symptoms/Deficit - General Chief Complaint: Numbness of Face Stated Complaint: FACE AND HEAD NUMBNESS Time Seen by Provider: 10/12/18 17:13 Primary Care Provider: SOTO LUJAN MD [Primary Care Provider] - Follow up as needed Mode of Arrival: Ambulatory Information source: Patient TRAVEL OUTSIDE OF THE [place] IN LAST 30 DAYS: No - HPI Patient complains to provider of: Paresthesia Onset: This afternoon - 3:30 PM today. Symptoms are: Intermittent episodes Duration: Gone now Quality of pain: No pain Severity: None Pain Level: Denies Context: None Loss of consciousness: No loss of consciousness Was STROKE ALERT Called: No Baseline Cognitive: Alert, oriented X 3 Baseline Gait: Walks w/o assistance Patient Orientation: Person, Place, Time, Events Decreased ability to stand/walk: denies: Weak, Difficult Associated symptoms: None Similar symptoms previously: No Recently seen / treated by doctor: No Notes: Patient said about 3:30 PM today he had a sudden onset of head and facial numbness which has now resolved. He has no other complaints currently. No focal weakness. - Related Data Allergies/Adverse Reactions: No Known Allergies Allergy (Verified 09/17/18 07:27) Past Medical History - General Information source: Patient - Social History Smoking Status: Former Smoker Chew tobacco use (# tins/day): No Frequency of alcohol use: None Drug Abuse: None Family History: Reviewed & Not Pertinent Patient has suicidal ideation: No Patient has homicidal ideation: No - Past Medical History Cardiac Medical History: Reports: Hx Hypercholesterolemia, Hx Hypertension Pulmonary Medical History: Reports: Hx Asthma, Hx COPD Endocrine Medical History: Reports: Hx Diabetes Mellitus Type 2 Renal/ Medical History: Denies: Hx Peritoneal Dialysis GI Medical History: Denies: Hx Endoscopy Musculoskeletal Medical History: Reports Hx Arthritis Psychiatric Medical History: Reports: Hx Depression Past Surgical History: Reports: Hx Orthopedic Surgery - back/rupture disc Review of Systems - Review of Systems Constitutional: No symptoms reported EENT: No symptoms reported Cardiovascular: No symptoms reported Respiratory: No symptoms reported Gastrointestinal: No symptoms reported Genitourinary: No symptoms reported Male Genitourinary: No symptoms reported Musculoskeletal: No symptoms reported Skin: No symptoms reported Hematologic/Lymphatic: No symptoms reported Neurological/Psychological: Numbness -: Yes All other systems reviewed and negative Physical Exam - Vital signs Vitals: Temp Pulse Resp BP Pulse Ox 97.9 F 96 16 127/71 H 97 10/12/18 16:30 10/12/18 16:30 10/12/18 16:30 10/12/18 16:30 10/12/18 16:30 Interpretation: Normal - General General appearance: Appears well, Alert In distress: None - HEENT Head: Normocephalic, Atraumatic Eyes: Normal Pupils: PERRL Notes: Legally blind right eye. - Respiratory Respiratory status: No respiratory distress Chest status: Nontender Breath sounds: Normal Chest palpation: Normal - Cardiovascular Rhythm: Regular Heart sounds: Normal auscultation Murmur: No - Abdominal Inspection: Normal Distension: No distension Bowel sounds: Normal Tenderness: Nontender Organomegaly: No organomegaly - Back Back: Normal, Nontender - Extremities General upper extremity: Normal inspection, Nontender, Normal color, Normal ROM, Normal temperature General lower extremity: Normal inspection, Nontender, Normal color, Normal ROM, Normal temperature, Normal weight bearing. No: Dalton's sign - Neurological Neuro grossly intact: Yes Cognition: Normal Orientation: AAOx4 [place] Coma Scale Eye Opening: Spontaneous [place] Coma Scale Verbal: Oriented [place] Coma Scale Motor: Obeys Commands [place] Coma Scale Total: 15 Speech: Normal Motor strength normal: LUE, RUE, LLE, RLE Sensory: Normal Notes: NIHSS is zero. - Psychological Associated symptoms: Normal affect, Normal mood - Skin Skin Temperature: Warm Skin Moisture: Dry Skin Color: Normal Course - Re-evaluation Re-evalutation: 10/12/18 20:29 On reevaluation, patient said his symptoms has completely resolved. He will be discharged home to follow-up with his primary care doctor tomorrow morning. - Vital Signs Vital signs: Temp Pulse Resp BP Pulse Ox 98.2 F 86 18 141/64 H 96 10/12/18 20:44 10/12/18 20:44 10/12/18 20:44 10/12/18 20:44 10/12/18 20:44 - Laboratory Result Diagrams: 10/12/18 17:30 10/12/18 17:30 Laboratory results interpreted by me: 10/12/18 10/12/18 10/12/18 17:30 17:30 18:38 Seg Neutrophils % 27.8 L Lymphocytes % 57.5 H Absolute Neutrophils 1.4 L Carbon Dioxide 32 H Urine Ascorbic Acid 20 H - Diagnostic Test Radiology reviewed: Reports reviewed Radiology results interpreted by me: 10/12/18 20:[address] scan shows sinusitis otherwise unremarkable. No evidence of stroke. Chest x-ray is negative. - Transfer of Care Notes: 10/12/18 20:30 I consulted the patient's primary care doctor (Dr. Lujan). He recommend discharging patient home to follow-up in his clinic tomorrow morning. Discharge - Discharge Clinical Impression: Paresthesias/numbness Sinusitis Qualifiers: Sinusitis location: unspecified location Chronicity: unspecified Qualified Cod e(s): J32.9 - Chronic sinusitis, unspecified Condition: Stable Disposition: HOME, SELF-CARE Instructions: Numbness or Paresthesia ([facility]), Sinusitis ([facility]) Additional Instructions: Please follow-up with your regular doctor (Dr. Lujan) tomorrow morning in his clinic. Return to the emergency room if your condition worsens. Prescriptions: Amox Tr/Potassium Clavulanate [Augmentin 875-125 Tablet] 1 tab PO BID 10 Days #20 tablet Referrals: SOTO LUJAN MD [Primary Care Provider] - Follow up as needed
[2018-10-12 20:46] VITALS: BP 141/64
== END 2018-10-12 20:51 | disposition home or self-care (01) ==
LOC: ER 16:25
DX: J32.9 Chronic sinusitis, unspecified (principal); R20.2 Paresthesia of skin; Z87.891 Personal history of nicotine dependence; I10 Essential (primary) hypertension; J44.9 Chronic obstructive pulmonary disease, unspecified; E11.9 Type 2 diabetes mellitus without complications
CPT/HCPCS: 93005; 99284; 36415; 82553; 82550; 85025; 85610; 85730; 80053; 81001; 84484; 71046; 70450; 93010; A9270